=== PATIENT | male | born 1945 | race Caucasian/White ===

== ENCOUNTER 2018-03-26 20:44 | Inpatient (IN) | payer MEDICARE ==
[2018-03-26] MEDS ORDERED: SODIUM CHLORIDE 0.9% 1,000 ML IV STA ×2 (22:34→22:35)
[2018-03-27] MEDS ORDERED: PIPERACILLIN-TAZO 3.375 GM/50 ML PMX BAG ONE (00:30)
[2018-03-27 04:38] LABS: Basophils # (A) 0.1 k/uL (0-0.2); Basophils % (A) 1 %; Eosinophils # (A) 0.5 k/uL (0-0.7); Eosinophils % (A) 4 %; HGB 15.3 gm/dL (13.0-17.5); Lymphocytes % (A) 24 %; MCH 32.1 pg (25.0-35.0); MCHC 33.2 g/dL (31.0-37.0); MCV 96.8 fL (80.0-100.0); Mean Platelet Volume 6.9; Monocytes # (A) 0.6 k/uL (0-1.0); Monocytes % (A) 5 %; Neutrophils # (A) 8.1 k/uL (1.3-7.7); Neutrophils % (A) 66 %; Platelet Count 345 k/uL (150-450); RBC 4.76 m/uL (4.30-5.90); RDW 14.3 % (11.5-15.5); WBC 12.4 k/uL (3.8-10.6)
[2018-03-27 04:39] LABS: Mucus,Urine Rare /hpf; RBC,Urine 1 /hpf (0-5); WBC,Urine 1 /hpf (0-5)
[2018-03-27 04:41] LABS: Appearance,Urine Clear (Clear); Bilirubin,Urine Negative (Negative); Blood,Urine Negative (Negative); Color,Urine Light Yellow; Glucose,Urine (UA) Negative (Negative); Ketones,Urine Negative (Negative); Leukocyte Esterase,Urine Negative (Negative); Nitrite,Urine Negative (Negative); Protein,Urine 1+ (Negative); Specific Gravity,Urine 1.008 (1.001-1.035); Urobilinogen,Urine <2.0 mg/dL (<2.0)
[2018-03-27 04:52] LABS: Calcium 9.6 mg/dL (8.4-10.2); Potassium 6.1 mmol/L (3.5-5.1); Total Bilirubin 0.7 mg/dL (0.2-1.3); Total Protein 7.2 g/dL (6.3-8.2)
--- NOTE | 2018-03-27 08:08 | P.GSHP ---
History of Present Illness H&P Date: 03/27/18 Chief Complaint: Abdominal pain The patient is a 72-year-old man that began having vague abdominal pain couple of days ago. He got progressively worse so he came into the emergency department. Workup showed evidence of acute appendicitis and likely perforation with evidence of extraluminal air. He hasn't had abdominal surgery before. She had some loss of appetite and nausea. Low-grade fevers. - Review of Systems All systems: negative Past Medical History Past Medical History: COPD Additional Past Medical History / Comment(s): enlarged prostate History of Any Multi-Drug Resistant Organisms: None Reported Additional Past Surgical History / Comment(s): cataract. bipass done in both legs. Inguinal hernia repair. Past Psychological History: No Psychological Hx Reported Smoking Status: Current every day smoker Past Alcohol Use History: None Reported Past Drug Use History: None Reported Medications and Allergies Home Medications Medication Instructions Recorded Confirmed Type Acetaminophen [Tylenol Arthritis] 1,300 mg PO QAM 03/26/18 03/26/18 History Aspirin EC [Ecotrin Low Dose] 81 mg PO DAILY 03/26/18 03/26/18 History Esomeprazole Magnesium [NexIUM 40 mg PO DAILY 03/26/18 03/26/18 History 24Hr] Finasteride [Proscar] 5 mg PO DAILY 03/26/18 03/26/18 History Allergies Allergy/AdvReac Type Severity Reaction Status Date / Time No Known Allergies Allergy Verified 03/26/18 22:11 Surgical - Exam Osteopathic Statement: *. No significant issues noted on an osteopathic structural exam other than those noted in the History and Physical/Consult. Vital Signs Temp Pulse Resp BP Pulse Ox 98.5 F 72 16 155/74 96 03/26/18 21:49 03/26/18 21:49 03/26/18 21:49 03/26/18 21:49 03/26/18 21:49 - General well developed, well nourished, no distress - Eyes normal ocular movement - ENT normal mucosa - Neck trachea midline - Respiratory normal expansion, normal respiratory effort, clear to auscultation - Cardiovascular Rhythm: regular - Abdomen Abdomen: soft, tender (Right lower quadrant), bowel sounds (Bowel sounds are extremely hypoactive), guarding (Voluntary guarding right lower quadrant) Hernia: no umbilical Results - Labs 03/26/18 23:00 03/26/18 23:00 Abnormal Lab Results - Last 24 Hours (Table) 03/26/18 03/26/18 03/27/18 Range/Units 23:00 23:00 00:05 WBC 12.4 H (3.8-10.6) k/uL Neutrophils # 8.1 H (1.3-7.7) k/uL Potassium 6.1 H (3.5-5.1) mmol/L Creatinine 1.50 H (0.66-1.25) mg/dL Urine Protein 1+ H (Negative) Urine Mucus Rare H (None) /hpf Diabetes panel 03/26/18 Range/Units 23:00 Sodium 139 (137-145) mmol/L Potassium 6.1 H (3.5-5.1) mmol/L Chloride 106 (98-107) mmol/L Carbon Dioxide 24 (22-30) mmol/L BUN 17 (9-20) mg/dL Creatinine 1.50 H (0.66-1.25) mg/dL Glucose 91 (74-99) mg/dL Calcium 9.6 (8.4-10.2) mg/dL AST 29 (17-59) U/L ALT 25 (21-72) U/L Alkaline Phosphatase 61 (38-126) U/L Total Protein 7.2 (6.3-8.2) g/dL Albumin 4.0 (3.5-5.0) g/dL Calcium panel 03/26/18 Range/Units 23:00 Calcium 9.6 (8.4-10.2) mg/dL Albumin 4.0 (3.5-5.0) g/dL Pituitary panel 03/26/18 Range/Units 23:00 Sodium 139 (137-145) mmol/L Potassium 6.1 H (3.5-5.1) mmol/L Chloride 106 (98-107) mmol/L Carbon Dioxide 24 (22-30) mmol/L BUN 17 (9-20) mg/dL Creatinine 1.50 H (0.66-1.25) mg/dL Glucose 91 (74-99) mg/dL Calcium 9.6 (8.4-10.2) mg/dL Adrenal panel 03/26/18 Range/Units 23:00 Sodium 139 (137-145) mmol/L Potassium 6.1 H (3.5-5.1) mmol/L Chloride 106 (98-107) mmol/L Carbon Dioxide 24 (22-30) mmol/L BUN 17 (9-20) mg/dL Creatinine 1.50 H (0.66-1.25) mg/dL Glucose 91 (74-99) mg/dL Calcium 9.6 (8.4-10.2) mg/dL Total Bilirubin 0.7 (0.2-1.3) mg/dL AST 29 (17-59) U/L ALT 25 (21-72) U/L Alkaline Phosphatase 61 (38-126) U/L Total Protein 7.2 (6.3-8.2) g/dL Albumin 4.0 (3.5-5.0) g/dL - Imaging CT scan - abdomen: report reviewed Assessment and Plan (1) Acute appendicitis with localized peritonitis Current Visit: Yes Status: Acute Code(s): K35.3 - ACUTE APPENDICITIS WITH LOCALIZED PERITONITIS SNOMED Code(s): 381550451 (2) Peripheral vascular disease Current Visit: Yes Status: Acute Code(s): I73.9 - PERIPHERAL VASCULAR DISEASE, UNSPECIFIED SNOMED Code(s): 700909245 (3) COPD (chronic obstructive pulmonary disease) Current Visit: Yes Status: Acute Code(s): J44.9 - CHRONIC OBSTRUCTIVE PULMONARY DISEASE, UNSPECIFIED SNOMED Code(s): 34979708 Plan: Plan is laparoscopic appendectomy possible open. Due to the inflammatory change in the right lower quadrant I think his chance of open appendectomy is higher. Procedure risks and complications were discussed. Questions were encouraged and answered. We'll do that for him today.
[2018-03-27] MEDS ORDERED: PANTOPRAZOLE 40 MG/10 ML VIAL IVP STA (08:31)
[2018-03-27] MEDS ORDERED: metroNIDAZOLE-NS PMX 500 MG in SALINE 1 100ML.BAG IVPB STA (08:31)
[2018-03-27] MEDS: DEXTROSE 5%-0.45% NACL 1,000 ML IV SCH ×2 (08:53→22:22)
[2018-03-27] MEDS: ceFAZolin IN SWFI 2 GM/20 ML SYRINGE IVP STA ×2 (08:53→16:30)
--- NOTE | 2018-03-27 09:04 | CT ---
EXAM: CT Abdomen and Pelvis With Intravenous Contrast CLINICAL HISTORY: RLQ abd pain, nhp097/80ml injected, 20ml not used. hx: hernia repair, one kidney, GFR good and injection per Dr. Duval and risks explained to patient about having one kidney. DLP: 1868.90 TECHNIQUE: Axial computed tomography images of the abdomen and pelvis with intravenous contrast. CTDI is 41.20 mGy and DLP is 1868.90 mGy-cm. This CT exam was performed using one or more of the following dose reduction techniques: automated exposure control, adjustment of the mA and/or kV according to patient size, and/or use of iterative reconstruction technique. COMPARISON: None FINDINGS: Liver: Hepatic steatosis. Hepatomegaly versus Cira's lobe configuration. No focal lesion. Spleen: Nonspecific small hypodensity in the posterior spleen. Gallbladder: Normal. No stones or biliary dilatation. Pancreas: Normal. No mass. Adrenal glands: Normal. No mass. Kidneys: Severely atrophic right kidney with dystrophic calcifications. Renal vascular calcifications on the left. No hydronephrosis or obstructing stone. Small hypodensity in the left kidney is too small to definitively characterize. Bowel: Prominent inflammatory changes of the distal appendix, compatible with acute appendicitis. No bowel obstruction. Mildly prominent gas and fluid-filled small bowel loops are nonspecific but may represent ileus or enteritis. Urinary bladder: Mild prominence of the bladder wall may underdistention. Reproductive organs: Severe prostatomegaly protruding into the base of the bladder. Muscles: No mass. Subcutaneous tissues: Postsurgical changes in the left inguinal region. Peritoneal space: Normal. No free fluid. Lymph nodes: Normal. No lymphadenopathy. Vessels: Normal. No aneurysm or dissection. Bones: Lumbosacral transitional anatomy. Degenerative changes of the spine. No acute fracture or bony lesion. Lung bases: Mild dependent atelectasis bilaterally. Borderline size of the heart. IMPRESSION: 1. Distal acute appendicitis with trace surrounding free fluid which may represent microperforations. No fluid collection or free air. 2. No bowel obstruction. Mildly prominent gas and fluid filled small bowel loops are nonspecific but may represent ileus or enteritis. 3. Prominence of the wall of the bladder may be at least in part accentuated by underdistention. Please correlate with urinalysis if concerned for cystitis. 4. Severe prostatomegaly which protrudes into the base of the bladder. Critical Value Communications 03/27/18 01:32 Call Doctor Regarding Appendicitis, called SILVESTRE Allen on 03/27 01:28 (-04:00)
[2018-03-27] MEDS ORDERED: HYDROmorphone 0.5 MG/0.5 ML SYRINGE IVP PRN (12:25)
[2018-03-27] MEDS ORDERED: IV FLUID CONTINUATION 1,000 ML IV ONE (15:29)
[2018-03-27] MEDS ORDERED: BUPIVACAINE (PF) 0.5% 30 ML VIAL SQ ONE (15:52)
[2018-03-27] MEDS ORDERED: ceFAZolin IN SWFI 2 GM/20 ML SYRINGE IVP SCH (16:00)
[2018-03-27] MEDS ORDERED: metroNIDAZOLE-NS PMX 500 MG in SALINE 1 100ML.BAG IVPB SCH (16:00)
[2018-03-27] MEDS ORDERED: ceFAZolin 2,000 MG in DEXTROSE/WATER 1 50ML.BAG IVPB SCH (16:00)
[2018-03-27] MEDS ORDERED: fentaNYL (PF) 50 MCG/ML 2 ML AMP ONE (16:19)
[2018-03-27] MEDS ORDERED: ROCURONIUM BROMIDE 10 MG/ML 10 ML VIAL IV ONE (16:19)
[2018-03-27] MEDS ORDERED: PROPOFOL 10 MG/ML 20 ML VIAL IV ONE (16:19)
[2018-03-27] MEDS ORDERED: MIDAZOLAM 2 MG/2 ML VIAL ONE (16:19)
[2018-03-27] MEDS ORDERED: LIDOCAINE 1% INJ 10MG/ML (20 ML MDV) ONE (16:19)
[2018-03-27] MEDS ORDERED: GLYCOPYRROLATE 0.2 MG/ML 2 ML VIAL ONE (16:19)
[2018-03-27] MEDS ORDERED: NEOSTIGMINE 1 MG/ML 10 ML VIAL ONE (16:19)
[2018-03-27] MEDS ORDERED: ePHEDrine SULFATE/0.9% NACL/PF 50 MG/5 ML SYRINGE IV ONE (16:19)
[2018-03-27] MEDS ORDERED: SUCCINYLCHOLINE CHLORIDE VIAL 200 MG/10 ML VIAL IV ONE (16:19)
[2018-03-27] MEDS ORDERED: HYDROmorphone 1 MG/ML 1 ML SYRINGE IVP PRN ×2 (17:45→18:56)
[2018-03-27] MEDS ORDERED: HYDROmorphone 1 MG/ML 1 ML SYRINGE IVP ONE (18:22)
[2018-03-27] MEDS ORDERED: NALOXONE 0.4 MG/ML 1 ML VIAL IV PRN (18:56)
[2018-03-27] MEDS ORDERED: METOCLOPRAMIDE 5 MG/ML 2 ML VIAL IVP PRN (18:56)
[2018-03-27] MEDS ORDERED: ONDANSETRON 4 MG/2 ML VIAL IVP PRN (18:56)
--- NOTE | 2018-03-27 19:02 | P.OP ---
Date of Procedure: 03/27/18 Preoperative Diagnosis: Acute appendicitis with perforation Postoperative Diagnosis: Acute gangrenous appendicitis with perforation and abscess Procedure(s) Performed: Laparoscopic appendectomy with placement of drain Anesthesia: JONATHAN Surgeon: Traci Narayan Estimated Blood Loss (ml): 100 Pathology: other (Appendix) Condition: stable Disposition: PACU Indications for Procedure: The patient had been having abdominal pain for several days. He presented to the ER and workup showed acute appendicitis with perforation Description of Procedure: The patient's taken the operative suite was prepped and draped in the usual sterile manner under general endotracheal anesthetic. An infraumbilical incision was made and a Veress needle was placed into the abdominal cavity. Pneumoperitoneum was established with CO2 gas. Sites are chosen for accessory trochars and these are placed through small skin incisions. He has a little purulent material along the paracolic gutter and pelvis. The appendix is very inflamed with loops of small bowel adherent to it. These are carefully dissected off in a blunt manner. There was noted to be an abscess cavity and purulent material was aspirated. Where the appendix attached to the cecum it appeared fairly healthy. The mesentery was opened and the base of the appendix was ligated with a linear stapler. The mesentery was then tediously taken down with harmonic scissors. The specimen was placed into a specimen retrieval bag. The Ellik gutters and pelvis were then irrigated and aspirated. The cecum, small bowel appeared unremarkable. A channel drain was placed so it lay along the right paracolic gutter and into the pelvis. The pneumoperitoneum was then released. The trochars were removed. The skin and fascial incisions at the umbilicus had to be extended for removal of the appendix which is markedly enlarged was hard indurated mesentery. The fashion peritoneum at the umbilicus was closed with 0 Vicryl. The skin incisions were closed with rubia. Dressings were applied. He tolerated the procedure without difficulty was taken recovery room in satisfactory condition. According to or personnel, all counts were correct.
[2018-03-28] MEDS: metroNIDAZOLE-NS PMX 500 MG in SALINE 1 100ML.BAG IVPB SCH ×3 (04:18→19:21)
[2018-03-28] MEDS: HYDROcodone/APAP 5-325MG 1 EACH TAB PO PRN ×3 (04:22→18:21)
[2018-03-28] MEDS: ceFAZolin IN SWFI 2 GM/20 ML SYRINGE IVP SCH ×3 (05:59→22:10)
[2018-03-28 07:15] LABS: Basophils % (A) 0 %; Eosinophils # (A) 0.1 k/uL (0-0.7); Eosinophils % (A) 1 %; HCT 45.1 % (39.0-53.0); HGB 14.1 gm/dL (13.0-17.5); Lymphocytes # (A) 2.4 k/uL (1.0-4.8); Lymphocytes % (A) 19 %; MCH 30.7 pg (25.0-35.0); MCHC 31.2 g/dL (31.0-37.0); MCV 98.3 fL (80.0-100.0); Mean Platelet Volume 6.6; Monocytes # (A) 0.8 k/uL (0-1.0); Monocytes % (A) 6 %; Neutrophils # (A) 9.3 k/uL (1.3-7.7); Neutrophils % (A) 73 %; Platelet Count 341 k/uL (150-450); RBC 4.59 m/uL (4.30-5.90); WBC 12.8 k/uL (3.8-10.6)
[2018-03-28 07:26] LABS: Calcium 8.7 mg/dL (8.4-10.2); Potassium 4.7 mmol/L (3.5-5.1)
[2018-03-28] MEDS: PANTOPRAZOLE 40 MG/10 ML VIAL IVP SCH (09:18)
[2018-03-28] MEDS: DEXTROSE 5%-0.45% NACL 1,000 ML IV SCH (09:20)
--- NOTE | 2018-03-28 10:48 | P.PN ---
Subjective Progress Note Date: 03/28/18 Principal diagnosis: Status post laparoscopic appendectomy for acute appendicitis with abscess Patient's postoperative day 1 from laparoscopic appendectomy appendectomy with drainage of an abscess. He's feeling somewhat better than preop. Denies nausea or vomiting. Pain is controlled. Objective - Vital Signs Vital signs: Vital Signs Temp 98.5 F 03/28/18 09:26 Pulse 71 03/28/18 09:26 Resp 16 03/28/18 09:28 BP 148/79 03/28/18 09:26 Pulse Ox 90 L 03/28/18 09:26 Intake & Output 03/27/18 03/28/18 03/28/18 18:59 06:59 18:59 Intake Total 550 460 500 Output Total 260 1070 30 Balance 290 -610 470 Intake: IV 550 Intake, IV Titration 220 Amount ceFAZolin 2,000 mg In 20 Dextrose/Water 1 50ml.bag @ 100 mls/hr IVPB Q8HR DAVID Rx#:[id number] metroNIDAZOLE-NS PMX 500 200 mg In Saline 1 100ml.bag @ 100 mls/hr IVPB Q8H DAVID Rx#:[id number] Oral 240 500 Output: Drainage 70 30 Anterior Abdomen 70 30 Urine 250 Estimated Blood Loss 10 1000 Other: Voiding Method Toilet Urinal # Voids 1 - Constitutional General appearance: Present: cooperative, no acute distress - Respiratory Respiratory: bilateral: CTA, diminished (Mildly at the bases) - Cardiovascular Rhythm: regular - Gastrointestinal General gastrointestinal: Present: decreased bowel sounds, soft Localized gastrointestinal: surgical scar: diffuse (Dressings are intact clean and dry. LAUREN is serosanguineous) - Labs CBC & Chem 7: 03/28/18 06:33 03/28/18 06:33 Labs: Abnormal Lab Results - Last 24 Hours (Table) 03/28/18 03/28/18 Range/Units 06:33 06:33 WBC 12.8 H (3.8-10.6) k/uL Neutrophils # 9.3 H (1.3-7.7) k/uL Creatinine 1.50 H (0.66-1.25) mg/dL Assessment and Plan (1) Acute appendicitis with perforation and peritoneal abscess Current Visit: Yes Status: Acute Code(s): K35.3 - ACUTE APPENDICITIS WITH LOCALIZED PERITONITIS SNOMED Code(s): 17119434 (2) Peripheral vascular disease Current Visit: Yes Status: Acute Code(s): I73.9 - PERIPHERAL VASCULAR DISEASE, UNSPECIFIED SNOMED Code(s): 776072116 (3) COPD (chronic obstructive pulmonary disease) Current Visit: Yes Status: Acute Code(s): J44.9 - CHRONIC OBSTRUCTIVE PULMONARY DISEASE, UNSPECIFIED SNOMED Code(s): 94760288 Plan: We'll continue him on IV and probiotics couple of days. Monitor the LAUREN drain. Encourage activity. Questions were encouraged and answered.
--- NOTE | 2018-03-28 13:57 | P.CONS ---
History of Present Illness - Reason for Consult Consult date: 03/28/18 Medical management - Chief Complaint Abdominal pain - History of Present Illness This is a 72-year-old male patient of Dr. Curiel with a past medical history of COPD, gastroesophageal reflux disease, hyperlipidemia, osteoarthritis , benign prostatic hypertrophy, congenital single kidney followed by Dr. Roper , gastric ulcer, cluster headaches, peripheral vascular disease, tobacco use and dependence. Patient gives history of sharp right lower quadrant pain and been going on for couple of days. Family relate that he has gone to the [address] [place] [address] and has had difficulty walking can only make it about 20 feet. He finally came into [facility] emergency center late on the evening of Sunday and on CAT scan was found to have a distal acute appendicitis with trace surrounding free fluid with possible microperforations. No bowel obstruction. Prominence of the wall of the bladder, severe prostatomegaly. Patient subsequently underwent laparoscopic appendectomy and placement of a drain for acute gangrenous appendicitis with perforation and abscess. Patient has been placed on Kefzol and Flagyl. He is currently on a clear liquid diet which she is tolerating. He states he is feeling a little bit better from when he came into the hospital. There was difficulty keeping his pulse ox up during the night and there is concern for obstructive sleep apnea which patient will need workup as an outpatient. Review of Systems All systems: negative Constitutional: Reports poor appetite, Denies chills, Denies fever Eyes: denies blurred vision, denies pain Ears, nose, mouth and throat: Denies headache, Denies sore throat Cardiovascular: Denies chest pain, Denies shortness of breath Respiratory: Denies cough, Denies cough with sputum, Denies dyspnea, Denies excessive sputum, Denies hemoptysis, Denies home oxygen, Denies wheezing Gastrointestinal: Reports abdominal pain, Denies diarrhea, Denies nausea, Denies vomiting Genitourinary: Denies dysuria, Denies urinary retention Musculoskeletal: Denies myalgias Integumentary: Denies pruritus, Denies rash Neurological: Denies numbness, Denies weakness Psychiatric: Denies anxiety, Denies depression Endocrine: Denies fatigue, Denies weight change Past Medical History Past Medical History: COPD, GERD/Reflux, Hyperlipidemia, Osteoarthritis (OA), Pneumonia, Prostate Disorder, Vascular Disorder Additional Past Medical History / Comment(s): 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 History of Any Multi-Drug Resistant Organisms: None Reported Additional Past Surgical History / Comment(s): L fempop bypass, R femfem bypass , inguinal hernia repair (does not recall laterallity), bilateral cataract removal with lens implants. Past Anesthesia/Blood Transfusion Reactions: No Reported Reaction Smoking Status: Current every day smoker Additional Past Alcohol Use History / Comment(s): Patient is a smoker of 2 packs per day since he was 9 years of age. He drinks alcohol occasionally. He denies any marijuana or street drug use. He lives at home with his . 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 - Past Family History Father Family Medical History: COPD, Myocardial Infarction (AK) Additional Family Medical History / Comment(s): Father from a AK at the age of 59yrs. Mother Family Medical History: Cancer Additional Family Medical History / Comment(s): Mother from stomach cancer when she was 58 or 59 yrs old. Medications and Allergies Home Medications Medication Instructions Recorded Confirmed Type Acetaminophen [Tylenol Arthritis] 1,300 mg PO QAM 03/26/18 03/26/18 History Aspirin EC [Ecotrin Low Dose] 81 mg PO DAILY 03/26/18 03/26/18 History Esomeprazole Magnesium [NexIUM 40 mg PO DAILY 03/26/18 03/26/18 History 24Hr] Finasteride [Proscar] 5 mg PO DAILY 03/26/18 03/26/18 History Allergies Allergy/AdvReac Type Severity Reaction Status Date / Time No Known Allergies Allergy Verified 03/26/18 22:11 Physical Exam Vitals: Vital Signs Temp Pulse Pulse Resp BP BP Pulse Ox 03/28/18 09:28 16 03/28/18 09:26 98.5 F 71 16 148/79 90 L 03/28/18 01:45 98.1 F 74 16 152/76 100 03/28/18 00:00 61 47 L 15 03/27/18 21:15 47 L 176/87 03/27/18 21:00 46 L 165/82 03/27/18 20:48 92 15 03/27/18 20:46 98.3 F 15 157/69 92 L 03/27/18 20:45 50 L 164/83 03/27/18 20:30 164/81 03/27/18 20:15 89 164/51 03/27/18 20:00 144/70 03/27/18 19:45 67 179/76 03/27/18 19:30 92 156/86 03/27/18 19:15 97.9 F 65 16 160/74 88 L 03/27/18 19:00 61 16 160/74 97 03/27/18 18:45 61 14 160/74 95 03/27/18 18:30 58 L 16 162/77 100 03/27/18 18:15 56 L 16 172/68 100 03/27/18 18:00 53 L 14 138/77 92 L 03/27/18 17:50 97.3 F L 138/77 96 03/27/18 15:31 98.5 F 66 18 138/74 94 L 03/27/18 14:45 98.7 F 70 18 152/70 91 L 03/27/18 12:30 142/64 03/27/18 12:11 98.7 F 60 15 190/93 94 L Intake and Output 03/27/18 03/28/18 03/28/18 22:59 06:59 14:59 Intake Total 710 300 500 Output Total 1330 30 Balance -620 300 470 Intake: IV 550 Intake, IV Titration 100 120 Amount ceFAZolin 2,000 mg In 20 Dextrose/Water 1 50ml.bag @ 100 mls/hr IVPB Q8HR DAVID Rx#:[id number] metroNIDAZOLE-NS PMX 500 100 100 mg In Saline 1 100ml.bag @ 100 mls/hr IVPB Q8H DAVID Rx#:[id number] Oral 60 180 500 Output: Drainage 70 30 Anterior Abdomen 70 30 Urine 250 Estimated Blood Loss 1010 Other: Voiding Method Toilet Urinal # Voids 1 Gen: This is a 72-year-old obese male. He is in bed and appears to be comfortable. No acute distress. HEENT: Head is atraumatic, normocephalic. Pupils equal, round. Sclerae is anicteric. NECK: Supple. No JVD. No lymphadenopathy. No thyromegaly. LUNGS: Clear to auscultation. No wheezes or rhonchi. No intercostal retractions. HEART: Regular rate and rhythm. No murmur. ABDOMEN: Soft. Bowel sounds are decreased. No masses. Mild tenderness. Dressings in place that are clean and dry. LAUREN drain is draining serosanguineous fluid. EXTREMITIES: No pedal edema. No calf tenderness. Dorsalis pedis +2 bilaterally. NEUROLOGICAL: Patient is awake, alert and oriented x3. Cranial nerves 2 through 12 are grossly intact. Results CBC & Chem 7: 03/28/18 06:33 03/28/18 06:33 Labs: Abnormal Lab Results - Last 24 Hours (Table) 03/28/18 03/28/18 Range/Units 06:33 06:33 WBC 12.8 H (3.8-10.6) k/uL Neutrophils # 9.3 H (1.3-7.7) k/uL Creatinine 1.50 H (0.66-1.25) mg/dL Assessment and Plan Plan: 1. Acute gangrenous appendicitis with perforation and abscess status post laparoscopic appendectomy and drainage of abscess, LAUREN drain placement. Continue current plan per surgery. Continue pain management. Diet is clear liquids. Continue to increase activity. Incentive spirometry to reduce incidence of atelectasis and hospital-acquired pneumonia. Continue Kefzol and Flagyl. 2. COPD without exacerbation. Patient will be placed on nebulizer treatments 3 times daily as needed. 3. Benign prostatic hypertrophy. Continue Proscar 5 mg daily. Monitor for urinary retention. 4. Gastroesophageal reflux disease. Continue Protonix. 5. Peripheral vascular disease, stable. 6. Hyperlipidemia, not on statin. 7. Single kidney with chronic kidney disease stage 3a. Avoid nephrotoxic agents. 8. Possible obstructive sleep apnea. Patient will need outpatient sleep study. 9. Tobacco use and dependence. Nicotine patch. 10. DVT prophylaxis. NATALIYA leal and SCDs. Discharge plan: Return home Impression and plan of care have been directed as dictated by the signing physician. Akilah Guevara nurse practitioner acting as scribe for signing physician.
[2018-03-28] MEDS ORDERED: IPRATROPIUM-ALBUTEROL 3 ML NEB INHALATION PRN (14:13)
[2018-03-28] MEDS: FINASTERIDE 5 MG TAB PO SCH (14:43)
[2018-03-29] MEDS: DEXTROSE 5%-0.45% NACL 1,000 ML IV SCH ×3 (05:03→20:37)
[2018-03-29] MEDS: metroNIDAZOLE-NS PMX 500 MG in SALINE 1 100ML.BAG IVPB SCH ×3 (05:04→20:33)
[2018-03-29] MEDS: ceFAZolin IN SWFI 2 GM/20 ML SYRINGE IVP SCH ×3 (06:02→22:42)
[2018-03-29 07:14] VITALS: RESP 16
[2018-03-29] MEDS: FINASTERIDE 5 MG TAB PO SCH (08:08)
[2018-03-29] MEDS: PANTOPRAZOLE 40 MG/10 ML VIAL IVP SCH (08:08)
--- NOTE | 2018-03-29 09:50 | P.PN ---
Subjective Progress Note Date: 03/29/18 Patient is seen on rounds. He's tolerating clear liquid. No flatus yet. He is having some occasional belching. Ambulating well. Pain is controlled. He was started on nebulizers and will be worked up as an outpatient for possible obstructive sleep apnea. Objective - Vital Signs Vital signs: Vital Signs Temp 98.7 F 03/29/18 00:55 Pulse 80 03/29/18 07:22 Resp 16 03/29/18 08:00 BP 141/78 03/29/18 00:55 Pulse Ox 92 L 03/29/18 00:55 Intake & Output 03/28/18 03/29/18 03/29/18 18:59 06:59 18:59 Intake Total 950 720 Output Total 100 70 Balance 850 650 Intake: Oral 950 720 Output: Drainage 100 70 Anterior Abdomen 100 70 Other: Voiding Method Toilet Urinal # Voids 1 - Constitutional General appearance: Present: cooperative, no acute distress - Respiratory Respiratory: bilateral: CTA, diminished (At the bases, left greater than right) - Gastrointestinal General gastrointestinal: Present: decreased bowel sounds, soft Localized gastrointestinal: surgical scar: diffuse (Incisions are intact clean and dry. LAUREN is serous and a little murky) - Labs CBC & Chem 7: 03/28/18 06:33 03/28/18 06:33 Assessment and Plan (1) Acute appendicitis with perforation and peritoneal abscess Current Visit: Yes Status: Acute Code(s): K35.3 - ACUTE APPENDICITIS WITH LOCALIZED PERITONITIS SNOMED Code(s): 22051434 (2) Peripheral vascular disease Current Visit: Yes Status: Acute Code(s): I73.9 - PERIPHERAL VASCULAR DISEASE, UNSPECIFIED SNOMED Code(s): 865616415 (3) COPD (chronic obstructive pulmonary disease) Current Visit: Yes Status: Acute Code(s): J44.9 - CHRONIC OBSTRUCTIVE PULMONARY DISEASE, UNSPECIFIED SNOMED Code(s): 22310310 Plan: A diet will be advanced. Encouraged activity. Monitor the LAUREN drain. Likely ready for discharge in 24-48 hours. Monitor him for development of ileus. The terminal ileum and other small bowel loops were part of the walled off abscess.
--- NOTE | 2018-03-29 15:21 | P.PN ---
Subjective Progress Note Date: 03/29/18 This is a 72-year-old male patient of Dr. Curiel with a past medical history of COPD, gastroesophageal reflux disease, hyperlipidemia, osteoarthritis , benign prostatic hypertrophy, congenital single kidney followed by Dr. Roper , gastric ulcer, cluster headaches, peripheral vascular disease, tobacco use and dependence. Patient gives history of sharp right lower quadrant pain and been going on for couple of days. Family relate that he has gone to the [address] [place] [address] and has had difficulty walking can only make it about 20 feet. He finally came into [facility] emergency center late on the evening of Sunday and on CAT scan was found to have a distal acute appendicitis with trace surrounding free fluid with possible microperforations. No bowel obstruction. Prominence of the wall of the bladder, severe prostatomegaly. Patient subsequently underwent laparoscopic appendectomy and placement of a drain for acute gangrenous appendicitis with perforation and abscess. Patient has been placed on Kefzol and Flagyl. He is currently on a clear liquid diet which she is tolerating. He states he is feeling a little bit better from when he came into the hospital. There was difficulty keeping his pulse ox up during the night and there is concern for obstructive sleep apnea which patient will need workup as an outpatient. 03/29: Patient is tolerating clear liquids. His diet has been advanced for lunch today. He has remained afebrile. White count yesterday 12.8. Patient is planning to return home once he is ready for discharge. Objective - Vital Signs Vital signs: Vital Signs Temp 98.7 F 03/29/18 00:55 Pulse 80 03/29/18 07:22 Resp 16 03/29/18 08:00 BP 141/78 03/29/18 00:55 Pulse Ox 92 L 03/29/18 00:55 Intake & Output 03/28/18 03/29/18 03/29/18 18:59 06:59 18:59 Intake Total 950 720 Output Total 100 70 Balance 850 650 Intake: Oral 950 720 Output: Drainage 100 70 Anterior Abdomen 100 70 Other: Voiding Method Toilet Urinal # Voids 1 2 - Exam Gen: This is a 72-year-old obese male. He is in bed and appears to be comfortable. No acute distress. HEENT: Head is atraumatic, normocephalic. Pupils equal, round. Sclerae is anicteric. NECK: Supple. No JVD. No lymphadenopathy. No thyromegaly. LUNGS: Clear to auscultation. No wheezes or rhonchi. No intercostal retractions. HEART: Regular rate and rhythm. No murmur. ABDOMEN: Soft. Bowel sounds are decreased. No masses. Mild tenderness. Dressings in place that are clean and dry. LAUREN drain is draining serosanguineous fluid. EXTREMITIES: No pedal edema. No calf tenderness. Dorsalis pedis +2 bilaterally. NEUROLOGICAL: Patient is awake, alert and oriented x3. Cranial nerves 2 through 12 are grossly intact. - Labs CBC & Chem 7: 03/28/18 06:33 03/28/18 06:33 Assessment and Plan Plan: 1. Acute gangrenous appendicitis with perforation and abscess status post laparoscopic appendectomy and drainage of abscess, LAUREN drain placement. Continue current plan per surgery. Continue pain management. Diet low fiber. Continue to increase activity. Incentive spirometry to reduce incidence of atelectasis and hospital-acquired pneumonia. Continue Kefzol and Flagyl. 2. COPD without exacerbation. Patient will be placed on nebulizer treatments 3 times daily as needed. 3. Benign prostatic hypertrophy. Continue Proscar 5 mg daily. Monitor for urinary retention. 4. Gastroesophageal reflux disease. Continue Protonix. 5. Peripheral vascular disease, stable. 6. Hyperlipidemia, not on statin. 7. Single kidney with chronic kidney disease stage 3a. Avoid nephrotoxic agents. 8. Possible obstructive sleep apnea. Patient will need outpatient sleep study. 9. Tobacco use and dependence. Nicotine patch. 10. DVT prophylaxis. NATALIYA leal and GEORGESs. Discharge plan: Return home Impression and plan of care have been directed as dictated by the signing physician. Akilah Guevara nurse practitioner acting as scribe for signing physician.
[2018-03-30] MEDS: metroNIDAZOLE-NS PMX 500 MG in SALINE 1 100ML.BAG IVPB SCH ×2 (05:10→14:12)
[2018-03-30] MEDS: ceFAZolin IN SWFI 2 GM/20 ML SYRINGE IVP SCH ×2 (05:10→14:12)
[2018-03-30 06:52] LABS: HCT 41.1 % (39.0-53.0); HGB 13.4 gm/dL (13.0-17.5); MCH 31.7 pg (25.0-35.0); MCHC 32.6 g/dL (31.0-37.0); MCV 97.2 fL (80.0-100.0); Mean Platelet Volume 6.8; Platelet Count 336 k/uL (150-450); RBC 4.23 m/uL (4.30-5.90); WBC 10.3 k/uL (3.8-10.6)
[2018-03-30 07:15] LABS: Calcium 9.2 mg/dL (8.4-10.2); Potassium 4.9 mmol/L (3.5-5.1)
[2018-03-30] MEDS ORDERED: PANTOPRAZOLE 40 MG TABLET PO SCH (07:30)
[2018-03-30 08:08] VITALS: BP 132/77; PULSE 62; TEMP 97
[2018-03-30] MEDS: FINASTERIDE 5 MG TAB PO SCH (08:18)
--- NOTE | 2018-03-30 12:28 | P.PN ---
Subjective Progress Note Date: 03/30/18 This is a 72-year-old male patient of Dr. Curiel with a past medical history of COPD, gastroesophageal reflux disease, hyperlipidemia, osteoarthritis , benign prostatic hypertrophy, congenital single kidney followed by Dr. Roper , gastric ulcer, cluster headaches, peripheral vascular disease, tobacco use and dependence. Patient gives history of sharp right lower quadrant pain and been going on for couple of days. Family relate that he has gone to the [address] [place] [address] and has had difficulty walking can only make it about 20 feet. He finally came into [facility] emergency center late on the evening of Sunday and on CAT scan was found to have a distal acute appendicitis with trace surrounding free fluid with possible microperforations. No bowel obstruction. Prominence of the wall of the bladder, severe prostatomegaly. Patient subsequently underwent laparoscopic appendectomy and placement of a drain for acute gangrenous appendicitis with perforation and abscess. Patient has been placed on Kefzol and Flagyl. He is currently on a clear liquid diet which she is tolerating. He states he is feeling a little bit better from when he came into the hospital. There was difficulty keeping his pulse ox up during the night and there is concern for obstructive sleep apnea which patient will need workup as an outpatient. 03/29: Patient is tolerating clear liquids. His diet has been advanced for lunch today. He has remained afebrile. White count yesterday 12.8. Patient is planning to return home once he is ready for discharge. 03/30: Patient states that he is tolerating his diet well. His abdominal pain is controlled. He has decreased output from his LAUREN drain. Abdominal binder remains in place. He states he has been ambulating without difficulty. Anticipate he will be discharged today. Objective - Vital Signs Vital signs: Vital Signs Temp 97.0 F L 03/30/18 07:54 Pulse 62 03/30/18 07:54 Resp 16 03/30/18 07:54 BP 132/77 03/30/18 07:54 Pulse Ox 92 L 03/30/18 07:54 Intake & Output 03/29/18 03/30/18 03/30/18 18:59 06:59 18:59 Intake Total 637 2027 118 Output Total 50 20 Balance 637 1978 98 Intake: Intake, IV Titration 948 Amount Dextrose 5%-0.45% NaCl 1, 748 000 ml @ 75 mls/hr IV . [id number] DAVID Rx#:[id number] metroNIDAZOLE-NS PMX 500 200 mg In Saline 1 100ml.bag @ 100 mls/hr IVPB Q8H DAVID Rx#:[id number] Oral 637 1080 118 Output: Drainage 50 20 Anterior Abdomen 50 20 Other: Voiding Method Toilet Urinal # Voids 1 2 # Bowel Movements 0 - Exam Gen: This is a 72-year-old obese male. He is in bed and appears to be comfortable. No acute distress. HEENT: Head is atraumatic, normocephalic. Pupils equal, round. Sclerae is anicteric. NECK: Supple. No JVD. No lymphadenopathy. No thyromegaly. LUNGS: Clear to auscultation. No wheezes or rhonchi. No intercostal retractions. HEART: Regular rate and rhythm. No murmur. ABDOMEN: Soft. Bowel sounds are normal. No masses. Mild tenderness. Dressings in place that are clean and dry. LAUREN drain is draining serosanguineous fluid. EXTREMITIES: No pedal edema. No calf tenderness. Dorsalis pedis +2 bilaterally. NEUROLOGICAL: Patient is awake, alert and oriented x3. Cranial nerves 2 through 12 are grossly intact. - Labs CBC & Chem 7: 03/30/18 06:35 03/30/18 06:35 Labs: Abnormal Lab Results - Last 24 Hours (Table) 03/30/18 03/30/18 Range/Units 06:35 06:35 RBC 4.23 L (4.30-5.90) m/uL Creatinine 1.45 H (0.66-1.25) mg/dL Assessment and Plan Plan: 1. Acute gangrenous appendicitis with perforation and abscess status post laparoscopic appendectomy and drainage of abscess, LAUREN drain placement. Continue current plan per surgery. Continue pain management. Diet low fiber. Continue to increase activity. Incentive spirometry to reduce incidence of atelectasis and hospital-acquired pneumonia. Continue Kefzol and Flagyl. 2. COPD without exacerbation. Patient will be placed on nebulizer treatments 3 times daily as needed. 3. Benign prostatic hypertrophy. Continue Proscar 5 mg daily. Monitor for urinary retention. 4. Gastroesophageal reflux disease. Continue Protonix. 5. Peripheral vascular disease, stable. 6. Hyperlipidemia, not on statin. 7. Single kidney with chronic kidney disease stage 3a. Avoid nephrotoxic agents. 8. Possible obstructive sleep apnea. Patient will need outpatient sleep study. 9. Tobacco use and dependence. Nicotine patch. 10. DVT prophylaxis. NATALIYA leal and SCDs. Discharge plan: Return home Impression and plan of care have been directed as dictated by the signing physician. Akilah Guevara nurse practitioner acting as scribe for signing physician.
--- NOTE | 2018-03-30 13:23 | P.PN ---
Subjective Progress Note Date: 03/30/18 Patient doing very well he had a small bowel movement is tolerating a diet vital signs are stable afebrile his pain is well-controlled LAUREN drain is serosanguineous Objective - Vital Signs Vital signs: Vital Signs Temp 97.0 F L 03/30/18 07:54 Pulse 62 03/30/18 07:54 Resp 16 03/30/18 07:54 BP 132/77 03/30/18 07:54 Pulse Ox 92 L 03/30/18 07:54 Intake & Output 03/29/18 03/30/18 03/30/18 18:59 06:59 18:59 Intake Total 637 2028 118 Output Total 50 20 Balance 637 1978 98 Intake: Intake, IV Titration 948 Amount Dextrose 5%-0.45% NaCl 1, 748 000 ml @ 75 mls/hr IV . [id number] DAVID Rx#:[id number] metroNIDAZOLE-NS PMX 500 200 mg In Saline 1 100ml.bag @ 100 mls/hr IVPB Q8H DAVID Rx#:[id number] Oral 637 1080 118 Output: Drainage 50 20 Anterior Abdomen 50 20 Other: Voiding Method Toilet Urinal # Voids 1 2 # Bowel Movements 0 - Constitutional General appearance: Present: cooperative - Respiratory Details: Nonlabored - Cardiovascular Rhythm: regular - Gastrointestinal Gastrointestinal Comment(s): Soft nontender nondistended LAUREN drain serosanguineous incisions clean dry and intact - Psychiatric Psychiatric: Present: A&O x's 3 - Labs CBC & Chem 7: 03/30/18 06:35 03/30/18 06:35 Labs: Abnormal Lab Results - Last 24 Hours (Table) 03/30/18 03/30/18 Range/Units 06:35 06:35 RBC 4.23 L (4.30-5.90) m/uL Creatinine 1.45 H (0.66-1.25) mg/dL Assessment and Plan Assessment: Status post laparoscopic appendectomy Plan: Patient is doing very well he is tolerating his diet his LAUREN drain is serosanguineous. DC LAUREN. Patient may be discharged home with follow-up with Dr. Narayan in 1-2 weeks. He will be discharged home on Augmentin for 7 days
--- NOTE | 2018-04-04 11:25 | P.DS ---
Providers Date of admission: 03/27/18 18:56 Attending physician: Traci Narayan Consults: 03/27/18 14:23 Consult Physician Urgent Consulting Provider: Sourav Morales Reason/Comments: medical management Do you want consulting provider notified?: Yes Placement Type Exists?: Yes Primary care physician: Galileo [facility] Course: Patient was admitted after appendectomy, he had perforated appendix with abscess. Post operativly he progressed well, on 03/30 he was passing BM and tolerating diet, his pain was well controlled and LAUREN was serosang. LAUREN was DCed and patient was discharged home in stable condition with augmentin with instructions to follow up with Dr. Narayan Patient Condition at Discharge: Stable Plan - Discharge Summary Discharge Rx Participant: No New Discharge Prescriptions: New HYDROcodone/APAP 5-325MG [[place] 5-325] 1 - 2 tab PO Q4H PRN #15 tab PRN Reason: Pain Ciprofloxacin HCl [Cipro] 500 mg PO Q12HR #10 tablet metroNIDAZOLE [Flagyl] 500 mg PO TID #15 tab Amoxic-Pot Clav 875-125Mg [Augmentin 875-125] 1 tab PO Q12HR #14 tablet HYDROcodone/APAP 5-325MG [[place] 5-325] 1 tab PO Q6HR PRN 3 Days #12 tab PRN Reason: Pain No Action Esomeprazole Magnesium [NexIUM 24Hr] 40 mg PO DAILY Aspirin EC [Ecotrin Low Dose] 81 mg PO DAILY Acetaminophen [Tylenol Arthritis] 1,300 mg PO QAM Finasteride [Proscar] 5 mg PO DAILY Discharge Medication List Acetaminophen [Tylenol Arthritis] 1,300 mg PO QAM 03/26/18 [History] Aspirin EC [Ecotrin Low Dose] 81 mg PO DAILY 03/26/18 [History] Esomeprazole Magnesium [NexIUM 24Hr] 40 mg PO DAILY 03/26/18 [History] Finasteride [Proscar] 5 mg PO DAILY 03/26/18 [History] Ciprofloxacin HCl [Cipro] 500 mg PO Q12HR #10 tablet 03/29/18 [Rx] HYDROcodone/APAP 5-325MG [[place] 5-325] 1 - 2 tab PO Q4H PRN #15 tab 03/29/18 [Rx ] metroNIDAZOLE [Flagyl] 500 mg PO TID #15 tab 03/29/18 [Rx] Amoxic-Pot Clav 875-125Mg [Augmentin 875-125] 1 tab PO Q12HR #14 tablet [Rx] HYDROcodone/APAP 5-325MG [[place] 5-325] 1 tab PO Q6HR PRN 3 Days #12 tab [Rx] Follow up Appointment(s)/Referral(s): Traci Narayan DO [Doctor of Osteopathic Medicine] - 1 Week (CALL OFFICE TO SCHEDULE FOLLOW APPOINTMENT, OFFICE CLOSED AT TIME OF DISCHARGE.) Galileo Curiel MD [Primary Care Provider] - 1 Week (CALL OFFICE TO SCHEDULE APPOINTMENT, OFFICE CLOSED AT TIME OF DISCHARGE.) Patient Instructions/Handouts: Low Fiber Diet (DC), Open Appendectomy (DC) Activity/Diet/Wound Care/Special Instructions: You may shower. No tub baths for [address] while taking pain pills. Call or return to the emergency department if you develop fever, chills, nausea , vomiting, wound concerns Discharge Disposition: HOME SELF-CARE
== END 2018-03-30 17:00 | disposition home or self-care (01) | DRG 339 ==
LOC: EC 20:44 → 3SUR 03-27 01:43 → OBSVTOIN 03-27 18:56
PROVIDERS: ADMIT Surgery; ATTEND Surgery
PROC: 0DTJ4ZZ Resection of Appendix, Percutaneous Endoscopic Approach (ICD-10-PCS; principal; 2018-03-27 16:00)
DX: K35.3 Acute appendicitis with localized peritonitis (principal); Q60.0 Renal agenesis, unilateral; J44.9 Chronic obstructive pulmonary disease, unspecified; N18.3 Chronic kidney disease, stage 3 (moderate); K21.9 Gastro-esophageal reflux disease without esophagitis; E78.5 Hyperlipidemia, unspecified; M19.041 Primary osteoarthritis, right hand; M19.042 Primary osteoarthritis, left hand; I73.9 Peripheral vascular disease, unspecified; R26.2 Difficulty in walking, not elsewhere classified; G44.009 Cluster headache syndrome, unspecified, not intractable; G47.33 Obstructive sleep apnea (adult) (pediatric); N40.0 Benign prostatic hyperplasia without lower urinary tract symptoms; F17.210 Nicotine dependence, cigarettes, uncomplicated; Z71.6 Tobacco abuse counseling; Z79.82 Long term (current) use of aspirin; Z79.899 Other long term (current) drug therapy; Z86.79 Personal history of other diseases of the circulatory system; Z87.11 Personal history of peptic ulcer disease; Z87.01 Personal history of pneumonia (recurrent); Z98.42 Cataract extraction status, left eye; Z98.41 Cataract extraction status, right eye; Z96.1 Presence of intraocular lens; Z80.0 Family history of malignant neoplasm of digestive organs; Z82.49 Family history of ischemic heart disease and other diseases of the circulatory system; Z82.5 Family history of asthma and other chronic lower respiratory diseases
CPT/HCPCS: 36415; 74177; 80048; 80053; 81001; 82150; 83690; 84132; 85025; 85027; 88304; 94640; 96361; 96365; 96366; 96375; 99285

== ENCOUNTER → 2018-12-06 | Outpatient (CLI) | payer MEDICARE | END | disposition home or self-care (01) | LOC: LABWHC1 10:28 | PROVIDERS: ATTEND Urology | DX: R97.20 Elevated prostate specific antigen [PSA] (principal) | CPT/HCPCS: 36415; 84153 ==

== ENCOUNTER 2019-11-24 09:40 | Inpatient (IN) | payer MEDICARE ==
--- NOTE | 2019-11-24 11:36 | XR ---
EXAMINATION TYPE: XR chest 2V DATE OF EXAM: 11/24/2019 COMPARISON: NONE TECHNIQUE: PA and lateral views submitted. HISTORY: Difficulty breathing FINDINGS: Hypertrophic and degenerative change of the spine. Hyperinflation compatible COPD and there is cardio megaly and pulmonary artery enlargement. Related for pulmonary arterial hypertension. There are subse gmental changes seen in the right lower lobe. IMPRESSION: 1. COPD with patchy right perihilar and lower lobe atelectasis versus pneumonia. 2. Correlate for chronic interstitial pulmonary fibrosis
--- NOTE | 2019-11-24 11:36 | ED ---
General Adult HPI - General Chief complaint: Dizziness Stated complaint: fever Time Seen by Provider: 11/24/19 10:05 Source: patient, family, RN notes reviewed, old records reviewed Mode of arrival: ambulatory Limitations: no limitations - History of Present Illness Initial comments: This is a 74-year-old male who presents emergency Department complaining of having a fever starting about midnight. Patient states she has a dry cough. Patient denies any shortness of breath or difficulty breathing. Patient denies any chest pain or palpitations. Patient states he has been exposed to his grandson was influenza B. Patient denies any abdominal pain patient denies nausea vomiting diarrhea. - Related Data Home Medications Medication Instructions Recorded Confirmed Acetaminophen [Tylenol Arthritis] 1,300 mg PO QAM 03/26/18 11/24/19 Aspirin EC [Ecotrin Low Dose] 81 mg PO DAILY 03/26/18 11/24/19 Esomeprazole Magnesium [NexIUM 40 mg PO DAILY 03/26/18 11/24/19 24Hr] Finasteride [Proscar] 5 mg PO DAILY 03/26/18 11/24/19 Allergies Allergy/AdvReac Type Severity Reaction Status Date / Time No Known Allergies Allergy Verified 11/24/19 11:01 Review of Systems ROS Statement: Those systems with pertinent positive or pertinent negative responses have been documented in the HPI. ROS Other: All systems not noted in ROS Statement are negative. 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 History of Any Multi-Drug Resistant Organisms: None Reported Additional Past Surgical History / Comment(s): L fempop bypass, R femfem bypass, inguinal hernia repair (does not recall laterallity), bilateral cataract removal with lens implants. Past Anesthesia/Blood Transfusion Reactions: No Reported Reaction Past Psychological History: No Psychological Hx Reported Smoking Status: Current every day smoker Past Alcohol Use History: None Reported Past Drug Use History: None Reported - Past Family History Father Family Medical History: COPD, Myocardial Infarction (PA) Additional Family Medical History / Comment(s): Father from a PA at the age of 59yrs. Mother Family Medical History: Cancer Additional Family Medical History / Comment(s): Mother from stomach cancer when she was 58 or 59 yrs old. General Exam - General Exam Comments Initial Comments: GENERAL: Patient is well-developed and well-nourished. Patient is nontoxic and well- hydrated and is in no acute distress. ENT: Neck is soft and supple. No significant lymphadenopathy is noted. Oropharynx is clear. Moist mucous membranes. Neck has full range of motion without eliciting any pain. EYES: The sclera were anicteric and conjunctiva were pink and moist. Extraocular movements were intact and pupils were equal round and reactive to light. Eyelids were unremarkable. PULMONARY: Unlabored respirations. Good breath sounds bilaterally. No audible rales rhonchi or wheezing was noted. CARDIOVASCULAR: There is a regular rate and rhythm without any murmurs gallops or rubs. ABDOMEN: Soft and nontender with normal bowel sounds. SKIN: Skin is clear with no lesions or rashes and otherwise unremarkable. NEUROLOGIC: Patient is alert and oriented x3. Cranial nerves II through XII are grossly intact. Motor and sensory are also intact. Normal speech, volume and content. Symmetrical smile. MUSCULOSKELETAL: Normal extremities with adequate strength and full range of motion. LYMPHATICS: No significant lymphadenopathy is noted PSYCHIATRIC: Normal psychiatric evaluation. Limitations: no limitations Course Vital Signs 11/24/19 11/24/19 11/24/19 10:03 12:12 12:44 Temperature 98.6 F 98.5 F Pulse Rate 55 L 53 L Respiratory 20 16 Rate Blood Pressure 150/78 111/85 O2 Sat by Pulse 94 L 93 L Oximetry 11/24/19 14:27 Temperature Pulse Rate 65 Respiratory 16 Rate Blood Pressure 131/95 O2 Sat by Pulse 95 Oximetry Medical Decision Making - Medical Decision Making EKG shows right bundle branch block at 64 bpm QRS is 162 QT interval is 454 QTC is 468. Patient has no discernible P waves. ST segment depression in the prec ordial leads Chest x-ray shows a possible infiltrate in the right lung. Patient received Rocephin. Patient's troponin came back elevated start the patient heparin give the patient aspirin and Nitropaste. I am easily spoke with Dr. Rollins I sent him EKG and he called me back with his impression of EKG and at this time he did not feel as though catheterization was indicated. I ordered an echo. I spoke with Dr. Guillory she agreed to admit the patient admitted the patient wrote admitting orders. - Lab Data Result diagrams: 11/24/19 12:35 11/24/19 12:35 Lab Results 11/24/19 11/24/19 11/24/19 Range/Units 11:16 12:35 12:35 WBC 10.8 H (3.8-10.6) k/uL RBC 4.67 (4.30-5.90) m/uL Hgb 14.9 (13.0-17.5) gm/dL Hct 46.4 (39.0-53.0) % MCV 99.3 (80.0-100.0) fL MCH 32.0 (25.0-35.0) pg MCHC 32.2 (31.0-37.0) g/dL RDW 14.0 (11.5-15.5) % Plt Count 293 (150-450) k/uL Neutrophils % 76 % Lymphocytes % 17 % Monocytes % 4 % Eosinophils % 1 % Basophils % 0 % Neutrophils # 8.2 H (1.3-7.7) k/uL Lymphocytes # 1.8 (1.0-4.8) k/uL Monocytes # 0.4 (0-1.0) k/uL Eosinophils # 0.1 (0-0.7) k/uL Basophils # 0.0 (0-0.2) k/uL PT 9.6 (9.0-12.0) sec INR 0.9 (<1.2) APTT 22.9 (22.0-30.0) sec Sodium (137-145) mmol/L Potassium (3.5-5.1) mmol/L Chloride (98-107) mmol/L Carbon Dioxide (22-30) mmol/L Anion Gap mmol/L BUN (9-20) mg/dL Creatinine (0.66-1.25) mg/dL Est GFR (CKD-EPI)AfAm (>60 ml/min/1.73 sqM) Est GFR (CKD-EPI)NonAf (>60 ml/min/1.73 sqM) Glucose (74-99) mg/dL Plasma Lactic Acid Hamilton (0.7-2.0) mmol/L Calcium (8.4-10.2) mg/dL Total Bilirubin (0.2-1.3) mg/dL AST (17-59) U/L ALT (4-49) U/L Alkaline Phosphatase (38-126) U/L Troponin I (0.000-0.034) ng/mL Total Protein (6.3-8.2) g/dL Albumin (3.5-5.0) g/dL Urine Color Urine Appearance (Clear) Urine pH (5.0-8.0) Ur Specific [place] (1.001-1.035) Urine Protein (Negative) Urine Glucose (UA) (Negative) Urine Ketones (Negative) Urine Blood (Negative) Urine Nitrite (Negative) Urine Bilirubin (Negative) Urine Urobilinogen (<2.0) mg/dL Ur Leukocyte Esterase (Negative) Urine RBC (0-5) /hpf Urine WBC (0-5) /hpf Ur Squamous Epith Cells (0-4) /hpf Hyaline Casts (0-2) /lpf Urine Mucus (None) /hpf Influenza Type A RNA Not Detected (Not Detectd) Influenza Type B (PCR) Not Detected (Not Detectd) RSV (PCR) Negative (Negative) 11/24/19 11/24/19 11/24/19 Range/Units 12:35 12:35 12:35 WBC (3.8-10.6) k/uL RBC (4.30-5.90) m/uL Hgb (13.0-17.5) gm/dL Hct (39.0-53.0) % MCV (80.0-100.0) fL MCH (25.0-35.0) pg MCHC (31.0-37.0) g/dL RDW (11.5-15.5) % Plt Count (150-450) k/uL Neutrophils % % Lymphocytes % % Monocytes % % Eosinophils % % Basophils % % Neutrophils # (1.3-7.7) k/uL Lymphocytes # (1.0-4.8) k/uL Monocytes # (0-1.0) k/uL Eosinophils # (0-0.7) k/uL Basophils # (0-0.2) k/uL PT (9.0-12.0) sec INR (<1.2) APTT (22.0-30.0) sec Sodium 139 (137-145) mmol/L Potassium 5.8 H (3.5-5.1) mmol/L Chloride 105 (98-107) mmol/L Carbon Dioxide 28 (22-30) mmol/L Anion Gap 6 mmol/L BUN 26 H (9-20) mg/dL Creatinine 1.76 H (0.66-1.25) mg/dL Est GFR (CKD-EPI)AfAm 44 (>60 ml/min/1.73 sqM) Est GFR (CKD-EPI)NonAf 38 (>60 ml/min/1.73 sqM) Glucose 110 H (74-99) mg/dL Plasma Lactic Acid [place] 1.5 (0.7-2.0) mmol/L Calcium 9.7 (8.4-10.2) mg/dL Total Bilirubin 0.4 (0.2-1.3) mg/dL AST 115 H (17-59) U/L ALT 32 (4-49) U/L Alkaline Phosphatase 60 (38-126) U/L Troponin I 9.270 H* (0.000-0.034) ng/mL Total Protein 7.0 (6.3-8.2) g/dL Albumin 3.9 (3.5-5.0) g/dL Urine Color Urine Appearance (Clear) Urine pH (5.0-8.0) Ur Specific [place] (1.001-1.035) Urine Protein (Negative) Urine Glucose (UA) (Negative) Urine Ketones (Negative) Urine Blood (Negative) Urine Nitrite (Negative) Urine Bilirubin (Negative) Urine Urobilinogen (<2.0) mg/dL Ur Leukocyte Esterase (Negative) Urine RBC (0-5) /hpf Urine WBC (0-5) /hpf Ur Squamous Epith Cells (0-4) /hpf Hyaline Casts (0-2) /lpf Urine Mucus (None) /hpf Influenza Type A RNA (Not Detectd) Influenza Type B (PCR) (Not Detectd) RSV (PCR) (Negative) 11/24/19 Range/Units 13:33 WBC (3.8-10.6) k/uL RBC (4.30-5.90) m/uL Hgb (13.0-17.5) gm/dL Hct (39.0-53.0) % MCV (80.0-100.0) fL MCH (25.0-35.0) pg MCHC (31.0-37.0) g/dL RDW (11.5-15.5) % Plt Count (150-450) k/uL Neutrophils % % Lymphocytes % % Monocytes % % Eosinophils % % Basophils % % Neutrophils # (1.3-7.7) k/uL Lymphocytes # (1.0-4.8) k/uL Monocytes # (0-1.0) k/uL Eosinophils # (0-0.7) k/uL Basophils # (0-0.2) k/uL PT (9.0-12.0) sec INR (<1.2) APTT (22.0-30.0) sec Sodium (137-145) mmol/L Potassium (3.5-5.1) mmol/L Chloride (98-107) mmol/L Carbon Dioxide (22-30) mmol/L Anion Gap mmol/L BUN (9-20) mg/dL Creatinine (0.66-1.25) mg/dL Est GFR (CKD-EPI)AfAm (>60 ml/min/1.73 sqM) Est GFR (CKD-EPI)NonAf (>60 ml/min/1.73 sqM) Glucose (74-99) mg/dL Plasma Lactic Acid Hamilton (0.7-2.0) mmol/L Calcium (8.4-10.2) mg/dL Total Bilirubin (0.2-1.3) mg/dL AST (17-59) U/L ALT (4-49) U/L Alkaline Phosphatase (38-126) U/L Troponin I (0.000-0.034) ng/mL Total Protein (6.3-8.2) g/dL Albumin (3.5-5.0) g/dL Urine Color Yellow Urine Appearance Clear (Clear) Urine pH 6.0 (5.0-8.0) Ur Specific [place] 1.026 (1.001-1.035) Urine Protein 2+ H (Negative) Urine Glucose (UA) Negative (Negative) Urine Ketones Negative (Negative) Urine Blood Trace H (Negative) Urine Nitrite Negative (Negative) Urine Bilirubin Negative (Negative) Urine Urobilinogen <2.0 (<2.0) mg/dL Ur Leukocyte Esterase Negative (Negative) Urine RBC 1 (0-5) /hpf Urine WBC 2 (0-5) /hpf Ur Squamous Epith Cells 1 (0-4) /hpf Hyaline Casts 3 H (0-2) /lpf Urine Mucus Moderate H (None) /hpf Influenza Type A RNA (Not Detectd) Influenza Type B (PCR) (Not Detectd) RSV (PCR) (Negative) Critical Care Time Critical Care Time: Yes Total Critical Care Time: 35 Disposition Clinical Impression: Non-STEMI (non-ST elevated myocardial infarction), Hyperkalemia, Renal insufficiency Disposition: ADMITTED IP TO THIS HOSP Referrals: Galileo Curiel MD [Primary Care Provider] - 1-2 days Time of Disposition: 14:39
[2019-11-24] MEDS ORDERED: ACETAMINOPHEN TAB 500 MG TAB PO STA (11:58)
[2019-11-24] MEDS ORDERED: IBUPROFEN 600 MG TAB PO STA (11:58)
[2019-11-24] MEDS: SODIUM CHLORIDE 0.9% 500 ML 500 ML IV SCH (12:43)
[2019-11-24 12:54] LABS: Basophils % (A) 0 %; Eosinophils # (A) 0.1 k/uL (0-0.7); Eosinophils % (A) 1 %; HCT 46.4 % (39.0-53.0); HGB 14.9 gm/dL (13.0-17.5); Lymphocytes # (A) 1.8 k/uL (1.0-4.8); Lymphocytes % (A) 17 %; MCHC 32.2 g/dL (31.0-37.0); MCV 99.3 fL (80.0-100.0); Mean Platelet Volume 7.1; Monocytes # (A) 0.4 k/uL (0-1.0); Monocytes % (A) 4 %; Neutrophils # (A) 8.2 k/uL (1.3-7.7); Neutrophils % (A) 76 %; Platelet Count 293 k/uL (150-450); RBC 4.67 m/uL (4.30-5.90); WBC 10.8 k/uL (3.8-10.6)
[2019-11-24 12:59] LABS: INR 0.9 (<1.2); Partial Thromboplastin Time 22.9 sec (22.0-30.0); Prothrombin Time 9.6 sec (9.0-12.0)
[2019-11-24 13:00] LABS: Albumin 3.9 g/dL (3.5-5.0); Calcium 9.7 mg/dL (8.4-10.2); Potassium 5.8 mmol/L (3.5-5.1); Total Bilirubin 0.4 mg/dL (0.2-1.3)
[2019-11-24] MEDS ORDERED: SODIUM CHLORIDE 0.9% 1,000 ML IV ONE (13:39)
[2019-11-24 13:44] LABS: Appearance,Urine Clear (Clear); Bilirubin,Urine Negative (Negative); Blood,Urine Trace (Negative); Color,Urine Yellow; Glucose,Urine (UA) Negative (Negative); Hyaline Casts,Urine 3 /lpf (0-2); Ketones,Urine Negative (Negative); Leukocyte Esterase,Urine Negative (Negative); Mucus,Urine Moderate /hpf; Nitrite,Urine Negative (Negative); Protein,Urine 2+ (Negative); RBC,Urine 1 /hpf (0-5); Specific Gravity,Urine 1.026 (1.001-1.035); Squamous Epithelial Cell,Urine 1 /hpf (0-4); Urobilinogen,Urine <2.0 mg/dL (<2.0); WBC,Urine 2 /hpf (0-5)
[2019-11-24] MEDS ORDERED: ASPIRIN 81 MG PO STA (14:04)
[2019-11-24] MEDS ORDERED: NITROGLYCERIN OINT 1 INCH/GM PACKET TOPICAL STA (14:05)
[2019-11-24] MEDS ORDERED: HEPARIN SODIUM,PORCINE 5,000 UNIT/ML 1 ML VIAL IV ONE (14:05)
[2019-11-24] MEDS ORDERED: HEPARIN SOD,PORK IN 0.45% NACL 25,000 UNIT in 0.45% NACL 1 250ML.BAG IV SCH (14:15)
[2019-11-24] MEDS ORDERED: NITROGLYCERIN SL TABS 0.4 MG TAB SUBLINGUAL PRN (14:40)
[2019-11-24] MEDS ORDERED: SODIUM POLYSTYRENE SULFONATE 15 GM/60 ML BOTTLE PO STA (17:34)
--- NOTE | 2019-11-24 18:26 | CT ---
EXAMINATION TYPE: CT chest wo con DATE OF EXAM: 11/24/2019 COMPARISON: None HISTORY: SOB, COUGH CT DLP: 800.4 mGycm Automated exposure control for dose reduction was used. Multiple axial sections were obtained from the thoracic inlet to the diaphragm without contrast. Thoracic aorta shows mild atheromatous change. There is no aneurysm. Heart is top normal in size. The re is no pericardial effusion. There is no pleural effusion. Upper abdominal soft tissues show change s of right nephrectomy. There is compensatory hypertrophy of the left kidney. There is 7 mm nonobstru cting calculus left kidney. There is mild coronary artery calcification. There is no evidence of a pulmonary mass. There is mild subsegmental atelectasis in the posterior robert g zarco. There is coronary artery calcification. There are no hilar masses. There is no mediastinal adenopathy. Thoracic spine is intact. Ribs appear intact. IMPRESSION: Minimal scarring and subsegmental atelectasis. Otherwise negative CT scan of the chest. No suspicious pulmonary mass.
[2019-11-24] MEDS: SODIUM CHLORIDE 0.9% 1,000 ML IV SCH (18:31)
[2019-11-24] MEDS: NITROGLYCERIN OINT 1 INCH/GM PACKET TOPICAL SCH (18:35)
[2019-11-24 19:08] LABS: C Reactive Protein 15.5 mg/L (<10.0)
[2019-11-24 19:22] LABS: Troponin I 36.8 ng/mL (0.000-0.034)
[2019-11-24] MEDS ORDERED: SODIUM CHLORIDE 0.9% 250 ML IV ONE (21:35)
[2019-11-24] MEDS ORDERED: ONDANSETRON 4 MG/2 ML VIAL IVP STA (21:37)
[2019-11-24] MEDS ORDERED: SODIUM POLYSTYRENE SULFONATE 15 GM/60 ML BOTTLE PO ONE (22:30)
[2019-11-24] MEDS ORDERED: ASPIRIN 325 MG TAB PO STA (22:33)
[2019-11-24 23:09] LABS: Calcium 8.7 mg/dL (8.4-10.2); Magnesium 1.9 mg/dL (1.6-2.3); Potassium 4.6 mmol/L (3.5-5.1)
[2019-11-24] MEDS ORDERED: Magnesium Replacement Protocol 1 EACH MISC MISCELLANE PRN (23:25)
[2019-11-24] MEDS ORDERED: NALOXONE 0.4 MG/ML 1 ML VIAL IV PRN (23:27)
[2019-11-25 01:28] LABS: Troponin I 68.4 ng/mL (0.000-0.034)
[2019-11-25] MEDS: MAGNESIUM SULFATE-D5W PMX 1 GM in DEXTROSE/WATER 1 100ML.BAG IVPB SCH ×2 (01:52)
[2019-11-25] MEDS ORDERED: SODIUM POLYSTYRENE SULFONATE 15 GM/60 ML BOTTLE PO ONE (02:30)
[2019-11-25] MEDS: NITROGLYCERIN OINT 1 INCH/GM PACKET TOPICAL SCH (02:57)
[2019-11-25 04:34] LABS: Partial Thromboplastin Time 26.3 sec (22.0-30.0); Prothrombin Time 10.3 sec (9.0-12.0)
[2019-11-25 04:39] LABS: Albumin 3.3 g/dL (3.5-5.0); Calcium 8.8 mg/dL (8.4-10.2); Magnesium 1.9 mg/dL (1.6-2.3); Potassium 4.8 mmol/L (3.5-5.1); Total Bilirubin 0.5 mg/dL (0.2-1.3); Total Protein 6.1 g/dL (6.3-8.2)
[2019-11-25 05:19] LABS: Basophils % (A) 0 %; Eosinophils # (A) 0.1 k/uL (0-0.7); Eosinophils % (A) 1 %; HCT 42.9 % (39.0-53.0); HGB 13.4 gm/dL (13.0-17.5); Lymphocytes # (A) 2.6 k/uL (1.0-4.8); Lymphocytes % (A) 22 %; MCH 31.6 pg (25.0-35.0); MCHC 31.3 g/dL (31.0-37.0); MCV 100.9 fL (80.0-100.0); Macrocytosis Slight; Mean Platelet Volume 8.3; Monocytes # (A) 0.9 k/uL (0-1.0); Monocytes % (A) 8 %; Neutrophils # (A) 7.8 k/uL (1.3-7.7); Neutrophils % (A) 67 %; Platelet Count 219 k/uL (150-450); RBC 4.25 m/uL (4.30-5.90); WBC 11.7 k/uL (3.8-10.6)
[2019-11-25] MEDS ORDERED: ATORVASTATIN 80 MG TAB PO STA (05:39)
[2019-11-25] MEDS: SODIUM CHLORIDE 0.9% 1,000 ML IV SCH ×3 (05:44→18:06)
[2019-11-25] MEDS ORDERED: LIDOCAINE 1% INJ 10MG/ML (20 ML MDV) ONE (06:07)
[2019-11-25] MEDS ORDERED: MIDAZOLAM 2 MG/2 ML VIAL IVP ONE (06:10)
[2019-11-25] MEDS ORDERED: LIDOCAINE 1% INJ 10MG/ML (20 ML MDV) SQ ONE (06:12)
[2019-11-25] MEDS ORDERED: IV FLUID CONTINUATION 1,000 ML IV ONE (06:22)
--- NOTE | 2019-11-25 06:24 | CONS ---
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 Curiel from a primary care standpoint. He came into the hospital after complaining of having some fever, chills and sweats. His grandson apparently was tested positive for influenza B a couple of days ago. He did not have any chest pain or shortness of breath when he came in. With these symptoms he came in, his potassium was slightly elevated. He received some Kayexalate and while he was on the floor, the initial troponin was abnormal, but subsequently troponin went up and then he had another episode of diaphoresis, but because of elevated troponin I was notified. The patient did not have any chest discomfort to suggest any angina during his hospitalization. He also had runs of what seems to be a junctional tachycardia. EKG revealed sinus mechanism with old Q-wave suggestive of possible old NV without clear-cut inferior ST elevation. He was heparinized and I recommended coronary angiography this morning. After I came and saw him, I spoke to the patient and his and the patient was pain free, hemodynamically stable with a blood pressure of about 120/70 with a decent urine output and improved creatinine. His potassium has improved to 4.6 and magnesium was 1.9, which was supplemented. He is comfortable denies chest pain. His diaphoresis has resolved, but troponin has elevated. EKG suggests probably inferior NV of indeterminate age. There are no clear-cut acute changes on the EKG. I explained to the patient and that his clinical presentation although atypical with an elevated troponin and bradycardic spells that he has had suggest inferior mild myocardial ischemia, possible stuttering myocardial infarction. I recommended coronary angiography and intervention. Both of them understand the risks, benefits, options and wished to proceed. PAST MEDICAL HISTORY: 1. Smoking of at least 1 to 2 packs a day for more than 45 years and also has COPD. 2. He has history of peripheral arterial disease, has had apparently a left fem-pop bypass and right fem-fem bypass. The details are unclear. 3. He has had some umbilical hernia surgery, cataract operations, and also appendectomy in the past. ALLERGIES: None. MEDICATIONS: Medications at home include Tylenol, aspirin 81 mg daily, Nexium and Proscar 5 mg daily for benign prostatic hypertrophy. PHYSICAL EXAMINATION: On examination, blood pressure is 120/80, pulse rate is about 52 per minute. HEENT: Unremarkable. Fundus was not examined by me. Neck is supple. There is JVD of 1 cm. No carotid bruit. Heart exam reveals S1, S2 with somewhat distant heart sounds. There is a soft systolic murmur left lower sternal border. Lungs reveal diminished air entry in both lung zarco. Abdomen is soft, nontender. Lower extremities reveal diminished pulses. Central nervous system grossly no focal deficits. IMPRESSION: 1. Subacute/acute inferior myocardial infarction, stuttering myocardial infarction with episodes of bradycardia and paroxysmal junctional tachycardia. 2. Smoking and chronic obstructive pulmonary disease. 3. Probable bronchitis and exacerbation of chronic obstructive pulmonary disease. 4. History of peripheral vascular disease, status post right femoral-popliteal and left to right fem-fem bypass, details are unclear at this time. 5. Mild chronic kidney disease. RECOMMENDATIONS: I recommended hydration, which was performed through the night. Electrolyte imbalance was corrected. The patient is negative for influenza. His clinical presentation, although atypical suggests the inferior wall ischemia with a non-ST elevation NV. He may have had a prior inferior NV. I will perform coronary angiography and based on findings intervention. I explained this to the patient and . They understand the rationale, risks, benefits, options and wished to proceed. Prognosis remains guarded. MMODL / IJN: [id number] /
[2019-11-25] MEDS ORDERED: BIVALIRUDIN BOLUS 250 MG/50 ML IV ONE (06:33)
[2019-11-25] MEDS ORDERED: BIVALIRUDIN 250 MG in SODIUM CHLORIDE 0.9% 50 ML IV ONE (06:34)
[2019-11-25] MEDS ORDERED: TICAGRELOR 90 MG TAB ONE (06:35)
[2019-11-25] MEDS ORDERED: IOPAMIDOL-370 100ML BTL INJ ONE ×3 (06:40→06:54)
[2019-11-25] MEDS ORDERED: TICAGRELOR 90 MG TAB PO ONE (06:40)
[2019-11-25] MEDS ORDERED: HYDROmorphone 1 MG/ML 1 ML SYRINGE ONE (06:45)
[2019-11-25] MEDS ORDERED: HYDROmorphone 1 MG/ML 1 ML SYRINGE IVP ONE (06:50)
[2019-11-25] MEDS ORDERED: niCARdipine Syringe (1,000 mcg/10 mL) INTRACORON ONE (06:55)
[2019-11-25] MEDS ORDERED: NITROGLYCERIN 1000MCG/10ML SYRINGE INTRACORON ONE (07:02)
[2019-11-25] MEDS ORDERED: ATROPINE SULFATE 0.1 MG/ML 10ML SYRINGE IV PRN (07:20)
[2019-11-25] MEDS ORDERED: NITROGLYCERIN SL TABS 0.4 MG TAB SUBLINGUAL PRN (07:20)
[2019-11-25] MEDS ORDERED: MAG HYDROX/AL HYDROX/SIMETH 30 ML CUP PO PRN (07:20)
[2019-11-25] MEDS ORDERED: ZOLPIDEM 5 MG TAB PO PRN (07:20)
[2019-11-25] MEDS ORDERED: RX INFO: IV CONTRAST WAS GIVEN 1 EACH MISC MISCELLANE PRN (07:20)
--- NOTE | 2019-11-25 08:12 | CC ---
CARDIAC CATHETERIZATION REPORT DATE OF SERVICE: 11/25/2019. PROCEDURE: 1. Coronary angiography. 2. PTCA and stenting of the right coronary artery with 3 drug-eluting stents. PERFORMED BY: Dr. Phill Jackson. Moderate conscious sedation time was 59 minutes. Patient was administered Versed. Oxygen saturation, hemodynamics and EKG were monitored closely. CLINICAL INFORMATION: Mr. Andrade Pulido is a 74-year-old gentleman with a history of smoking, COPD, peripheral arterial disease with previous right fem-pop surgery, came into the hospital last night with symptoms of dizziness, shortness of breath and also had some night sweats and he was worried about influenza because his grandson had contacted the condition. However, through the night his troponin went up. He had episodes of bradycardia, was advised coronary angiography for non ST elevation [place]. His clinical picture suggested that of a stuttering inferior wall [place] with Q-waves. Patient also had episodes of bradycardia 2:1 block and right bundle branch block pattern. I recommended coronary angiography with possible temporary pacemaker and PCI. PROCEDURE NOTE: Under local anesthesia and strict aseptic precautions, a 6-Lao introducer was placed in the right femoral vein and right femoral artery. Two introducers were placed. I performed coronary angiography with standard José Miguel catheters. I did not check LV pressures. I noted that right coronary artery had a 99% stenosis with thrombus and I proceeded to perform intervention in the same setting. Left circumflex marginal had disease which was stable but significant. This would be addressed at a later date. The patient had CKD with a creatinine that was up to 1.76, but improved to 1.34. Following coronary angiography, I proceeded to perform PCI of the right coronary artery. Then the sheaths were sutured and he was sent to the ICU in a stable condition. CARDIAC CATHETERIZATION FINDINGS: CORONARY ANGIOGRAPHY FINDINGS: RIGHT CORONARY ARTERY: Large dominant vessel in the proximal portion has a 99% stenosis with clot and the thrombus seems to extend all way distally. It bifurcates into what seems to be a PDA and PLV. PLV is a larger of the 2 and there is disease within the proximal aspect of the PLV as well. The PDA branch is smaller, has an ostial disease of about 40% to 50%. Mid and distal RCA has a long lesion starting from the junction of the proximal and middle 1/[address] the distal just beyond the bifurcation. There is a lot of thrombus with sluggish flow. LEFT MAIN CORONARY ARTERY: This is a short patent vessel that trifurcates into LAD, ramus and circumflex. Left main itself is short and free of significant disease. LEFT ANTERIOR DESCENDING CORONARY ARTERY: Fair caliber vessel, had about a 40% to 50% proximal lesion and then it gives off septal and diagonal branches. It then runs all the way to the apex supplying a sizable amount of myocardium giving off septal and diagonal branches. Very proximally just after the origin of the diagonal branch, there is about a 50% LAD stenosis noted. There is another first diagonal that comes off proximally. RAMUS INTERMEDIUS: This is a small caliber fair distribution vessel. No significant disease. LEFT POSTERIOR CIRCUMFLEX CORONARY ARTERY: Technically nondominant vessel gives off a single obtuse marginal that runs laterally has an 80% to 90% stenosis which is significant. This is a nondominant circumflex and the obtuse marginal size is at least 2.5 to 3.0 caliber. Circumflex marginal therefore have a significant 80% to 90% lesion. LEFT VENTRICULOGRAM: Left ventriculogram was not performed. FINAL IMPRESSION: This patient has a 99% proximal RCA stenosis which is a long lesion extends all the way to the bifurcation with thrombus and there is sluggish flow. Circumflex marginal nondominant vessel has 80% to 90% stenosis. LAD has a 50% proximal lesion. The left ventriculogram was not performed and LV pressures were not checked. RECOMMENDATION: I recommended intervention of the RCA and proceeded to perform that in the same setting. PCI PROCEDURE DETAILS: I used a standard right José Miguel guide catheter and a run-through wire to cross the lesion. A 2.5 caliber 30 mm long Trek balloon was used to pre-dilate the lesion. I then used a 2.5 caliber 12 mm NC Trek balloon to dilate the PLV branch distally. I used a 28 mm long 3.25 caliber Xience stent and deployed this in the distal aspect of the lesion and a 3.5 caliber 8 mm stent proximal to it. Following that, I noted that there was a lesion in the right coronary after the origin of the PLV and the lesion was actually within the PLV. I therefore deployed a 12 mm 3.0 caliber Xience stent across the PDA branch into the PLV, which was the larger of the 2 branches. Excellent angiographic result was achieved. The flow in the PDA was retained, although the lesion was jailed. The flow remained excellent. Multiple angiograms were obtained. I was overall very pleased with the result. Remarkably good flow was noted in the RCA and the PLV branch. The PDA had some ostial had stenosis, but the flow was well preserved with a ZAFAR-3 flow. The sheath was sutured and patient was sent to the ICU in a stable condition. Results were discussed with the patient and family. He received almost 150 mL of dye and the patient has chronic kidney disease. I will bring him back to perform staged intervention of the circumflex marginal. Results were discussed with the patient and and patient was sent to the ICU in a stable condition and the sheaths will be pulled in 2 hours. RHEA / TRINAN: [id number] / MTDD
[2019-11-25] MEDS ORDERED: ASPIRIN 325 MG TAB PO SCH (09:00)
[2019-11-25] MEDS: PANTOPRAZOLE 40 MG/10 ML VIAL IV SCH (09:12)
[2019-11-25] MEDS ORDERED: ACETAMINOPHEN TAB 325 MG TAB PO PRN (09:52)
--- NOTE | 2019-11-25 09:59 | ECHOF ---
Referral Reason:Elevated [id number] MEASUREMENTS -------- HEIGHT: 182.9 cm WEIGHT: 119.3 kg BP: RVIDd: 3.8 cm (< 3.3) IVSd: 1.1 cm (0.6 - 1.1) LVIDd: 5.6 cm (3.9 - 5.3) LVPWd: 1.3 cm (0.6 - 1.1) IVSs: 1.8 cm LVIDs: 4.1 cm LVPWs: 1.9 cm LA Diam: 4.0 cm (2.7 - 3.8) Ao Diam: 3.4 cm (2.0 - 3.7) AV Cusp: 2.3 cm (1.5 - 2.6) LA Diam: 4.3 cm (2.7 - 3.8) MV EXCURSION: 17.787 mm (> 18.000) MV EF SLOPE: 82 mm/s (70 - 150) EPSS: 0.6 cm MV E Hosea: 0.88 m/s MV DecT: 222 ms MV A Hosea: 1.07 m/s MV E/A Ratio: 0.83 RAP: 5.00 mmHg RVSP: 19.00 mmHg FINDINGS -------- Sinus rhythm. Morbid Obesity This was a techncally difficult study with suboptimal views, , Definity utilized for enhancement of images. The left ventricular size is normal. There is borderline concentric left ventricular hypertrophy. Overall left ventricular systolic function is mildly impaired with, an EF between 45 - 50 %. Basal inferior LV wall motion is hypokinetic. The right ventricle is normal in size. The left atrial size is normal. The right atrial size is normal. The aortic valve was not well visualized. Mild mitral annular calcification present. Mild mitral regurgitation is present. Mild tricuspid regurgitation present. Right ventricular systolic pressure is normal at < 35 mmHg. There is no evidence of pulmonary hypertension. The pulmonic valve was not well visualized. The aortic root size is normal. There is no pericardial effusion. CONCLUSIONS -------- 1. Sinus rhythm. 2. Morbid Obesity 3. This was a techncally difficult study with suboptimal views, , Definity utilized for enhancement o f images. 4. The left ventricular size is normal. 5. There is borderline concentric left ventricular hypertrophy. 6. Overall left ventricular systolic function is mildly impaired with, an EF between 45 - 50 %. 7. Basal inferior LV wall motion is hypokinetic. 8. The right ventricle is normal in size. 9. The left atrial size is normal. 10. The right atrial size is normal. 11. The aortic valve was not well visualized. 12. Mild mitral annular calcification present. 13. Mild mitral regurgitation is present. 14. Mild tricuspid regurgitation present. 15. Right ventricular systolic pressure is normal at < 35 mmHg. 16. There is no evidence of pulmonary hypertension. 17. The pulmonic valve was not well visualized. 18. The aortic root size is normal. 19. There is no pericardial effusion. 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
--- NOTE | 2019-11-25 10:40 | XR ---
EXAMINATION TYPE: XR chest 1V portable DATE OF EXAM: 11/25/2019 COMPARISON: Prior chest x-ray and CT 11/24/2019 HISTORY: COPD TECHNIQUE: frontal view of the chest is obtained on 3 images. FINDINGS: The heart is borderline enlarged. Interstitium is increased. No pneumothorax or pleural ef fusion evident. Pulmonary vascularity and peyton not significantly changed. Aorta is dense. IMPRESSION: Correlate for pulmonary venous hypertension and interstitial edema. There is underlying emphysema and interstitial lung disease.
[2019-11-25 11:10] VITALS: BMI 35.4
--- NOTE | 2019-11-25 11:10 | P.CNPUL ---
History of Present Illness Consult date: 11/25/19 Reason for consult: COPD Chief complaint: Dizziness and fever History of present illness: This is a 74-year-old white male, [id number] smoker, known history of COPD, history of peripheral vessel occlusive disease and left femoral-popliteal bypass as well as right femoral-femoral bypass. Patient was seen in the ER on November 23, he presented mostly with fever chills and supposedly he was exposed to his grandson who tested positive for influenza B few days ago. Patient was also complaining of dizziness. Upon evaluation in the ER, patient was noted to have elevated potassium, and Kayexalate was given. His troponin was also noted to be abnormal. And he was experiencing intermittent episodes of diaphoresis. Ca rdiology was consulted, and during that time the patient was having runs of what seemed to be junctional tachycardia. EKG showed sinus mechanism with old Q waves suggestive of possible old [place], there was no evidence of clear-cut inferior ST elevation. Patient was placed on heparin, cardiac catheterization was done this morning, patient underwent PTCA and stenting of the right coronary artery with 3 drug eluting stents. Chest x-ray showed mild venous pulmonary congestion, and possibly some component of interstitial edema, patient was admitted to the ICU, and I was asked to see him on consultation. During my evaluation, patient had mostly intermittent episodes of cough, no wheezing, no chest pain, no nausea, no vomiting no abdominal pain. Patient denies any recent travel or any exposure to someone with covid 19. CT of the chest mostly showed minimal scarring and subsegmental atelectasis, especially in the posterior lung zarco. No mediastinal adenopathy. Considering his fever on presentation, patient was placed empirically on antibiotics. And after I evaluated the patient, I recommended bronchodilators in the form of DuoNeb and Symbicort. His CBC was relatively normal. Electrolytes were normal. BUN was a bit elevated on presentation at 23 and creatinine was 1.41. CPK was noted to be significantly elevated over 1999, and his troponin went up from 56-68 overnight. Lipid profile was also significantly abnormal with elevated LDL and elevated triglycerides Review of Systems Constitutional: Fever chills or night sweats, no weight loss. HEENT: Denies any sore throat or earache. Pulmonary: As noted in HPI. Cardiac: As noted in HPI. GI: Denies any nausea vomiting abdominal pain melena or hematemesis. Genitourinary: Denies any dysuria frequency urgency. Hematologic: Denies any clotting bleeding or bruising Neurologic: Denies any headache blurred vision, but he was diaphoretic and dizzy upon presentation. Musculoskeletal: Denies any arthralgia or myalgia. Skin: Denies any rashes. Psychiatric: Denies anxiety and/or depression. Endocrine: Denies any heat or cold intolerance. 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 History of Any Multi-Drug Resistant Organisms: None Reported Past Surgical History: Appendectomy Additional Past Surgical History / Comment(s): L fempop bypass, R femfem bypass, inguinal hernia repair (does not recall laterallity), bilateral cataract removal with lens implants. Past Anesthesia/Blood Transfusion Reactions: No Reported Reaction Smoking Status: Current every day smoker - Past Family History Father Family Medical History: COPD, Myocardial Infarction ([place]) Additional Family Medical History / Comment(s): Father from a [place] at the age of 59yrs. Mother Family Medical History: Cancer Additional Family Medical History / Comment(s): Mother from stomach cancer when she was 58 or 59 yrs old. Medications and Allergies Home Medications Medication Instructions Recorded Confirmed Type Acetaminophen [Tylenol Arthritis] 1,300 mg PO QAM 03/26/18 11/24/19 History Aspirin EC [Ecotrin Low Dose] 81 mg PO DAILY 03/26/18 11/24/19 History Esomeprazole Magnesium [NexIUM 40 mg PO DAILY 03/26/18 11/24/19 History 24Hr] Finasteride [Proscar] 5 mg PO DAILY 03/26/18 11/24/19 History Allergies Allergy/AdvReac Type Severity Reaction Status Date / Time No Known Allergies Allergy Verified 11/24/19 11:01 Physical Exam Vitals: Vital Signs Temp Pulse Pulse Resp BP BP Pulse Ox 11/25/19 05:00 44 L 18 104/57 94 L 11/25/19 04:00 97.7 F 42 L 24 126/70 93 L 03/17/20 03:00 54 L 20 118/81 94 L 11/25/19 02:00 56 L 14 118/84 93 L 11/25/19 01:00 52 L 17 122/79 94 L 11/25/19 00:00 52 L 24 134/81 92 L 11/24/19 23:00 97.9 F 56 L 21 137/84 92 L 11/24/19 21:20 80 16 90/68 98 11/24/19 20:00 80 11/24/19 19:59 98.0 F 63 14 104/52 95 11/24/19 16:00 98.3 F 56 L 16 109/69 92 L 11/24/19 15:15 78 16 128/85 95 11/24/19 14:27 65 16 131/95 95 11/24/19 12:44 53 L 16 111/85 93 L 11/24/19 12:12 98.5 F Intake and Output 11/24/19 11/25/19 11/25/19 22:59 06:59 14:59 Intake Total 1335 225 Output Total 800 150 Balance 535 75 Intake: IV 1335 225 Magnesium Sulfate-D5w Pmx 200 1 gm In Dextrose/Water 1 100ml.bag @ 100 mls/hr IVPB Q1H [facility] Rx#: [id number] Sodium Chloride 0.9% 1, 800 000 ml @ 100 mls/hr IV . Q10H [facility] Rx#:[id number] Sodium Chloride 0.9% 1, 225 000 ml @ 75 mls/hr IV . [id number] [facility] Rx#:[id number] Output: Urine 800 150 Other: Voiding Method Urinal # Voids 1 Weight 119.295 kg 118.4 kg Physical Exam: Revealed 74-year-old white male in no distress. Head: Atraumatic, normocephalic. HEENT:[Neck is supple.] [No neck masses.] [No thyromegaly.] [No JVD.] PERRLA, EOMI, no icterus. Chest: [Diminished breath sounds at the bases, rhonchi on forced expiratory m aneuver noted. No wheezing. Symmetrical chest expansion.] Cardiac Exam: [Normal S1 and S2, no S3 gallop, no murmur.] Abdomen: [Soft, nontender, no megaly, no rebound, no guarding, normal bowel sounds.] Extremities: [No clubbing, no edema, no cyanosis.] Surgical scars of vascular surgery noted in both lower extremities medially. Neurological Exam: [No focal neurologic deficit.] Alert and oriented 3. Psychiatric: Normal mood, affect and normal mental status examination. Skin: No rashes. Results - Laboratory Findings CBC and BMP: 11/25/19 03:36 11/25/19 03:36 PT/INR, D-dimer PT 10.3 sec (9.0-12.0) 11/25/19 03:36 INR 1.0 (<1.2) 11/25/19 03:36 D-Dimer 1.04 mg/L FEU (<0.60) H 11/24/19 14:23 Abnormal lab findings: Abnormal Labs 11/24/19 11/24/19 11/24/19 12:35 12:35 12:35 WBC 10.8 H RBC MCV Neutrophils # 8.2 H ESR D-Dimer Sodium Potassium 5.8 H Chloride BUN 26 H Creatinine 1.76 H Glucose 110 H AST 115 H Creatine Kinase Total Creatine Kinase CK-MB (CK-2) Troponin I 9.270 H* C-Reactive Protein Total Protein Albumin Triglycerides Cholesterol LDL Cholesterol, Calc HDL Cholesterol Procalcitonin Urine Protein Urine Blood Hyaline Casts Urine Mucus 11/24/19 11/24/19 11/24/19 12:35 12:35 13:33 WBC RBC MCV Neutrophils # ESR D-Dimer Sodium Potassium Chloride BUN Creatinine Glucose AST Creatine Kinase Total Creatine Kinase 1356 H* CK-MB (CK-2) 106.0 H Troponin I C-Reactive Protein Total Protein Albumin Triglycerides Cholesterol LDL Cholesterol, Calc HDL Cholesterol Procalcitonin 0.10 H Urine Protein 2+ H Urine Blood Trace H Hyaline Casts 3 H Urine Mucus Moderate H 11/24/19 11/24/19 11/24/19 14:23 18:22 18:22 WBC RBC MCV Neutrophils # ESR D-Dimer 1.04 H Sodium Potassium Chloride BUN Creatinine Glucose AST Creatine Kinase 2197 H* Total Creatine Kinase CK-MB (CK-2) 159.0 H Troponin I 36.800 H* C-Reactive Protein 15.5 H Total Protein Albumin Triglycerides Cholesterol LDL Cholesterol, Calc HDL Cholesterol Procalcitonin Urine Protein Urine Blood Hyaline Casts Urine Mucus 11/24/19 11/24/19 11/25/19 18:22 22:42 00:33 WBC RBC MCV Neutrophils # ESR 20 H D-Dimer Sodium 135 L Potassium Chloride 108 H BUN 23 H Creatinine 1.41 H Glucose 112 H AST Creatine Kinase Total Creatine Kinase CK-MB (CK-2) 152.0 H Troponin I 68.400 H* C-Reactive Protein Total Protein Albumin Triglycerides Cholesterol LDL Cholesterol, Calc HDL Cholesterol Procalcitonin Urine Protein Urine Blood Hyaline Casts Urine Mucus 11/25/19 11/25/19 11/25/19 00:33 03:36 03:36 WBC 11.7 H RBC 4.25 L MCV 100.9 H Neutrophils # 7.8 H ESR D-Dimer Sodium 135 L Potassium Chloride BUN 21 H Creatinine 1.34 H Glucose 103 H AST 235 H Creatine Kinase 2340 H* 2192 H* Total Creatine Kinase CK-MB (CK-2) Troponin I C-Reactive Protein Total Protein 6.1 L Albumin 3.3 L Triglycerides 359 H Cholesterol 232 H LDL Cholesterol, Calc 137 H HDL Cholesterol 23 L Procalcitonin Urine Protein Urine Blood Hyaline Casts Urine Mucus - Diagnostic Findings CT scan - chest: image reviewed (As noted in HPI.) Assessment and Plan Assessment: Impression: Acute non-ST elevation inferior myocardial infarction Episodes of bradycardia and paroxysmal junctional tachycardia secondary to ischemia. Acute tracheobronchitis, doubt pneumonia. As noted on CT of the chest. Acute exacerbation of COPD. History of multiple vascular surgeries/peripheral vascular surgeries involving both lower extremities. Acute on Chronic kidney disease, stage is not clear, possibly stage 2. Severe hyperlipidemia Tobacco dependence syndrome. Degenerative joint disease. GERD without esophagitis. Recommendation: Continue present treatment plan including: Bronchodilators. Antibiotics empirically. Aspirin, statins,brilinta, nitrates, and possibly add beta blockers. Consider diuretics if the patient develops any component of congestive heart failure Continue to monitor in the intensive care unit, and we will follow closely. Continue GI and DVT prophylaxis. Time with Patient: Greater than 30
[2019-11-25] MEDS: IPRATROPIUM-ALBUTEROL 3 ML NEB INHALATION SCH ×3 (11:27→19:53)
--- NOTE | 2019-11-25 12:20 | P.HPIM ---
History of Present Illness H&P Date: 11/25/19 Chief Complaint: Chest pain This is a 74-year-old occasion male patient of Dr. Curiel with past medical history of COPD, peripheral vessel occlusive disease and left femoral-popliteal bypass as well as right femoral-femoral bypass, gastroesophageal reflux disease, hyperlipidemia, osteoarthritis, benign prostatic hypertrophy, congenital single kidney, gastric ulcer, cluster headaches, tobacco use and dependence. Patient complains of headache and dry cough. Denies any shortness of breath. Denies chest pain or palpitations. He complains of dizziness. He was exposed to her grandson that was diagnosed with influenza B. Patient has had no abdominal pain, nausea vomiting or diarrhea. Patient came into [facility] emergency [facility] for evaluation. He was afebrile, heart rate 55, blood pressure 150/78, pulse ox 94% on room air. EKG was a right bundle branch block and ST segment depression in the precordial leads. Chest x-ray revealed COPD with patchy right perihilar and lower lobe atelectasis versus pneumonia. Correlate for interstitial pulmonary fibrosis. CT of the chest showed minimal scarring and subsegmental atelectasis but otherwise negative CT. No suspicious pulmonary mass. WBC 10.8, hemoglobin 14.9, potassium 5.8, BUN 26, creatinine 1.76, blood sugar 110. Influenza testing negative, RSV negative, lactic acid 1.5. AST 115. Urinalysis clear with nitrate and leukoesterase negative. Initial troponin 9.270 and initial at 36.8, 68.4. Triglycerides 359, cholesterol 232, LDL 137, HDL 23. Repeat BUN this morning is 21 and creatinine 1.34. Patient was admitted to the intensive care unit and has undergone cardiac catheterization and PTCA and stenting of the right coronary artery with 3 drug-eluting stents. Dr. Sutton is also on consult. Echocardiogram reveals EF 45-50%, mild mitral regurgitation, mild tricuspid regurgitation, RVSP less than 35, no pulmonary hypertension. Review of Systems Constitutional: Reports chills, Reports fatigue, Reports fever, Reports lethargy, Denies weight loss Eyes: denies blurred vision, denies pain Ears, nose, mouth and throat: Reports vertigo, Denies dysphagia, Denies nasal congestion, Denies nasal discharge, Denies sore throat Cardiovascular: Reports decreased exercise tolerance, Reports dyspnea on exertion, Reports shortness of breath, Denies leg edema, Denies palpitations, Denies syncope Respiratory: Reports dyspnea, Reports respiratory infections, Reports wheezing, Denies cough Gastrointestinal: Denies abdominal pain, Denies diarrhea, Denies nausea, Denies vomiting Genitourinary: Denies dysuria, Denies urinary retention Musculoskeletal: Denies frequent falls, Denies gait dysfunction, Denies myalgias Integumentary: Denies pruritus, Denies rash, Denies wounds Neurological: Denies change in mentation, Denies change in speech, Denies numbness, Denies weakness Psychiatric: Denies anxiety, Denies depression Endocrine: Denies fatigue, Denies weight change Past Medical History Past Medical History: COPD, GERD/Reflux, Hyperlipidemia, Osteoarthritis (OA), Pneumonia, Prostate Disorder, Vascular Disorder Additional Past Medical History / Comment(s): 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 History of Any Multi-Drug Resistant Organisms: None Reported Past Surgical History: Appendectomy Additional Past Surgical History / Comment(s): L fempop bypass, R femfem bypass, inguinal hernia repair (does not recall laterallity), bilateral cataract removal with lens implants. Past Anesthesia/Blood Transfusion Reactions: No Reported Reaction Smoking Status: Current every day smoker Additional Past Alcohol Use History / Comment(s): Patient was a smoker of 2 packs per day since he was 9 years old and currently down to 1-1-1/2 packs per day. He drinks alcohol occasionally. He denies any use of marijuana or street drug use. He lives with his . 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 - Past Family History Father Family Medical History: COPD, Myocardial Infarction (IA) Additional Family Medical History / Comment(s): Father from a IA at the age of 59yrs. Mother Family Medical History: Cancer Additional Family Medical History / Comment(s): Mother from stomach cancer when she was 58 or 59 yrs old. Medications and Allergies Home Medications Medication Instructions Recorded Confirmed Type Acetaminophen [Tylenol Arthritis] 1,300 mg PO QAM 03/26/18 11/24/19 History Aspirin EC [Ecotrin Low Dose] 81 mg PO DAILY 03/26/18 11/24/19 History Esomeprazole Magnesium [NexIUM 40 mg PO DAILY 03/26/18 11/24/19 History 24Hr] Finasteride [Proscar] 5 mg PO DAILY 03/26/18 11/24/19 History Allergies Allergy/AdvReac Type Severity Reaction Status Date / Time No Known Allergies Allergy Verified 11/24/19 11:01 Physical Exam Vitals: Vital Signs Temp Pulse Pulse Resp BP BP Pulse Ox 11/25/19 05:00 44 L 18 104/57 94 L 11/25/19 04:00 97.7 F 42 L 24 126/70 93 L 11/25/19 03:00 54 L 20 118/81 94 L 11/25/19 02:00 56 L 14 118/84 93 L 11/25/19 01:00 52 L 17 122/79 94 L 11/25/19 00:00 52 L 24 134/81 92 L 11/24/19 23:00 97.9 F 56 L 21 137/84 92 L 11/24/19 21:20 80 16 90/68 98 11/24/19 20:00 80 11/24/19 19:59 98.0 F 63 14 104/52 95 11/24/19 16:00 98.3 F 56 L 16 109/69 92 L 11/24/19 15:15 78 16 128/85 95 11/24/19 14:27 65 16 131/95 95 11/24/19 12:44 53 L 16 111/85 93 L 11/24/19 12:12 98.5 F 11/24/19 10:03 98.6 F 55 L 20 150/78 94 L Intake and Output 11/24/19 11/25/19 11/25/19 22:59 06:59 14:59 Intake Total 1335 150 Output Total 800 Balance 535 150 Intake: IV 1335 150 Magnesium Sulfate-D5w Pmx 200 1 gm In Dextrose/Water 1 100ml.bag @ 100 mls/hr IVPB Q1H [facility] Rx#: [id number] Sodium Chloride 0.9% 1, 800 000 ml @ 100 mls/hr IV . Q10H [facility] Rx#:[id number] Sodium Chloride 0.9% 1, 150 000 ml @ 75 mls/hr IV . [id number] [facility] Rx#:[id number] Output: Urine 800 Other: # Voids 1 Weight 119.295 kg 118.4 kg Gen: This is a 74-year-old male. He is resting in the ICU bed and appears to be comfortable and in no acute distress. HEENT: Head is atraumatic, normocephalic. Pupils equal, round. Sclerae is anicteric. NECK: Supple. No JVD. No lymphadenopathy. No thyromegaly. LUNGS: Diminished breath sounds bilaterally with scattered rhonchi. No intercostal retractions. HEART: Regular rate and rhythm. No murmur. ABDOMEN: Soft. Bowel sounds are present. No masses. No tenderness. EXTREMITIES: No pedal edema. No calf tenderness. NEUROLOGICAL: Patient is awake, alert and oriented x3. Cranial nerves 2 through 12 are grossly intact. Results CBC & Chem 7: 11/25/19 03:36 11/25/19 03:36 Labs: Abnormal Lab Results - Last 24 Hours (Table) 11/24/19 11/24/19 11/24/19 Range/Units 12:35 12:35 12:35 WBC 10.8 H (3.8-10.6) k/uL RBC (4.30-5.90) m/uL MCV (80.0-100.0) fL Neutrophils # 8.2 H (1.3-7.7) k/uL ESR (0-15) mm/hr D-Dimer (<0.60) mg/L FEU Sodium (137-145) mmol/L Potassium 5.8 H (3.5-5.1) mmol/L Chloride (98-107) mmol/L BUN 26 H (9-20) mg/dL Creatinine 1.76 H (0.66-1.25) mg/dL Glucose 110 H (74-99) mg/dL AST 115 H (17-59) U/L Creatine Kinase (55-170) U/L Total Creatine Kinase (55-170) U/L CK-MB (CK-2) (0.0-2.4) ng/mL Troponin I 9.270 H* (0.000-0.034) ng/mL C-Reactive Protein (<10.0) mg/L Total Protein (6.3-8.2) g/dL Albumin (3.5-5.0) g/dL Triglycerides (<150) mg/dL Cholesterol (<200) mg/dL LDL Cholesterol, Calc (0-99) mg/dL HDL Cholesterol (40-60) mg/dL Procalcitonin (0.02-0.09) ng/mL Urine Protein (Negative) Urine Blood (Negative) Hyaline Casts (0-2) /lpf Urine Mucus (None) /hpf 11/24/19 11/24/19 11/24/19 Range/Units 12:35 12:35 13:33 WBC (3.8-10.6) k/uL RBC (4.30-5.90) m/uL MCV (80.0-100.0) fL Neutrophils # (1.3-7.7) k/uL ESR (0-15) mm/hr D-Dimer (<0.60) mg/L FEU Sodium (137-145) mmol/L Potassium (3.5-5.1) mmol/L Chloride (98-107) mmol/L BUN (9-20) mg/dL Creatinine (0.66-1.25) mg/dL Glucose (74-99) mg/dL AST (17-59) U/L Creatine Kinase (55-170) U/L Total Creatine Kinase 1356 H* (55-170) U/L CK-MB (CK-2) 106.0 H (0.0-2.4) ng/mL Troponin I (0.000-0.034) ng/mL C-Reactive Protein (<10.0) mg/L Total Protein (6.3-8.2) g/dL Albumin (3.5-5.0) g/dL Triglycerides (<150) mg/dL Cholesterol (<200) mg/dL LDL Cholesterol, Calc (0-99) mg/dL HDL Cholesterol (40-60) mg/dL Procalcitonin 0.10 H (0.02-0.09) ng/mL Urine Protein 2+ H (Negative) Urine Blood Trace H (Negative) Hyaline Casts 3 H (0-2) /lpf Urine Mucus Moderate H (None) /hpf 11/24/19 11/24/19 11/24/19 Range/Units 14:23 18:22 18:22 WBC (3.8-10.6) k/uL RBC (4.30-5.90) m/uL MCV (80.0-100.0) fL Neutrophils # (1.3-7.7) k/uL ESR (0-15) mm/hr D-Dimer 1.04 H (<0.60) mg/L FEU Sodium (137-145) mmol/L Potassium (3.5-5.1) mmol/L Chloride (98-107) mmol/L BUN (9-20) mg/dL Creatinine (0.66-1.25) mg/dL Glucose (74-99) mg/dL AST (17-59) U/L Creatine Kinase 2197 H* (55-170) U/L Total Creatine Kinase (55-170) U/L CK-MB (CK-2) 159.0 H (0.0-2.4) ng/mL Troponin I 36.800 H* (0.000-0.034) ng/mL C-Reactive Protein 15.5 H (<10.0) mg/L Total Protein (6.3-8.2) g/dL Albumin (3.5-5.0) g/dL Triglycerides (<150) mg/dL Cholesterol (<200) mg/dL LDL Cholesterol, Calc (0-99) mg/dL HDL Cholesterol (40-60) mg/dL Procalcitonin (0.02-0.09) ng/mL Urine Protein (Negative) Urine Blood (Negative) Hyaline Casts (0-2) /lpf Urine Mucus (None) /hpf 11/24/19 11/24/19 11/25/19 Range/Units 18:22 22:42 00:33 WBC (3.8-10.6) k/uL RBC (4.30-5.90) m/uL MCV (80.0-100.0) fL Neutrophils # (1.3-7.7) k/uL ESR 20 H (0-15) mm/hr D-Dimer (<0.60) mg/L FEU Sodium 135 L (137-145) mmol/L Potassium (3.5-5.1) mmol/L Chloride 108 H (98-107) mmol/L BUN 23 H (9-20) mg/dL Creatinine 1.41 H (0.66-1.25) mg/dL Glucose 112 H (74-99) mg/dL AST (17-59) U/L Creatine Kinase (55-170) U/L Total Creatine Kinase (55-170) U/L CK-MB (CK-2) 152.0 H (0.0-2.4) ng/mL Troponin I 68.400 H* (0.000-0.034) ng/mL C-Reactive Protein (<10.0) mg/L Total Protein (6.3-8.2) g/dL Albumin (3.5-5.0) g/dL Triglycerides (<150) mg/dL Cholesterol (<200) mg/dL LDL Cholesterol, Calc (0-99) mg/dL HDL Cholesterol (40-60) mg/dL Procalcitonin (0.02-0.09) ng/mL Urine Protein (Negative) Urine Blood (Negative) Hyaline Casts (0-2) /lpf Urine Mucus (None) /hpf 11/25/19 11/25/19 11/25/19 Range/Units 00:33 03:36 03:36 WBC 11.7 H (3.8-10.6) k/uL RBC 4.25 L (4.30-5.90) m/uL MCV 100.9 H (80.0-100.0) fL Neutrophils # 7.8 H (1.3-7.7) k/uL ESR (0-15) mm/hr D-Dimer (<0.60) mg/L FEU Sodium 135 L (137-145) mmol/L Potassium (3.5-5.1) mmol/L Chloride (98-107) mmol/L BUN 21 H (9-20) mg/dL Creatinine 1.34 H (0.66-1.25) mg/dL Glucose 103 H (74-99) mg/dL AST 235 H (17-59) U/L Creatine Kinase 2340 H* 2192 H* (55-170) U/L Total Creatine Kinase (55-170) U/L CK-MB (CK-2) (0.0-2.4) ng/mL Troponin I (0.000-0.034) ng/mL C-Reactive Protein (<10.0) mg/L Total Protein 6.1 L (6.3-8.2) g/dL Albumin 3.3 L (3.5-5.0) g/dL Triglycerides 359 H (<150) mg/dL Cholesterol 232 H (<200) mg/dL LDL Cholesterol, Calc 137 H (0-99) mg/dL HDL Cholesterol 23 L (40-60) mg/dL Procalcitonin (0.02-0.09) ng/mL Urine Protein (Negative) Urine Blood (Negative) Hyaline Casts (0-2) /lpf Urine Mucus (None) /hpf Thrombosis Risk Factor Assmnt - DVT/VTE Prophylaxis DVT/VTE Prophylaxis: Pharmacologic Prophylaxis ordered - Choose All That Apply Any of the Below Risk Factors Present?: Yes Each Factor Represents 1 point: Abnormal pulmonary function (COPD), Acute IA, Obesity (BMI >25) Other Risk Factors: Yes Each Risk Factor Represents 2 Points: Age 61-74 years Other congenital or acquired thrombophilia - If yes, enter type in comment: No Thrombosis Risk Factor Assessment Total Risk Factor Score: 5 Thrombosis Risk Factor Assessment Level: High Risk Assessment and Plan Plan: 1. Acute non-ST elevated myocardial infarction status post heart catheterization and PTCA with stenting of the right coronary artery with 3 drug- eluting stents. Continue aspirin 81 mg daily, Lipitor 80 mg daily, Brilinta 90 mg twice daily. 2. Episodes of bradycardia and paroxysmal junctional tachycardia secondary to ischemia. 3. Acute tracheobronchitis, doubt pneumonia. 4. Acute exacerbation of COPD. Continue Symbicort twice daily, DuoNeb treatments 4 times daily 5. Peripheral vascular disease with multiple vascular procedures on both lower extremities. 6. Acute kidney injury with chronic kidney disease stage III. 7. Hyperlipidemia. Continue atorvastatin. 8. Tobacco use and dependence. 9. Gastroesophageal reflux disease. Protonix. 10. Generalized osteoarthritis. 11. Benign prostatic hypertrophy. Continue finasteride 5 mg daily. Patient will be admitted to the hospital for a minimum of 2 night stay. Discharge plan: Most likely return home Impression and plan of care have been directed as dictated by the signing physician. Akilah Guevara nurse practitioner acting as scribe for signing physician.
[2019-11-25] MEDS: SYMBICORT 160-4.5 MCG INHALER INHALATION SCH (19:53)
[2019-11-25] MEDS: TICAGRELOR 90 MG TAB PO SCH (20:19)
[2019-11-25] MEDS: ATORVASTATIN 80 MG TAB PO SCH (20:19)
[2019-11-26 04:36] LABS: Basophils % (A) 0 %; Eosinophils # (A) 0.2 k/uL (0-0.7); Eosinophils % (A) 2 %; HCT 41.7 % (39.0-53.0); HGB 13.4 gm/dL (13.0-17.5); Lymphocytes # (A) 1.8 k/uL (1.0-4.8); Lymphocytes % (A) 16 %; MCH 32.2 pg (25.0-35.0); MCHC 32.3 g/dL (31.0-37.0); MCV 99.7 fL (80.0-100.0); Macrocytosis Slight; Mean Platelet Volume 7.2; Monocytes # (A) 0.6 k/uL (0-1.0); Monocytes % (A) 6 %; Neutrophils # (A) 8.1 k/uL (1.3-7.7); Neutrophils % (A) 74 %; Platelet Count 249 k/uL (150-450); RBC 4.18 m/uL (4.30-5.90); RDW 13.9 % (11.5-15.5)
[2019-11-26 04:46] LABS: Calcium 9.2 mg/dL (8.4-10.2); Magnesium 2.1 mg/dL (1.6-2.3); Potassium 4.4 mmol/L (3.5-5.1)
[2019-11-26] MEDS: IPRATROPIUM-ALBUTEROL 3 ML NEB INHALATION SCH ×4 (07:28→19:28)
[2019-11-26] MEDS: SYMBICORT 160-4.5 MCG INHALER INHALATION SCH ×2 (07:28→19:28)
[2019-11-26] MEDS: FINASTERIDE 5 MG TAB PO SCH (08:40)
[2019-11-26] MEDS: ASPIRIN 81 MG PO SCH (08:40)
[2019-11-26] MEDS: TICAGRELOR 90 MG TAB PO SCH ×2 (08:40→20:04)
[2019-11-26] MEDS: PANTOPRAZOLE 40 MG/10 ML VIAL IV SCH (08:40)
--- NOTE | 2019-11-26 10:35 | P.PN ---
Subjective Progress Note Date: 11/26/19 Principal diagnosis: Acute non-ST elevation inferior wall myocardial infarction. This is a 74-year-old white male, [id number] smoker, known history of COPD, history of peripheral vessel occlusive disease and left femoral-popliteal bypass as well as right femoral-femoral bypass. Patient was seen in the ER on November 23, he presented mostly with fever chills and supposedly he was exposed to his grandson who tested positive for influenza B few days ago. Patient was also complaining of dizziness. Upon evaluation in the ER, patient was noted to have elevated potassium, and Kayexalate was given. His troponin was also noted to be abnormal. And he was experiencing intermittent episodes of diaphoresis. Cardiology was consulted, and during that time the patient was having runs of what seemed to be junctional tachycardia. EKG showed sinus mechanism with old Q waves suggestive of possible old ME, there was no evidence of clear-cut inferior ST elevation. Patient was placed on heparin, cardiac catheterization was done this morning, patient underwent PTCA and stenting of the right coronary artery with 3 drug eluting stents. Chest x-ray showed mild venous pulmonary con gestion, and possibly some component of interstitial edema, patient was admitted to the ICU, and I was asked to see him on consultation. During my evaluation, patient had mostly intermittent episodes of cough, no wheezing, no chest pain, no nausea, no vomiting no abdominal pain. Patient denies any recent travel or any exposure to someone with covid 19. CT of the chest mostly showed minimal scarring and subsegmental atelectasis, especially in the posterior lung zarco. No mediastinal adenopathy. Considering his fever on presentation, patient was placed empirically on antibiotics. And after I evaluated the patient, I recommended bronchodilators in the form of DuoNeb and Symbicort. His CBC was relatively normal. Electrolytes were normal. BUN was a bit elevated on presentation at 23 and creatinine was 1.41. CPK was noted to be significantly elevated over 1999, and his troponin went up from 56-68 overnight. Lipid profile was also significantly abnormal with elevated LDL and elevated triglycerides Reevaluated today on 11/26/19, patient remains in the ICU, he is on 3 L nasal cannula, feeling much better, denies any cough wheezing shortness of breath, denies any chest pain. Patient is already ambulating in the hallway. No major clinical events overnight. His CBC is relatively normal. His electrolytes are normal. BUN is 18 creatinine is 1.31 improving compared to yesterday. Chest x- ray is mostly consistent with mild venous hypertension and interstitial edema, patient has good urine output, and considering his renal functioning I would hold on diuresis. Clinically the patient is not symptomatic Objective - Vital Signs Vital signs: Vital Signs Temp 97.7 F 11/26/19 08:00 Pulse 53 L 11/26/19 10:00 Resp 21 11/26/19 10:00 BP 108/94 11/26/19 10:00 Pulse Ox 94 L 11/26/19 10:00 Intake & Output 11/25/19 11/26/19 11/26/19 18:59 06:59 18:59 Intake Total 945 450 240 Output Total 775 2075 300 Balance 170 -1625 -60 Weight 118.4 kg 117.707 kg Intake: IV 825 450 Sodium Chloride 0.9% 1, 825 450 000 ml @ 75 mls/hr IV . [id number] [facility] Rx#:[id number] Oral 120 240 Output: Urine 775 2075 300 Other: Voiding Method Urinal Urinal Urinal ABP, PAP, CO, CI - Last Documented Arterial Blood Pressure 115/58 - Exam Physical Exam: Revealed 74-year-old white male in no distress. On 3 L nasal cannula. Head: Atraumatic, normocephalic. HEENT:[Neck is supple.] [No neck masses.] [No thyromegaly.] [No JVD.] PERRLA, EOMI, no icterus. Chest: [Diminished breath sounds at the bases, minimal fine crackles at the bases. No rhonchi no wheezes. Cardiac Exam: [Normal S1 and S2, no S3 gallop, no murmur.] Abdomen: [Soft, nontender, no megaly, no rebound, no guarding, normal bowel sounds.] Extremities: [No clubbing, no edema, no cyanosis.] Surgical scars of vascular surgery noted in both lower extremities medially. Neurological Exam: [No focal neurologic deficit.] Alert and oriented 3. Psychiatric: Normal mood, affect and normal mental status examination. Skin: No rashes. - Labs CBC & Chem 7: 11/26/19 04:19 11/26/19 04:19 Labs: Abnormal Lab Results - Last 24 Hours (Table) 11/26/19 11/26/19 Range/Units 04:19 04:19 WBC 11.0 H (3.8-10.6) k/uL RBC 4.18 L (4.30-5.90) m/uL Neutrophils # 8.1 H (1.3-7.7) k/uL Sodium 135 L (137-145) mmol/L Chloride 108 H (98-107) mmol/L Creatinine 1.31 H (0.66-1.25) mg/dL Glucose 107 H (74-99) mg/dL Microbiology - Last 24 Hours (Table) 11/24/19 18:22 Blood Culture - Preliminary Blood No Growth after 24 hours 11/24/19 12:35 Blood Culture - Preliminary Blood No Growth after 24 hours Assessment and Plan Assessment: Impression: Acute non-ST elevation inferior myocardial infarction Episodes of bradycardia and paroxysmal junctional tachycardia secondary to isc hemia. Acute tracheobronchitis, doubt pneumonia. Acute exacerbation of COPD. History of multiple vascular surgeries/peripheral vascular surgeries involving both lower extremities. Acute on Chronic kidney disease, stage is not clear, possibly stage 2. Severe hyperlipidemia Tobacco dependence syndrome. Degenerative joint disease. GERD without esophagitis. Recommendation: Continue present supportive care measures. Bronchodilators. Antibiotics empirically. Aspirin, statins,brilinta, nitrates, Consider diuretics, if the patient develops worsening symptoms of congestive heart failure. Transfer patient out of the ICU to a monitor bed on the cardiac floor. Continue GI and DVT prophylaxis. We'll continue to follow. Time with Patient: Less than 30
--- NOTE | 2019-11-26 12:34 | P.PN ---
Subjective Progress Note Date: 11/26/19 This is a 74-year-old occasion male patient of Dr. Curiel with past medical history of COPD, peripheral vessel occlusive disease and left femoral-popliteal bypass as well as right femoral-femoral bypass, gastroesophageal reflux disease, hyperlipidemia, osteoarthritis, benign prostatic hypertrophy, congenital single kidney, gastric ulcer, cluster headaches, tobacco use and dependence. Patient complains of headache and dry cough. Denies any shortness of breath. Denies chest pain or palpitations. He complains of dizziness. He was exposed to her grandson that was diagnosed with influenza B. Patient has had no abdominal pain, nausea vomiting or diarrhea. Patient came into [facility] emergency center for evaluation. He was afebrile, heart rate 55, blood pressure 150/78, pulse ox 94% on room air. EKG was a right bundle branch block and ST segment depression in the precordial leads. Chest x-ray revealed COPD with patchy right perihilar and lower lobe atelectasis versus pneumonia. Correlate for interstitial pulmonary fibrosis. CT of the chest showed minimal scarring and subsegmental atelectasis but otherwise negative CT. No suspicious pulmonary mass. WBC 10.8, hemoglobin 14.9, potassium 5.8, BUN 26, creatinine 1.76, blood sugar 110. Influenza testing negative, RSV negative, lactic acid 1.5. AST 115. Urinalysis clear with nitrate and leukoesterase negative. Initial troponin 9.270 and initial at 36.8, 68.4. Triglycerides 359, cholesterol 232, LDL 137, HDL 23. Repeat BUN this morning is 21 and creatinine 1.34. Patient was admitted to the intensive care unit and has undergone cardiac catheterization and PTCA and stenting of the right coronary artery with 3 drug-eluting stents. Dr. Sutton is also on consult. Echocardiogram reveals EF 45-50%, mild mitral regurgitation, mild tricuspid regurgitation, RVSP less than 35, no pulmonary hypertension. 11/25: Patient remains in the intensive care unit. He has been downgraded to cardiac stepdown unit. Patient states that his breathing is okay. He is currently on O2 at 4 L nasal cannula. Patient does have home O2 but he only uses it for cluster headaches. He denies having any chest pain at this time. P atient has been afebrile, heart rate 55, blood pressure 115/78, pulse ox 94% on 4 L nasal cannula. Repeat blood work reveals Dianne BC 11, hemoglobin 13.4, platelet count 249. Sodium 135, potassium 4.4, chloride 108, CO2 24, BUN 18 and creatinine 1.31 Objective - Vital Signs Vital signs: Vital Signs Temp 97.7 F 11/26/19 08:00 Pulse 56 L 11/26/19 11:10 Resp 21 11/26/19 10:00 BP 108/94 11/26/19 10:00 Pulse Ox 94 L 11/26/19 10:00 Intake & Output 11/25/19 11/26/19 11/26/19 18:59 06:59 18:59 Intake Total 945 450 240 Output Total 775 2075 300 Balance 170 -1625 -60 Weight 118.4 kg 117.707 kg Intake: IV 825 450 Sodium Chloride 0.9% 1, 825 450 000 ml @ 75 mls/hr IV . [id number] [facility] Rx#:[id number] Oral 120 240 Output: Urine 775 2075 300 Other: Voiding Method Urinal Urinal Urinal ABP, PAP, CO, CI - Last Documented Arterial Blood Pressure 115/58 - Exam Review of Systems Constitutional: Denies chills, Reports fatigue, denies fever, denies lethargy, Denies weight loss Eyes: denies blurred vision, denies pain Ears, nose, mouth and throat: Reports vertigo, Denies dysphagia, Denies nasal congestion, Denies nasal discharge, Denies sore throat Cardiovascular: Reports decreased exercise tolerance, Reports dyspnea on exertion, denies shortness of breath, Denies leg edema, Denies palpitations, Denies syncope, denies chest pain Respiratory: denies dyspnea, Reports respiratory infections, denies wheezing, Denies cough Gastrointestinal: Denies abdominal pain, Denies diarrhea, Denies nausea, Denies vomiting Genitourinary: Denies dysuria, Denies urinary retention Musculoskeletal: Denies frequent falls, Denies gait dysfunction, Denies myalgias Integumentary: Denies pruritus, Denies rash, Denies wounds Neurological: Denies change in mentation, Denies change in speech, Denies numbness, Denies weakness Psychiatric: Denies anxiety, Denies depression Endocrine: Denies fatigue, Denies weight change Physical examination Gen: This is a 74-year-old male. He is resting in the ICU bed and appears to be comfortable and in no acute distress. HEENT: Head is atraumatic, normocephalic. Pupils equal, round. Sclerae is anicteric. NECK: Supple. No JVD. No lymphadenopathy. No thyromegaly. LUNGS: Diminished breath sounds bilaterally with scattered rhonchi. No intercostal retractions. HEART: Regular rate and rhythm. No murmur. ABDOMEN: Soft. Bowel sounds are present. No masses. No tenderness. EXTREMITIES: No pedal edema. No calf tenderness. NEUROLOGICAL: Patient is awake, alert and oriented x3. Cranial nerves 2 through 12 are grossly intact. - Labs CBC & Chem 7: 11/26/19 04:19 11/26/19 04:19 Labs: Abnormal Lab Results - Last 24 Hours (Table) 11/26/19 11/26/19 Range/Units 04:19 04:19 WBC 11.0 H (3.8-10.6) k/uL RBC 4.18 L (4.30-5.90) m/uL Neutrophils # 8.1 H (1.3-7.7) k/uL Sodium 135 L (137-145) mmol/L Chloride 108 H (98-107) mmol/L Creatinine 1.31 H (0.66-1.25) mg/dL Glucose 107 H (74-99) mg/dL Microbiology - Last 24 Hours (Table) 11/24/19 18:22 Blood Culture - Preliminary Blood No Growth after 24 hours 11/24/19 12:35 Blood Culture - Preliminary Blood No Growth after 24 hours Assessment and Plan Plan: 1. Acute non-ST elevated myocardial infarction status post heart catheterization and PTCA with stenting of the right coronary artery with 3 drug- eluting stents. Continue aspirin 81 mg daily, Lipitor 80 mg daily, Brilinta 90 mg twice daily. Transfer to the cardiac stepdown unit 2. Episodes of bradycardia and paroxysmal junctional tachycardia secondary to ischemia. 3. Acute tracheobronchitis, doubt pneumonia. 4. COPD. Continue Symbicort twice daily, DuoNeb treatments 4 times daily 5. Peripheral vascular disease with multiple vascular procedures on both lower extremities. 6. Acute kidney injury with chronic kidney disease stage III. 7. Hyperlipidemia. Continue atorvastatin. 8. Tobacco use and dependence. 9. Gastroesophageal reflux disease. Protonix. 10. Generalized osteoarthritis. 11. Benign prostatic hypertrophy. Continue finasteride 5 mg daily. Discharge plan: Most likely return home Impression and plan of care have been directed as dictated by the signing physician. Akilah Guevara nurse practitioner acting as scribe for signing physician.
--- NOTE | 2019-11-26 13:37 | PN ---
PROGRESS NOTE This patient came with symptoms of fever. The patient had abnormal troponin and underwent a cardiac catheterization. Patient was found to have a 90% proximal right coronary artery stenosis and underwent a stent placement. The patient is doing better. Patient remains in normal sinus rhythm with right bundle branch block. Denies any chest pain or shortness of breath. No dysrhythmias are noted. First and second heart sounds are normal. Lungs are clear to auscultation and percussion. Patient is being ambulated. If patient is doing well, patient can be discharged home tomorrow. MMODL / IJN: [id number] /
[2019-11-26] MEDS: ATORVASTATIN 80 MG TAB PO SCH (20:04)
[2019-11-27 05:49] LABS: Basophils % (A) 0 %; Eosinophils # (A) 0.4 k/uL (0-0.7); Eosinophils % (A) 4 %; HCT 41.8 % (39.0-53.0); HGB 13.7 gm/dL (13.0-17.5); Lymphocytes # (A) 2.4 k/uL (1.0-4.8); Lymphocytes % (A) 22 %; MCH 32.2 pg (25.0-35.0); MCHC 32.7 g/dL (31.0-37.0); MCV 98.4 fL (80.0-100.0); Monocytes # (A) 0.5 k/uL (0-1.0); Monocytes % (A) 5 %; Neutrophils % (A) 66 %; Platelet Count 259 k/uL (150-450); RBC 4.24 m/uL (4.30-5.90); RDW 14.1 % (11.5-15.5); WBC 10.6 k/uL (3.8-10.6)
[2019-11-27 06:15] LABS: Calcium 9.4 mg/dL (8.4-10.2); Potassium 4.4 mmol/L (3.5-5.1)
[2019-11-27] MEDS: IPRATROPIUM-ALBUTEROL 3 ML NEB INHALATION SCH ×2 (07:14→10:55)
[2019-11-27] MEDS: SYMBICORT 160-4.5 MCG INHALER INHALATION SCH (07:14)
[2019-11-27] MEDS ORDERED: PANTOPRAZOLE 40 MG TABLET PO SCH (07:30)
[2019-11-27] MEDS: FINASTERIDE 5 MG TAB PO SCH (08:27)
[2019-11-27] MEDS: TICAGRELOR 90 MG TAB PO SCH (08:27)
[2019-11-27] MEDS: ASPIRIN 81 MG PO SCH (08:27)
[2019-11-27 09:36] VITALS: BP 108/65; RESP 11; TEMP 98.1
--- NOTE | 2019-11-27 11:04 | PN ---
PROGRESS NOTE This patient's electronic medical record is reviewed. Patient is status post inferior wall myocardial infarction. Patient is doing well. He is ambulatory in the hallway. No dizziness or lightheadedness is noted. Heart rate is 65 per minute, blood pressure is 108/65 mmHg. First and second heart sounds are heard. Lungs are clear to auscultation and percussion. Patient has being ambulated. He is explained about the antithrombotic regimen. He will be discharged home and will be followed by Dr. Phill Jackson in 2 to 3 weeks. MMODL / IJN: [id number] /
[2019-11-27 11:06] VITALS: PULSE 66
--- NOTE | 2019-11-27 11:36 | P.PN ---
Subjective Progress Note Date: 11/27/19 Principal diagnosis: Acute non-ST elevation inferior wall myocardial infarction. This is a 74-year-old white male, [id number] smoker, known history of COPD, history of peripheral vessel occlusive disease and left femoral-popliteal bypass as well as right femoral-femoral bypass. Patient was seen in the ER on November 23, he presented mostly with fever chills and supposedly he was exposed to his grandson who tested positive for influenza B few days ago. Patient was also complaining of dizziness. Upon evaluation in the ER, patient was noted to have elevated potassium, and Kayexalate was given. His troponin was also noted to be abnormal. And he was experiencing intermittent episodes of diaphoresis. Cardiology was consulted, and during that time the patient was having runs of what seemed to be junctional tachycardia. EKG showed sinus mechanism with old Q waves suggestive of possible old NC, there was no evidence of clear-cut inferior ST elevation. Patient was placed on heparin, cardiac catheterization was done this morning, patient underwent PTCA and stenting of the right coronary artery with 3 drug eluting stents. Chest x-ray showed mild venous pulmonary con gestion, and possibly some component of interstitial edema, patient was admitted to the ICU, and I was asked to see him on consultation. During my evaluation, patient had mostly intermittent episodes of cough, no wheezing, no chest pain, no nausea, no vomiting no abdominal pain. Patient denies any recent travel or any exposure to someone with covid 19. CT of the chest mostly showed minimal scarring and subsegmental atelectasis, especially in the posterior lung zarco. No mediastinal adenopathy. Considering his fever on presentation, patient was placed empirically on antibiotics. And after I evaluated the patient, I recommended bronchodilators in the form of DuoNeb and Symbicort. His CBC was relatively normal. Electrolytes were normal. BUN was a bit elevated on presentation at 23 and creatinine was 1.41. CPK was noted to be significantly elevated over 1999, and his troponin went up from 56-68 overnight. Lipid profile was also significantly abnormal with elevated LDL and elevated triglycerides Reevaluated today on 11/26/19, patient remains in the ICU, he is on 3 L nasal cannula, feeling much better, denies any cough wheezing shortness of breath, denies any chest pain. Patient is already ambulating in the hallway. No major clinical events overnight. His CBC is relatively normal. His electrolytes are normal. BUN is 18 creatinine is 1.31 improving compared to yesterday. Chest x- ray is mostly consistent with mild venous hypertension and interstitial edema, patient has good urine output, and considering his renal functioning I would hold on diuresis. Clinically the patient is not symptomatic Patient was reevaluated today on 11/27/19, he is presently overflow in the ICU, doing extremely well, relatively asymptomatic, no cough no wheezing no shortness of breath. Denies any chest pain. CBC is normal basic metabolic profile is normal creatinine is 1.36, stable. Was 1.41 on admission. Objective - Vital Signs Vital signs: Vital Signs Temp 98.1 F 11/27/19 08:00 Pulse 66 11/27/19 11:06 Resp 11 L 11/27/19 09:00 BP 108/65 11/27/19 09:00 Pulse Ox 96 11/27/19 09:00 Intake & Output 11/26/19 11/27/19 11/27/19 18:59 06:59 18:59 Intake Total 600 480 0 Output Total 1450 1250 Balance -850 -770 0 Weight 116.7 kg Intake: Oral 600 480 0 Output: Urine 1450 1250 Other: Voiding Method Urinal Urinal Urinal ABP, PAP, CO, CI - Last Documented Arterial Blood Pressure 115/58 - Exam Physical Exam: Revealed 74-year-old white male in no distress. On room air Head: Atraumatic, normocephalic. HEENT:[Neck is supple.] [No neck masses.] [No thyromegaly.] [No JVD.] PERRLA, EOMI, no icterus. Chest: [Diminished breath sounds at the bases, minimal crackles nor rhonchi no wheezes Cardiac Exam: [Normal S1 and S2, no S3 gallop, no murmur.] Abdomen: [Soft, nontender, no megaly, no rebound, no guarding, normal bowel sounds.] Extremities: [No clubbing, no edema, no cyanosis.] Surgical scars of vascular surgery noted in both lower extremities medially. Neurological Exam: [No focal neurologic deficit.] Alert and oriented 3. Psychiatric: Normal mood, affect and normal mental status examination. Skin: No rashes. - Labs CBC & Chem 7: 11/27/19 05:24 11/27/19 05:24 Labs: Abnormal Lab Results - Last 24 Hours (Table) 11/27/19 11/27/19 Range/Units 05:24 05:24 RBC 4.24 L (4.30-5.90) m/uL Sodium 136 L (137-145) mmol/L Creatinine 1.36 H (0.66-1.25) mg/dL Microbiology - Last 24 Hours (Table) 11/24/19 18:22 Blood Culture - Preliminary Blood No Growth after 48 hours 11/24/19 12:35 Blood Culture - Preliminary Blood No Growth after 48 hours Assessment and Plan Assessment: Impression: Acute non-ST elevation inferior myocardial infarction, status post RCA stenting. Episodes of bradycardia and paroxysmal junctional tachycardia secondary to ischemia. Acute tracheobronchitis, doubt pneumonia. Acute exacerbation of COPD. History of multiple vascular surgeries/peripheral vascular surgeries involving both lower extremities. Acute on Chronic kidney disease, stage is not clear, possibly stage 2. Severe hyperlipidemia Tobacco dependence syndrome. Degenerative joint disease. GERD without esophagitis. Recommendation: Cleared from my perspective for discharge home today. Continue updrafts and Symbicort. Zithromax 500 mg daily for 5 more days.. for tracheobronchitis. Aspirin, statins,brilinta, nitrates, Agreed to discharge the patient home if cleared by cardiology. Follow-up on outpatient basis with Dr. Prince regarding his obstructive sleep apnea and his COPD. Patient to come to our office in 2 weeks Time with Patient: Less than 30
--- NOTE | 2019-11-27 11:36 | P.DS ---
Providers Date of admission: 11/24/19 14:50 Expected date of discharge: 11/27/19 Attending physician: Nabil Guillory MD Consults: 11/24/19 14:40 Consult Physician Urgent Consulting Provider: Julia Carlos Consult Reason/Comments: Non-STEMI Do you want consulting provider notified?: Yes 11/24/19 23:27 Consult Physician Stat Consulting Provider: Amelia Jackson Consult Reason/Comments: ICU management Do you want consulting provider notified?: Already Contacted 11/25/19 07:20 Consult Physician Routine Consulting Provider: Julia Carlos Consult Reason/Comments: Post Interventional patient Do you want consulting provider notified?: Already Contacted 11/25/19 08:20 Consult Physician Routine Consulting Provider: Rhiannon Sutton Consult Reason/Comments: COPD Do you want consulting provider notified?: Yes Primary care physician: Galileo Curiel [facility] Course: This is a 74-year-old occasion male patient of Dr. Curiel with past medical history of COPD, peripheral vessel occlusive disease and left femoral-popliteal bypass as well as right femoral-femoral bypass, gastroesophageal reflux disease, hyperlipidemia, osteoarthritis, benign prostatic hypertrophy, congenital single kidney, gastric ulcer, cluster headaches, tobacco use and dependence. Patient complains of headache and dry cough. Denies any shortness of breath. Denies chest pain or palpitations. He complains of dizziness. He was exposed to her grandson that was diagnosed with influenza B. Patient has had no abdominal pain, nausea vomiting or diarrhea. Patient came into [facility] emergency center for evaluation. He was afebrile, heart rate 55, blood pressure 150/78, pulse ox 94% on room air. EKG was a right bundle branch block and ST segment depression in the precordial leads. Chest x-ray revealed COPD with patchy right perihilar and lower lobe atelectasis versus pneumonia. Correlate for interstitial pulmonary fibrosis. CT of the chest showed minimal scarring and subsegmental atelectasis but otherwise negative CT. No suspicious pulmonary mass. WBC 10.8, hemoglobin 14.9, potassium 5.8, BUN 26, creatinine 1.76, blood sugar 110. Influenza testing negative, RSV negative, lactic acid 1.5. AST 115. Urinalysis clear with nitrate and leukoesterase negative. Initial troponin 9.270 and initial at 36.8, 68.4. Triglycerides 359, cholesterol 232, LDL 137, HDL 23. Repeat BUN this morning is 21 and creatinine 1.34. Patient was admitted to the intensive care unit and has undergone cardiac catheterization and PTCA and stenting of the right coronary artery with 3 drug-eluting stents. Dr. Sutton is also on consult. Echocardiogram reveals EF 45-50%, mild mitral regurgitation, mild tricuspid regurgitation, RVSP less than 35, no pulmonary hypertension. 11/25: Patient remains in the intensive care unit. He has been downgraded to cardiac stepdown unit. Patient states that his breathing is okay. He is currently on O2 at 4 L nasal cannula. Patient does have home O2 but he only uses it for cluster headaches. He denies having any chest pain at this time. Patient has been afebrile, heart rate 55, blood pressure 115/78, pulse ox 94% on 4 L nasal cannula. Repeat blood work reveals Dianne BC 11, hemoglobin 13.4, platelet count 249. Sodium 135, potassium 4.4, chloride 108, CO2 24, BUN 18 and creatinine 1.31 11/26: Patient has been afebrile, heart rate 60s, blood pressure 108/65, pulse ox 98% on room air. Repeat blood work reveals CBC unremarkable, BUN 17 and creatinine 1.36. Sodium 136. Blood cultures no growth at 48 hours 2 sp ecimens. Patient has been cleared by cardiology and pulmonary medicine for discharge. Patient denies having any chest pain, shortness of breath. No lightheadedness or dizziness. Patient will be discharged home today in stable condition. Discharge diagnoses: 1. Acute non-ST elevated myocardial infarction status post heart catheterization and PTCA with stenting of the right coronary artery with 3 drug- eluting stents. 2. Episodes of bradycardia and paroxysmal junctional tachycardia secondary to ischemia. 3. Acute tracheobronchitis,no pneumonia. 4. COPD. 5. Peripheral vascular disease with multiple vascular procedures on both lower extremities. 6. Acute kidney injury with chronic kidney disease stage III. 7. Hyperlipidemia. 8. Tobacco use and dependence. 9. Gastroesophageal reflux disease. 10. Generalized osteoarthritis. 11. Benign prostatic hypertrophy. Discharge plan: home Impression and plan of care have been directed as dictated by the signing physician. Akilah Guevara nurse practitioner acting as scribe for signing physician. Patient Condition at Discharge: Good Plan - Discharge Summary Discharge Rx Participant: Yes New Discharge Prescriptions: New Ticagrelor [Brilinta] 90 mg PO BID #60 tab Atorvastatin [Lipitor] 80 mg PO HS #30 tab Nitroglycerin Sl Tabs [Nitrostat] 0.4 mg SUBLINGUAL Q5M PRN #25 tab PRN Reason: Chest Pain Albuterol Inhaler [Ventolin Hfa Inhaler] 2 puff INHALATION RT-Q6H PRN #1 inhaler PRN Reason: Wheezing Continue Esomeprazole Magnesium [NexIUM 24Hr] 40 mg PO DAILY Aspirin EC [Ecotrin Low Dose] 81 mg PO DAILY Acetaminophen [Tylenol Arthritis] 1,300 mg PO QAM Finasteride [Proscar] 5 mg PO DAILY Discharge Medication List Acetaminophen [Tylenol Arthritis] 1,300 mg PO QAM 03/26/18 [History] Aspirin EC [Ecotrin Low Dose] 81 mg PO DAILY 03/26/18 [History] Esomeprazole Magnesium [NexIUM 24Hr] 40 mg PO DAILY 03/26/18 [History] Finasteride [Proscar] 5 mg PO DAILY 03/26/18 [History] Albuterol Inhaler [Ventolin Hfa Inhaler] 2 puff INHALATION RT-Q6H PRN #1 inhaler 11/27/19 [Rx] Atorvastatin [Lipitor] 80 mg PO HS #30 tab 11/27/19 [Rx] Nitroglycerin Sl Tabs [Nitrostat] 0.4 mg SUBLINGUAL Q5M PRN #25 tab 11/27/19 [Rx] Ticagrelor [Brilinta] 90 mg PO BID #60 tab 11/27/19 [Rx] Follow up Appointment(s)/Referral(s): Galileo Curiel MD [Primary Care Provider] - 12/01/19 11:00 am Patient Instructions/Handouts: Heart Attack (DC), Peripheral Vascular Disease (DC), Hyperkalemia (DC) Activity/Diet/Wound Care/Special Instructions: Contact for indegent funds needed at pa
== END 2019-11-27 13:18 | disposition home or self-care (01) | DRG 247 ==
LOC: EC 09:40 → 3SCARD 14:50 → 2SICU 22:30
PROVIDERS: ADMIT Internal Medicine; ATTEND Internal Medicine
PROC: B2111ZZ Fluoroscopy of Multiple Coronary Arteries using Low Osmolar Contrast (ICD-10-PCS; principal; 2019-11-25 06:00)
PROC: 027136Z Dilation of Coronary Artery, Two Arteries with Three Drug-eluting Intraluminal Devices, Percutaneous Approach (ICD-10-PCS; principal; 2019-11-25 06:00)
DX: I21.4 Non-ST elevation (NSTEMI) myocardial infarction (principal); I47.1 Supraventricular tachycardia; J44.0 Chronic obstructive pulmonary disease with (acute) lower respiratory infection; J44.1 Chronic obstructive pulmonary disease with (acute) exacerbation; N17.9 Acute kidney failure, unspecified; Q60.0 Renal agenesis, unilateral; E78.1 Pure hyperglyceridemia; E78.5 Hyperlipidemia, unspecified; E87.5 Hyperkalemia; I12.9 Hypertensive chronic kidney disease with stage 1 through stage 4 chronic kidney disease, or unspecified chronic kidney disease; I25.10 Atherosclerotic heart disease of native coronary artery without angina pectoris; I25.2 Old myocardial infarction; I45.10 Unspecified right bundle-branch block; I73.9 Peripheral vascular disease, unspecified; J20.9 Acute bronchitis, unspecified; K21.9 Gastro-esophageal reflux disease without esophagitis; M15.9 Polyosteoarthritis, unspecified; N18.3 Chronic kidney disease, stage 3 (moderate); N40.0 Benign prostatic hyperplasia without lower urinary tract symptoms; I08.1 Rheumatic disorders of both mitral and tricuspid valves; G47.33 Obstructive sleep apnea (adult) (pediatric); G89.29 Other chronic pain; Z79.82 Long term (current) use of aspirin; Z79.899 Other long term (current) drug therapy; Z87.11 Personal history of peptic ulcer disease; Z87.01 Personal history of pneumonia (recurrent); Z98.42 Cataract extraction status, left eye; Z98.41 Cataract extraction status, right eye; Z96.1 Presence of intraocular lens; Z90.49 Acquired absence of other specified parts of digestive tract; Z80.0 Family history of malignant neoplasm of digestive organs; Z82.49 Family history of ischemic heart disease and other diseases of the circulatory system; Z82.5 Family history of asthma and other chronic lower respiratory diseases
CPT/HCPCS: 36415; 71045; 71046; 71250; 80048; 80053; 80061; 81001; 82550; 82553; 83605; 83735; 84145; 84484; 85025; 85379; 85610; 85652; 85730; 86140; 87040; 87502; 87634; 93005; 93306; 93454; 94640; 96365; 96366; 96367; 96376; 99291

== ENCOUNTER → 2020-01-09 | Outpatient (CLI) | payer MEDICARE ==
[2020-01-09 09:47] LABS: Basophils # (A) 0.1 k/uL (0-0.2); Basophils % (A) 1 %; Eosinophils # (A) 0.4 k/uL (0-0.7); Eosinophils % (A) 5 %; Hypochromasia Slight; Lymphocytes # (A) 2.5 k/uL (1.0-4.8); Lymphocytes % (A) 30 %; MCH 31.2 pg (25.0-35.0); MCHC 30.6 g/dL (31.0-37.0); MCV 101.9 fL (80.0-100.0); Macrocytosis Slight; Mean Platelet Volume 6.7; Monocytes # (A) 0.4 k/uL (0-1.0); Monocytes % (A) 4 %; Neutrophils # (A) 4.8 k/uL (1.3-7.7); Neutrophils % (A) 58 %; Platelet Count 319 k/uL (150-450); RBC 4.81 m/uL (4.30-5.90); RDW 14.8 % (11.5-15.5); WBC 8.4 k/uL (3.8-10.6)
[2020-01-09 15:22] LABS: African American GFR (CKD) 48.8 (60.0-200.0); Anion Gap 5.8 mmol/L (4.00-12.00); Carbon Dioxide 27.2 mmol/L (21.6-31.8); Non-African American GFR(CKD) 42.1 (60.0-200.0); Potassium 5.3 mmol/L (3.5-5.5)
== END | disposition home or self-care (01) ==
LOC: LABWHC1 08:48
PROVIDERS: ATTEND Internal Medicine Interventional Cardiology
DX: Z01.818 Encounter for other preprocedural examination (principal); I25.10 Atherosclerotic heart disease of native coronary artery without angina pectoris; R97.20 Elevated prostate specific antigen [PSA]
CPT/HCPCS: 36415; 80051; 82565; 84520; 85025

== ENCOUNTER → 2020-01-12 | Outpatient (CLI) | payer MEDICARE | END | disposition home or self-care (01) | LOC: LABWHC1 10:13 | PROVIDERS: ATTEND Internal Medicine Interventional Cardiology | DX: U07.1 COVID-19 (principal) | CPT/HCPCS: 87635 ==

== ENCOUNTER → 2020-01-14 | Day surgery (SDC) | payer MEDICARE ==
[2020-01-13 09:50] VITALS: BMI 33.9
[~2020-01-14] MED LIST: ACETAMINOPHEN 1300 MG PO SCH; ALBUTEROL INHALATION PRN; ALPRAZolam 0.25 MG TAB PO PRN; ALPRAZolam 0.5 MG TAB PO PRN; ASPIRIN 325 MG TAB PO STA; ASPIRIN 81 MG ONE; ATORVASTATIN 80 MG TAB PO SCH; ATORVASTATIN 80 MG TAB PO STA; ATROPINE SULFATE 0.1 MG/ML 10ML SYRINGE IV PRN; BIVALIRUDIN 250 MG in SODIUM CHLORIDE 0.9% 50 ML IV ONE; BIVALIRUDIN BOLUS 250 MG/50 ML IV ONE; CLOPIDOGREL 75 MG TAB ONE; CLOPIDOGREL 75 MG TAB PO ONE; CLOPIDOGREL 75 MG TAB PO SCH; ESOMEPRAZOLE MAGNESIUM 40 MG PO SCH; FINASTERIDE 5 MG TAB PO SCH; HYDROmorphone 1 MG/ML 1 ML SYRINGE IVP ONE; HYDROmorphone 1 MG/ML 1 ML SYRINGE ONE; IOPAMIDOL-370 100ML BTL INJ ONE; LIDOCAINE 1% INJ 10MG/ML (20 ML MDV) ONE; MAG HYDROX/AL HYDROX/SIMETH 30 ML CUP PO PRN; MIDAZOLAM 2 MG/2 ML VIAL IV ONE; NITROGLYCERIN 1000MCG/10ML SYRINGE INTRACORON ONE; NITROGLYCERIN SL TABS 0.4 MG TAB SUBLINGUAL PRN; NON FORMULARY DRUG (Aspirin Ec 81 MG) PO SCH; RX INFO: IV CONTRAST WAS GIVEN 1 EACH MISC MISCELLANE PRN; SODIUM CHLORIDE 0.9% 1,000 ML IV ONE; SODIUM CHLORIDE 0.9% 1,000 ML IV SCH; SODIUM CHLORIDE 0.9% 1,000 ML in EMPTY BAG 1 BAG IV ONE; VERAPAMIL 2.5 MG/ML 2 ML AMP ONE; VERAPAMIL SYRINGE (5 MG/10 ML) INTRAARTER ONE; ZOLPIDEM 5 MG TAB PO PRN; buPROPion 100 MG TAB PO SCH
[2020-01-14 07:43] VITALS: RESP 16; TEMP 97.8
[2020-01-14] MEDS: LIDOCAINE 1% INJ 10MG/ML (20 ML MDV) SQ ONE ×2 (12:06→12:24)
--- NOTE | 2020-01-14 16:55 | PTCA ---
PERCUTANEOUSTRANS CORORONARY ANGIOGRAPHY DATE OF SERVICE: 01/14/2020. PROCEDURE: 1. Coronary angiography of the right coronary artery. 2. PTCA and stenting of the circumflex marginal coronary artery with a drug-eluting stent. PERFORMED BY: Dr. Phill Jackson. Moderate conscious sedation time was 48 minutes. Patient was administered Versed. His oxygen saturation, hemodynamics and EKG were monitored closely. CLINICAL INFORMATION: Mr. Andrade Pulido is a 74-year-old gentleman with a known history of hypertension, hyperlipidemia, smoking and COPD, who presented with acute inferior AL on November 24, underwent stenting of a thrombus laden LAD and RCA that was 99% stenosed with 3 drug- eluting stents. He had a significant circumflex marginal lesion. He is brought back for the staged intervention. Risks, benefits, options, rationale were explained to the patient and . The patient understood all details and wished to proceed. He also continues to smoke but is making a serious efforts to quit smoking. He has already been on aspirin and Plavix on a regular basis. PROCEDURE NOTE: Under local anesthesia and strict aseptic precautions, a 6-[place] introducer was placed in the right radial artery. I used a standard right José Miguel catheter and was able to get selective cannulation of the RCA. The patient has extreme tortuosity in the ascending aorta like a corkscrew. I had difficulty getting the left guide catheter in, so therefore I switched over to the right femoral approach. I switched over therefore to the right femoral approach. A 6-[place] introducer was placed in the right femoral artery under strict aseptic precautions and local anesthesia. A standard left José Miguel guide catheter was used to cannulate the left coronary artery. A run-through wire was used to cross the lesion. I then used a 2.25 caliber 12 mm NC Trek balloon to pre- dilate the lesion and then deployed a 2.5 caliber 12 mm Xience stent at 11 atmospheres. Excellent angiographic result was achieved without complication. I then performed selective injection of the RCA with a diagnostic right catheter. Following this, I took all the catheters out and secured hemostasis from the right femoral artery with an Angio-Seal device. I applied a FemoStop at 40 mmHg for a few hours. I used a large TR band to secure hemostasis in the right radial artery. Saturation of the fingers of the right hand was 92%. Patient tolerated the procedure well without complications. Excellent angiographic result was achieved and RCA was widely patent without any disease. The proximal RCA had a small outpouching almost like a small aneurysm, but the entire stented segment was patent. Distal RCA had some mild diffuse disease. Results were discussed with the patient, his and his daughter. I expect he will be discharged at 6:30 pm today. We are doing a discharged on same day since he is stable and because of the COVID-19 infection pandemic. MMODL / IJN: [id number] /
[2020-01-14 19:03] VITALS: PULSE 58
[2020-01-14 19:15] VITALS: BP 141/76
== END ==
LOC: CATHCVL 06:53
PROVIDERS: ATTEND Internal Medicine Interventional Cardiology
DX: I25.10 Atherosclerotic heart disease of native coronary artery without angina pectoris (principal); I25.2 Old myocardial infarction; J44.9 Chronic obstructive pulmonary disease, unspecified; I10 Essential (primary) hypertension; F17.210 Nicotine dependence, cigarettes, uncomplicated; E78.2 Mixed hyperlipidemia; Z79.01 Long term (current) use of anticoagulants; Z79.02 Long term (current) use of antithrombotics/antiplatelets; Z82.49 Family history of ischemic heart disease and other diseases of the circulatory system; Z79.82 Long term (current) use of aspirin; Z79.899 Other long term (current) drug therapy; Z98.61 Coronary angioplasty status; Z95.828 Presence of other vascular implants and grafts
CPT/HCPCS: C9600; C1760; C1887 ×2; C1769 ×4; C1725; C1894 ×2; C1874; J2250; J2001; J1170; J0583; Q9967

== ENCOUNTER 2020-12-22 12:03 | Inpatient (IN) | payer MEDICARE ==
[2020-12-22] MEDS ORDERED: ALBUTEROL HFA INHALER INHALATION PRN (13:47)
[2020-12-22] MEDS ORDERED: ALBUTEROL HFA INHALER INHALATION STA (13:47)
--- NOTE | 2020-12-22 13:49 | ED ---
General Adult HPI - General Chief complaint: Shortness of Breath Stated complaint: low oxygen Time Seen by Provider: 12/22/20 13:21 Source: patient, RN notes reviewed Mode of arrival: ambulatory Limitations: no limitations - History of Present Illness Initial comments: Patient is a pleasant 75-year-old male presenting to the emergency Department with cough and difficulty breathing. Onset of symptoms was around 1 week ago. Patient does not use oxygen at home. Patient was tested positive for rotavirus sometime around 1 week ago. Patient is unclear on these exact dates. Patient does have occasional productive sputum, unclear what color. Patient denies fevers or fatigue. No loss of taste or smell. No nausea or vomiting or diarrhea. Patient does have some myalgias. - Related Data Home Medications Medication Instructions Recorded Confirmed Acetaminophen [Tylenol Arthritis] 1,300 mg PO DAILY 03/26/18 12/22/20 Aspirin EC [Ecotrin Low Dose] 81 mg PO DAILY 03/26/18 12/22/20 Finasteride [Proscar] 5 mg PO DAILY 03/26/18 12/22/20 Clopidogrel [Plavix] 75 mg PO HS 01/13/20 12/22/20 Azithromycin [Zithromax Z-pack (6 See Taper PO DAILY 12/22/20 12/22/20 tabs)] Dexamethasone 6 mg PO DAILY 12/22/20 12/22/20 buPROPion SR [Wellbutrin Sr] 150 mg PO BID 12/22/20 12/22/20 Previous Rx's Medication Instructions Recorded Atorvastatin [Lipitor] 80 mg PO HS #30 tab 11/27/19 Allergies Allergy/AdvReac Type Severity Reaction Status Date / Time Iodinated Contrast Media AdvReac "Can't Verified 12/22/20 15:07 have d/t only 1 kidney" Review of Systems ROS Statement: Those systems with pertinent positive or pertinent negative responses have been documented in the HPI. ROS Other: All systems not noted in ROS Statement are negative. 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 covid 12/15/20 History of Any Multi-Drug Resistant Organisms: None Reported Past Surgical History: Appendectomy Additional Past Surgical History / Comment(s): L fempop bypass, R femfem bypass, inguinal hernia repair (does not recall laterallity), bilateral cataract removal with lens implants. Past Anesthesia/Blood Transfusion Reactions: No Reported Reaction Past Psychological History: No Psychological Hx Reported Smoking Status: Current every day smoker Past Alcohol Use History: None Reported Past Drug Use History: Marijuana - Past Family History Father Family Medical History: COPD, Myocardial Infarction ([place]) Additional Family Medical History / Comment(s): Father from a [place] at the age of 59yrs. Mother Family Medical History: Cancer Additional Family Medical History / Comment(s): Mother from stomach cancer when she was 58 or 59 yrs old. General Exam Limitations: no limitations General appearance: alert, in no apparent distress Head exam: Present: atraumatic Eye exam: Present: normal appearance Neck exam: Present: normal inspection Respiratory exam: Present: normal lung sounds bilaterally Cardiovascular Exam: Present: regular rate, normal rhythm GI/Abdominal exam: Present: soft. Absent: tenderness Extremities exam: Present: normal inspection. Absent: pedal edema, calf tenderness Neurological exam: Present: alert Psychiatric exam: Present: normal affect, normal mood Skin exam: Present: normal color Course Vital Signs 12/22/20 12/22/20 12:42 15:04 Temperature 98.0 F Pulse Rate 73 73 Respiratory 22 20 Rate Blood Pressure 129/76 132/77 O2 Sat by Pulse 86 L 90 L Oximetry EKG Findings - EKG Comments: EKG Findings:: Normal sinus rhythm with a rate of 60. MN 174. QRS 162. QT 426. QTc 42. Superior axis. Inferior Q waves. No acute ST change. Medical Decision Making - Medical Decision Making Patient reevaluated and updated. Case was discussed with Dr. Jansen, who will admit his patient. He would like Dr. Prince to consult. - Lab Data Result diagrams: 12/22/20 14:14 12/22/20 14:14 Lab Results 12/22/20 12/22/20 12/22/20 Range/Units 14:14 14:14 14:14 WBC 6.7 (3.8-10.6) k/uL RBC 4.39 (4.30-5.90) m/uL Hgb 14.0 (13.0-17.5) gm/dL Hct 43.5 (39.0-53.0) % MCV 99.1 (80.0-100.0) fL MCH 32.0 (25.0-35.0) pg MCHC 32.3 (31.0-37.0) g/dL RDW 14.8 (11.5-15.5) % Plt Count 246 (150-450) k/uL MPV 7.4 Neutrophils % 84 % Lymphocytes % 9 % Monocytes % 5 % Eosinophils % 0 % Basophils % 0 % Neutrophils # 5.6 (1.3-7.7) k/uL Lymphocytes # 0.6 L (1.0-4.8) k/uL Monocytes # 0.3 (0-1.0) k/uL Eosinophils # 0.0 (0-0.7) k/uL Basophils # 0.0 (0-0.2) k/uL Macrocytosis Slight PT 10.0 (9.0-12.0) sec INR 0.9 (<1.2) APTT 25.1 (22.0-30.0) sec Sodium 134 L (137-145) mmol/L Potassium 5.9 H (3.5-5.1) mmol/L Chloride 102 (98-107) mmol/L Carbon Dioxide 22 (22-30) mmol/L Anion Gap 10 mmol/L BUN 55 H (9-20) mg/dL Creatinine 2.00 H (0.66-1.25) mg/dL Est GFR (CKD-EPI)AfAm 37 (>60 ml/min/1.73 sqM) Est GFR (CKD-EPI)NonAf 32 (>60 ml/min/1.73 sqM) Glucose 116 H (74-99) mg/dL Plasma Lactic Acid Hamilton (0.7-2.0) mmol/L Calcium 9.5 (8.4-10.2) mg/dL Magnesium 2.1 (1.6-2.3) mg/dL Total Bilirubin 0.5 (0.2-1.3) mg/dL AST 67 H (17-59) U/L ALT 41 (4-49) U/L Alkaline Phosphatase 73 (38-126) U/L Lactate Dehydrogenase 581 (313-618) U/L C-Reactive Protein 45.1 H (<10.0) mg/L Total Protein 6.8 (6.3-8.2) g/dL Albumin 3.8 (3.5-5.0) g/dL 12/22/20 Range/Units 14:14 WBC (3.8-10.6) k/uL RBC (4.30-5.90) m/uL Hgb (13.0-17.5) gm/dL Hct (39.0-53.0) % MCV (80.0-100.0) fL MCH (25.0-35.0) pg MCHC (31.0-37.0) g/dL RDW (11.5-15.5) % Plt Count (150-450) k/uL MPV Neutrophils % % Lymphocytes % % Monocytes % % Eosinophils % % Basophils % % Neutrophils # (1.3-7.7) k/uL Lymphocytes # (1.0-4.8) k/uL Monocytes # (0-1.0) k/uL Eosinophils # (0-0.7) k/uL Basophils # (0-0.2) k/uL Macrocytosis PT (9.0-12.0) sec INR (<1.2) APTT (22.0-30.0) sec Sodium (137-145) mmol/L Potassium (3.5-5.1) mmol/L Chloride (98-107) mmol/L Carbon Dioxide (22-30) mmol/L Anion Gap mmol/L BUN (9-20) mg/dL Creatinine (0.66-1.25) mg/dL Est GFR (CKD-EPI)AfAm (>60 ml/min/1.73 sqM) Est GFR (CKD-EPI)NonAf (>60 ml/min/1.73 sqM) Glucose (74-99) mg/dL Plasma Lactic Acid Hamilton 1.0 (0.7-2.0) mmol/L Calcium (8.4-10.2) mg/dL Magnesium (1.6-2.3) mg/dL Total Bilirubin (0.2-1.3) mg/dL AST (17-59) U/L ALT (4-49) U/L Alkaline Phosphatase (38-126) U/L Lactate Dehydrogenase (313-618) U/L C-Reactive Protein (<10.0) mg/L Total Protein (6.3-8.2) g/dL Albumin (3.5-5.0) g/dL - Radiology Data Radiology results: image reviewed (Chest x-ray showed bilateral is) Disposition Clinical Impression: COVID-19, Renal insufficiency Disposition: ADMITTED IP TO THIS [facility] Is patient prescribed a controlled substance at d/c from ED?: No Referrals: Summer Jansen MD [Primary Care Provider] - 1-2 days Decision Time: 15:19
[2020-12-22 14:32] LABS: Basophils % (A) 0 %; Eosinophils % (A) 0 %; HCT 43.5 % (39.0-53.0); Lymphocytes # (A) 0.6 k/uL (1.0-4.8); Lymphocytes % (A) 9 %; MCHC 32.3 g/dL (31.0-37.0); MCV 99.1 fL (80.0-100.0); Macrocytosis Slight; Mean Platelet Volume 7.4; Monocytes # (A) 0.3 k/uL (0-1.0); Monocytes % (A) 5 %; Neutrophils # (A) 5.6 k/uL (1.3-7.7); Neutrophils % (A) 84 %; Platelet Count 246 k/uL (150-450); RBC 4.39 m/uL (4.30-5.90); RDW 14.8 % (11.5-15.5); WBC 6.7 k/uL (3.8-10.6)
[2020-12-22 14:42] LABS: INR 0.9 (<1.2); Partial Thromboplastin Time 25.1 sec (22.0-30.0)
[2020-12-22 14:47] LABS: Albumin 3.8 g/dL (3.5-5.0); C Reactive Protein 45.1 mg/L (<10.0); Calcium 9.5 mg/dL (8.4-10.2); Magnesium 2.1 mg/dL (1.6-2.3); Potassium 5.9 mmol/L (3.5-5.1); Total Bilirubin 0.5 mg/dL (0.2-1.3); Total Protein 6.8 g/dL (6.3-8.2)
--- NOTE | 2020-12-22 14:49 | XR ---
EXAMINATION TYPE: XR chest 1V portable DATE OF EXAM: 12/22/2020 COMPARISON: Chest x-ray November 25, 2019. CT chest November 24, 2019. HISTORY: Hypoxia and shortness of breath. TECHNIQUE: Single AP frontal upright view of the chest is obtained. FINDINGS: There is chronic parenchymal changes bilaterally with multifocal faint areas of increased opacity in the mid to lower lungs. Stable cardiomegaly. The osseous structures are intact. IMPRESSION: Cardiomegaly and chronic changes with multifocal bilateral areas of increased opacity th ought present suggesting covid-19 infection.
[2020-12-22] MEDS: ALBUTEROL HFA INHALER INHALATION SCH ×2 (15:11→21:54)
[2020-12-22] MEDS ORDERED: ACETAMINOPHEN TAB 325 MG TAB PO PRN (15:22)
[2020-12-22] MEDS ORDERED: NALOXONE 0.4 MG/ML 1 ML VIAL IV PRN (15:22)
[2020-12-22] MEDS ORDERED: ENOXAPARIN 30 MG/0.3 ML SYRINGE SQ SCH (15:30)
[2020-12-22] MEDS: SODIUM CHLORIDE 0.9% 1,000 ML IV SCH (16:17)
[2020-12-22] MEDS: CHOLECALCIFEROL 25 MCG (1000 IU) TABLET PO SCH (16:18)
[2020-12-22] MEDS: DEXAMETHASONE SOD PHOSPHATE 10 MG/ML 1 ML VIAL IV SCH (16:18)
[2020-12-22] MEDS: ZINC SULFATE 220 MG CAP PO SCH (16:18)
[2020-12-22] MEDS: ASCORBIC ACID 500 MG TAB PO SCH (16:18)
[2020-12-22] MEDS: AZITHROMYCIN 500 MG in SODIUM CHLORIDE 0.9% 250 ML IVPB SCH (18:24)
[2020-12-22] MEDS: buPROPion SR 150 MG TABLET.ER PO SCH (20:56)
[2020-12-22] MEDS: ATORVASTATIN 80 MG TAB PO SCH (20:56)
[2020-12-22] MEDS: CLOPIDOGREL 75 MG TAB PO SCH (20:56)
[2020-12-22] MEDS: SYMBICORT 160-4.5 MCG INHALER INHALATION SCH (21:54)
[2020-12-23] MEDS: CHOLECALCIFEROL 25 MCG (1000 IU) TABLET PO SCH (07:30)
[2020-12-23] MEDS: ASCORBIC ACID 500 MG TAB PO SCH ×2 (07:31→20:52)
[2020-12-23] MEDS: ASPIRIN 81 MG PO SCH (07:31)
[2020-12-23] MEDS: DEXAMETHASONE SOD PHOSPHATE 10 MG/ML 1 ML VIAL IV SCH (07:32)
[2020-12-23] MEDS: FINASTERIDE 5 MG TAB PO SCH (07:32)
[2020-12-23] MEDS: buPROPion SR 150 MG TABLET.ER PO SCH ×2 (07:32→21:08)
[2020-12-23] MEDS: PANTOPRAZOLE 40 MG/10 ML VIAL IVP SCH (07:32)
[2020-12-23] MEDS: ZINC SULFATE 220 MG CAP PO SCH (07:32)
[2020-12-23] MEDS: ENOXAPARIN 40 MG/0.4 ML SYRINGE SQ SCH (07:33)
[2020-12-23] MEDS: SODIUM CHLORIDE 0.9% 1,000 ML IV SCH ×2 (07:34→17:33)
[2020-12-23] MEDS: SYMBICORT 160-4.5 MCG INHALER INHALATION SCH ×2 (08:18→21:51)
[2020-12-23] MEDS: ALBUTEROL HFA INHALER INHALATION SCH ×3 (08:18→21:48)
--- NOTE | 2020-12-23 11:00 | P.HPIM ---
History of Present Illness H&P Date: 12/22/20 Chief Complaint: Covid 19 pneumonia HISTORY OF PRESENT ILLNESS: This is a 75-year-old white male with a previous medical history significant for coronary artery disease status post non-ST elevation NE with poor continue his current intervention of the RCA back in November 2019, hypertension and hypertensive cardio vascular disease, hyperlipidemia, peripheral arterial disease status post left femoral popliteal bypass and right femoral-femoral bypass surgery, chronic tobacco use and dependence, history of cluster headache, history of GERD, history of peptic ulcer disease, patient was diagnosed with Covid 7 days ago and he has been complaining of increased shortness of breath associated with increased coughing he was prescribed Decadron as well as Zithromax about a week ago without any relief he came to the office today and his oxygenation was 82-83% on room air while he was directed to go to the emergency department for evaluation [facility] that showed Covid pneumonia his oxygenation was about 86%, he was placed on 5 L oxygen his oxygenation was up to like 90%l he was started on IV Decadron 6 but gram IV push every 24 hours, he was kept on albuterol HFA 2 puffs inhalation every 4 hours as well as Pulmicort inhalation twice every day, Pulmicort consultation from Dr. Prince, patient was placed in droplet precautions with eye contact protection, he'll be admitted to the hospital for further evaluation, patient will have repeat his CBC and CMP along with C-reactive protein ferritin level as well as d-dimer in the next 24 hours. Review of systems: Constitutional: fever, chills, no night sweats. No weight change. positive for weakness, fatigue no lethargy. No daytime sleepiness. HEENT: Positive for headache. No blurred vision or double vision, no loss of vision. No loss of Hearing, no ringing in the ears, no dizziness. No nasal drainage or congestion. No epistaxis. No sore throat. Respiratory :positive for shortness of breath, positive for cough, minimal sputum production. Reports wheezing. Cardiovascular: Reported chest pain, no lower extremity edema. Reported palpitations. No paroxysmal nocturnal dyspnea. No orthopnea. No lightheadedness or dizziness. No syncopal episodes. Gastrointestinal: No abdominal pain. No nausea, vomiting. No diarrhea. No constipation. No bloody or tarry stools.. No loss of appetite. Genitourinary: No dysuria, increased frequency, urgency. No urinary retention. Musculoskeletal: No myalgias. No muscle weakness, no gait dysfunction, no frequent falls. No back pain. No neck pain. Integumentary: No wounds, no lesions. No rash or pruritus. No unusual bruising. No change in hair or nails. Neurologic: No aphasia. No facial droop. No change in mentation. No head injury. No headache. No paralysis. No paresthesia. Psychiatric: No depression. No anxiety. No mood swings. Endocrine: No abnormal blood sugars. No weight change. No excessive sweating or thirst. No cold intolerance. Past medical history: 1. CAD post-PCI of the RCA. 2. Hypertension and hypertensive cardiovascular disease per 3. Hyperlipidemia 4. PAD post right fem-fem bypass and left fem-pop bypass 5. GERD with peptic ulcer disease . 6. Chronic tobacco use and dependence . 7. Cluster headache. 8. 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 Osteoarthritis. 10. Enlarged prostate 11. Covid 19 diagnosis 12/15/2020 Past surgical history : 1. Left heart catheterization and PCI of the RCA with 3 stents. 2. Right fem-fem bypass. 3. Left thumb pop bypass 4. Appendectomy. 5. Inguinal hernia repair . 6. Bilateral cataract surgery Social history: . Patient smokes about a pack every day he has been smoking since he was a teenager. He denies any alcohol ingestion, he denies any drug use or abuse, he lives with his . Family history: Mother at age of 58 from stomach cancer, father at age of 59 from myocardial infarction also had a COPD. Physical examination: Gen: This is a 75-year-old male Patient is resting in bed in moderate respiratory distress per HEENT: Head is atraumatic, normocephalic. Pupils equal, round reactive to light and recommendation, extraocular muscle movement were intact, sclera nonicteric, conjunctivae were slightly pale, mucous membranes of the mouth are somewhat dry. NECK: Supple. No JVD. No lymphadenopathy. No thyromegaly. LUNGS: decreased breath sounds at the bases, few rhonchi, moderate expiratory wheezes, moderate intercostal retractions HEART: First heart sound is depressed, second heart sound is normal, there is a 2/6 systolic ejection murmur at the left sternal border. ABDOMEN: Soft nontender, nondistended, positive bowel sounds. Extremities negative. EXTREMITIES: No pedal edema. No calf tenderness. Dorsalis pedis +1 bilaterally. NEUROLOGICAL: Patient is awake, alert and oriented x3. Cranial nerves 2 through 12 are grossly intact, muscle power 4 out of 5 in upper and lower extremities bilaterally. Assessment and plan: 1. Covid 19 pneumonia. Continue oxygen 5 L nasal cannula, continue patient on Decadron 6 mg IV push every 6 hours, continue Lovenox 40 mg subcutaneously every 24 hours, continue with albuterol 2 puffs inhalation every 4 hours around the clock, continue Symbicort 160/4.5 g 2 puffs inhalation twice every day, start the patient on Zithromax 500 mg IV piggyback every 24 hours, Rocephin 1 g IV piggyback every 24 hours, patient will be started on Remdesivir, continue with droplet precautions and eye protection, we will maintain the patient on vitamin D3, vitamin C as well as zinc sulfate. 2. History of CAD post-the PCI of the RCA. Continue patient on aspirin 81 mg once every day, continue patient on Plavix 75 mg once every day, continue atorvastatin 80 mg orally once every day. 3. History of hyperlipidemia. Continue with atorvastatin 80 mg once every day. 4. History of PAD. Status post right fem-fem bypass and left femoral pop bypass. Continue aspirin, Plavix, atorvastatin 80 mg once every day. 5. Chronic tobacco use and dependence. Continue Wellbutrin SR 150 mg orally twice every day. 6. History of GERD and peptic ulcer disease. Start the patient on Protonix 40 mg IV push every 24 hours 7. Enlarged prostate. Monitor for urinary retention. 8. History of cluster headache. Stable at this time 9. History of spondylosis of the lumbar spine with chronic low back pain. Stable. 10. History of obesity diet and exercise and weight loss. 11. History of osteoarthritis. Continue Tylenol as needed. Avoid NSAIDs. 11. DVT prophylaxis. Lovenox 40 mg subcutaneously every 24 hours . 12. GI prophylaxis. Continue Protonix 40 mg IV push every 24 hours. Patient will be admitted to the hospital for a minimum of 2 night stay. 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 covid 12/15/20 History of Any Multi-Drug Resistant Organisms: None Reported Past Surgical History: Appendectomy Additional Past Surgical History / Comment(s): L fempop bypass, R femfem bypass, inguinal hernia repair (does not recall laterallity), bilateral cataract removal with lens implants. Past Anesthesia/Blood Transfusion Reactions: No Reported Reaction Past Psychological History: No Psychological Hx Reported Smoking Status: Current every day smoker Past Alcohol Use History: None Reported Past Drug Use History: Marijuana - Past Family History Father Family Medical History: COPD, Myocardial Infarction ([place]) Additional Family Medical History / Comment(s): Father from a [place] at the age of 59yrs. Mother Family Medical History: Cancer Additional Family Medical History / Comment(s): Mother from stomach cancer when she was 58 or 59 yrs old. Medications and Allergies Home Medications Medication Instructions Recorded Confirmed Type Acetaminophen [Tylenol Arthritis] 1,300 mg PO DAILY 03/26/18 12/22/20 History Aspirin EC [Ecotrin Low Dose] 81 mg PO DAILY 03/26/18 12/22/20 History Finasteride [Proscar] 5 mg PO DAILY 03/26/18 12/22/20 History Atorvastatin [Lipitor] 80 mg PO HS #30 tab 11/27/19 12/22/20 Rx Clopidogrel [Plavix] 75 mg PO HS 01/13/20 12/22/20 History Azithromycin [Zithromax Z-pack (6 See Taper PO DAILY 12/22/20 12/22/20 History tabs)] Dexamethasone 6 mg PO DAILY 12/22/20 12/22/20 History buPROPion SR [Wellbutrin Sr] 150 mg PO BID 12/22/20 12/22/20 History Allergies Allergy/AdvReac Type Severity Reaction Status Date / Time Iodinated Contrast Media AdvReac "Can't Verified 12/22/20 15:07 have d/t only 1 kidney" Physical Exam Vitals: Vital Signs Temp Pulse Resp BP Pulse Ox 12/22/20 16:15 68 18 129/82 95 04/14/21 15:04 73 20 132/77 90 L 12/22/20 12:42 98.0 F 73 22 129/76 86 L Intake and Output 12/22/20 12/22/20 12/22/20 06:59 14:59 22:59 Other: Weight 109.769 kg Results CBC & Chem 7: 12/22/20 14:14 12/22/20 14:14 Labs: Abnormal Lab Results - Last 24 Hours (Table) 12/22/20 12/22/20 Range/Units 14:14 14:14 Lymphocytes # 0.6 L (1.0-4.8) k/uL Sodium 134 L (137-145) mmol/L Potassium 5.9 H (3.5-5.1) mmol/L BUN 55 H (9-20) mg/dL Creatinine 2.00 H (0.66-1.25) mg/dL Glucose 116 H (74-99) mg/dL AST 67 H (17-59) U/L C-Reactive Protein 45.1 H (<10.0) mg/L
[2020-12-23 11:22] LABS: Ferritin 1543.1 ng/mL (22.0-322.0)
--- NOTE | 2020-12-23 12:14 | P.CNPUL ---
History of Present Illness Consult date: 12/23/20 Reason for consult: dyspnea, pneumonia History of present illness: 75-year-old male patient presents with shortness of breath and the patient was diagnosed having COVID 19 pneumonia. His symptoms started approximately 1 week ago. At that time the patient was diagnosed having COVID 19 and a specific date was on 12/15/2020. The symptoms probably started 2 days prior to that. The patient came into the emergency department. No fever. No nausea, vomiting. Had some myalgias along with some shortness of breath. His breathing was nonlabored. He was hypoxic and was placed on 6 Lnoxygen nasal cannula patient's pulse ox is around 94%. The patient's blood work showed a white cell count of 6.7, he had lymphopenia with a lymphocyte count of 0.6, BUN of 55 and a creatinine of 2.09 as the patient is a chronic stage III kidney disease, pot assium level was at 5.9, coagulation profile was within normal limits, chest x- ray showed cardiomegaly and addition to chronic changes with multifocal bilateral areas of increased opacity consistent with Covid 19 pneumonia. The patient was receiving Decadron outpatient basis, 6 mg orally. Comorbid conditions included severe obstructive sleep apnea with an AHI of 49, COPD, previous history of coronary artery disease with a recent non-STEMI requiring coronary stents, chronic stage III kidney disease, peripheral vascular disease, BPH, hyperlipidemia. 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 He suffers from chronic back pain, hip pain and cluster headaches. Review of Systems Constitutional: Reports fatigue, Reports weakness Eyes: denies as per HPI, denies blurred vision, denies bulging eye, denies decreased vision, denies diplopia, denies discharge, denies dry eye, denies irritation, denies itching, denies pain, denies photophobia, denies loss of peripheral vision, denies loss of vision, denies tunnel vision/blind spots Ears: deny: decreased hearing, ear discharge, earache, tinnitus Ears, nose, mouth and throat: Reports as per HPI Breasts: absent: as per HPI, gynecomastia Cardiovascular: Reports dyspnea on exertion Respiratory: Reports cough, Reports dyspnea, Reports sleep apnea Gastrointestinal: Reports as per HPI Genitourinary: Reports as per HPI Musculoskeletal: Reports low back pain, Reports muscle weakness Musculoskeletal: absent: ankle pain, ankle stiffness, ankle swelling, as per HPI, elbow pain, elbow stiffness, elbow swelling, foot pain, foot stiffness, foot swelling, hand pain, hand stiffness, hand swelling, hip pain, hip stiffness, hip swelling, knee pain, knee stiffness, knee swelling, shoulder pain, shoulder stiffness, shoulder swelling, wrist pain, wrist stiffness, wrist swelling Integumentary: Reports as per HPI Neurological: Reports as per HPI, Reports weakness Psychiatric: Reports as per HPI, Reports sleep disturbances Endocrine: Reports as per HPI Hematologic/Lymphatic: Reports as per HPI Allergic/Immunologic: Reports as per HPI Past Medical History Past Medical History: COPD, GERD/Reflux, Hyperlipidemia, Osteoarthritis (OA), Pneumonia, Prostate Disorder, Vascular Disorder Additional Past Medical History / Comment(s): 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 covid 12/15/20 History of Any Multi-Drug Resistant Organisms: None Reported Past Surgical History: Appendectomy Additional Past Surgical History / Comment(s): L fempop bypass, R femfem bypass, inguinal hernia repair (does not recall laterallity), bilateral cataract removal with lens implants. Past Anesthesia/Blood Transfusion Reactions: No Reported Reaction Past Psychological History: No Psychological Hx Reported Smoking Status: Current every day smoker Past Alcohol Use History: None Reported Past Drug Use History: Marijuana - Past Family History Father Family Medical History: COPD, Myocardial Infarction (IA) Additional Family Medical History / Comment(s): Father from a IA at the age of 59yrs. Mother Family Medical History: Cancer Additional Family Medical History / Comment(s): Mother from stomach cancer when she was 58 or 59 yrs old. Medications and Allergies Home Medications Medication Instructions Recorded Confirmed Type Acetaminophen [Tylenol Arthritis] 1,300 mg PO DAILY 03/26/18 12/22/20 History Aspirin EC [Ecotrin Low Dose] 81 mg PO DAILY 03/26/18 12/22/20 History Finasteride [Proscar] 5 mg PO DAILY 03/26/18 12/22/20 History Atorvastatin [Lipitor] 80 mg PO HS #30 tab 11/27/19 12/22/20 Rx Clopidogrel [Plavix] 75 mg PO HS 01/13/20 12/22/20 History Azithromycin [Zithromax Z-pack (6 See Taper PO DAILY 12/22/20 12/22/20 History tabs)] Dexamethasone 6 mg PO DAILY 12/22/20 12/22/20 History buPROPion SR [Wellbutrin Sr] 150 mg PO BID 12/22/20 12/22/20 History Allergies Allergy/AdvReac Type Severity Reaction Status Date / Time Iodinated Contrast Media AdvReac "Can't Verified 12/22/20 15:07 have d/t only 1 kidney" Physical Exam Vitals: Vital Signs Temp Pulse Pulse Resp BP BP Pulse Ox 12/23/20 09:00 97.6 F 63 18 136/78 90 L 12/23/20 08:00 16 12/23/20 05:00 98.0 F 59 L 16 131/75 94 L 12/23/20 02:05 97.9 F 63 18 139/71 91 L 12/22/20 21:45 97.8 F 68 16 132/76 90 L 12/22/20 19:08 19 12/22/20 17:36 98.1 F 66 152/78 94 L 12/22/20 17:11 98.0 F 68 20 129/82 95 12/22/20 17:06 20 12/22/20 16:15 68 18 129/82 95 12/22/20 15:04 73 20 132/77 90 L 12/22/20 12:42 98.0 F 73 22 129/76 86 L Intake and Output 12/22/20 12/23/20 12/23/20 22:59 06:59 14:59 Other: Voiding Method Toilet Toilet # Voids 3 Weight 109.769 kg Gen. appearance, comfortable, breathing is nonlabored and the patient is not having any acute distress Head exam was generally normal. There was no scleral icterus or corneal arcus. Mucous membranes were moist. Neck was supple and without jugular venous distension, thyromegaly, or carotid bruits. Carotids were easily palpable bilaterally. There was no adenopathy. Lungs sounds are diminished on the patient has crackles in the lung bases bilaterally Cardiac exam revealed the PMI to be normally situated and sized. The rhythm was regular and no extrasystoles were noted during several minutes of auscultation. The first and second heart sounds were normal and physiologic splitting of the second heart sound was noted. There were no murmurs, rubs, clicks, or gallops. Abdominal exam revealed normal bowel sounds. The abdomen was soft, non-tender, and without masses, organomegaly, or appreciable enlargement of the abdominal aorta. Examination of the extremities revealed easily palpable radial, femoral and pedal pulses. There was no cyanosis, clubbing or edema. Examination of the skin revealed no evidence of significant rashes, suspicious appearing nevi or other concerning lesions. Neurologically, the patient is awake and alert and the patient does not have any focal neurological deficit. Cranial nerves are essentially intact. Results - Laboratory Findings CBC and BMP: 12/22/20 14:14 12/22/20 14:14 PT/INR, D-dimer PT 10.0 sec (9.0-12.0) 12/22/20 14:14 INR 0.9 (<1.2) 12/22/20 14:14 Abnormal lab findings: Abnormal Labs 12/22/20 12/22/20 12/22/20 14:14 14:14 14:14 Lymphocytes # 0.6 L Sodium 134 L Potassium 5.9 H BUN 55 H Creatinine 2.00 H Glucose 116 H Ferritin 1543.1 H AST 67 H C-Reactive Protein 45.1 H Procalcitonin 0.12 H - Diagnostic Findings Chest x-ray: image reviewed Assessment and Plan Plan: 1 acute COVID 19 associated pneumonia, diagnosis established in 12/15/2020. The patient symptoms started approximately 10 days ago. Decadron outpatient basis. Condition progressed and the patient presented worsening shortness of breath. He does have bilateral pneumonia. 2 acute hypoxic respiratory failure secondary to above currently on 6 L of oxygen by nasal cannula 3 coronary artery disease with recent non-STEMI involving cardiac catheterization and coronary stent 4 obstructive sleep apnea severe with a AHI of 49 5 COPD 6 peripheral vascular disease with multivessel intervention involving lower extremities 7 chronic kidney disease stage III patient home with a single kidney. 8 hyperlipidemia 9 hyperlipidemia 10 BPH 11 chronic back pain and osteoarthritis 12 history of gastric ulcer disease Plan Continue 02 supplementation to maintain the sao2 above 90%, currently on 6 L of oxygen by nasal cannula Decadron 6 mg IV every 24 hours May benefit from Remdesivir and the patient will be started on the protocol, knowing that he has chronic kidney disease, the liver function tests may need to be Monitor the renal function and the patient has chronic stage 3 kidney disease Monitor K level Inflammatory markers including LDH, CRP and d-dimer Lovenox 40 mg subcu daily basis DVT prohylaxis check procalcitonin levels I don't the need for antibiotics for now Will follow the patient .
[2020-12-23 12:22] LABS: Glucose,Whole Blood 126 mg/dL (75-99)
[2020-12-23 12:31] LABS: African American GFR (CKD) 48.5 (60.0-200.0); Anion Gap 10.4 mmol/L (4.00-12.00); BUN/Creat Ratio 29.38 Ratio (12.00-20.00); Carbon Dioxide 21.6 mmol/L (21.6-31.8); Non-African American GFR(CKD) 41.8 (60.0-200.0); Potassium 5.8 mmol/L (3.5-5.5)
[2020-12-23] MEDS: INSULIN ASPART (NovoLOG) 100 UNIT/ML VIAL SQ SCH ×3 (12:35→20:46)
[2020-12-23] MEDS ORDERED: REMDESIVIR 200 MG in SODIUM CHLORIDE 0.9% 250 ML IVPB ONE (13:00)
[2020-12-23 14:16] VITALS: BMI 32.8
[2020-12-23 17:26] LABS: Glucose,Whole Blood 101 mg/dL (75-99)
[2020-12-23] MEDS: AZITHROMYCIN 500 MG in SODIUM CHLORIDE 0.9% 250 ML IVPB SCH (17:34)
[2020-12-23 20:31] LABS: Glucose,Whole Blood 98 mg/dL (75-99)
[2020-12-23] MEDS: ATORVASTATIN 80 MG TAB PO SCH (20:52)
[2020-12-23] MEDS: CLOPIDOGREL 75 MG TAB PO SCH (20:52)
[2020-12-24 07:09] LABS: Glucose,Whole Blood 78 mg/dL (75-99)
--- NOTE | 2020-12-24 07:30 | P.PN ---
Subjective Progress Note Date: 12/23/20 HISTORY OF PRESENT ILLNESS: This is a 75-year-old white male with a previous medical history significant for coronary artery disease status post non-ST elevation NV with poor continue his current intervention of the RCA back in November 2019, hypertension and hypertensive cardio vascular disease, hyperlipidemia, peripheral arterial disease status post left femoral popliteal bypass and right femoral-femoral bypass surgery, chronic tobacco use and dependence, history of cluster headache, history of GERD, history of peptic ulcer disease, patient was diagnosed with Covid 7 days ago and he has been complaining of increased shortness of breath associated with increased coughing he was prescribed Decadron as well as Zithromax about a week ago without any relief he came to the office today and his oxygenation was 82-83% on room air while he was directed to go to the emergency department for evaluation [facility] Covid pneumonia his oxygenation was about 86%, he was placed on 5 L oxygen his oxygenation was up to like 90%l he was started on IV Decadron 6 but gram IV push every 24 hours, he was kept on albuterol HFA 2 puffs inhalation every 4 hours as well as Pulmicort inhalation twice every day, Pulmicort consultation from Dr. Prince, patient was placed in droplet precautions with eye contact protection, he'll be admitted to the hospital for further evaluation, patient will have repeat his CBC and CMP along with C-reactive protein ferritin level as well as d-dimer in the next 24 hours. 12/23: Patient has been afebrile overnight, heart rate 63, blood pressure 137/78, pulse ox 90% on 6 L high flow nasal cannula. Blood sugars are running between 98 and 126. Repeat chest x-ray and inflammatory markers ordered for tomorrow. Patient has been seen by pulmonary medicine and patient started on Remdesivir. No antibiotics are necessary at this time. Patient is continued on same medications including azithromycin and Rocephin, albuterol inhaler and Symbicort inhaler, dexamethasone 6 mg IV, Lovenox 40 mg subcu daily and supplements. Review of systems: Constitutional: fever, chills, no night sweats. No weight change. positive for weakness, fatigue no lethargy. No daytime sleepiness. HEENT: Positive for headache. No blurred vision or double vision, no loss of vision. No loss of Hearing, no ringing in the ears, no dizziness. No nasal drainage or congestion. No epistaxis. No sore throat. Respiratory:positive for shortness of breath, positive for cough, minimal sputum production. Reports wheezing. Cardiovascular: Reported chest pain, no lower extremity edema. Reported palpitations. No paroxysmal nocturnal dyspnea. No orthopnea. No li ghtheadedness or dizziness. No syncopal episodes. Gastrointestinal: No abdominal pain. No nausea, vomiting. No diarrhea. No constipation. No bloody or tarry stools.. No loss of appetite. Genitourinary: No dysuria, increased frequency, urgency. No urinary retention. Musculoskeletal: No myalgias. No muscle weakness, no gait dysfunction, no frequent falls. No back pain. No neck pain. Integumentary: No wounds, no lesions. No rash or pruritus. No unusual bruising. No change in hair or nails. Neurologic: No aphasia. No facial droop. No change in mentation. No head injury. No headache. No paralysis. No paresthesia. Psychiatric: No depression. No anxiety. Endocrine: No abnormal blood sugars. No weight change. Physical examination: Gen: This is a 75-year-old male Patient is resting in bed in moderate respiratory distress. HEENT: Head is atraumatic, normocephalic. Pupils equal, round reactive to light and recommendation, extraocular muscle movement were intact, sclera nonicteric, conjunctivae were slightly pale, mucous membranes of the mouth are somewhat dry. NECK: Supple. No JVD. No lymphadenopathy. No thyromegaly. LUNGS: decreased breath sounds at the bases, few rhonchi, moderate expiratory wheezes, moderate intercostal retractions HEART: First heart sound is depressed, second heart sound is normal, there is a 2/6 systolic ejection murmur at the left sternal border. ABDOMEN: Soft nontender, nondistended, positive bowel sounds. Extremities negative. EXTREMITIES: No pedal edema. No calf tenderness. Dorsalis pedis +1 b ilaterally. NEUROLOGICAL: Patient is awake, alert and oriented x3. Cranial nerves 2 through 12 are grossly intact, muscle power 4 out of 5 in upper and lower extremities bilaterally. Assessment and plan: 1. Acute hypoxic respiratory failure secondary to Covid 19 pneumonia. Continue oxygen 5 L nasal cannula, continue patient on Decadron 6 mg IV push every 6 hours, continue Lovenox 40 mg subcutaneously every 24 hours, continue with albuterol 2 puffs inhalation every 4 hours around the clock, continue Symbicort 160/4.5 g 2 puffs inhalation twice every day, start the patient on Zithromax 500 mg IV piggyback every 24 hours, Rocephin 1 g IV piggyback every 24 hours, patient will be started on Remdesivir, continue with droplet precautions and eye protection, we will maintain the patient on vitamin D3, vitamin C as well as zinc sulfate. 2. History of CAD post-the PCI of the RCA. Continue patient on aspirin 81 mg once every day, continue patient on Plavix 75 mg once every day, continue atorvastatin 80 mg orally once every day. 3. History of hyperlipidemia. Continue with atorvastatin 80 mg once every day. 4. History of PAD. Status post right fem-fem bypass and left femoral pop bypass. Continue aspirin, Plavix, atorvastatin 80 mg once every day. 5. Chronic tobacco use and dependence. Continue Wellbutrin SR 150 mg orally twice every day. 6. History of GERD and peptic ulcer disease. Start the patient on Protonix 40 mg IV push every 24 hours 7. Enlarged prostate. Monitor for urinary retention. 8. History of cluster headache. Stable at this time 9. History of spondylosis of the lumbar spine with chronic low back pain. Stable. 10. History of obesity diet and exercise and weight loss. 11. History of osteoarthritis. Continue Tylenol as needed. Avoid NSAIDs. 11. DVT prophylaxis. Lovenox 40 mg subcutaneously every 24 hours . 12. GI prophylaxis. Continue Protonix 40 mg IV push every 24 hours. DISCHARGE PLAN home Impression and plan of care have been directed as dictated by the signing phys [email or web address]. Akilah Guevara nurse practitioner acting as scribe for signing physician. Objective - Vital Signs Vital signs: Vital Signs Temp 97.6 F 12/23/20 09:00 Pulse 63 12/23/20 09:00 Resp 18 12/23/20 09:00 BP 136/78 12/23/20 09:00 Pulse Ox 90 L 12/23/20 09:00 Intake & Output 12/22/20 12/23/20 12/23/20 18:59 06:59 18:59 Weight 109.769 kg Other: Voiding Method Toilet Toilet # Voids 3 - Labs CBC & Chem 7: 12/22/20 14:14 12/23/20 07:11 Labs: Abnormal Lab Results - Last 24 Hours (Table) 12/22/20 12/22/20 12/22/20 Range/Units 14:14 14:14 14:14 Lymphocytes # 0.6 L (1.0-4.8) k/uL Sodium 134 L (137-145) mmol/L Potassium 5.9 H (3.5-5.1) mmol/L BUN 55 H (9-20) mg/dL Creatinine 2.00 H (0.66-1.25) mg/dL Glucose 116 H (74-99) mg/dL Ferritin 1543.1 H (22.0-322.0) ng/mL AST 67 H (17-59) U/L C-Reactive Protein 45.1 H (<10.0) mg/L Procalcitonin 0.12 H (0.02-0.09) ng/mL
[2020-12-24] MEDS: INSULIN ASPART (NovoLOG) 100 UNIT/ML VIAL SQ SCH ×4 (07:55→20:25)
[2020-12-24] MEDS: DEXAMETHASONE SOD PHOSPHATE 10 MG/ML 1 ML VIAL IV SCH (08:02)
[2020-12-24] MEDS: ENOXAPARIN 40 MG/0.4 ML SYRINGE SQ SCH (08:02)
[2020-12-24] MEDS: CHOLECALCIFEROL 25 MCG (1000 IU) TABLET PO SCH (08:03)
[2020-12-24] MEDS: ZINC SULFATE 220 MG CAP PO SCH (08:03)
[2020-12-24] MEDS: buPROPion SR 150 MG TABLET.ER PO SCH ×2 (08:03→20:21)
[2020-12-24] MEDS: SODIUM CHLORIDE 0.9% 1,000 ML IV SCH ×2 (08:03→20:22)
[2020-12-24] MEDS: FINASTERIDE 5 MG TAB PO SCH (08:03)
[2020-12-24] MEDS: PANTOPRAZOLE 40 MG/10 ML VIAL IVP SCH (08:03)
[2020-12-24] MEDS: ASCORBIC ACID 500 MG TAB PO SCH ×2 (08:03→20:21)
[2020-12-24] MEDS: ASPIRIN 81 MG PO SCH (08:03)
--- NOTE | 2020-12-24 08:03 | XR ---
EXAMINATION TYPE: XR chest 1V portable DATE OF EXAM: 12/24/2020 COMPARISON: 12/23/2019 HISTORY: Shortness of breath TECHNIQUE: Single frontal view of the chest is obtained. FINDINGS: Heart is enlarged and there is diffuse hyperinflation suggesting COPD. Diffuse interstitia l pattern seen with no pleural effusion or pneumothorax. No new consolidation. IMPRESSION: COPD, cardiomegaly and diffuse interstitial pattern correlate for interstitial pneumonit is.
[2020-12-24] MEDS: ALBUTEROL HFA INHALER INHALATION SCH ×3 (08:15→19:42)
[2020-12-24] MEDS: SYMBICORT 160-4.5 MCG INHALER INHALATION SCH ×2 (08:16→19:43)
[2020-12-24 09:59] LABS: Basophils % (A) 1 %; Eosinophils # (A) 0.1 k/uL (0-0.7); Eosinophils % (A) 1 %; HCT 44.1 % (39.0-53.0); HGB 13.5 gm/dL (13.0-17.5); Lymphocytes # (A) 1.4 k/uL (1.0-4.8); Lymphocytes % (A) 19 %; MCH 31.3 pg (25.0-35.0); MCHC 30.6 g/dL (31.0-37.0); MCV 102.3 fL (80.0-100.0); Macrocytosis Slight; Mean Platelet Volume 7.5; Monocytes # (A) 0.5 k/uL (0-1.0); Monocytes % (A) 6 %; Neutrophils # (A) 5.3 k/uL (1.3-7.7); Neutrophils % (A) 72 %; Platelet Count 310 k/uL (150-450); RBC 4.31 m/uL (4.30-5.90); RDW 14.8 % (11.5-15.5); WBC 7.4 k/uL (3.8-10.6)
[2020-12-24 10:58] LABS: ALT 51 U/L (4-49); AST 64 U/L (17-59); African American GFR (CKD) 56 (>60 ml/min/1.73 sqM); Albumin 3.2 g/dL (3.5-5.0); Albumin/Globulin Ratio 1.1; Alkaline Phosphatase 61 U/L (38-126); Anion Gap 7 mmol/L; Blood Urea Nitrogen 39 mg/dL (9-20); C Reactive Protein 20.4 mg/L (<10.0); Calcium 9.4 mg/dL (8.4-10.2); Carbon Dioxide 22 mmol/L (22-30); Chloride 108 mmol/L (98-107); Globulin 2.8 g/dL; Glucose 74 mg/dL (74-99); LDH 595 U/L (313-618); Non-African American GFR(CKD) 49 (>60 ml/min/1.73 sqM); Potassium 5.7 mmol/L (3.5-5.1); Sodium 137 mmol/L (137-145); Total Bilirubin 0.4 mg/dL (0.2-1.3)
[2020-12-24 11:59] LABS: Glucose,Whole Blood 105 mg/dL (75-99)
[2020-12-24] MEDS: REMDESIVIR 100 MG in SODIUM CHLORIDE 0.9% 250 ML IVPB SCH (13:04)
--- NOTE | 2020-12-24 14:46 | P.PN ---
Subjective Progress Note Date: 12/24/20 HISTORY OF PRESENT ILLNESS: This is a 75-year-old white male with a previous medical history significant for coronary artery disease status post non-ST elevation AL with poor continue his current intervention of the RCA back in November 2019, hypertension and hypertensive cardio vascular disease, hyperlipidemia, peripheral arterial disease status post left femoral popliteal bypass and right femoral-femoral bypass surgery, chronic tobacco use and dependence, history of cluster headache, history of GERD, history of peptic ulcer disease, patient was diagnosed with Covid 7 days ago and he has been complaining of increased shortness of breath associated with increased coughing he was prescribed Decadron as well as Zithromax about a week ago without any relief he came to the office today and his oxygenation was 82-83% on room air while he was directed to go to the emergency department for evaluation [facility] a [facility] showed Covid pneumonia his oxygenation was about 86%, he was placed on 5 L oxygen his oxygenation was up to like 90%l he was started on IV Decadron 6 but gram IV push every 24 hours, he was kept on albuterol HFA 2 puffs inhalation every 4 hours as well as Pulmicort inhalation twice every day, Pulmicort consultation from Dr. Prince, patient was placed in droplet precautions with eye contact protection, he'll be admitted to the hospital for further evaluation, patient will have repeat his CBC and CMP along with C-reactive protein ferritin level as well as d-dimer in the next 24 hours. 12/23: Patient has been afebrile overnight, heart rate 63, blood pressure 137/78, pulse ox 90% on 6 L high flow nasal cannula. Blood sugars are running between 98 and 126. Repeat chest x-ray and inflammatory markers ordered for tomorrow. Patient has been seen by pulmonary medicine and patient started on Remdesivir. No antibiotics are necessary at this time. Patient is continued on same medications including azithromycin and Rocephin, albuterol inhaler and Symbicort inhaler, dexamethasone 6 mg IV, Lovenox 40 mg subcu daily and supplements. 12/24: Patient is on day #2/5 of Remdesivir. Patient has been afebrile, heart rate 74, blood pressure 142/81, pulse ox 90-93% on 6 L nasal cannula. Repeat blood work reveals d-dimer 0.69. CBC unremarkable. Blood sugars are running between 78 and 101. Blood cultures no growth at 24 hours 2 specimens. Repeat chest x-ray reveals COPD, cardiomegaly and diffuse interstitial pattern correlate for interstitial pneumonitis. This may need for home oxygen therapy at the time of discharge. manager pool will make arrangements in case patient is ready for discharge over the weekend. Patient requires home oxygen therapy in order to manage his diagnosis of Covid 19. Antibiotics will be discontinued per recommendations from pulmonary medicine. Review of systems: Constitutional: fever, chills, no night sweats. No weight change. positive for weakness, fatigue no lethargy. No daytime sleepiness. HEENT: Positive for headache. No blurred vision or double vision, no loss of vision. No loss of Hearing, no ringing in the ears, no dizziness. No nasal drainage or congestion. No epistaxis. No sore throat. Respiratory:positive for shortness of breath, positive for cough, minimal sputum production. Reports wheezing. Cardiovascular: Reported chest pain, no lower extremity edema. Reported palpitations. No paroxysmal nocturnal dyspnea. No orthopnea. No lightheadedness or dizziness. No syncopal episodes. Gastrointestinal: No abdominal pain. No nausea, vomiting. No diarrhea. No constipation. No bloody or tarry stools.. No loss of appetite. Genitourinary: No dysuria, increased frequency, urgency. No urinary retention. Musculoskeletal: No myalgias. No muscle weakness, no gait dysfunction, no jordin quent falls. No back pain. No neck pain. Integumentary: No wounds, no lesions. No rash or pruritus. No unusual bruising. No change in hair or nails. Neurologic: No aphasia. No facial droop. No change in mentation. No head injury. No headache. No paralysis. No paresthesia. Psychiatric: No depression. No anxiety. Endocrine: No abnormal blood sugars. No weight change. Physical examination: Gen: This is a 75-year-old male Patient is resting in bed in mild respiratory distress. HEENT: Head is atraumatic, normocephalic. Pupils equal, round reactive to light and recommendation, extraocular muscle movement were intact, sclera nonicteric, conjunctivae were slightly pale, mucous membranes of the mouth are somewhat dry. NECK: Supple. No JVD. No lymphadenopathy. No thyromegaly. LUNGS: decreased breath sounds at the bases, few rhonchi, mild expiratory wheezes, mild intercostal retractions HEART: First heart sound is depressed, second heart sound is normal, there is a 2/6 systolic ejection murmur at the left sternal border. ABDOMEN: Soft nontender, nondistended, positive bowel sounds. Extremities negative. EXTREMITIES: No pedal edema. No calf tenderness. Dorsalis pedis +1 bilaterally. NEUROLOGICAL: Patient is awake, alert and oriented x3. Cranial nerves 2 through 12 are grossly intact, muscle power 4 out of 5 in upper and lower extremities bilaterally. Assessment and plan: 1. Acute hypoxic respiratory failure secondary to Covid 19 pneumonia. Continue oxygen 5 L nasal cannula, continue patient on Decadron 6 mg IV push every 6 hours, continue Lovenox 40 mg subcutaneously every 24 hours, continue with albuterol 2 puffs inhalation every 4 hours around the clock, continue Symbicort 160/4.5 g 2 puffs inhalation twice every day, patientis on day #2/5 of Remdesivir, continue with droplet precautions and eye protection, we will maintain the patient on vitamin D3, vitamin C as well as zinc sulfate. 2. History of CAD post-the PCI of the RCA. Continue patient on aspirin 81 mg once every day, continue patient on Plavix 75 mg once every day, continue atorvastatin 80 mg orally once every day. 3. History of hyperlipidemia. Continue with atorvastatin 80 mg once every day. 4. History of PAD. Status post right fem-fem bypass and left femoral pop bypass. Continue aspirin, Plavix, atorvastatin 80 mg once every day. 5. Chronic tobacco use and dependence. Continue Wellbutrin SR 150 mg orally twice every day. 6. History of GERD and peptic ulcer disease. Start the patient on Protonix 40 mg IV push every 24 hours 7. Enlarged prostate. Monitor for urinary retention. 8. History of cluster headache. Stable at this time 9. History of spondylosis of the lumbar spine with chronic low back pain. Stable. 10. History of obesity diet and exercise and weight loss. 11. History of osteoarthritis. Continue Tylenol as needed. Avoid NSAIDs. 11. DVT prophylaxis. Lovenox 40 mg subcutaneously every 24 hours . 12. GI prophylaxis. Continue Protonix 40 mg IV push every 24 hours. 13. Chronic hypoxic respiratory failure secondary to Covid 19. Home oxygen therapy will be arranged for possible discharge over the weekend. DISCHARGE PLAN home Impression and plan of care have been directed as dictated by the signing physician. Akilah Guevara nurse practitioner acting as scribe for signing physician. Objective - Vital Signs Vital signs: Vital Signs Temp 97.9 F 12/24/20 05:10 Pulse 74 12/24/20 05:10 Resp 16 12/24/20 05:10 BP 142/81 12/24/20 05:10 Pulse Ox 93 L 12/24/20 05:10 Intake & Output 12/23/20 12/24/20 12/24/20 18:59 06:59 18:59 Weight 109.769 kg Other: Voiding Method Toilet Toilet # Voids 2 2 - Labs CBC & Chem 7: 12/24/20 06:49 12/24/20 06:49 Labs: Abnormal Lab Results - Last 24 Hours (Table) 12/22/20 12/23/20 12/23/20 Range/Units 14:14 07:11 12:20 D-Dimer (<0.60) mg/L FEU Potassium 5.8 H (3.5-5.5) mmol/L BUN 47.0 H (9.0-27.0) mg/dL Creatinine 1.6 H (0.6-1.5) mg/dL Est GFR (CKD-EPI)AfAm 48.5 L (60.0-200.0) Est GFR (CKD-EPI)NonAf 41.8 L (60.0-200.0) BUN/Creatinine Ratio 29.38 H (12.00-20.00) Ratio POC Glucose (mg/dL) 126 H (75-99) mg/dL Ferritin 1543.1 H (22.0-322.0) ng/mL 12/23/20 12/24/20 Range/Units 17:21 06:18 D-Dimer 0.69 H (<0.60) mg/L FEU Potassium (3.5-5.5) mmol/L BUN (9.0-27.0) mg/dL Creatinine (0.6-1.5) mg/dL Est GFR (CKD-EPI)AfAm (60.0-200.0) Est GFR (CKD-EPI)NonAf (60.0-200.0) BUN/Creatinine Ratio (12.00-20.00) Ratio POC Glucose (mg/dL) 101 H (75-99) mg/dL Ferritin (22.0-322.0) ng/mL Microbiology - Last 24 Hours (Table) 12/22/20 14:10 Blood Culture - Preliminary Blood No Growth after 24 hours 12/22/20 14:14 Blood Culture - Preliminary Blood No Growth after 24 hours
--- NOTE | 2020-12-24 15:01 | P.PN ---
Subjective Progress Note Date: 12/24/20 Principal diagnosis: COVID 19 75-year-old male patient presents with shortness of breath and the patient was diagnosed having COVID 19 pneumonia. His symptoms started approximately 1 week ago. At that time the patient was diagnosed having COVID 19 and a specific date was on 12/15/2020. The symptoms probably started 2 days prior to that. The patient came into the emergency department. No fever. No nausea, vomiting. Had some myalgias along with some shortness of breath. His breathing was nonlabored. He was hypoxic and was placed on 6 Lnoxygen nasal cannula patient's pulse ox is around 94%. The patient's blood work showed a white cell count of 6.7, he had lymphopenia with a lymphocyte count of 0.6, BUN of 55 and a creatinine of 2.09 as the patient is a chronic stage III kidney disease, potassium level was at 5.9, coagulation profile was within normal limits, chest x-ray showed cardiomegaly and addition to chronic changes with multifocal bilateral areas of increased opacity consistent with Covid 19 pneumonia. The patient was receiving Decadron outpatient basis, 6 mg orally. Comorbid conditions included severe obstructive sleep apnea with an AHI of 49, COPD, previous history of coronary artery disease with a recent non-STEMI requiring coronary stents, chronic stage III kidney disease, peripheral vascular disease, BPH, hyperlipidemia. 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 He suffers from chronic back pain, hip pain and cluster headaches. On 12/24/2020 patient seen in follow-up on medical floor, he is currently on 6 L of oxygen his pulse ox is 93%, he has occasional cough, otherwise breathing comfortably, no worsening dyspnea, no nausea vomiting or diarrhea, today is day 2 of the Remdesivir, patient continues on Decadron, follow-up chest x-ray was done today showing COPD, cardiomegaly and diffuse interstitial pattern. No fever or chills, yesterday's d-dimer was 0.69, today's labs show LDH of 595, and CRP of 20.4, potassium is 5.7, B1 is 39, creatinine is 1.4. He's tolerating oral intake. Objective - Vital Signs Vital signs: Vital Signs Temp 97.4 F L 12/24/20 14:00 Pulse 65 12/24/20 14:00 Resp 20 12/24/20 14:00 BP 137/76 12/24/20 14:00 Pulse Ox 91 L 12/24/20 14:00 Intake & Output 12/23/20 12/24/20 12/24/20 18:59 06:59 18:59 Weight 109.769 kg Other: Voiding Method Toilet Toilet # Voids 2 2 1 - Exam GENERAL EXAM: Alert, very pleasant, 75-year-old white male, on 6 L of oxygen 93% comfortable in no apparent distress. HEAD: Normocephalic/atraumatic. EYES: Normal reaction of pupils, equal size. Conjunctiva pink, sclera white. NOSE: Clear with pink turbinates. THROAT: No erythema or exudates. NECK: No masses, no JVD, no thyroid enlargement, no adenopathy. CHEST: No chest wall deformity. Symmetrical expansion. LUNGS: Equal air entry with diffuse crackles CVS: Regular rate and rhythm, normal S1 and S2, no gallops, no murmurs, no rubs ABDOMEN: Soft, nontender. No hepatosplenomegaly, normal bowel sounds, no guarding or rigidity. EXTREMITIES: No clubbing, no edema, no cyanosis, 2+ pulses and upper and lower extremities. MUSCULOSKELETAL: Muscle strength and tone normal. SPINE: No scoliosis or deformity SKIN: No rashes CENTRAL NERVOUS SYSTEM: Alert and oriented -3. No focal deficits, tone is normal in all 4 extremities. PSYCHIATRIC: Alert and oriented -3. Appropriate affect. Intact judgment and insight. - Labs CBC & Chem 7: 12/24/20 06:49 12/24/20 06:49 Labs: Abnormal Lab Results - Last 24 Hours (Table) 12/23/20 12/24/20 12/24/20 Range/Units 17:21 06:18 06:49 MCV (80.0-100.0) fL MCHC (31.0-37.0) g/dL D-Dimer 0.69 H (<0.60) mg/L FEU Potassium 5.7 H (3.5-5.1) mmol/L Chloride 108 H (98-107) mmol/L BUN 39 H (9-20) mg/dL Creatinine 1.42 H (0.66-1.25) mg/dL POC Glucose (mg/dL) 101 H (75-99) mg/dL AST 64 H (17-59) U/L ALT 51 H (4-49) U/L C-Reactive Protein 20.4 H (<10.0) mg/L Total Protein 6.0 L (6.3-8.2) g/dL Albumin 3.2 L (3.5-5.0) g/dL 12/24/20 12/24/20 Range/Units 06:49 11:57 MCV 102.3 H (80.0-100.0) fL MCHC 30.6 L (31.0-37.0) g/dL D-Dimer (<0.60) mg/L FEU Potassium (3.5-5.1) mmol/L Chloride (98-107) mmol/L BUN (9-20) mg/dL Creatinine (0.66-1.25) mg/dL POC Glucose (mg/dL) 105 H (75-99) mg/dL AST (17-59) U/L ALT (4-49) U/L C-Reactive Protein (<10.0) mg/L Total Protein (6.3-8.2) g/dL Albumin (3.5-5.0) g/dL Microbiology - Last 24 Hours (Table) 12/22/20 14:10 Blood Culture - Preliminary Blood No Growth after 24 hours 12/22/20 14:14 Blood Culture - Preliminary Blood No Growth after 24 hours Assessment and Plan Plan: 1 acute COVID 19 associated pneumonia, diagnosis established in 12/15/2020. The patient symptoms started approximately 10 days ago. Decadron outpatient basis. Condition progressed and the patient presented worsening shortness of breath. He does have bilateral pneumonia. Was started on Remdesivir on 12/23/2020 2 acute hypoxic respiratory failure secondary to above currently on 6 L of oxygen by nasal cannula 3 coronary artery disease with recent non-STEMI involving cardiac catheterization and coronary stent 4 obstructive sleep apnea severe with a AHI of 49 5 COPD 6 peripheral vascular disease with multivessel intervention involving lower extremities 7 chronic kidney disease stage III patient home with a single kidney. 8 hyperlipidemia 9 hyperlipidemia 10 BPH 11 chronic back pain and osteoarthritis 12 history of gastric ulcer disease Plan: We'll continue with Remdesivir, today is day 2 of treatment We'll continue with Decadron, Continue prophylactic Lovenox, Continue monitoring inflammatory markers, continue worsening dyspnea and hypoxia, came follow-up CMP on tomorrow's labs to monitor liver function test I performed a history & physical examination of the patient and discussed their management with my nurse practitioner, Aleksandra Velez. I reviewed the nurse practitioner's note and agree with the documented findings and plan of care. Lung sounds are positive for dim with crackles The findings and the impression was discussed with the patient. I attest to the documentation by the nurse practitioner. Time with Patient: Less than 30
[2020-12-24 16:40] LABS: Glucose,Whole Blood 128 mg/dL (75-99)
[2020-12-24 20:19] LABS: Glucose,Whole Blood 101 mg/dL (75-99)
[2020-12-24] MEDS: ATORVASTATIN 80 MG TAB PO SCH (20:21)
[2020-12-24] MEDS: CLOPIDOGREL 75 MG TAB PO SCH (20:21)
[2020-12-24 21:04] LABS: Ferritin 1505.8 ng/mL (22.0-322.0)
[2020-12-25 06:57] LABS: Glucose,Whole Blood 78 mg/dL (75-99)
[2020-12-25] MEDS: INSULIN ASPART (NovoLOG) 100 UNIT/ML VIAL SQ SCH ×4 (07:00→21:27)
[2020-12-25] MEDS: ASPIRIN 81 MG PO SCH (07:10)
[2020-12-25] MEDS: CHOLECALCIFEROL 25 MCG (1000 IU) TABLET PO SCH (07:10)
[2020-12-25] MEDS: ZINC SULFATE 220 MG CAP PO SCH (07:10)
[2020-12-25] MEDS: FINASTERIDE 5 MG TAB PO SCH (07:10)
[2020-12-25] MEDS: ASCORBIC ACID 500 MG TAB PO SCH ×2 (07:10→21:27)
[2020-12-25] MEDS: ENOXAPARIN 40 MG/0.4 ML SYRINGE SQ SCH (07:11)
[2020-12-25] MEDS: buPROPion SR 150 MG TABLET.ER PO SCH ×2 (07:11→21:27)
[2020-12-25] MEDS: DEXAMETHASONE SOD PHOSPHATE 10 MG/ML 1 ML VIAL IV SCH (07:11)
[2020-12-25] MEDS: PANTOPRAZOLE 40 MG/10 ML VIAL IVP SCH (07:12)
[2020-12-25] MEDS: DOCUSATE 100 MG CAP PO SCH ×2 (10:01→21:27)
--- NOTE | 2020-12-25 10:10 | P.PN ---
Subjective Progress Note Date: 12/25/20 HISTORY OF PRESENT ILLNESS: This is a 75-year-old white male with a previous medical history significant for coronary artery disease status post non-ST elevation [place] with poor continue his current intervention of the RCA back in November 2019, hypertension and hypertensive cardio vascular disease, hyperlipidemia, peripheral arterial disease status post left femoral popliteal bypass and right femoral-femoral bypass surgery, chronic tobacco use and dependence, history of cluster headache, history of GERD, history of peptic ulcer disease, patient was diagnosed with Covid 7 days ago and he has been complaining of increased shortness of breath associated with increased coughing he was prescribed Decadron as well as Zithromax about a week ago without any relief he came to the office today and his oxygenation was 82-83% on room air while he was directed to go to the emergency department for evaluation [facility] a [facility] Cov[facility] pneumonia his oxygenation was about 86%, he was placed on 5 L oxygen his oxygenation was up to like 90%l he was started on IV Decadron 6 but gram IV push every 24 hours, he was kept on albuterol HFA 2 puffs inhalation every 4 hours as well as Pulmicort inhalation twice every day, Pulmicort consultation from Dr. Prince, patient was placed in droplet precautions with eye contact protection, he'll be admitted to the hospital for further evaluation, patient will have repeat his CBC and CMP along with C-reactive protein ferritin level as well as d-dimer in the next 24 hours. 12/23: Patient has been afebrile overnight, heart rate 63, blood pressure 137/78, pulse ox 90% on 6 L high flow nasal cannula. Blood sugars are running between 98 and 126. Repeat chest x-ray and inflammatory markers ordered for tomorrow. Patient has been seen by pulmonary medicine and patient started on Remdesivir. No antibiotics are necessary at this time. Patient is continued on same medications including azithromycin and Rocephin, albuterol inhaler and Symbicort inhaler, dexamethasone 6 mg IV, Lovenox 40 mg subcu daily and supplements. 12/24: Patient is on day #2/5 of Remdesivir. Patient has been afebrile, heart rate 74, blood pressure 142/81, pulse ox 90-93% on 6 L nasal cannula. Repeat blood work reveals d-dimer 0.69. CBC unremarkable. Blood sugars are running between 78 and 101. Blood cultures no growth at 24 hours 2 specimens. Repeat chest x-ray reveals COPD, cardiomegaly and diffuse interstitial pattern correlate for interstitial pneumonitis. This may need for home oxygen therapy at the time of discharge. occupational therapy manager will make arrangements in case patient is ready for discharge over the weekend. Patient requires home oxygen therapy in order to manage his diagnosis of Covid 19. Antibiotics will be discontinued per recommendations from pulmonary medicine. 12/25: Patient is sitting at the edge of the bed is feeling a lot better, he denies any chest pains less short of breath he continues to require 4 L nasal cannula his day #3 out of 5 of remdesivir we will continue to monitor patient very closely, monitor the patient's CBC and CMP so far his left okay. His chest x-ray did show cardiomegaly along with interstitial pattern service of interstitial pneumonia, continue patient on Rocephin and Zithromax continue oxygen continue Decadron continue using vitamin D and vitamin C continue supportive care. Review of systems: Constitutional: fever, chills, no night sweats. No weight change. positive for weakness, fatigue no lethargy. No daytime sleepiness. HEENT: Positive for headache. No blurred vision or double vision, no loss of vision. No loss of Hearing, no ringing in the ears, no dizziness. No nasal drainage or congestion. No epistaxis. No sore throat. Respiratory:positive for shortness of breath, positive for cough, minimal sputum production. Reports wheezing. Cardiovascular: Reported chest pain, no lower extremity edema. Reported palpitations. No paroxysmal nocturnal dyspnea. No orthopnea. No li ghtheadedness or dizziness. No syncopal episodes. Gastrointestinal: No abdominal pain. No nausea, vomiting. No diarrhea. No constipation. No bloody or tarry stools.. No loss of appetite. Genitourinary: No dysuria, increased frequency, urgency. No urinary retention. Musculoskeletal: No myalgias. No muscle weakness, no gait dysfunction, no frequent falls. No back pain. No neck pain. Integumentary: No wounds, no lesions. No rash or pruritus. No unusual bruising. No change in hair or nails. Neurologic: No aphasia. No facial droop. No change in mentation. No head injury. No headache. No paralysis. No paresthesia. Psychiatric: No depression. No anxiety. Endocrine: No abnormal blood sugars. No weight change. Physical examination: Gen: This is a 75-year-old male Patient is resting in bed in mild respiratory distress. HEENT: Head is atraumatic, normocephalic. Pupils equal, round reactive to light and recommendation, extraocular muscle movement were intact, sclera nonicteric, conjunctivae were slightly pale, mucous membranes of the mouth are somewhat dry. NECK: Supple. No JVD. No lymphadenopathy. No thyromegaly. LUNGS: decreased breath sounds at the bases, few rhonchi, mild expiratory wheezes, mild intercostal retractions HEART: First heart sound is depressed, second heart sound is normal, there is a 2/6 systolic ejection murmur at the left sternal border. ABDOMEN: Soft nontender, nondistended, positive bowel sounds. Extremities negative. EXTREMITIES: No pedal edema. No calf tenderness. Dorsalis pedis +1 bilaterally. NEUROLOGICAL: Patient is awake, alert and oriented x3. Cranial nerves 2 through 12 are grossly intact, muscle power 4 out of 5 in upper and lower extremities bilaterally. Assessment and plan: 1. Acute hypoxic respiratory failure secondary to Covid 19 pneumonia. Continue oxygen 5 L nasal cannula, continue patient on Decadron 6 mg IV push every 6 hours, continue Lovenox 40 mg subcutaneously every 24 hours, continue with albuterol 2 puffs inhalation every 4 hours around the clock, continue Symbicort 160/4.5 g 2 puffs inhalation twice every day, patientis on day #2/5 of Remdesivir, continue with droplet precautions and eye protection, we will maintain the patient on vitamin D3, vitamin C as well as zinc sulfate. 2. History of CAD post-the PCI of the RCA. Continue patient on aspirin 81 mg once every day, continue patient on Plavix 75 mg once every day, continue atorvastatin 80 mg orally once every day. 3. History of hyperlipidemia. Continue with atorvastatin 80 mg once every day. 4. History of PAD. Status post right fem-fem bypass and left femoral pop bypass. Continue aspirin, Plavix, atorvastatin 80 mg once every day. 5. Chronic tobacco use and dependence. Continue Wellbutrin SR 150 mg orally twice every day. 6. History of GERD and peptic ulcer disease. Start the patient on Protonix 40 mg IV push every 24 hours 7. Enlarged prostate. Monitor for urinary retention. 8. History of cluster headache. Stable at this time 9. History of spondylosis of the lumbar spine with chronic low back pain. Stable. 10. History of obesity diet and exercise and weight loss. 11. History of osteoarthritis. Continue Tylenol as needed. Avoid NSAIDs. 11. DVT prophylaxis. Lovenox 40 mg subcutaneously every 24 hours . 12. GI prophylaxis. Continue Protonix 40 mg IV push every 24 hours. 13. Chronic hypoxic respiratory failure secondary to Covid 19. Home oxygen therapy will be arranged for possible discharge over the weekend. 14. Constipation. Start the patient on Colace 100 mg orally twice every day, increase fluid intake. DISCHARGE PLAN home Objective - Vital Signs Vital signs: Vital Signs Temp 97.6 F 12/25/20 05:40 Pulse 59 L 12/25/20 05:40 Resp 18 12/25/20 07:15 BP 145/77 12/25/20 05:40 Pulse Ox 94 L 12/25/20 09:26 Intake & Output 12/24/20 12/25/20 12/25/20 18:59 06:59 18:59 Other: Voiding Method Toilet Toilet # Voids 3 1 - Labs CBC & Chem 7: 12/24/20 06:49 12/24/20 06:49 Labs: Abnormal Lab Results - Last 24 Hours (Table) 12/24/20 12/24/20 12/24/20 Range/Units 06:49 06:49 11:57 MCV 102.3 H (80.0-100.0) fL MCHC 30.6 L (31.0-37.0) g/dL D-Dimer (<0.60) mg/L FEU Potassium 5.7 H (3.5-5.1) mmol/L Chloride 108 H (98-107) mmol/L BUN 39 H (9-20) mg/dL Creatinine 1.42 H (0.66-1.25) mg/dL POC Glucose (mg/dL) 105 H (75-99) mg/dL Ferritin 1505.8 H (22.0-322.0) ng/mL AST 64 H (17-59) U/L ALT 51 H (4-49) U/L C-Reactive Protein 20.4 H (<10.0) mg/L Total Protein 6.0 L (6.3-8.2) g/dL Albumin 3.2 L (3.5-5.0) g/dL 12/24/20 12/24/20 12/25/20 Range/Units 16:26 20:18 07:09 MCV (80.0-100.0) fL MCHC (31.0-37.0) g/dL D-Dimer 0.90 H (<0.60) mg/L FEU Potassium (3.5-5.1) mmol/L Chloride (98-107) mmol/L BUN (9-20) mg/dL Creatinine (0.66-1.25) mg/dL POC Glucose (mg/dL) 128 H 101 H (75-99) mg/dL Ferritin (22.0-322.0) ng/mL AST (17-59) U/L ALT (4-49) U/L C-Reactive Protein (<10.0) mg/L Total Protein (6.3-8.2) g/dL Albumin (3.5-5.0) g/dL Microbiology - Last 24 Hours (Table) 12/22/20 14:14 Blood Culture - Preliminary Blood No Growth after 48 hours 12/22/20 14:10 Blood Culture - Preliminary Blood No Growth after 48 hours
[2020-12-25] MEDS: SYMBICORT 160-4.5 MCG INHALER INHALATION SCH ×2 (10:18→20:15)
[2020-12-25] MEDS: ALBUTEROL HFA INHALER INHALATION SCH ×3 (10:18→20:16)
[2020-12-25 11:39] LABS: Glucose,Whole Blood 103 mg/dL (75-99)
[2020-12-25] MEDS: SODIUM CHLORIDE 0.9% 1,000 ML IV SCH (12:01)
[2020-12-25] MEDS: REMDESIVIR 100 MG in SODIUM CHLORIDE 0.9% 250 ML IVPB SCH (12:02)
--- NOTE | 2020-12-25 12:22 | P.PN ---
Subjective Progress Note Date: 12/25/20 75-year-old male patient presents with shortness of breath and the patient was diagnosed having COVID 19 pneumonia. His symptoms started approximately 1 week ago. At that time the patient was diagnosed having COVID 19 and a specific date was on 12/15/2020. The symptoms probably started 2 days prior to that. The patient came into the emergency department. No fever. No nausea, vomiting. Had some myalgias along with some shortness of breath. His breathing was nonlabored. He was hypoxic and was placed on 6 Lnoxygen nasal cannula patient's pulse ox is around 94%. The patient's blood work showed a white cell count of 6.7, he had lymphopenia with a lymphocyte count of 0.6, BUN of 55 and a crea tinine of 2.09 as the patient is a chronic stage III kidney disease, potassium level was at 5.9, coagulation profile was within normal limits, chest x-ray showed cardiomegaly and addition to chronic changes with multifocal bilateral areas of increased opacity consistent with Covid 19 pneumonia. The patient was receiving Decadron outpatient basis, 6 mg orally. Comorbid conditions included severe obstructive sleep apnea with an AHI of 49, COPD, previous history of coronary artery disease with a recent non-STEMI requiring coronary stents, chronic stage III kidney disease, peripheral vascular disease, BPH, hyperlipidemia. 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 He suffers from chronic back pain, hip pain and cluster headaches. On 12/24/2020 patient seen in follow-up on medical floor, he is currently on 6 L of oxygen his pulse ox is 93%, he has occasional cough, otherwise breathing comfortably, no worsening dyspnea, no nausea vomiting or diarrhea, today is day 2 of the Remdesivir, patient continues on Decadron, follow-up chest x-ray was done today showing COPD, cardiomegaly and diffuse interstitial pattern. No fever or chills, yesterday's d-dimer was 0.69, today's labs show LDH of 595, and CRP of 20.4, potassium is 5.7, B1 is 39, creatinine is 1.4. He's tolerating oral intake. ] On 12/25/2020, I'm seeing the patient for a follow-up. He is doing well. He is still coughing. Less short of breath. He was on 6 L of oxygen and currently is down to 4 L with a pulse ox above 90%. No nausea. No vomiting. No diarrhea. This is third day of REM his also on Decadron. No new labs are available from today. Vitals are stable. His last creatinine was at 1.4. Objective - Vital Signs Vital signs: Vital Signs Temp 97.8 F 12/25/20 10:00 Pulse 70 12/25/20 10:00 Resp 20 12/25/20 10:00 BP 133/73 12/25/20 10:00 Pulse Ox 90 L 12/25/20 10:00 Intake & Output 12/24/20 12/25/20 12/25/20 18:59 06:59 18:59 Other: Voiding Method Toilet Toilet # Voids 3 1 - Exam GENERAL EXAM: Alert, very pleasant, 75-year-old white male, on 4 L of oxygen 93% comfortable in no apparent distress. HEAD: Normocephalic/atraumatic. EYES: Normal reaction of pupils, equal size. Conjunctiva pink, sclera white. NOSE: Clear with pink turbinates. THROAT: No erythema or exudates. NECK: No masses, no JVD, no thyroid enlargement, no adenopathy. CHEST: No chest wall deformity. Symmetrical expansion. LUNGS: Equal air entry with diffuse crackles CVS: Regular rate and rhythm, normal S1 and S2, no gallops, no murmurs, no rubs ABDOMEN: Soft, nontender. No hepatosplenomegaly, normal bowel sounds, no guarding or rigidity. EXTREMITIES: No clubbing, no edema, no cyanosis, 2+ pulses and upper and lower extremities. MUSCULOSKELETAL: Muscle strength and tone normal. SPINE: No scoliosis or deformity SKIN: No rashes CENTRAL NERVOUS SYSTEM: Alert and oriented -3. No focal deficits, tone is normal in all 4 extremities. PSYCHIATRIC: Alert and oriented -3. Appropriate affect. Intact judgment and insight. - Labs CBC & Chem 7: 12/24/20 06:49 12/24/20 06:49 Labs: Abnormal Lab Results - Last 24 Hours (Table) 12/24/20 12/24/20 12/24/20 Range/Units 06:49 16:26 20:18 D-Dimer (<0.60) mg/L FEU POC Glucose (mg/dL) 128 H 101 H (75-99) mg/dL Ferritin 1505.8 H (22.0-322.0) ng/mL 12/25/20 12/25/20 Range/Units 07:09 11:36 D-Dimer 0.90 H (<0.60) mg/L FEU POC Glucose (mg/dL) 103 H (75-99) mg/dL Ferritin (22.0-322.0) ng/mL Microbiology - Last 24 Hours (Table) 12/22/20 14:14 Blood Culture - Preliminary Blood No Growth after 48 hours 12/22/20 14:10 Blood Culture - Preliminary Blood No Growth after 48 hours Assessment and Plan Plan: 1 acute COVID 19 associated pneumonia, diagnosis established in 12/15/2020. The patient symptoms started approximately 10 days ago. Decadron outpatient basis. Condition progressed and the patient presented worsening shortness of breath. He does have bilateral pneumonia. 2 acute hypoxic respiratory failure secondary to above currently on 3 L of o xygen by nasal cannula, oxygenation is gradually improving and the patient presented to us on 6 L of oxygen by nasal cannula 3 coronary artery disease with recent non-STEMI involving cardiac catheter ization and coronary stent 4 obstructive sleep apnea severe with a AHI of 49 5 COPD 6 peripheral vascular disease with multivessel intervention involving lower extremities 7 chronic kidney disease stage III patient home with a single kidney. 8 hyperlipidemia 9 hyperlipidemia 10 BPH 11 chronic back pain and osteoarthritis 12 history of gastric ulcer disease Plan Continue 02 supplementation to maintain the sao2 above 90%, currently on 3 L of oxygen by nasal cannula Decadron 6 mg IV every 24 hours Remdesivir a #3 Monitor the renal function and the patient has chronic stage 3 kidney disease Monitor K level Inflammatory markers including LDH, CRP and d-dimer Lovenox 40 mg subcu daily basis DVT prohylaxis check procalcitonin level was low at 0.12. Will follow the patient .
[2020-12-25 16:23] LABS: Glucose,Whole Blood 122 mg/dL (75-99)
[2020-12-25 20:54] LABS: Glucose,Whole Blood 99 mg/dL (75-99)
[2020-12-25] MEDS: CLOPIDOGREL 75 MG TAB PO SCH (21:27)
[2020-12-25] MEDS: ATORVASTATIN 80 MG TAB PO SCH (21:27)
[2020-12-26] MEDS: SODIUM CHLORIDE 0.9% 1,000 ML IV SCH ×2 (02:01→12:42)
[2020-12-26 07:07] LABS: Glucose,Whole Blood 84 mg/dL (75-99)
[2020-12-26] MEDS: INSULIN ASPART (NovoLOG) 100 UNIT/ML VIAL SQ SCH ×4 (07:07→20:50)
[2020-12-26] MEDS: CHOLECALCIFEROL 25 MCG (1000 IU) TABLET PO SCH (07:07)
[2020-12-26] MEDS: PANTOPRAZOLE 40 MG TABLET PO SCH (07:07)
[2020-12-26] MEDS: DOCUSATE 100 MG CAP PO SCH ×2 (07:08→20:09)
[2020-12-26] MEDS: FINASTERIDE 5 MG TAB PO SCH (07:08)
[2020-12-26] MEDS: ZINC SULFATE 220 MG CAP PO SCH (07:08)
[2020-12-26] MEDS: ASCORBIC ACID 500 MG TAB PO SCH ×2 (07:08→20:09)
[2020-12-26] MEDS: ASPIRIN 81 MG PO SCH (07:08)
[2020-12-26] MEDS: buPROPion SR 150 MG TABLET.ER PO SCH ×2 (07:08→20:09)
[2020-12-26] MEDS: DEXAMETHASONE SOD PHOSPHATE 10 MG/ML 1 ML VIAL IV SCH (07:09)
[2020-12-26] MEDS: ENOXAPARIN 40 MG/0.4 ML SYRINGE SQ SCH (07:09)
[2020-12-26 08:53] LABS: HCT 44.4 % (39.6-50.0); MCH 32.3 pg (27.0-32.0); MCHC 31.5 g/dL (32.0-37.0); MCV 102.3 fL (80.0-97.0); Mean Platelet Volume 9.5 fL (9.5-12.2); Platelet Count 308 X 10*3/uL (140-440); RBC 4.34 X 10*6/uL (4.40-5.60); RDW 14.4 % (11.5-14.5); WBC 8.47 X 10*3/uL (4.50-10.00)
[2020-12-26] MEDS: SYMBICORT 160-4.5 MCG INHALER INHALATION SCH ×2 (09:09→20:18)
[2020-12-26] MEDS: ALBUTEROL HFA INHALER INHALATION SCH ×3 (09:09→20:18)
[2020-12-26 09:35] LABS: African American GFR (CKD) 62.3 (60.0-200.0); Anion Gap 6.5 mmol/L (4.00-12.00); BUN/Creat Ratio 24.62 Ratio (12.00-20.00); Calcium 9.3 mg/dL (8.7-10.3); Carbon Dioxide 24.5 mmol/L (21.6-31.8); Non-African American GFR(CKD) 53.8 (60.0-200.0); Potassium 5.5 mmol/L (3.5-5.5)
--- NOTE | 2020-12-26 09:58 | P.PN ---
Subjective Progress Note Date: 12/26/20 HISTORY OF PRESENT ILLNESS: This is a 75-year-old white male with a previous medical history significant for coronary artery disease status post non-ST elevation NE with poor continue his current intervention of the RCA back in November 2019, hypertension and hypertensive cardio vascular disease, hyperlipidemia, peripheral arterial disease status post left femoral popliteal bypass and right femoral-femoral bypass surgery, chronic tobacco use and dependence, history of cluster headache, history of GERD, history of peptic ulcer disease, patient was diagnosed with Covid 7 days ago and he has been complaining of increased shortness of breath associated with increased coughing he was prescribed Decadron as well as Zithromax about a week ago without any relief he came to the office today and his oxygenation was 82-83% on room air while he was directed to go to the emergency department for evaluation was seen in the emergency department at [facility] had a chest x-ray that showed Covid pneumonia his oxygenation was about 86%, he was placed on 5 L oxygen his oxygenation was up to like 90%l he was started on IV Decadron 6 but gram IV push every 24 hours, he was kept on albuterol HFA 2 puffs inhalation every 4 hours as well as Pulmicort inhalation twice every day, Pulmicort consultation from Dr. Prince, patient was placed in droplet precautions with eye contact protection, he'll be admitted to the hospital for further evaluation, patient will have repeat his CBC and CMP along with C-reactive protein ferritin level as well as d-dimer in the next 24 hours. 12/23: Patient has been afebrile overnight, heart rate 63, blood pressure 137/78, pulse ox 90% on 6 L high flow nasal cannula. Blood sugars are running between 98 and 126. Repeat chest x-ray and inflammatory markers ordered for tomorrow. Patient has been seen by pulmonary medicine and patient started on Remdesivir. No antibiotics are necessary at this time. Patient is continued on same medications including azithromycin and Rocephin, albuterol inhaler and Symbicort inhaler, dexamethasone 6 mg IV, Lovenox 40 mg subcu daily and supplements. 12/24: Patient is on day #2/5 of Remdesivir. Patient has been afebrile, heart rate 74, blood pressure 142/81, pulse ox 90-93% on 6 L nasal cannula. Repeat blood work reveals d-dimer 0.69. CBC unremarkable. Blood sugars are running between 78 and 101. Blood cultures no growth at 24 hours 2 specimens. Repeat chest x-ray reveals COPD, cardiomegaly and diffuse interstitial pattern correlate for interstitial pneumonitis. This may need for home oxygen therapy at the time of discharge. hotel general manager will make arrangements in case patient is ready for discharge over the weekend. Patient requires home oxygen therapy in order to manage his diagnosis of Covid 19. Antibiotics will be discontinued per recommendations from pulmonary medicine. 12/25: Patient is sitting at the edge of the bed is feeling a lot better, he denies any chest pains less short of breath he continues to require 4 L nasal cannula his day #3 out of 5 of remdesivir we will continue to monitor patient very closely, monitor the patient's CBC and CMP so far his left okay. His chest x-ray did show cardiomegaly along with interstitial pattern service of interstitial pneumonia, continue patient on Rocephin and Zithromax continue oxygen continue Decadron continue using vitamin D and vitamin C continue supportive care. 12/26: Patient is sitting up in the chair in no apparent distress, he continues to require 4 L cannula, his day #4 out of 5 of Remdesivir, we will continue current treatment plan, patient has not had a bowel movement, he is getting Colace 100 mg orally twice every day, he declined prune juice and milk of magnesia, continue to use incentive spirometer patient likely will be discharged home tomorrow morning after his fifth dose of remdesivir Review of systems: Constitutional: fever, chills, no night sweats. No weight change. positive for weakness, fatigue no lethargy. No daytime sleepiness. HEENT: Positive for headache. No blurred vision or double vision, no loss of vision. No loss of Hearing, no ringing in the ears, no dizziness. No nasal drainage or congestion. No epistaxis. No sore throat. Respiratory:positive for shortness of breath, positive for cough, minimal sputum production. Reports wheezing. Cardiovascular: Reported chest pain, no lower extremity edema. Reported palpitations. No paroxysmal nocturnal dyspnea. No orthopnea. No lightheadedness or dizziness. No syncopal episodes. Gastrointestinal: No abdominal pain. No nausea, vomiting. No diarrhea. No constipation. No bloody or tarry stools.. No loss of appetite. Genitourinary: No dysuria, increased frequency, urgency. No urinary retention. Musculoskeletal: No myalgias. No muscle weakness, no gait dysfunction, no frequent falls. No back pain. No neck pain. Integumentary: No wounds, no lesions. No rash or pruritus. No unusual bruising. No change in hair or nails. Neurologic: No aphasia. No facial droop. No change in mentation. No head injury. No headache. No paralysis. No paresthesia. Psychiatric: No depression. No anxiety. Endocrine: No abnormal blood sugars. No weight change. Physical examination: Gen: This is a 75-year-old male Patient is resting in bed in mild respiratory distress. HEENT: Head is atraumatic, normocephalic. Pupils equal, round reactive to light and recommendation, extraocular muscle movement were intact, sclera nonicteric, conjunctivae were slightly pale, mucous membranes of the mouth are somewhat dry. NECK: Supple. No JVD. No lymphadenopathy. No thyromegaly. LUNGS: decreased breath sounds at the bases, few rhonchi, mild expiratory w heezes, mild intercostal retractions HEART: First heart sound is depressed, second heart sound is normal, there is a 2/6 systolic ejection murmur at the left sternal border. ABDOMEN: Soft nontender, nondistended, positive bowel sounds. Extremities negative. EXTREMITIES: No pedal edema. No calf tenderness. Dorsalis pedis +1 bilaterally. NEUROLOGICAL: Patient is awake, alert and oriented x3. Cranial nerves 2 through 12 are grossly intact, muscle power 4 out of 5 in upper and lower extremities bilaterally. Assessment and plan: 1. Acute hypoxic respiratory failure secondary to Covid 19 pneumonia. Continue oxygen 5 L nasal cannula, continue patient on Decadron 6 mg IV push every 6 hours, continue Lovenox 40 mg subcutaneously every 24 hours, continue with albuterol 2 puffs inhalation every 4 hours around the clock, continue Symbicort 160/4.5 g 2 puffs inhalation twice every day, patientis on day #4/5 of Remdesivir, continue with droplet precautions and eye protection, we will maintain the patient on vitamin D3, vitamin C as well as zinc sulfate. 2. History of CAD post-the PCI of the RCA. Continue patient on aspirin 81 mg once every day, continue patient on Plavix 75 mg once every day, continue atorvastatin 80 mg orally once every day. 3. History of hyperlipidemia. Continue with atorvastatin 80 mg once every day. 4. History of PAD. Status post right fem-fem bypass and left femoral pop bypass. Continue aspirin, Plavix, atorvastatin 80 mg once every day. 5. Chronic tobacco use and dependence. Continue Wellbutrin SR 150 mg orally twice every day. 6. History of GERD and peptic ulcer disease. Start the patient on Protonix 40 mg IV push every 24 hours 7. Enlarged prostate. Monitor for urinary retention. 8. History of cluster headache. Stable at this time 9. History of spondylosis of the lumbar spine with chronic low back pain. Stable. 10. History of obesity diet and exercise and weight loss. 11. History of osteoarthritis. Continue Tylenol as needed. Avoid NSAIDs. 11. DVT prophylaxis. Lovenox 40 mg subcutaneously every 24 hours . 12. GI prophylaxis. Continue Protonix 40 mg IV push every 24 hours. 13. Chronic hypoxic respiratory failure secondary to Covid 19. Home oxygen therapy will be arranged for possible discharge over the weekend. 14. Constipation. Start the patient on Colace 100 mg orally twice every day, increase fluid intake. 15. Home tomorrow morning. DISCHARGE PLAN home Objective - Vital Signs Vital signs: Vital Signs Temp 98.3 F 12/26/20 05:00 Pulse 68 12/26/20 05:00 Resp 17 12/26/20 05:00 BP 105/65 12/26/20 05:00 Pulse Ox 90 L 12/26/20 05:00 Intake & Output 12/25/20 12/26/20 12/26/20 18:59 06:59 18:59 Other: Voiding Method Toilet # Voids 3 2 - Labs CBC & Chem 7: 12/26/20 05:47 12/26/20 05:47 Labs: Abnormal Lab Results - Last 24 Hours (Table) 12/25/20 12/25/20 12/25/20 Range/Units 07:09 11:36 16:21 RBC (4.40-5.60) X 10*6/uL MCV (80.0-97.0) fL MCH (27.0-32.0) pg MCHC (32.0-37.0) g/dL D-Dimer 0.90 H (<0.60) mg/L FEU POC Glucose (mg/dL) 103 H 122 H (75-99) mg/dL 12/26/20 Range/Units 05:47 RBC 4.34 L (4.40-5.60) X 10*6/uL MCV 102.3 H (80.0-97.0) fL MCH 32.3 H (27.0-32.0) pg MCHC 31.5 L (32.0-37.0) g/dL D-Dimer (<0.60) mg/L FEU POC Glucose (mg/dL) (75-99) mg/dL Microbiology - Last 24 Hours (Table) 12/22/20 14:10 Blood Culture - Preliminary Blood No Growth after 72 hours 12/22/20 14:14 Blood Culture - Preliminary Blood No Growth after 72 hours
[2020-12-26 11:50] LABS: Glucose,Whole Blood 133 mg/dL (75-99)
--- NOTE | 2020-12-26 12:25 | P.PN ---
Subjective Progress Note Date: 12/26/20 75-year-old male patient presents with shortness of breath and the patient was diagnosed having COVID 19 pneumonia. His symptoms started approximately 1 week ago. At that time the patient was diagnosed having COVID 19 and a specific date was on 12/15/2020. The symptoms probably started 2 days prior to that. The patient came into the emergency department. No fever. No nausea, vomiting. Had some myalgias along with some shortness of breath. His breathing was nonlabored. He was hypoxic and was placed on 6 Lnoxygen nasal cannula patient's pulse ox is around 94%. The patient's blood work showed a white cell count of 6.7, he had lymphopenia with a lymphocyte count of 0.6, BUN of 55 and a crea tinine of 2.09 as the patient is a chronic stage III kidney disease, potassium level was at 5.9, coagulation profile was within normal limits, chest x-ray showed cardiomegaly and addition to chronic changes with multifocal bilateral areas of increased opacity consistent with Covid 19 pneumonia. The patient was receiving Decadron outpatient basis, 6 mg orally. Comorbid conditions included severe obstructive sleep apnea with an AHI of 49, COPD, previous history of coronary artery disease with a recent non-STEMI requiring coronary stents, chronic stage III kidney disease, peripheral vascular disease, BPH, hyperlipidemia. 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 He suffers from chronic back pain, hip pain and cluster headaches. On 12/24/2020 patient seen in follow-up on medical floor, he is currently on 6 L of oxygen his pulse ox is 93%, he has occasional cough, otherwise breathing comfortably, no worsening dyspnea, no nausea vomiting or diarrhea, today is day 2 of the Remdesivir, patient continues on Decadron, follow-up chest x-ray was done today showing COPD, cardiomegaly and diffuse interstitial pattern. No fever or chills, yesterday's d-dimer was 0.69, today's labs show LDH of 595, and CRP of 20.4, potassium is 5.7, B1 is 39, creatinine is 1.4. He's tolerating oral intake. ] On 12/25/2020, I'm seeing the patient for a follow-up. He is doing well. He is still coughing. Less short of breath. He was on 6 L of oxygen and currently is down to 4 L with a pulse ox above 90%. No nausea. No vomiting. No diarrhea. This is third day of REM his also on Decadron. No new labs are available from today. Vitals are stable. His last creatinine was at 1.4. 12/26/2020, the patient is on 4 L of oxygen by nasal cannula. Doing well. No c omplaints. He is on day #4 of remdesivir long with Decadron. No respiratory difficulties. Resting comfortably in bed. No nausea. No vomiting. No diarrhea. No abdominal pain. Some limited dry cough. Inflammatory markers were essentially nonelevated. The plan is to give the patient is status post tomorrow and hopefully get him home tomorrow along with oxygen. He is going to need home oxygen. He also has obstructive sleep apnea. He is known to have COPD, CAD and previous non-STEMI along with chronic stage III kidney disease and peripheral vascular disease and hyperlipidemia and BPH. Objective - Vital Signs Vital signs: Vital Signs Temp 97.9 F 12/26/20 10:00 Pulse 86 12/26/20 10:00 Resp 16 12/26/20 10:00 BP 119/73 12/26/20 10:00 Pulse Ox 91 L 12/26/20 10:00 Intake & Output 12/25/20 12/26/20 12/26/20 18:59 06:59 18:59 Intake Total 200 Balance 200 Intake: Oral 200 Other: Voiding Method Toilet Toilet # Voids 3 2 - Exam GENERAL EXAM: Alert, very pleasant, 75-year-old white male, on 4 L of oxygen 93% comfortable in no apparent distress. HEAD: Normocephalic/atraumatic. EYES: Normal reaction of pupils, equal size. Conjunctiva pink, sclera white. NOSE: Clear with pink turbinates. THROAT: No erythema or exudates. NECK: No masses, no JVD, no thyroid enlargement, no adenopathy. CHEST: No chest wall deformity. Symmetrical expansion. LUNGS: Equal air entry with diffuse crackles CVS: Regular rate and rhythm, normal S1 and S2, no gallops, no murmurs, no rubs ABDOMEN: Soft, nontender. No hepatosplenomegaly, normal bowel sounds, no guarding or rigidity. EXTREMITIES: No clubbing, no edema, no cyanosis, 2+ pulses and upper and lower extremities. MUSCULOSKELETAL: Muscle strength and tone normal. SPINE: No scoliosis or deformity SKIN: No rashes CENTRAL NERVOUS SYSTEM: Alert and oriented -3. No focal deficits, tone is normal in all 4 extremities. PSYCHIATRIC: Alert and oriented -3. Appropriate affect. Intact judgment and insight. - Labs CBC & Chem 7: 12/26/20 05:47 12/26/20 05:47 Labs: Abnormal Lab Results - Last 24 Hours (Table) 12/25/20 12/26/20 12/26/20 Range/Units 16:21 05:47 05:47 RBC 4.34 L (4.40-5.60) X 10*6/uL MCV 102.3 H (80.0-97.0) fL MCH 32.3 H (27.0-32.0) pg MCHC 31.5 L (32.0-37.0) g/dL BUN 32.0 H (9.0-27.0) mg/dL Est GFR (CKD-EPI)NonAf 53.8 L (60.0-200.0) BUN/Creatinine Ratio 24.62 H (12.00-20.00) Ratio Glucose 65 L (70-110) mg/dL POC Glucose (mg/dL) 122 H (75-99) mg/dL 12/26/20 Range/Units 11:31 RBC (4.40-5.60) X 10*6/uL MCV (80.0-97.0) fL MCH (27.0-32.0) pg MCHC (32.0-37.0) g/dL BUN (9.0-27.0) mg/dL Est GFR (CKD-EPI)NonAf (60.0-200.0) BUN/Creatinine Ratio (12.00-20.00) Ratio Glucose (70-110) mg/dL POC Glucose (mg/dL) 133 H (75-99) mg/dL Microbiology - Last 24 Hours (Table) 12/22/20 14:10 Blood Culture - Preliminary Blood No Growth after 72 hours 12/22/20 14:14 Blood Culture - Preliminary Blood No Growth after 72 hours Assessment and Plan Plan: 1 acute COVID 19 associated pneumonia, diagnosis established in 12/15/2020. The patient symptoms started approximately 10 days ago. Decadron outpatient basis. Condition progressed and the patient presented worsening shortness of breath. He does have bilateral pneumonia. 2 acute hypoxic respiratory failure secondary to above currently on 3 L of oxygen by nasal cannula, oxygenation is gradually improving and the patient presented to us on 6 L of oxygen by nasal cannula 3 coronary artery disease with recent non-STEMI involving cardiac catheterization and coronary stent 4 obstructive sleep apnea severe with a AHI of 49 5 COPD 6 peripheral vascular disease with multivessel intervention involving lower extremities 7 chronic kidney disease stage III patient home with a single kidney. 8 hyperlipidemia 9 hyperlipidemia 10 BPH 11 chronic back pain and osteoarthritis 12 history of gastric ulcer disease Plan Continue 02 supplementation to maintain the sao2 above 90%, currently on 4 L of oxygen by nasal cannula Decadron 6 mg IV every 24 hours Remdesivir a #4 Function is stable at creatinine of 1.3 Inflammatory markers including LDH, CRP and d-dimer Lovenox 40 mg subcu daily basis DVT prohylaxis check procalcitonin level was low at 0.12. Will follow the patient . Home tomorrow along with home oxygen and a total of 10 day course of Decadron. Pulmonary critical care services will sign off.
[2020-12-26] MEDS: REMDESIVIR 100 MG in SODIUM CHLORIDE 0.9% 250 ML IVPB SCH (12:42)
[2020-12-26 17:29] LABS: Glucose,Whole Blood 130 mg/dL (75-99)
[2020-12-26] MEDS: ATORVASTATIN 80 MG TAB PO SCH (20:09)
[2020-12-26] MEDS: CLOPIDOGREL 75 MG TAB PO SCH (20:09)
[2020-12-26 20:47] LABS: Glucose,Whole Blood 125 mg/dL (75-99)
[2020-12-27] MEDS: SODIUM CHLORIDE 0.9% 1,000 ML IV SCH (02:29)
[2020-12-27 06:51] LABS: Glucose,Whole Blood 92 mg/dL (75-99)
[2020-12-27] MEDS: INSULIN ASPART (NovoLOG) 100 UNIT/ML VIAL SQ SCH ×2 (07:13→11:46)
[2020-12-27] MEDS: DOCUSATE 100 MG CAP PO SCH (07:53)
[2020-12-27] MEDS: FINASTERIDE 5 MG TAB PO SCH (07:53)
[2020-12-27] MEDS: ASPIRIN 81 MG PO SCH (07:53)
[2020-12-27] MEDS: DEXAMETHASONE SOD PHOSPHATE 10 MG/ML 1 ML VIAL IV SCH (07:53)
[2020-12-27] MEDS: CHOLECALCIFEROL 25 MCG (1000 IU) TABLET PO SCH (07:53)
[2020-12-27] MEDS: PANTOPRAZOLE 40 MG TABLET PO SCH (07:54)
[2020-12-27] MEDS: ZINC SULFATE 220 MG CAP PO SCH (07:54)
[2020-12-27] MEDS: ENOXAPARIN 40 MG/0.4 ML SYRINGE SQ SCH (07:54)
[2020-12-27] MEDS: ASCORBIC ACID 500 MG TAB PO SCH (07:54)
[2020-12-27] MEDS: buPROPion SR 150 MG TABLET.ER PO SCH (07:54)
[2020-12-27] MEDS: ALBUTEROL HFA INHALER INHALATION SCH ×2 (08:42→13:06)
[2020-12-27] MEDS: SYMBICORT 160-4.5 MCG INHALER INHALATION SCH (08:42)
[2020-12-27] MEDS: REMDESIVIR 100 MG in SODIUM CHLORIDE 0.9% 250 ML IVPB SCH (09:40)
[2020-12-27 10:07] VITALS: BP 121/74; PULSE 68; RESP 19; TEMP 97.6
[2020-12-27 10:32] LABS: Basophils # (A) 0.04 X 10*3/uL (0.00-0.10); Basophils % (A) 0.4 %; Eosinophils # (A) 0.24 X 10*3/uL (0.04-0.35); Eosinophils % (A) 2.5 %; HCT 42.9 % (39.6-50.0); HGB 13.7 g/dL (13.0-17.0); Lymphocytes # (A) 1.04 X 10*3/uL (0.90-5.00); Lymphocytes % (A) 10.8 %; MCH 32.5 pg (27.0-32.0); MCHC 31.9 g/dL (32.0-37.0); MCV 101.9 fL (80.0-97.0); Mean Platelet Volume 9.6 fL (9.5-12.2); Monocytes # (A) 0.55 X 10*3/uL (0.20-1.00); Monocytes % (A) 5.7 %; Platelet Count 312 X 10*3/uL (140-440); RBC 4.21 X 10*6/uL (4.40-5.60); RDW 14.4 % (11.5-14.5); WBC 9.62 X 10*3/uL (4.50-10.00)
[2020-12-27 11:11] LABS: African American GFR (CKD) 68.6 (60.0-200.0); Anion Gap 9.3 mmol/L (4.00-12.00); Calcium 9.5 mg/dL (8.7-10.3); Carbon Dioxide 21.7 mmol/L (21.6-31.8); Non-African American GFR(CKD) 59.2 (60.0-200.0)
[2020-12-27 11:40] LABS: Glucose,Whole Blood 131 mg/dL (75-99)
--- NOTE | 2020-12-27 13:45 | P.DS ---
Providers Date of admission: 12/22/20 15:22 Expected date of discharge: 12/27/20 Attending physician: Summer Jansen Consults: 12/22/20 15:23 Consult Physician Urgent Consulting Provider: Dmitri Prince Consult Reason/Comments: covid Do you want consulting provider notified?: Yes Primary care physician: Summer Jansen Hospital Course: HISTORY OF PRESENT ILLNESS: This is a 75-year-old white male with a previous medical history significant for coronary artery disease status post non-ST elevation NH with poor continue his current intervention of the RCA back in November 2019, hypertension and hypertensive cardio vascular disease, hyperlipidemia, peripheral arterial disease status post left femoral popliteal bypass and right femoral-femoral bypass surgery, chronic tobacco use and dependence, history of cluster headache, history of GERD, history of peptic ulcer disease, patient was diagnosed with Covid 7 days ago and he has been complaining of increased shortness of breath associated with increased coughing he was prescribed Decadron as well as Zithromax about a week ago without any relief he came to the office today and his oxygenation was 82-83% on room air while he was directed to go to the emergency department for evaluation was seen in the emergency department at [facility] had a chest x-ray that showed Covid pneumonia his oxygenat ion was about 86%, he was placed on 5 L oxygen his oxygenation was up to like 90%l he was started on IV Decadron 6 but gram IV push every 24 hours, he was kept on albuterol HFA 2 puffs inhalation every 4 hours as well as Pulmicort inhalation twice every day, Pulmicort consultation from Dr. Prince, patient was placed in droplet precautions with eye contact protection, he'll be admitted to the hospital for further evaluation, patient will have repeat his CBC and CMP along with C-reactive protein ferritin level as well as d-dimer in the next 24 hours. 12/23: Patient has been afebrile overnight, heart rate 63, blood pressure 137/78, pulse ox 90% on 6 L high flow nasal cannula. Blood sugars are running between 98 and 126. Repeat chest x-ray and inflammatory markers ordered for tomorrow. Patient has been seen by pulmonary medicine and patient started on Remdesivir. No antibiotics are necessary at this time. Patient is continued on same medications including azithromycin and Rocephin, albuterol inhaler and Symbicort inhaler, dexamethasone 6 mg IV, Lovenox 40 mg subcu daily and supplements. 12/24: Patient is on day #2/5 of Remdesivir. Patient has been afebrile, heart rate 74, blood pressure 142/81, pulse ox 90-93% on 6 L nasal cannula. Repeat blood work reveals d-dimer 0.69. CBC unremarkable. Blood sugars are running between 78 and 101. Blood cultures no growth at 24 hours 2 specimens. Repeat chest x-ray reveals COPD, cardiomegaly and diffuse interstitial pattern correlate for interstitial pneumonitis. This may need for home oxygen therapy at the time of discharge. sow manager will make arrangements in case patient is ready for discharge over the weekend. Patient requires home oxygen therapy in order to manage his diagnosis of Covid 19. Antibiotics will be discontinued per recommendations from pulmonary medicine. 12/25: Patient is sitting at the edge of the bed is feeling a lot better, he denies any chest pains less short of breath he continues to require 4 L nasal cannula his day #3 out of 5 of remdesivir we will continue to monitor patient very closely, monitor the patient's CBC and CMP so far his left okay. His chest x-ray did show cardiomegaly along with interstitial pattern service of interstitial pneumonia, continue patient on Rocephin and Zithromax continue oxygen continue Decadron continue using vitamin D and vitamin C continue supportive care. 12/26: Patient is sitting up in the chair in no apparent distress, he continues to require 4 L cannula, his day #4 out of 5 of Remdesivir, we will continue current treatment plan, patient has not had a bowel movement, he is getting Colace 100 mg orally twice every day, he declined prune juice and milk of magnesia, continue to use incentive spirometer patient likely will be discharged home tomorrow morning after his fifth dose of remdesivir 12/27: Patient will complete course of Remdesivir today. He has been afebrile, heart rate 77, blood pressure 163/70, pulse ox 90-95% on 4 L nasal cannula. Home oxygen therapy has been arranged by piano case maker. Blood sugars are running between 90-133. Repeat blood work reveals WBC 9.6, hemoglobin 13.7, platelet count 312. Electrolytes normal. BUN 30 and creatinine 1.2. Blood sugar 121. Counseling blood glucose running between 92 and 131. He will be discharged home today in stable condition. Assessment and plan: 1. Acute hypoxic respiratory failure secondary to Covid 19 pneumonia. 2. History of CAD post-the PCI of the RCA. 3. History of hyperlipidemia. 4. History of PAD. Status post right fem-fem bypass and left femoral pop bypass. 5. Chronic tobacco use and dependence. 6. History of GERD and peptic ulcer disease. 7. Enlarged prostate. 8. History of cluster headache. 9. History of spondylosis of the lumbar spine with chronic low back pain. 10. History of obesity diet and exercise and weight loss. 11. History of osteoarthritis. 11. Chronic hypoxic respiratory failure secondary to Covid 19. 14. Constipation. Home Impression and plan of care have been directed as dictated by the signing physician. Akilah Guevara nurse practitioner acting as scribe for signing ely regalado. Patient Condition at Discharge: Stable Plan - Discharge Summary New Discharge Prescriptions: New Ascorbic Acid [Vitamin C] 500 mg PO BID tab Zinc Sulfate [Orazinc] 220 mg PO DAILY cap Albuterol Inhaler [Ventolin Hfa Inhaler] 2 puff INHALATION RT-TID #1 inhaler Cholecalciferol [Vitamin D3 (25 Mcg = 1000 Iu)] 125 mcg PO DAILY tablet Continue Aspirin EC [Ecotrin Low Dose] 81 mg PO DAILY Acetaminophen [Tylenol Arthritis] 1,300 mg PO DAILY Finasteride [Proscar] 5 mg PO DAILY Atorvastatin [Lipitor] 80 mg PO HS #30 tab Clopidogrel [Plavix] 75 mg PO HS buPROPion SR [Wellbutrin SR] 150 mg PO BID Azithromycin [Zithromax Z-pack (6 tabs)] See Taper PO DAILY Discontinued Dexamethasone 6 mg PO DAILY Discharge Medication List Acetaminophen [Tylenol Arthritis] 1,300 mg PO DAILY 03/26/18 [History] Aspirin EC [Ecotrin Low Dose] 81 mg PO DAILY 03/26/18 [History] Finasteride [Proscar] 5 mg PO DAILY 03/26/18 [History] Atorvastatin [Lipitor] 80 mg PO HS #30 tab 11/27/19 [Rx] Clopidogrel [Plavix] 75 mg PO HS 01/13/20 [History] Azithromycin [Zithromax Z-pack (6 tabs)] See Taper PO DAILY 12/22/20 [History] buPROPion SR [Wellbutrin SR] 150 mg PO BID 12/22/20 [History] Albuterol Inhaler [Ventolin Hfa Inhaler] 2 puff INHALATION RT-TID #1 inhaler 12/27/20 [Rx] Ascorbic Acid [Vitamin C] 500 mg PO BID tab 12/27/20 [Rx] Cholecalciferol [Vitamin D3 (25 Mcg = 1000 Iu)] 125 mcg PO DAILY tablet 12/27/20 [Rx] Zinc Sulfate [Orazinc] 220 mg PO DAILY cap 12/27/20 [Rx] Follow up Appointment(s)/Referral(s): Summer Jansen MD [Primary Care Provider] - 1-2 days (office busy Please call to make appointment ) Pam Gonzalez [NON-STAFF] - (*Please call Carlos once home to arrange delivery of your oxygen concentrator.) Dmitri Prince MD [STAFF PHYSICIAN] - 01/26/21 2:30 pm (with Taisha Graham) Patient Instructions/Handouts: Coronavirus Disease 2019 (COVID-19)
== END 2020-12-27 14:29 | disposition home or self-care (01) | DRG 177 ==
LOC: EC 12:03 → 4SSUR 15:22
PROVIDERS: ADMIT Internal Medicine; ATTEND Internal Medicine
PROC: 8E0ZXY6 Isolation (ICD-10-PCS; 2020-12-22)
PROC: 3E0333Z Introduction of Anti-inflammatory into Peripheral Vein, Percutaneous Approach (ICD-10-PCS; 2020-12-22)
PROC: 5A0945A Assistance with Respiratory Ventilation, 24-96 Consecutive Hours, High Flow/Velocity Cannula (ICD-10-PCS; 2020-12-22)
PROC: XW033E5 Introduction of Remdesivir Anti-infective into Peripheral Vein, Percutaneous Approach, New Technology Group 5 (ICD-10-PCS; principal; 2020-12-23)
DX: U07.1 COVID-19 (principal); J12.82 Pneumonia due to coronavirus disease 2019; J96.21 Acute and chronic respiratory failure with hypoxia; J44.0 Chronic obstructive pulmonary disease with (acute) lower respiratory infection; E78.5 Hyperlipidemia, unspecified; I73.9 Peripheral vascular disease, unspecified; M19.041 Primary osteoarthritis, right hand; M19.042 Primary osteoarthritis, left hand; Z79.82 Long term (current) use of aspirin; Z80.0 Family history of malignant neoplasm of digestive organs; Z82.49 Family history of ischemic heart disease and other diseases of the circulatory system; Z82.5 Family history of asthma and other chronic lower respiratory diseases; Z87.11 Personal history of peptic ulcer disease; Z79.02 Long term (current) use of antithrombotics/antiplatelets; I25.10 Atherosclerotic heart disease of native coronary artery without angina pectoris; I25.2 Old myocardial infarction; Z95.5 Presence of coronary angioplasty implant and graft; G44.009 Cluster headache syndrome, unspecified, not intractable; M47.816 Spondylosis without myelopathy or radiculopathy, lumbar region; N40.0 Benign prostatic hyperplasia without lower urinary tract symptoms; F17.210 Nicotine dependence, cigarettes, uncomplicated; G89.29 Other chronic pain; G47.33 Obstructive sleep apnea (adult) (pediatric); I13.10 Hypertensive heart and chronic kidney disease without heart failure, with stage 1 through stage 4 chronic kidney disease, or unspecified chronic kidney disease; N18.30 Chronic kidney disease, stage 3 unspecified; K59.00 Constipation, unspecified
CPT/HCPCS: 36415; 71045; 80048; 80053; 82728; 83605; 83615; 83735; 84145; 85025; 85027; 85379; 85610; 85730; 86140; 87040; 93005; 94640; 99285

== ENCOUNTER → 2023-04-04 | Outpatient (CLI) | payer MEDICARE | END | disposition home or self-care (01) | LOC: LABWHC1 13:39 | PROVIDERS: ATTEND Urology | DX: R97.20 Elevated prostate specific antigen [PSA] (principal) | CPT/HCPCS: 36415; 84153 ==

== ENCOUNTER → 2023-07-17 | Outpatient (CLI) | payer MEDICARE ==
--- NOTE | 2023-07-18 07:50 | CT ---
EXAMINATION TYPE: CT chest wo con DATE OF EXAM: 07/17/2023 COMPARISON: Chest x-ray 07/13/2023 HISTORY: History of COPD, abnormal chest xray in PACS from 07/13/23 CT DLP: 568.4 mGycm, Automated exposure control for dose reduction was used. CONTRAST: Performed injected with 0 mL of Isovue 300. TECHNIQUE: Axial images were obtained at 5 mm thick sections. Reconstructed images are reviewed on [employer] computer in the coronal plane. FINDINGS: Portion of the thyroid visualized is normal. There is a 2.6 x 3.1 cm spiculated mass in the superior segment left lower lobe corresponding to [facility] t x-ray finding. Finding is suspicious. Additional workup for neoplasm is recommended. Emphysematous changes are present. No additional masses are evident.r There is a 1.6 cm pretracheal lymph node. Additional shotty lymphadenopathy is present. The ascendin g aorta diameter at the level of the main pulmonary artery is 3.9 cm. The main pulmonary artery diam eter at the bifurcation is 2.9 cm. Coronary artery calcification is present. Limited CT sections are obtained through the upper abdomen. Some calcification may be at the superior pole right kidney cortex. IMPRESSION: 1. Superior segment left lower lobe posterior lung mass suspicious for neoplasmr. PET/CT is recommend ed for additional workup.
== END | disposition home or self-care (01) ==
LOC: RADCTMAIN 15:19
PROVIDERS: ATTEND Internal Medicine Critical Care Medicine
DX: J44.9 Chronic obstructive pulmonary disease, unspecified (principal); R91.8 Other nonspecific abnormal finding of lung field
CPT/HCPCS: 71250

== ENCOUNTER → 2023-07-26 | Outpatient (CLI) | payer MEDICARE ==
--- NOTE | 2023-07-28 16:26 | PE ---
EXAMINATION TYPE: PET CT fusion skull to thigh DATE OF EXAM: 07/26/2023 CLINICAL INDICATION:Male, 77 years old with history of SPN; TECHNIQUE: Following the intravenous administration of 9.8 mCi of F-18 FDG, whole body images are p erformed from the skull base to the midthigh. Images are reviewed on the computer in the coronal, ax ial, and sagittal planes. Reconstructed rotating images are created on independent workstation and r eviewed on the computer. A non-contrast CT is performed in conjunction with the PET scan. Glucose l evel 103 mg/dL CT DLP: 973 mGycm, Automated exposure control for dose reduction was used. COMPARISON: CT 07/17/2023, PET/CT None, FINDINGS: Mediastinal SUV mean is 2.0. Hepatic parenchyma SUV mean is 2.3. SKULL BASE AND NECK: * Right thyroid nodule nodule Max SUV 4.2. * No additional suspicious radiotracer activity. CHEST, MEDIASTINUM, AND HILAR REGION: * Left lower lobe superior segment 2.8 x 2.1 cm nodule Max SUV 13.4 * Left pulmonary Hilum lymph node max SUV 3.9 which is asymmetrically increased compared other lymph nodes and the right pulmonary hilum. Measurements are difficult given lack of IV contrast. ABDOMEN AND PELVIS: * Focal left prostate gland uptake max SUV 5.6 * No additional suspicious radiotracer activity. MUSCULOSKELETAL STRUCTURES: No suspicious radiotracer activity. OTHER CT: Bilaterally aphakia. Atherosclerosis of the arterial vasculature. Heart is moderate slightl y enlarged size. Severe coronary artery atherosclerosis. Aortic valve leaflet calcifications Right ki dney appears atrophic. Infrarenal abdominal aortic aneurysm measuring 4.3 x 2.8 cm. Prostatomegaly. F at-containing umbilical hernia. Scattered colonic diverticula. IMPRESSION: 1. Findings compatible with left lower lobe superior segment malignancy with suspected early metasta tic disease to the left pulmonary hilum. 2. Left prostate gland focal uptake correlate serum PSA consider MRI prostate gland for complete zhen luation. Right thyroid gland nodule with increased metabolic activity consider correlation with thyroid ultras ound
== END | disposition home or self-care (01) ==
LOC: RADPETMAIN 08:24
PROVIDERS: ATTEND Internal Medicine Critical Care Medicine
DX: E04.1 Nontoxic single thyroid nodule (principal); R91.8 Other nonspecific abnormal finding of lung field
CPT/HCPCS: 78815; A9552

== ENCOUNTER → 2023-08-29 | Outpatient (CLI) | payer MEDICARE ==
[2023-08-29 12:23] LABS: INR 0.9 (<1.2); Prothrombin Time 10.1 sec (10.0-12.5)
[2023-08-29 15:05] LABS: Basophils # (A) 0.03 X 10*3/uL (0.00-0.10); Basophils % (A) 0.3 %; Blood Urea Nitrogen 20.7 mg/dL (9.0-27.0); Carbon Dioxide 28.3 mmol/L (21.6-31.8); Chloride 104 mmol/L (96-109); Eosinophils # (A) 0.39 X 10*3/uL (0.04-0.35); Eosinophils % (A) 3.9 %; Glucose 105 mg/dL (70-110); HCT 42.5 % (39.6-50.0); HGB 13.6 g/dL (13.0-17.0); Lymphocytes # (A) 3.06 X 10*3/uL (0.90-5.00); Lymphocytes % (A) 30.8 %; MCH 31.7 pg (27.0-32.0); MCV 99.1 FL (80.0-97.0); Mean Platelet Volume 9.2 FL (9.5-12.2); Monocytes # (A) 0.49 X 10*3/uL (0.20-1.00); Monocytes % (A) 4.9 %; NRBC Per 100 WBC 0 X 10*3/uL (0.00-0.01); Neutrophils # (A) 5.93 X 10*3/uL (1.80-7.70); Neutrophils % (A) 59.9 %; Platelet Count 269 X 10*3/uL (140-440); Potassium 5.3 mmol/L (3.5-5.5); RBC 4.29 X 10*6/uL (4.40-5.60); RDW 14.1 % (11.5-14.5); Sodium 140 mmol/L (135-145); WBC 9.92 X 10*3/uL (4.50-10.00)
== END | disposition home or self-care (01) ==
LOC: LABPAT 11:21
PROVIDERS: ATTEND Thoracic Surgery (Cardiothoracic Vascular Surgery)
DX: Z01.812 Encounter for preprocedural laboratory examination (principal); J84.9 Interstitial pulmonary disease, unspecified; E87.8 Other disorders of electrolyte and fluid balance, not elsewhere classified; R58 Hemorrhage, not elsewhere classified; R06.00 Dyspnea, unspecified; Z79.899 Other long term (current) drug therapy
CPT/HCPCS: 80051; 82565; 82947; 84520; 85025; 85610; 85730; 86850; 86900; 86901

== ENCOUNTER → 2023-08-31 | Outpatient (CLI) | payer MEDICARE ==
[2023-09-01 04:02] LABS: Appearance,Urine Clear (Clear); Bilirubin,Urine Negative (Negative); Blood,Urine Small (Negative); Color,Urine Yellow (Yellow); Ketones,Urine Trace (Negative); Nitrite,Urine Negative (Negative); PH, Urine 6.5
[2023-09-01 04:09] LABS: Bacteria,Urine None Seen (None Seen)
--- NOTE | 2023-09-02 21:33 | US ---
EXAMINATION TYPE: US thyroid st tissue head/neck DATE OF EXAM: 08/31/2023 COMPARISON: PET CT 07/26/2023 CLINICAL INDICATION: Male, 77 years old with history of Z12.31 SCREENING; Right thyroid nodule seen o n recent PET CT GLAND SIZE: Right Lobe: 4.7 x 2.3 x 2.3 cm Overall Parenchyma: heterogenous Left Lobe: 5.1 x 1.9 x 1.8 cm Overall Parenchyma: heterogenous Isthmus Thickness: 0.3 cm NODULES RIGHT: # of nodules measured on right: 1 1. 0.9 X 0.7 x 0.8 cm, mid, solid or almost completely solid, isoechoic TR 3 nodule, which is wider than tall, with ill-defined margins, without echogenic foci. Prior size: no previous LEFT: # of nodules measured on left: 0 ISTHMUS: # of nodules measured in the isthmus: 0 Bilateral neck scanned, no evidence of lymphadenopathy. IMPRESSION: Borderline thyromegaly with heterogeneous glandular parenchyma, possible goiter. A solitary 9 mm TR3 nodule is present on the right. Consider a one-year follow-up.
== END | disposition home or self-care (01) ==
LOC: RADUSWWP 12:05
PROVIDERS: ATTEND Internal Medicine Critical Care Medicine
DX: E04.1 Nontoxic single thyroid nodule (principal)
CPT/HCPCS: 76536; 81001; 87086

== ENCOUNTER 2023-09-06 05:35 | Inpatient (IN) | payer MEDICARE ==
[2023-08-30 13:27] VITALS: BMI 33.8
[~2023-09-06 05:35] MED LIST changes: -ACETAMINOPHEN 1300 MG PO SCH; -ALBUTEROL INHALATION PRN; -ALPRAZolam 0.25 MG TAB PO PRN; -ALPRAZolam 0.5 MG TAB PO PRN; -ASPIRIN 325 MG TAB PO STA; -ASPIRIN 81 MG ONE; -ATORVASTATIN 80 MG TAB PO SCH; -ATORVASTATIN 80 MG TAB PO STA; -ATROPINE SULFATE 0.1 MG/ML 10ML SYRINGE IV PRN; -BIVALIRUDIN 250 MG in SODIUM CHLORIDE 0.9% 50 ML IV ONE; -BIVALIRUDIN BOLUS 250 MG/50 ML IV ONE; -CLOPIDOGREL 75 MG TAB ONE; -CLOPIDOGREL 75 MG TAB PO ONE; -CLOPIDOGREL 75 MG TAB PO SCH; +DEXAMETHASONE SOD PHOSPHATE 4 MG/ML 1 ML VIAL IV ONE; -ESOMEPRAZOLE MAGNESIUM 40 MG PO SCH; -FINASTERIDE 5 MG TAB PO SCH; -HYDROmorphone 1 MG/ML 1 ML SYRINGE IVP ONE; -HYDROmorphone 1 MG/ML 1 ML SYRINGE ONE; -IOPAMIDOL-370 100ML BTL INJ ONE; +LACTATED RINGERS 1,000 ML IV SCH; +LIDOCAINE 1% (10MG/ML) FOR IV START INTRADERMA PRN; -LIDOCAINE 1% INJ 10MG/ML (20 ML MDV) ONE; -MAG HYDROX/AL HYDROX/SIMETH 30 ML CUP PO PRN; -MIDAZOLAM 2 MG/2 ML VIAL IV ONE; -NITROGLYCERIN 1000MCG/10ML SYRINGE INTRACORON ONE; -NITROGLYCERIN SL TABS 0.4 MG TAB SUBLINGUAL PRN; -NON FORMULARY DRUG (Aspirin Ec 81 MG) PO SCH; +ONDANSETRON 4 MG/2 ML VIAL IVP ONE; -RX INFO: IV CONTRAST WAS GIVEN 1 EACH MISC MISCELLANE PRN; -SODIUM CHLORIDE 0.9% 1,000 ML IV ONE; -SODIUM CHLORIDE 0.9% 1,000 ML IV SCH; -SODIUM CHLORIDE 0.9% 1,000 ML in EMPTY BAG 1 BAG IV ONE; -VERAPAMIL 2.5 MG/ML 2 ML AMP ONE; -VERAPAMIL SYRINGE (5 MG/10 ML) INTRAARTER ONE; -ZOLPIDEM 5 MG TAB PO PRN; -buPROPion 100 MG TAB PO SCH
[2023-09-06] MEDS ORDERED: LACTATED RINGERS 1,000 ML IV ONE ×3 (06:30→12:22)
[2023-09-06] MEDS ORDERED: MIDAZOLAM 2 MG/2 ML VIAL IV PRN (07:00)
[2023-09-06] MEDS ORDERED: HYDROmorphone 0.5 MG/0.5 ML SYRINGE IVP PRN (07:00)
[2023-09-06] MEDS ORDERED: LIDOCAINE 1% INJ 10MG/ML (20 ML MDV) ONE (07:30)
[2023-09-06] MEDS ORDERED: NEOSTIGMINE 1 MG/ML 10 ML VIAL ONE (07:30)
[2023-09-06] MEDS ORDERED: DEXAMETHASONE SOD PHOSPHATE 4 MG/ML 1 ML VIAL ONE (07:30)
[2023-09-06] MEDS ORDERED: GLYCOPYRROLATE 0.2 MG/ML 2 ML VIAL ONE (07:30)
[2023-09-06] MEDS ORDERED: ROCURONIUM 10 MG/ML (5 ML VIAL) IV ONE (07:30)
[2023-09-06] MEDS ORDERED: ROPIVACAINE 5 MG/ML 30 ML VIAL ONE (07:30)
[2023-09-06] MEDS ORDERED: ePHEDrine 50 MG/ML 1 ML VIAL ONE (07:30)
[2023-09-06] MEDS ORDERED: SODIUM CHLORIDE 0.9% (PF) 10 ML VIAL ONE (07:30)
[2023-09-06] MEDS ORDERED: SUGAMMADEX SODIUM 200 MG/2 ML SDV IV ONE (07:30)
[2023-09-06] MEDS ORDERED: MIDAZOLAM 2 MG/2 ML VIAL ONE (07:30)
[2023-09-06] MEDS ORDERED: HYDROmorphone (PF) 1 MG/ML ONE (07:30)
[2023-09-06] MEDS ORDERED: fentaNYL (PF) 50 MCG/ML 2 ML AMP ONE (07:30)
[2023-09-06] MEDS ORDERED: PHENYLEPHRINE 10 MG/ML VIAL ONE (07:30)
[2023-09-06] MEDS ORDERED: PROPOFOL 10 MG/ML 20 ML VIAL IV ONE (07:30)
[2023-09-06] MEDS ORDERED: SUCCINYLCHOLINE CHLORIDE 200 MG/10 ML VIAL IV ONE (07:30)
[2023-09-06] MEDS ORDERED: WATER FOR INJECTION, STERILE 10 ML VIAL IV ONE (07:30)
[2023-09-06] MEDS ORDERED: KETAMINE HCL IN 0.9 % NACL 50 MG/5 ML SYRINGE ONE (07:30)
[2023-09-06] MEDS ORDERED: BUPIVACAINE (PF) 0.5% 30 ML VIAL SQ ONE (09:26)
--- NOTE | 2023-09-06 11:53 | P.OP ---
Date of Procedure: 09/06/23 Preoperative Diagnosis: non-small cell carcinoma left lower lobe Postoperative Diagnosis: Same Procedure(s) Performed: mediastinal endoscopy with mediastinal lymph node biopsy and on table diagnosis, robotic assisted left thoracoscopy with left lower lobectomy and mediastinal lymph node dissection Anesthesia: JONATHAN Surgeon: Reddy Zayas Estimated Blood Loss (ml): 50 Pathology: other (mediastinoscopy: 4R lymph node for frozen section and permanent section. 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 Metastatic workup was negative. Did have enlarged paratracheal lymph nodes by CT criteria. These were negative on PET and EBUS. Operative Findings: lymph nodes were anthracotic and did not appear metastatic throughout. Frozen section of the right paratracheal lymph nodes from the mediastinoscopy were negative for tumor. It was therefore decided to proceed with the lobectomy. This proceeded without event. There was a large mass in the posterior portion of the left lower lobe. It was pleurally based. There was evidence of overlying visceral pleural involvement without evidence of parietal pleural involvement. Description of Procedure: patient was brought to the operating room and placed supine on the operating table. Gen. anesthesia was induced and he was intubated with a double-lumen endotracheal tube. Fiberoptic bronchoscopy was performed and the tube positioned appropriately and secured. There was no evidence of endobronchial lesion. Patient was appropriately positioned for mediastinoscopy. Transverse incision was made at the base of the neck across the midline and carried down through skin and subcutaneous tissue to the strap muscles. Was continued between the strap muscles to the pretracheal plane. The thyroid isthmus was lig ated and divided. Dissection was carried along the pretracheal plane into the mediastinum. Mediastinoscope was introduced and dissection carried along the anterior trachea to its bifurcation. We then dissected out the right paratracheal lymph nodes. Several specimens were obtained. One event marketing representative specimen was sent for frozen section and the remainder for permanent section. There was no significant hemorrhage. The incision was closed with layers of Vicryl suture and skin glue. Patient was repositioned in the right lateral decubitus position. The left chest was sterilely prepped and draped after appropriate positioning for robotic lobectomy. Once the frozen section returned negative, we proceeded with the lobectomy. 4 incisions were made for the robotic ports. First incision was made in the ninth interspace in the anterior axillary line area single lung ventilation was initiated and a 8 mm robotic port was placed here. After confirming presence in the pleural space, CO2 insufflation was begun. Video thoracoscope was introduced and the remaining standard ports were placed. 2 12 mm ports were placed anterior and posterior to the initial port and a second 8 mm port was placed superiorly at the level of the superior segment of the left lower lobe. Working port was placed at the level of the diaphragm in the midaxillary line. Dissection was begun in the hilum. The hilum was near complete. There able to dissected out to branches of the pulmonary artery leading to the lower lobe including the superior segmental branch. These were ligated and divided with robotic stapler. Lymph nodes from the hilum were resected and sent as L 11 lymph nodes. Dissection was now carried to the inferior pulmonary ligament which was taken down with electrocautery.L8 and L9 lymph nodes were resected and sent for permanent section. Dissection was carried onto the inferior pulmonary vein. Dissection was carried posteriorly and the bronchus was identified. L 10 lymph nodes were resected from the mainstem bronchus. Dissection was now carried out around the inferior pulmonary vein and it was ligated and divided with the robotic stapler. Dissection was carried along the inferior portion of the mainstem bronchus and the level 7 lymph nodes were resected.dissection was continued cephalad and the L6 lymph nodes were resected. We now brought our dissection anteriorly. The inferior portion of the fissure was incomplete and completed with a robotic blue stapler. Dissection was now carried out around the left lower lobe bronchus and it was ligated and divided with a robotic green stapler. We now carried our dissection back onto the distal portion of the pulmonary artery. There was a very small branch very distally leading to the lingula and this was divided with the vessel sealer.the distal portion of the pulmonary artery leading to the majority of the lower lobe was now ligated and divided with robotic stapler. lower lobe was now completely free and the chest and was placed in an Endo Catch bag. Was pulled inferiorly and the L5 lymph nodes were resected. The robot was now undocked. A working port incision was enlarged and the Endo Catch bag with close specimen was brought through this enlarged incision. Specimen was sent for frozen section of the bronchial margin which was negative. Prior to sending the specimen hilar lymph nodes were resec cullen and placed with the L 11 lymph node specimens. The chest was now irrigated with and airleak test was performed. There was no air leak of significance in the bronchus showed no leak. There was no evidence of bleeding. 28-Canadian chest tube was placed through separate stab incision anteriorly and positioned posterior apically. It was secured with 0 Ethibond suture. The lung was fully inflated under thoracoscopic visualization and then the thoracoscope was removed. The incisions were closed with layers of Vicryl suture. Skin was closed with Monocryl. Posterior rib blocks were performed at the level of the incisions with half percent Marcaine. Dry sterile dressings were applied and the patient was turned supine and extubated and transferred to recovery in stable condition.
--- NOTE | 2023-09-06 12:11 | XR ---
EXAMINATION TYPE: XR chest 1V portable DATE OF EXAM: 09/06/2023 12:07 PM CLINICAL INDICATION:Male, 77 years old with history of post lobectomy; [facility] COMPARISON: Chest radiographs from 08/03/2023. TECHNIQUE: XR chest 1V portable Frontal view of the chest. FINDINGS: Lungs/Pleura: Flattening of the diaphragm with increased lucency in the lung apices. There is no evid ence of pleural effusion, focal consolidation, or pneumothorax. Pulmonary vascularity: Pulmonary vascular congestion. Heart/mediastinum: Cardiomediastinal silhouette is enlarged and stable. Atherosclerotic calcificatio ns are seen in the aorta. Musculoskeletal: No acute osseous pathology. Other findings: None Lines/Tubes: Left thoracotomy tube is present without evidence of pneumothorax. IMPRESSION: 1. Left thoracotomy tube with tip in appropriate position. No evidence for pneumothorax. 2. Chronic changes along underlying congestive heart failure not entirely excluded. Correlate with s he BNP. 3. COPD changes.
[2023-09-06] MEDS ORDERED: bisacodyL 10 MG SUPP RECTAL PRN (12:34)
[2023-09-06] MEDS ORDERED: DEXTROSE 5%-0.45% NACL 1,000 ML IV SCH (12:34)
[2023-09-06] MEDS ORDERED: ONDANSETRON 4 MG/2 ML VIAL IVP PRN (12:34)
[2023-09-06] MEDS ORDERED: IPRATROPIUM-ALBUTEROL 3 ML NEB IH PRN (12:34)
[2023-09-06] MEDS ORDERED: HYDROmorphone 0.5 MG/0.5 ML SYRINGE IVP ONE ×3 (12:37→14:54)
[2023-09-06] MEDS: IPRATROPIUM-ALBUTEROL 3 ML NEB IH SCH ×3 (15:36→21:18)
--- NOTE | 2023-09-06 16:00 | P.CNPUL ---
History of Present Illness Consult date: 09/06/23 Reason for consult: lung mass History of present illness: This is a 77-year-old male patient was recently diagnosed having non-small cell lung cancer of the left lower lobe. The patient was found to have an abnormal chest x-ray and following that a CAT scan of the chest was done that showed a 3.1 x 2.6 cm mass in the left lower lobe. No significant mediastinal lymphadenopathy. A PET/CT was also done that showed increased metabolic activit y in the left lung mass. There was also thyroid nontender that was noted to be showing metabolic activity. A preop ultrasound of the thyroid gland was essentially benign. I performed a robotic bronchoscopy on the patient and transbronchial needle aspirate and the biopsy of the left lower lobe was positive for squamous cell carcinoma. Station 10 R lymph node was also visualized bilaterally and the bronchial ultrasound and transbronchial needle aspirate of the lymph node yielded no malignancy. Based on that, the patient was referred to cardiothoracic surgery for left lower lobe resection. The patient is a chronic smoker. His COPD was mild and stable. The patient underwent the surgery today and this involved a mediastinoscopy and mediastinal lymph node evaluation and subsequent robotic-assisted thoracoscopic left lower lobe resection and medicine lymph node dissection. I saw the patient in the recovery room. The patient is doing well. The patient has a single left-sided chest tube in place. Is intermittent air leak. Total amount of output from the chest and is around 100 mL. Is currently on 4 L of Oxymizer nasal cannula. Chest x-ray showed no evidence of any pneumothorax. Clinically stable and hemodynamically stable. The preoperative FEV1 was 88%, diffusion capacity was 52%. Other comorbid conditions included obstructive sleep apnea with an AHI of 49 maintained on APAP therapy, chronic stage III kidney disease with a creatinine ranging between 1.5 x 1.6, peripheral vascular disease, hypertension, hyperlipidemia, coronary artery disease and BPH. Review of Systems Constitutional: Denies chills, Denies fever Eyes: denies as per HPI, denies blurred vision, denies bulging eye, denies decreased vision, denies diplopia, denies discharge, denies dry eye, denies irritation, denies itching, denies pain, denies photophobia, denies loss of peripheral vision, denies loss of vision, denies tunnel vision/blind spots Ears: deny: decreased hearing, ear discharge, earache, tinnitus Ears, nose, mouth and throat: Reports as per HPI Breasts: absent: as per HPI, gynecomastia Cardiovascular: Reports as per HPI Respiratory: Reports as per HPI, Reports sleep apnea, Reports snoring Gastrointestinal: Reports as per HPI Genitourinary: Reports as per HPI Musculoskeletal: Reports as per HPI Musculoskeletal: absent: ankle pain, ankle stiffness, ankle swelling Integumentary: Reports as per HPI Neurological: Reports as per HPI Psychiatric: Reports as per HPI Endocrine: Reports as per HPI Hematologic/Lymphatic: Reports as per HPI Allergic/Immunologic: Reports as per HPI Past Medical History Past Medical History: Coronary Artery Disease (CAD), Cancer (Squamous cell lung cancer), COPD, GERD/Reflux, Hyperlipidemia, Myocardial Infarction ([place]), Osteoarthritis (OA), Pneumonia, Prostate Disorder, Sleep Apnea/CPAP/BIPAP, Vascular Disorder Additional Past Medical History / Comment(s): 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 covid 12/15/20, BPH, CKD Stage 3, PVD, does not use CPAP Last Myocardial Infarction Date:: 11/25/2019 History of Any Multi-Drug Resistant Organisms: None Reported Past Surgical History: Appendectomy, Heart Catheterization With Stent Additional Past Surgical History / Comment(s): Lt. fempop bypass, Lt. to Rt. fem fem bypass, inguinal hernia repair (does not recall laterality), bilateral catar act removal with lens implants. Past Anesthesia/Blood Transfusion Reactions: No Reported Reaction Date of Last Stent Placement:: 11/26/19 Smoking Status: Current every day smoker - Past Family History Father Family Medical History: COPD, Myocardial Infarction ([place]) Additional Family Medical History / Comment(s): Father from a [place] at the age of 59yrs. Mother Family Medical History: Cancer Additional Family Medical History / Comment(s): Mother from stomach cancer when she was 58 or 59 yrs old. Brother(s) Family Medical History: Cancer Additional Family Medical History / Comment(s): 2 brothers Sister(s) Family Medical History: Cancer Medications and Allergies Home Medications Medication Instructions Recorded Confirmed Type Acetaminophen [Tylenol Arthritis] 1,300 mg PO DAILY 03/26/18 08/30/23 History Aspirin EC [Ecotrin Low Dose] 81 mg PO DAILY 03/26/18 08/30/23 History Finasteride [Proscar] 5 mg PO DAILY 03/26/18 08/30/23 History Atorvastatin [Lipitor] 80 mg PO HS #30 tab 11/27/19 08/30/23 Rx Clopidogrel [Plavix] 75 mg PO HS 01/13/20 08/30/23 History Cholecalciferol [Vitamin D3 (25 125 mcg PO DAILY tablet 12/27/20 08/30/23 Rx Mcg = 1000 Iu)] Zinc Sulfate [Orazinc] 220 mg PO DAILY cap 12/27/20 08/30/23 Rx Albuterol Inhaler [Ventolin Hfa 2 puff INHALATION RT-TID PRN 07/31/23 08/30/23 History Inhaler] Esomeprazole Magnesium [NexIUM] 40 mg PO DAILY 08/30/23 08/30/23 History Allergies Allergy/AdvReac Type Severity Reaction Status Date / Time Iodinated Contrast Media AdvReac "Can't Verified 09/06/23 05:49 have d/t only 1 kidney" Physical Exam Vitals: Vital Signs Temp Pulse Resp BP BP Pulse Ox 09/06/23 15:16 57 L 16 150/75 95 09/06/23 14:51 62 16 147/80 140/63 97 09/06/23 14:36 58 L 16 155/87 137/79 95 09/06/23 14:21 57 L 16 152/70 136/68 97 09/06/23 14:06 53 L 16 141/69 161/60 94 L 09/06/23 13:51 55 L 16 129/62 144/53 93 L 09/06/23 13:36 55 L 16 130/65 137/57 94 L 09/06/23 13:30 55 L 16 137/54 94 L 09/06/23 13:23 56 L 16 127/64 134/57 93 L 09/06/23 13:15 57 L 16 131/68 94 L 09/06/23 13:00 59 L 16 119/63 94 L 09/06/23 12:57 61 16 127/63 104/78 94 L 09/06/23 12:42 60 16 122/59 115/59 96 09/06/23 12:27 61 20 112/57 129/48 96 12/28/23 12:12 60 20 113/59 136/54 94 L 09/06/23 11:57 96.2 F L 63 22 98/57 100/57 96 09/06/23 06:51 54 L 16 133/95 97 09/06/23 05:59 97.8 F 56 L 16 143/71 92 L Intake and Output 09/06/23 09/06/23 09/06/23 06:59 14:59 22:59 Intake Total 400 2650 Output Total 50 400 Balance 400 2600 -400 Intake: IV 400 2650 Output: Urine 400 Estimated Blood Loss 50 Other: Weight 106 kg Gen. appearance the patient is calm and comfortable currently on 4 L of O2 nasal cannula Head exam was generally normal. There was no scleral icterus or corneal arcus. Mucous membranes were moist. Neck was supple and without jugular venous distension, thyromegaly, or carotid bruits. Carotids were easily palpable bilaterally. There was no adenopathy. Lungs sounds are diminished in the left lung base and the patient has a left- sided chest tube in place, positive intermittent air leak, currently chest tube is attached to waterseal and a total amount of output is 100 mL since arrival from the operating room Cardiac exam revealed the PMI to be normally situated and sized. The rhythm was regular and no extrasystoles were noted during several minutes of auscultation. The first and second heart sounds were normal and physiologic splitting of the second heart sound was noted. There were no murmurs, rubs, clicks, or gallops. Abdominal exam revealed normal bowel sounds. The abdomen was soft, non-tender, and without masses, organomegaly, or appreciable enlargement of the abdominal aorta. Examination of the extremities revealed easily palpable radial, femoral and pedal pulses. There was no cyanosis, clubbing or edema. Examination of the skin revealed no evidence of significant rashes, suspicious appearing nevi or other concerning lesions. Neurologically, the patient is awake and alert and the patient does not have any focal neurological deficit. Cranial nerves are essentially intact. Results - Laboratory Findings CBC and BMP: 09/06/23 06:00 Abnormal lab findings: Abnormal Labs 09/06/23 06:00 Potassium 5.3 H - Diagnostic Findings Chest x-ray: image reviewed Assessment and Plan Plan: Robotic-assisted thoracoscopic left lower lobe resection/mediastinal lymph node dissection. The patient is postop day #0, the patient has a left-sided chest tube in place with intermittent air leak. No evidence of pneumothorax on the postop chest x-ray. Left lower lobe 3.1 cm mass with a previous robotic bronchoscopy confirming diagnosis of a squamous cell carcinoma of the left lower lobe COPD, mild with a baseline FEV1 of 88 % of predicted at baseline Acute hypoxic respiratory failure, expected outcome of surgery and the patient is currently on 4 L of oxygen by nasal cannula Thyroid nodule, ultrasound being benign will need to be followed up on outpatient basis Obstructive sleep apnea maintained on CPAP therapy the patient is a baseline AHI 49 utilizes an APAP machine and outpatient basis Chronic stage III kidney disease Peripheral vascular disease Coronary artery disease with previous non-ST segment elevation myocardial infarction requiring coronary stenting Hypertension Hyperlipidemia BPH Smoker Plan Titrate oxygen flow to maintain saturation above 90% Incentive spirometer Daily chest x-rays Pain control Monitor output from the chest tube and monitor the air leak Allow the patient utilizes CPAP machine from home, the patient has an APAP machine [facility]emi[facility] neb around the clock Resume all medications Heparin subcu for DVT prophylaxis We'll continue to follow
[2023-09-06] MEDS: traMADol 50 MG TAB PO PRN ×2 (16:19→21:58)
[2023-09-06] MEDS: ACETAMINOPHEN TAB 325 MG TAB PO PRN ×2 (16:20→23:36)
[2023-09-06] MEDS: HEPARIN SODIUM,PORCINE 5,000 UNIT/ML 1 ML VIAL SQ SCH ×2 (17:23→23:36)
--- NOTE | 2023-09-06 19:17 | P.ANPRN ---
Procedure Note - Anesthesia - Invasive Line Right Arterial Line Time Out Performed: Yes Date of Procedure: 09/06/23 Location of Patient: PreOp Preparation: Sterile Prep, Sterile Dressing Arterial Line Location: Radial Ultrasound Used: No Purpose - Visualization and Identification of Vasculature: No Image Stored and Saved: No Narrative: Central line placement per sterile protocol utilized.
[2023-09-06] MEDS: CLOPIDOGREL 75 MG TAB PO SCH (20:41)
[2023-09-06] MEDS: ATORVASTATIN 80 MG TAB PO SCH (20:41)
[2023-09-07] MEDS: traMADol 50 MG TAB PO PRN ×2 (05:30→20:44)
[2023-09-07] MEDS: PANTOPRAZOLE 40 MG TABLET PO SCH (06:10)
[2023-09-07 07:40] LABS: Basophils # (A) 0.1 k/uL (0-0.2); Basophils % (A) 0 %; Eosinophils # (A) 0.2 k/uL (0-0.7); Eosinophils % (A) 1 %; HCT 40.5 % (39.0-53.0); HGB 13.1 gm/dL (13.0-17.5); Lymphocytes # (A) 2.7 k/uL (1.0-4.8); Lymphocytes % (A) 16 %; MCH 32.7 pg (25.0-35.0); MCHC 32.4 g/dL (31.0-37.0); MCV 100.9 fL (80.0-100.0); Macrocytosis Slight; Mean Platelet Volume 7.3; Monocytes # (A) 0.8 k/uL (0-1.0); Monocytes % (A) 5 %; Neutrophils # (A) 12.5 k/uL (1.3-7.7); Neutrophils % (A) 75 %; Platelet Count 287 k/uL (150-450); RBC 4.01 m/uL (4.30-5.90); RDW 14.3 % (11.5-15.5); WBC 16.6 k/uL (3.8-10.6)
[2023-09-07 08:00] LABS: African American GFR (CKD) 68 (>60 ml/min/1.73 sqM); Anion Gap 11 mmol/L; Blood Urea Nitrogen 23 mg/dL (9-20); Carbon Dioxide 24 mmol/L (22-30); Chloride 103 mmol/L (98-107); Glucose 100 mg/dL (74-99); Non-African American GFR(CKD) 59 (>60 ml/min/1.73 sqM); Potassium 4.8 mmol/L (3.5-5.1); Sodium 138 mmol/L (137-145)
[2023-09-07] MEDS: IPRATROPIUM-ALBUTEROL 3 ML NEB IH SCH ×4 (08:28→21:32)
[2023-09-07] MEDS ORDERED: FUROSEMIDE 10 MG/ML 2 ML VIAL IV ONE (08:50)
--- NOTE | 2023-09-07 08:56 | XR ---
EXAMINATION TYPE: XR chest 1V DATE OF EXAM: 09/07/2023 6:56 AM CLINICAL INDICATION:Male, 77 years old with history of post lobectomy; [facility] COMPARISON: Chest radiograph from one day prior. TECHNIQUE: XR chest 1V Frontal view of the chest. FINDINGS: Lungs/Pleura: New appearance of right lower lung airspace opacities. Flattening of the diaphragm with increased lucency in the lung apices. Pulmonary vascularity: Pulmonary vascular congestion. Heart/mediastinum: Cardiomediastinal silhouette is enlarged and stable. Atherosclerotic calcificatio ns are seen in the aorta. Musculoskeletal: No acute osseous pathology. Other findings: None Lines/Tubes: Left thoracotomy tube is present without evidence of pneumothorax. IMPRESSION: 1. Left thoracotomy tube with tip in appropriate position. No evidence for pneumothorax. 2. Right lower lung airspace opacities correlate for developing pneumonia. 3. COPD changes.
[2023-09-07] MEDS: ZINC SULFATE 220 MG CAP PO SCH (09:05)
[2023-09-07] MEDS: FINASTERIDE 5 MG TAB PO SCH (09:05)
[2023-09-07] MEDS: ASPIRIN 81 MG PO SCH (09:05)
[2023-09-07] MEDS: CHOLECALCIFEROL 25 MCG (1000 IU) TABLET PO SCH (09:05)
[2023-09-07] MEDS: HEPARIN SODIUM,PORCINE 5,000 UNIT/ML 1 ML VIAL SQ SCH ×3 (09:05→23:47)
--- NOTE | 2023-09-07 09:59 | P.PN ---
Subjective Progress Note Date: 09/07/23 Principal diagnosis: Non-small cell carcinoma left lower lobe. Previous medical history of coronary artery disease with previous myocardial infarction and PCI, ischemic cardiomyop athy, hypertension, hyperlipidemia, peripheral arterial disease status post bilateral fem-pop, congenital single kidney with CKD stage III, COPD, chronic nicotine dependence, obstructive sleep apnea with CPAP use, BPH. POD #1 mediastinal endoscopy with mediastinal lymph node biopsy and on table avni gnosis, robotic assisted left thoracoscopy with left lower lobectomy and mediastinal lymph node dissection The patient was seen and examined the spring sitting up in a recliner in no acute distress. States pain is controlled on current medication regimen, denies shortness of breath. Currently on 2 L nasal cannula, able to achieve 1750 mL on his incentive spirometry. Remains in sinus rhythm and hemodynamically stable. States he has been ambulatory without difficulty. Left chest tube present to waterseal, small air leak present with very forceful coughing, 550 mL drainage since surgery. No other new concerns. Objective - Vital Signs Vital signs: Vital Signs Temp 98.6 F 09/07/23 03:29 Pulse 68 09/07/23 08:41 Resp 18 09/07/23 03:29 BP 142/76 09/07/23 03:29 Pulse Ox 93 L 09/07/23 03:29 FiO2 Intake & Output 09/06/23 09/07/23 09/07/23 18:59 06:59 18:59 Intake Total 2650 Output Total 870 900 Balance 1780 -900 Weight 108.3 kg Intake: IV 2650 Output: Chest Tube Drainage 300 250 Chest Tube Left Left 300 250 Pleural/Mediastinal Urine 400 650 Uretheral (Haywood) 200 Estimated Blood Loss 170 Other: Voiding Method Indwelling Catheter Indwelling Catheter - Exam CONSTITUTIONAL: Appears comfortable, cooperative, no acute distress RESPIRATORY: Lungs sounds diminished in the bases bilaterally. Respirations even, nonlabored. Currently on 2 L nasal cannula with oxygen saturation 93%. Able to achieve 1750 mL on incentive spirometry. Strong cough. CARDIOVASCULAR: S1, S2 present. Regular rate and rhythm, sinus rhythm on telemetry. Palpable peripheral pulses bilaterally. Trace generalized edema present. No calf pain or tenderness noted. SCDs present. GASTROINTESTINAL: Abdomen soft, nontender, nondistended. Active bowel sounds present 4 quadrants. Tolerating diet. Positive flatus GENITOURINARY: [place]wood discontinued at midnight, patient has voided although not a significant amount INTEGUMENTARY: Skin is warm and dry with evidence of good perfusion. Thoracic incision well approximated and covered with dry intact dressing. NEUROLOGIC: Cranial nerves II through XII intact MUSKULOSKELETAL: Able to move all extremities, strength equal bilaterally, gait normal PSYCHIATRIC: Alert and oriented to person place and time, appropriate affect, i ntact judgment and insight INVASIVE LINES AND TUBES: Left pleural chest tube present to waterseal, small air leaks present with forceful coughing only, 200 mL serosanguineous drainage overnight, 550 mL since surgery - Allied health notes Allied health notes reviewed: nursing - Labs CBC & Chem 7: 09/07/23 07:28 09/07/23 07:22 Labs: Abnormal Lab Results - Last 24 Hours (Table) 09/07/23 09/07/23 Range/Units 07:22 07:28 WBC 16.6 H (3.8-10.6) k/uL RBC 4.01 L (4.30-5.90) m/uL MCV 100.9 H (80.0-100.0) fL Neutrophils # 12.5 H (1.3-7.7) k/uL BUN 23 H (9-20) mg/dL Glucose 100 H (74-99) mg/dL - Imaging and Cardiology Chest x-ray: report reviewed, image reviewed Assessment and Plan Assessment: Non-small cell carcinoma left lower lobe, status post mediastinal endoscopy with mediastinal lymph node biopsy and on table diagnosis, robotic assisted left t horacoscopy with left lower lobectomy and mediastinal lymph node dissection History of coronary artery disease with previous myocardial infarction and PCI Ischemic cardiomyopathy Hypertension Hyperlipidemia Peripheral arterial disease status post bilateral fem-pop Congenital single kidney with CKD stage III COPD Chronic nicotine dependence Obstructive sleep apnea with CPAP use BPH Plan: Continue pleural chest tube to waterseal, monitor drainage Wean O2 as tolerated, encourage incentive spirometry use, bronchodilators per pulmonology Continue home medications Will give IV Lasix Increase activity, ambulate as tolerated Pain control with current medication regimen GI/DVT prophylaxis More recommendations to follow
--- NOTE | 2023-09-07 11:36 | P.ANPRN ---
Procedure Note - Anesthesia - Nerve Block Performed Left Erector Spinae Single Time Out Performed: Yes Date of Procedure: 09/06/23 Procedure Start Time: Procedure Stop Time: Location of Patient: PreOp Indication: Acute Post-Operative Pain Sedation Type: Sedate with meaningful contact maintained Preparation: Sterile Prep Position: Sitting Needle Types: Pajunk Needle Gauge: 21 Ultrasound used to visualize needle placement: Yes Ultrasound used to observe medication spread: Yes Blood Aspirated: No Pain Paresthesia on Injection Noted: No Resistance on Injection: Normal Image Stored and Saved: Yes Events: Uneventful and Well Tolerated (Lidocaine 0.5% 10 mL plus normal saline 10 mL plus dexamethasone 4 given at t6)
--- NOTE | 2023-09-07 14:28 | P.CONS ---
History of Present Illness - Reason for Consult Consult date: 09/07/23 Medical management - History of Present Illness History of present illness; patient 77-year-old gentleman with past medical history significant for recently diagnosed non-small cell lung cancer of the left lower lobe,obstructive sleep apnea , chronic stage III kidney disease , peripheral vascular disease, hypertension, hyperlipidemia, coronary artery disease and BPH who presented to the hospital for elective left lower lobe resection by CT surgery. Patient was being worked up outpatient by pulmonology, CAT scan of the chest was done that showed a 3.1 x 2.6 cm mass in the left lower lobe. No significant mediastinal lymphadenopathy. A PET/CT was also done that showed increased metabolic activity in the left lung mass. Patient had robotic bronchoscopy on the patient and transbronchial needle aspirate and the biopsy of the left lower lobe was positive for squamous cell carcinoma. For this reason patient was referred to CT surgery and patient underwent mediastinoscopy and mediastinal lymph node evaluation and subsequent robotic-assisted thoracoscopic left lower lobe resection and lymph node dissection. Postoperatively internal medicine team was consulted for medical management Patient admitted to internal medicine service REVIEW OF SYSTEMS: CONSTITUTIONAL: No fever, no malaise, no fatigue. HEENT: No recent visual problems or hearing problems. Denied any sore throat. CARDIOVASCULAR: No orthopnea, PND, no palpitations, no syncope. Complaining of chest pain at the site of chest tube PULMONARY: No shortness of breath, no cough, no hemoptysis. GASTROINTESTINAL: No diarrhea, no nausea, no vomiting, no abdominal pain. NEUROLOGICAL: No headaches, no weakness, no numbness. HEMATOLOGICAL: Denies any bleeding or petechiae. GENITOURINARY: Denies any burning micturition, frequency, or urgency. MUSCULOSKELETAL/RHEUMATOLOGICAL: Denies any joint pain, swelling, or any muscle pain. ENDOCRINE: Denies any polyuria or polydipsia. The rest of the 14-point review of systems is negative. PHYSICAL EXAMINATION: GENERAL: The patient is alert and oriented x3, not in any acute distress. Well developed, well nourished. HEENT: Pupils are round and equally reacting to light. EOMI. No scleral icterus. No conjunctival pallor. Normocephalic, atraumatic. No pharyngeal erythema. No thyromegaly. CARDIOVASCULAR: S1 and S2 present. No murmurs, rubs, or gallops. PULMONARY: Diminished Breath sounds at bases bilaterally, left chest tubes seen ABDOMEN: Soft, nontender, nondistended, normoactive bowel sounds. No palpable organomegaly. MUSCULOSKELETAL: No joint swelling or deformity. EXTREMITIES: No cyanosis, clubbing, or pedal edema. NEUROLOGICAL: Gross neurological examination did not reveal any focal deficits. SKIN: No rashes. Assessment and plan Status post left lower lobe resection/mediastinal lymph node dissection. Left lower lobe 3.1 cm mass with a previous robotic bronchoscopy confirming diagnosis of a squamous cell carcinoma of the left lower lobe COPD Hyperkalemia Acute hypoxic respiratory failure Thyroid nodule, ultrasound being benign will need to be followed up on outpatient basis Obstructive sleep apnea Chronic stage III kidney disease Peripheral vascular disease History of Coronary artery disease with previous non-ST segment elevation myocardial infarction requiring coronary stenting History of Hypertension History of Hyperlipidemia BPH Monitor vital signs Monitor CBC Monitor CMP Continue telemetry monitoring Continue chest tube management per CT surgery Serial chest x-rays Aggressive bronchopulmonary hygiene Encourage use of I-S Continue aspirin, Plavix, Lipitor Continue pain management per CT surgery Pulmonology following Labs and medication were reviewed.. Continue same treatment. Continue with symptomatic treatment. Resume home medication. Monitor labs and vitals. DVT and GI prophylaxis. Further recommendations as per clinical course of the patient Dictation was produced using [employer] dictation software. please excuse any grammatical, word or spelling errors. 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 covid 12/15/20, BPH, CKD Stage 3, PVD, does not use CPAP Last Myocardial Infarction Date:: 11/25/2019 History of Any Multi-Drug Resistant Organisms: None Reported Past Surgical History: Appendectomy, Heart Catheterization With Stent Additional Past Surgical History / Comment(s): Lt. fempop bypass, Lt. to Rt. fem fem bypass, inguinal hernia repair (does not recall laterality), bilateral cataract removal with lens implants. Past Anesthesia/Blood Transfusion Reactions: No Reported Reaction Date of Last Stent Placement:: 11/26/19 Smoking Status: Current every day smoker - Past Family History Father Family Medical History: COPD, Myocardial Infarction (HI) Additional Family Medical History / Comment(s): Father from a HI at the age of 59yrs. Mother Family Medical History: Cancer Additional Family Medical History / Comment(s): Mother from stomach cancer when she was 58 or 59 yrs old. Brother(s) Family Medical History: Cancer Additional Family Medical History / Comment(s): 2 brothers Sister(s) Family Medical History: Cancer Medications and Allergies Home Medications Medication Instructions Recorded Confirmed Type Acetaminophen [Tylenol Arthritis] 1,300 mg PO DAILY 03/26/18 08/30/23 History Aspirin EC [Ecotrin Low Dose] 81 mg PO DAILY 03/26/18 08/30/23 History Finasteride [Proscar] 5 mg PO DAILY 03/26/18 08/30/23 History Atorvastatin [Lipitor] 80 mg PO HS #30 tab 11/27/19 08/30/23 Rx Clopidogrel [Plavix] 75 mg PO HS 01/13/20 08/30/23 History Cholecalciferol [Vitamin D3 (25 125 mcg PO DAILY tablet 12/27/20 08/30/23 Rx Mcg = 1000 Iu)] Zinc Sulfate [Orazinc] 220 mg PO DAILY cap 12/27/20 08/30/23 Rx Albuterol Inhaler [Ventolin Hfa 2 puff INHALATION RT-TID PRN 07/31/23 08/30/23 History Inhaler] Esomeprazole Magnesium [NexIUM] 40 mg PO DAILY 08/30/23 08/30/23 History Allergies Allergy/AdvReac Type Severity Reaction Status Date / Time Iodinated Contrast Media AdvReac "Can't Verified 09/06/23 05:49 have d/t only 1 kidney" Physical Exam Vitals: Vital Signs Temp Pulse Pulse Resp BP BP Pulse Ox 09/07/23 08:41 68 09/07/23 08:28 64 09/07/23 03:29 98.6 F 62 18 142/76 93 L 09/07/23 02:00 72 18 09/07/23 00:00 98.1 F 72 18 122/55 94 L 09/06/23 21:28 64 09/06/23 21:18 64 09/06/23 20:05 18 94 L 09/06/23 20:00 98.4 F 76 18 118/62 95 09/06/23 16:49 68 09/06/23 16:36 68 09/06/23 16:23 98.1 F 67 20 153/80 94 L 09/06/23 15:31 58 L 16 148/76 97 09/06/23 15:16 57 L 16 150/75 95 09/06/23 14:51 62 16 147/80 140/63 97 09/06/23 14:36 58 L 16 155/87 137/79 95 09/06/23 14:21 57 L 16 152/70 136/68 97 09/06/23 14:06 53 L 16 141/69 161/60 94 L 09/06/23 13:51 55 L 16 129/62 144/53 93 L 09/06/23 13:36 55 L 16 130/65 137/57 94 L 09/06/23 13:30 55 L 16 137/54 94 L 09/06/23 13:23 56 L 16 127/64 134/57 93 L 09/06/23 13:15 57 L 16 131/68 94 L 09/06/23 13:00 59 L 16 119/63 94 L 09/06/23 12:57 61 16 127/63 104/78 94 L 09/06/23 12:42 60 16 122/59 115/59 96 09/06/23 12:27 61 20 112/57 129/48 96 09/06/23 12:12 60 20 113/59 136/54 94 L 09/06/23 11:57 96.2 F L 63 22 98/57 100/57 96 Intake and Output 09/06/23 09/07/23 09/07/23 22:59 06:59 14:59 Output Total 1220 500 Balance -1220 -500 Output: Chest Tube Drainage 350 200 Chest Tube Left Left 350 200 Pleural/Mediastinal Urine 750 300 Uretheral ([place]) 200 Estimated Blood Loss 120 Other: Voiding Method Indwelling Catheter Weight 108.3 kg Results CBC & Chem 7: 09/07/23 07:28 09/07/23 07:22 Labs: Abnormal Lab Results - Last 24 Hours (Table) 09/07/23 09/07/23 Range/Units 07:22 07:28 WBC 16.6 H (3.8-10.6) k/uL RBC 4.01 L (4.30-5.90) m/uL MCV 100.9 H (80.0-100.0) fL Neutrophils # 12.5 H (1.3-7.7) k/uL BUN 23 H (9-20) mg/dL Glucose 100 H (74-99) mg/dL
--- NOTE | 2023-09-07 16:22 | P.PN ---
Subjective Progress Note Date: 09/07/23 This is a 77-year-old male patient was recently diagnosed having non-small cell lung cancer of the left lower lobe. The patient was found to have an abnormal chest x-ray and following that a CAT scan of the chest was done that showed a 3.1 x 2.6 cm mass in the left lower lobe. No significant mediastinal lymphadenopathy. A PET/CT was also done that showed increased metabolic activity in the left lung mass. There was also thyroid nontender that was noted to be showing metabolic activity. A preop ultrasound of the thyroid gland was essentially benign. I performed a robotic bronchoscopy on the patient and transbronchial needle aspirate and the biopsy of the left lower lobe was positive for squamous cell carcinoma. Station 10 R lymph node was also visualized bilaterally and the bronchial ultrasound and transbronchial needle aspirate of the lymph node yielded no malignancy. Based on that, the patient was referred to cardiothoracic surgery for left lower lobe resection. The patient is a chronic smoker. His COPD was mild and stable. The patient underwent the surgery today and this involved a mediastinoscopy and mediastinal lymph node evaluation and subsequent robotic-assisted thoracoscopic left lower lobe resection and medicine lymph node dissection. I saw the patient in the recovery room. The patient is doing well. The patient has a single left-sided chest tube in place. Is intermittent air leak. Total amount of output from the chest and is around 100 mL. Is currently on 4 L of Oxymizer nasal cannula. Chest x-ray showed no evidence of any pneumothorax. Clinically stable and hemodynamically stable. The preoperative FEV1 was 88%, diffusion capacity was 52%. Other comorbid conditions included obstructive sleep apnea with an AHI of 49 maintained on APAP therapy, chronic stage III kidney disease with a creatinine ranging between 1.5 x 1.6, peripheral vascular disease, hypertension, hyperlipidemia, coronary artery disease and BPH. On today's evaluation of 09/07/2023, the patient is doing well. No specific complaints. Currently on room air oxygen. The chest x-ray from today shows a chest tube on the left. No evidence of any pneumothorax. He has COPD and some increased infiltration of the right lung along with pulmonary vessel congestion. Some atelectatic changes also seen in the right lung base. No evidence of any air leak. The patient's chest tube is in waterseal. He is using incentive spirometer and is pulling approximately 1750 mL. Chest tube has drained approximately 550 mL since surgery. No other new complaints for now. The previous Covid 16.6, hemoglobin 15.1 and a platelet count of 287. BUN is 23 with a creatinine of 1.2 and a sodium level is at 138. Awake and alert Objective - Vital Signs Vital signs: Vital Signs Temp 98.4 F 09/07/23 08:57 Pulse 68 09/07/23 13:05 Resp 17 09/07/23 08:57 BP 121/64 09/07/23 08:57 Pulse Ox 95 09/07/23 08:57 FiO2 Intake & Output 09/06/23 09/07/23 09/07/23 18:59 06:59 18:59 Intake Total 2650 236 Output Total 870 900 870 Balance 1780 900 -634 Weight 108.3 kg Intake: IV 2650 Oral 236 Output: Chest Tube Drainage 300 250 Chest Tube Left Left 300 250 Pleural/Mediastinal Urine 400 650 870 Uretheral ([place]) 200 Estimated Blood Loss 170 Other: Voiding Method Indwelling Catheter Indwelling Catheter - Exam Gen. appearance the patient is calm and comfortable currently on room air oxygen Head exam was generally normal. There was no scleral icterus or corneal arcus. Mucous membranes were moist. Neck was supple and without jugular venous distension, thyromegaly, or carotid bruits. Carotids were easily palpable bilaterally. There was no adenopathy. Lungs sounds are diminished in the left lung base and the patient has a left- sided chest tube in place, positive intermittent air leak, currently chest tube is attached to waterseal and a total amount of output is 550 mL since arrival from the operating room Cardiac exam revealed the PMI to be normally situated and sized. The rhythm was regular and no extrasystoles were noted during several minutes of auscultation. The first and second heart sounds were normal and physiologic splitting of the second heart sound was noted. There were no murmurs, rubs, clicks, or gallops. Abdominal exam revealed normal bowel sounds. The abdomen was soft, non-tender, and without masses, organomegaly, or appreciable enlargement of the abdominal aorta. Examination of the extremities revealed easily palpable radial, femoral and pedal pulses. There was no cyanosis, clubbing or edema. Examination of the skin revealed no evidence of significant rashes, suspicious appearing nevi or other concerning lesions. Neurologically, the patient is awake and alert and the patient does not have any focal neurological deficit. Cranial nerves are essentially intact. - Labs CBC & Chem 7: 09/07/23 07:28 09/07/23 07:22 Labs: Abnormal Lab Results - Last 24 Hours (Table) 09/07/23 09/07/23 Range/Units 07:22 07:28 WBC 16.6 H (3.8-10.6) k/uL RBC 4.01 L (4.30-5.90) m/uL MCV 100.9 H (80.0-100.0) fL Neutrophils # 12.5 H (1.3-7.7) k/uL BUN 23 H (9-20) mg/dL Glucose 100 H (74-99) mg/dL Assessment and Plan Plan: Robotic-assisted thoracoscopic left lower lobe resection/mediastinal lymph node dissection. The patient is postop day #1, the patient has a left-sided chest tube in place no evidence of any pneumothorax. No evidence of any air leak. Left lower lobe 3.1 cm mass with a previous robotic bronchoscopy confirming d iagnosis of a squamous cell carcinoma of the left lower lobe COPD, mild with a baseline FEV1 of 88 % of predicted at baseline Acute hypoxic respiratory failure, expected outcome of surgery and the patient is currently on room air oxygen Thyroid nodule, ultrasound being benign will need to be followed up on outpatient basis Obstructive sleep apnea maintained on CPAP therapy the patient is a baseline AHI 49 utilizes an APAP machine and outpatient basis Chronic stage III kidney disease Peripheral vascular disease Coronary artery disease with previous non-ST segment elevation myocardial inf arction requiring coronary stenting Hypertension Hyperlipidemia BPH Smoker Plan Incentive spirometer Daily chest x-rays Pain control is adequate Monitor output from the chest tube and monitor development of any air leak Allow the patient utilizes CPAP machine from home, the patient has an APAP machine DuoNeb neb around the clock Resume all medications Heparin subcu for DVT prophylaxis We'll continue to follow
[2023-09-07] MEDS: ATORVASTATIN 80 MG TAB PO SCH (20:44)
[2023-09-07] MEDS: CLOPIDOGREL 75 MG TAB PO SCH (20:44)
[2023-09-07] MEDS: ACETAMINOPHEN TAB 325 MG TAB PO PRN (23:46)
[2023-09-08] MEDS: PANTOPRAZOLE 40 MG TABLET PO SCH (06:32)
--- NOTE | 2023-09-08 07:15 | P.PN ---
Subjective Progress Note Date: 09/08/23 Principal diagnosis: Non-small cell carcinoma left lower lobe. Previous medical history of coronary artery disease with previous myocardial infarction and PCI, ischemic cardiomyop athy, hypertension, hyperlipidemia, peripheral arterial disease status post bilateral fem-pop, congenital single kidney with CKD stage III, COPD, chronic nicotine dependence, obstructive sleep apnea with CPAP use, BPH. POD #2 mediastinal endoscopy with mediastinal lymph node biopsy and on table avni gnosis, robotic assisted left thoracoscopy with left lower lobectomy and mediastinal lymph node dissection The patient was seen and examined this morning sitting up in a recliner in no acute distress. States pain is controlled on current medication regimen, denies shortness of breath. Currently on room air, able to achieve 1500 mL on his incentive spirometry. Remains in sinus rhythm and hemodynamically stable. States he has been ambulatory without difficulty. Left chest tube present to [facility], no air leak present this morning, 250 mL drainage in the last 24 hours. No other new concerns. Objective - Vital Signs Vital signs: Vital Signs Temp 98.4 F 09/08/23 04:00 Pulse 77 09/08/23 04:00 Resp 18 09/08/23 04:00 BP 95/62 09/08/23 04:00 Pulse Ox 91 L 09/08/23 04:00 FiO2 Intake & Output 09/07/23 09/08/23 09/08/23 18:59 06:59 18:59 Intake Total 472 Output Total 1550 710 Balance -1078 -710 Weight 108.3 kg Intake: Oral 472 Output: Chest Tube Drainage 80 110 Chest Tube Left Left 80 110 Pleural/Mediastinal Urine 1470 600 Other: Voiding Method Urinal Urinal - Exam CONSTITUTIONAL: Appears comfortable, cooperative, no acute distress RESPIRATORY: Lungs sounds diminished in the bases bilaterally. Respirations even, nonlabored. Currently on room air with oxygen saturation 91%. Able to achieve 1500 mL on incentive spirometry. Strong cough. CARDIOVASCULAR: S1, S2 present. Regular rate and rhythm, sinus rhythm on telemetry. Palpable peripheral pulses bilaterally. Trace generalized edema present. No calf pain or tenderness noted. SCDs present. GASTROINTESTINAL: Abdomen soft, nontender, nondistended. Active bowel sounds present 4 quadrants. Tolerating diet. Positive flatus GENITOURINARY: Continues to void INTEGUMENTARY: Skin is warm and dry with evidence of good perfusion. Thoracic incision well approximated and covered with dry intact dressing. NEUROLOGIC: Cranial nerves II through XII intact MUSKULOSKELETAL: Able to move all extremities, strength equal bilaterally, gait normal PSYCHIATRIC: Alert and oriented to person place and time, appropriate affect, intact judgment and insight INVASIVE LINES AND TUBES: Left pleural chest tube present to waterseal, no air leak present, 60 mL serosanguineous drainage overnight, 250 mL since surgery - Allied health notes Allied health notes reviewed: nursing - Labs CBC & Chem 7: 09/07/23 07:28 09/07/23 07:22 Labs: Abnormal Lab Results - Last 24 Hours (Table) 09/07/23 09/07/23 Range/Units 07:22 07:28 WBC 16.6 H (3.8-10.6) k/uL RBC 4.01 L (4.30-5.90) m/uL MCV 100.9 H (80.0-100.0) fL Neutrophils # 12.5 H (1.3-7.7) k/uL BUN 23 H (9-20) mg/dL Glucose 100 H (74-99) mg/dL - Imaging and Cardiology Chest x-ray: image reviewed Assessment and Plan Assessment: Non-small cell carcinoma left lower lobe, status post mediastinal endoscopy with mediastinal lymph node biopsy and on table diagnosis, robotic assisted left thoracoscopy with left lower lobectomy and mediastinal lymph node dissection History of coronary artery disease with previous myocardial infarction and PCI Ischemic cardiomyopathy Hypertension Hyperlipidemia Peripheral arterial disease status post bilateral fem-pop Congenital single kidney with CKD stage III COPD Chronic nicotine dependence Obstructive sleep apnea with CPAP use BPH Plan: Will discontinue chest tube Repeat chest x-ray, if stable likely will discharge home this afternoon Encourage incentive spirometry use, bronchodilators per pulmonology Continue home medications Increase activity, ambulate as tolerated Pain control with current medication regimen GI/DVT prophylaxis More recommendations to follow
[2023-09-08] MEDS: FINASTERIDE 5 MG TAB PO SCH (08:07)
[2023-09-08] MEDS: ASPIRIN 81 MG PO SCH (08:07)
[2023-09-08] MEDS: ZINC SULFATE 220 MG CAP PO SCH (08:07)
[2023-09-08] MEDS: CHOLECALCIFEROL 25 MCG (1000 IU) TABLET PO SCH (08:07)
[2023-09-08] MEDS: IPRATROPIUM-ALBUTEROL 3 ML NEB IH SCH ×2 (08:12→11:36)
[2023-09-08 09:26] LABS: HCT 40.2 % (39.0-53.0); HGB 12.8 gm/dL (13.0-17.5); Hypochromasia Moderate; MCH 32.8 pg (25.0-35.0); MCHC 31.7 g/dL (31.0-37.0); MCV 103.6 fL (80.0-100.0); Macrocytosis Slight; Mean Platelet Volume 7.3; Platelet Count 252 k/uL (150-450); RBC 3.89 m/uL (4.30-5.90); RDW 14.3 % (11.5-15.5); WBC 13.2 k/uL (3.8-10.6)
[2023-09-08 09:32] LABS: African American GFR (CKD) 60 (>60 ml/min/1.73 sqM); Anion Gap 7 mmol/L; Blood Urea Nitrogen 26 mg/dL (9-20); Calcium 10.1 mg/dL (8.4-10.2); Carbon Dioxide 29 mmol/L (22-30); Chloride 101 mmol/L (98-107); Glucose 101 mg/dL (74-99); Magnesium 1.8 mg/dL (1.6-2.3); Non-African American GFR(CKD) 52 (>60 ml/min/1.73 sqM); Potassium 4.4 mmol/L (3.5-5.1); Sodium 137 mmol/L (137-145)
[2023-09-08] MEDS: HEPARIN SODIUM,PORCINE 5,000 UNIT/ML 1 ML VIAL SQ SCH (10:00)
--- NOTE | 2023-09-08 12:13 | XR ---
EXAMINATION TYPE: XR chest 2V DATE OF EXAM: 09/08/2023 11:53 AM CLINICAL INDICATION:Male, 77 years old with history of post chest tube removal; [facility] COMPARISON: Chest radiograph from same day TECHNIQUE: XR chest 2V Frontal and lateral views of the chest. FINDINGS: Lungs/Pleura: There is no evidence of pleural effusion, focal consolidation, or pneumothorax. Pulmonary vascularity: Unremarkable. Heart/mediastinum: Cardiomediastinal silhouette is unremarkable. Musculoskeletal: No acute osseous pathology. IMPRESSION: Left thoracotomy tube removal without evidence for pneumothorax.
--- NOTE | 2023-09-08 12:17 | P.DS ---
Providers Date of admission: 09/06/23 05:35 Expected date of discharge: 09/08/23 Attending physician: Reddy Zayas Consults: 09/06/23 12:34 Consult Physician Routine Consulting Provider: Dmitri Prince Consult Reason/Comments: post LLlobectomy Do you want consulting provider notified?: Already Contacted Consult Physician Routine Consulting Provider: Summer Jansen Consult Reason/Comments: known to your Do you want consulting provider notified?: Yes Primary care physician: Summer Jansen Hospital Course: FINAL DIAGNOSIS: Non-small cell carcinoma left lower lobe History of coronary artery disease with previous myocardial infarction and PCI Ischemic cardiomyopathy Hypertension Hyperlipidemia Peripheral arterial disease status post bilateral fem-pop Congenital single kidney with CKD stage III COPD, FEV1 887% of predicted, DLCO 52% Chronic nicotine dependence Obstructive sleep apnea with CPAP use BPH PRINCIPAL PROCEDURE: Mediastinal endoscopy with mediastinal lymph node biopsy and on table diagnosis Robotic assisted left thoracoscopy with left lower lobectomy Mediastinal lymph node dissection HISTORY OF PRESENT ILLNESS: This is a 77-year-old gentleman who follows outpatient with Dr. Jansen for primary care and Dr. Prince for pulmonology. He had an abnormal chest x-ray performed by Dr. Jansen, demonstrating a left lung mass. CT scan was completed confirming the presence of a 3 cm mass in the superior segment of the left lower lobe. The patient also had a PET scan which showed positive uptake in the mass without evidence of mediastinal adenopathy or metastasis. There were some mildly enlarged lymph nodes present in the paratracheal region and the patient subsequently underwent bronchoscopy with biopsy of the tumor which proved positive for squamous cell carcinoma. Endobronchial ultrasound was also performed at that time, there were no significantly enlarged or abnormal appearing mediastinal nodes, biopsy of L 10 lymph node was negative. The patient was referred to Dr. Zayas from thoracic surgery. He was recommended to undergo surgical lobectomy. The usual perioper ative course was discussed in detail with the patient and his daughter, all risks and benefits were explained, all questions were answered, and consent was obtained to proceed with surgery. The patient was scheduled at the earliest possible date after obtaining cardiac clearance. HOSPITAL COURSE: The patient was brought to the hospital on 09/06/23, taken to the preoperative area, prepared in the usual fashion, and subsequently taken to the operating room where Dr. Zayas performed mediastinoscopy/mediastinal lymph node biopsy/on table diagnosis with subsequent robotic-assisted thoracoscopic left lower lobectomy and mediastinal lymph node dissection. Upon completion of surgery the patient was extubated and taken to the recovery room for hemodynamic monitoring. He was eventually admitted to [address] [place] [address] cardiac stepdown unit for further monitoring. His chest tube was placed to waterseal the night of surgery, the following morning he had a small leak and his chest tube remained in place to waterseal. On postop day #2 the patient had no air leak present, chest x-ray was stable without evidence of pneumothorax, and his chest tube was removed without incident. Follow-up chest x-ray was stable. His oxygen was titrated down, he was tolerating oral diet, his pain was controlled, and he was ready to be discharged to home on postoperative day #2. He received written and verbal instruction regarding his medications, activity restrictions, signs and symptoms requiring physician notification, and follow-up appointments. Patient Condition at Discharge: Stable Plan - Discharge Summary Discharge Rx Participant: Yes New Discharge Prescriptions: New Acetaminophen Tab [Tylenol] 650 mg PO Q4HR PRN tab PRN Reason: Mild To Moderate Pain (1 - 6) Continue Aspirin EC [Ecotrin Low Dose] 81 mg PO DAILY Acetaminophen [Tylenol Arthritis] 1,300 mg PO DAILY Finasteride [Proscar] 5 mg PO DAILY Atorvastatin [Lipitor] 80 mg PO HS #30 tab Clopidogrel [Plavix] 75 mg PO HS Albuterol Inhaler [Ventolin Hfa Inhaler] 2 puff INHALATION RT-TID PRN PRN Reason: Shortness Of Breath Esomeprazole Magnesium [NexIUM] 40 mg PO DAILY Zinc Sulfate [Orazinc] 220 mg PO DAILY cap Cholecalciferol [Vitamin D3 (25 Mcg = 1000 Iu)] 125 mcg PO DAILY tablet Discharge Medication List Acetaminophen [Tylenol Arthritis] 1,300 mg PO DAILY 03/26/18 [History] Aspirin EC [Ecotrin Low Dose] 81 mg PO DAILY 03/26/18 [History] Finasteride [Proscar] 5 mg PO DAILY 03/26/18 [History] Atorvastatin [Lipitor] 80 mg PO HS #30 tab 11/27/19 [Rx] Clopidogrel [Plavix] 75 mg PO HS 01/13/20 [History] Cholecalciferol [Vitamin D3 (25 Mcg = 1000 Iu)] 125 mcg PO DAILY tablet 12/27/20 [Rx] Zinc Sulfate [Orazinc] 220 mg PO DAILY cap 12/27/20 [Rx] Albuterol Inhaler [Ventolin Hfa Inhaler] 2 puff INHALATION RT-TID PRN 07/31/23 [History] Esomeprazole Magnesium [NexIUM] 40 mg PO DAILY 08/30/23 [History] Acetaminophen Tab [Tylenol] 650 mg PO Q4HR PRN tab 09/08/23 [Rx] Follow up Appointment(s)/Referral(s): Dmitri Prince MD [STAFF PHYSICIAN] - 1 Week Summer Jansen MD [Primary Care Provider] - As Needed Reddy Zayas MD [STAFF PHYSICIAN] - 09/13/23 10:30 am Activity/Diet/Wound Care/Special Instructions: DISCHARGE INSTRUCTIONS: 1. No driving for 2 weeks, or until physician gives their ok. 2. No lifting, pushing, or pulling more than 10 pounds for 2 weeks. The physician will advise of any restriction changes. 3. Continue pain control per as needed orders. Alternate acetaminophen (Tylenol) and ibuprofen (Motrin/Advil) for pain. 4. Continue with incentive spirometry and splinting until otherwise directed by the physician. 5. Leave chest tube dressing for 48 hours. After that, remove all dressings and shower daily. 6. Routine incision care. No powders, lotions, ointments on incisions. 7. Please call surgeon/[facility] ASSISTANT for temp greater than 101 F or purulent drainage from incisions. Discharge Disposition: HOME SELF-CARE
[2023-09-08 12:18] VITALS: BP 156/82; PULSE 70; RESP 16; TEMP 98
--- NOTE | 2023-09-08 12:27 | P.PN ---
Subjective Progress Note Date: 09/08/23 This is a 77-year-old male patient was recently diagnosed having non-small cell lung cancer of the left lower lobe. The patient was found to have an abnormal chest x-ray and following that a CAT scan of the chest was done that showed a 3.1 x 2.6 cm mass in the left lower lobe. No significant mediastinal lymphadenopathy. A PET/CT was also done that showed increased metabolic activity in the left lung mass. There was also thyroid nontender that was noted to be showing metabolic activity. A preop ultrasound of the thyroid gland was essentially benign. I performed a robotic bronchoscopy on the patient and transbronchial needle aspirate and the biopsy of the left lower lobe was positive for squamous cell carcinoma. Station 10 R lymph node was also visualized bilaterally and the bronchial ultrasound and transbronchial needle aspirate of the lymph node yielded no malignancy. Based on that, the patient was referred to cardiothoracic surgery for left lower lobe resection. The patient is a chronic smoker. His COPD was mild and stable. The patient underwent the surgery today and this involved a mediastinoscopy and mediastinal lymph node evaluation and subsequent robotic-assisted thoracoscopic left lower lobe resection and medicine lymph node dissection. I saw the patient in the recovery room. The patient is doing well. The patient has a single left-sided chest tube in place. Is intermittent air leak. Total amount of output from the chest and is around 100 mL. Is currently on 4 L of Oxymizer nasal cannula. Chest x-ray showed no evidence of any pneumothorax. Clinically stable and hemodynamically stable. The preoperative FEV1 was 88%, diffusion capacity was 52%. Other comorbid conditions included obstructive sleep apnea with an AHI of 49 maintained on APAP therapy, chronic stage III kidney disease with a creatinine ranging between 1.5 x 1.6, peripheral vascular disease, hypertension, hyperlipidemia, coronary artery disease and BPH. On today's evaluation of 09/07/2023, the patient is doing well. No specific complaints. Currently on room air oxygen. The chest x-ray from today shows a chest tube on the left. No evidence of any pneumothorax. He has COPD and some increased infiltration of the right lung along with pulmonary vessel congestion. Some atelectatic changes also seen in the right lung base. No evidence of any air leak. The patient's chest tube is in waterseal. He is using incentive spirometer and is pulling approximately 1750 mL. Chest tube has drained approximately 550 mL since surgery. No other new complaints for now. The previous Covid 16.6, hemoglobin 15.1 and a platelet count of 287. BUN is 23 with a creatinine of 1.2 and a sodium level is at 138. Awake and alert On today's evaluation of 09/08/2023, the patient is doing extremely well. He is on room air oxygen. Left sided chest tube is removed. Chest x-ray per the est tube removal showed no evidence of pneumothorax. No significant chest pain. No altered mentation. BUN is at 26 with a creatinine of 1.3. The rest of the 13.2. A follow-up chest x-ray post chest tube removal showed no evidence of any pneumothorax. Objective - Vital Signs Vital signs: Vital Signs Temp 98.1 F 09/08/23 08:12 Pulse 70 09/08/23 08:26 Resp 17 09/08/23 08:12 BP 116/68 09/08/23 08:12 Pulse Ox 91 L 09/08/23 08:12 FiO2 Intake & Output 09/07/23 09/08/23 09/08/23 18:59 06:59 18:59 Intake Total 472 Output Total 1550 710 0 Balance -1078 -710 0 Weight 108.3 kg Intake: Oral 472 Output: Chest Tube Drainage 80 110 0 Chest Tube Left Left 80 110 0 Pleural/Mediastinal Urine 1470 600 Other: Voiding Method Urinal Urinal Urinal - Exam Gen. appearance the patient is calm and comfortable currently on room air oxygen Head exam was generally normal. There was no scleral icterus or corneal arcus. Mucous membranes were moist. Neck was supple and without jugular venous distension, thyromegaly, or carotid bruits. Carotids were easily palpable bilaterally. There was no adenopathy. Lungs sounds are diminished in the left lung base and the patient has a left- sided chest tube in place, positive intermittent air leak, currently chest tube is removed Cardiac exam revealed the PMI to be normally situated and sized. The rhythm was regular and no extrasystoles were noted during several minutes of auscultation. The first and second heart sounds were normal and physiologic splitting of the second heart sound was noted. There were no murmurs, rubs, clicks, or gallops. Abdominal exam revealed normal bowel sounds. The abdomen was soft, non-tender, and without masses, organomegaly, or appreciable enlargement of the abdominal aorta. Examination of the extremities revealed easily palpable radial, femoral and pedal pulses. There was no cyanosis, clubbing or edema. Examination of the skin revealed no evidence of significant rashes, suspicious appearing nevi or other concerning lesions. Neurologically, the patient is awake and alert and the patient does not have any focal neurological deficit. Cranial nerves are essentially intact. - Labs CBC & Chem 7: 09/08/23 08:58 09/08/23 08:58 Labs: Abnormal Lab Results - Last 24 Hours (Table) 09/08/23 09/08/23 Range/Units 08:58 08:58 WBC 13.2 H (3.8-10.6) k/uL RBC 3.89 L (4.30-5.90) m/uL Hgb 12.8 L (13.0-17.5) gm/dL MCV 103.6 H (80.0-100.0) fL BUN 26 H (9-20) mg/dL Creatinine 1.33 H (0.66-1.25) mg/dL Glucose 101 H (74-99) mg/dL Assessment and Plan Plan: Robotic-assisted thoracoscopic left lower lobe resection/mediastinal lymph node dissection. The patient is postop day #2, the patient has a left-sided chest tube was removed this morning and subsequent chest x-ray shows no evidence of any pneumothorax Left lower lobe 3.1 cm mass with a previous robotic bronchoscopy confirming diagnosis of a squamous cell carcinoma of the left lower lobe COPD, mild with a baseline FEV1 of 88 % of predicted at baseline Acute hypoxic respiratory failure, expected outcome of surgery and the patient is currently on room air oxygen Thyroid nodule, ultrasound being benign will need to be followed up on outpatient basis Obstructive sleep apnea maintained on CPAP therapy the patient is a baseline AHI 49 utilizes an APAP machine and outpatient basis Chronic stage III kidney disease Peripheral vascular disease Coronary artery disease with previous non-ST segment elevation myocardial infarction requiring coronary stenting Hypertension Hyperlipidemia BPH Smoker Plan Incentive spirometer Chest x-ray shows no evidence of pneumothorax Pain control is adequate CPAP machine from home, the patient has an APAP machine DuoNeb neb around the clock Patient to be discharged home today to be followed up on outpatient basis.
--- NOTE | 2023-09-08 12:52 | XR ---
EXAM: XR chest 1V portable CLINICAL INDICATION:Male, 77 years old with history of post lobectomy; MERGED WITH [facility] COMPARISON: 09/07/2023 6:56 AM TECHNIQUE: Chest single view AP portable upright. FINDINGS: Lines/tubes/devices: Left thoracostomy tube in essentially stable position with its tip projected ove r the left paramediastinal region in the mid chest. EKG leads over the chest. Cardiomediastinum: Cardiac silhouette appears stable, top normal in size. Stable mediastinal silhouette. Aortic atherosclerotic calcification with mild tortuosity. Vasculature: Pulmonary vascular congestion. Lungs/pleura: Interval improved aeration of the right basilar airspace opacities, with smaller residual. No sizable effusion or pneumothorax. Assessment of the apices is somewhat limited by the patient's chin positio n. COPD changes. Bones/soft tissues: Bony thorax appears grossly intact as seen. Regional soft tissues appear unremarkable. IMPRESSION: 1. Stable left thoracotomy tube. 2. No evidence of pneumothorax. 3. Improved aeration of the right basilar airspace opacities, with smaller residual.
--- NOTE | 2023-09-08 14:40 | P.PN ---
Subjective Progress Note Date: 09/08/23 patient 77-year-old gentleman with past medical history significant for r ecently diagnosed non-small cell lung cancer of the left lower lobe,obstructive sleep apnea , chronic stage III kidney disease , peripheral vascular disease, hypertension, hyperlipidemia, coronary artery disease and BPH who presented to the hospital for elective left lower lobe resection by CT surgery. Patient was being worked up outpatient by pulmonology, CAT scan of the chest was done that showed a 3.1 x 2.6 cm mass in the left lower lobe. No significant mediastinal lymphadenopathy. A PET/CT was also done that showed increased metabolic activity in the left lung mass. Patient had robotic bronchoscopy on the patient and transbronchial needle aspirate and the biopsy of the left lower lobe was positive for squamous cell carcinoma. For this reason patient was referred to CT surgery and patient underwent mediastinoscopy and mediastinal lymph node evaluation and subsequent robotic-assisted thoracoscopic left lower lobe resection and lymph node dissection. Postoperatively internal medicine team was consulted for medical management Patient admitted to internal medicine service 09/08. Patient seen and examined. Patient had chest tube removed this morning. CT surgery planning discharge this morning. Patient denies any chest pain or shortness of breath. REVIEW OF SYSTEMS: CONSTITUTIONAL: No fever, no malaise,. CARDIOVASCULAR: No chest pain, no palpitations, no syncope. PULMONARY: No shortness of breath, no cough, GASTROINTESTINAL: No diarrhea, no nausea, no vomiting, no abdominal pain. NEUROLOGICAL: No headaches, no weakness, PHYSICAL EXAMINATION: GENERAL: The patient is alert and oriented x3, not in any acute distress. Well developed, well nourished. HEENT: Pupils are round and equally reacting to light. EOMI. No scleral icterus. No conjunctival pallor. Normocephalic, atraumatic. No pharyngeal erythema. No thyromegaly. CARDIOVASCULAR: S1 and S2 present. No murmurs, rubs, or gallops. PULMONARY: Chest is clear to auscultation, no wheezing or crackles. ABDOMEN: Soft, nontender, nondistended, normoactive bowel sounds. No palpable organomegaly. MUSCULOSKELETAL: No joint swelling or deformity. EXTREMITIES: No cyanosis, clubbing, or pedal edema. NEUROLOGICAL: Gross neurological examination did not reveal any focal deficits. SKIN: No rashes. Assessment and plan Status post left lower lobe resection/mediastinal lymph node dissection. Left lower lobe 3.1 cm mass with a previous robotic bronchoscopy confirming diagnosis of a squamous cell carcinoma of the left lower lobe COPD Hyperkalemia Acute hypoxic respiratory failure Thyroid nodule, ultrasound being benign will need to be followed up on outpatient basis Obstructive sleep apnea Chronic stage III kidney disease Peripheral vascular disease History of Coronary artery disease with previous non-ST segment elevation myoc ardial infarction requiring coronary stenting History of Hypertension History of Hyperlipidemia BPH Monitor vital signs Monitor CBC Monitor CMP Continue telemetry monitoring Chest tube removed this morning by CT surgery Repeat chest x-ray ordered. Serial chest x-rays Aggressive bronchopulmonary hygiene Encourage use of I-S Continue aspirin, Plavix, Lipitor Discharge pending CT surgery Labs and medication were reviewed.. Continue same treatment. Continue with symptomatic treatment. Resume home medication. Monitor labs and vitals. DVT and GI prophylaxis. Further recommendations as per clinical course of the patient Dictation was produced using [employer] dictation software. please excuse any grammatical, word or spelling errors. Objective - Vital Signs Vital signs: Vital Signs Temp 98 F 09/08/23 11:55 Pulse 70 09/08/23 11:55 Resp 16 09/08/23 11:55 BP 156/82 09/08/23 11:55 Pulse Ox 96 09/08/23 11:55 FiO2 Intake & Output 09/07/23 09/08/23 09/08/23 18:59 06:59 18:59 Intake Total 472 Output Total 1550 710 200 Balance -1078 -710 -200 Weight 108.3 kg Intake: Oral 472 Output: Chest Tube Drainage 80 110 0 Chest Tube Left Left 80 110 0 Pleural/Mediastinal Urine 1470 600 200 Other: Voiding Method Urinal Urinal Urinal - Labs CBC & Chem 7: 09/08/23 08:58 09/08/23 08:58 Labs: Abnormal Lab Results - Last 24 Hours (Table) 09/08/23 09/08/23 Range/Units 08:58 08:58 WBC 13.2 H (3.8-10.6) k/uL RBC 3.89 L (4.30-5.90) m/uL Hgb 12.8 L (13.0-17.5) gm/dL MCV 103.6 H (80.0-100.0) fL BUN 26 H (9-20) mg/dL Creatinine 1.33 H (0.66-1.25) mg/dL Glucose 101 H (74-99) mg/dL
== END 2023-09-08 12:39 | disposition home or self-care (01) | DRG 163 ==
LOC: 2ORMAIN 05:35 → 3SCARD 15:06
PROVIDERS: ADMIT Thoracic Surgery (Cardiothoracic Vascular Surgery); ATTEND Thoracic Surgery (Cardiothoracic Vascular Surgery)
PROC: 0WBC4ZX Excision of Mediastinum, Percutaneous Endoscopic Approach, Diagnostic (ICD-10-PCS; 2023-09-06)
PROC: 07B74ZX Excision of Thorax Lymphatic, Percutaneous Endoscopic Approach, Diagnostic (ICD-10-PCS; 2023-09-06)
PROC: 8E0W4CZ Robotic Assisted Procedure of Trunk Region, Percutaneous Endoscopic Approach (ICD-10-PCS; 2023-09-06)
PROC: 0BTJ4ZZ Resection of Left Lower Lung Lobe, Percutaneous Endoscopic Approach (ICD-10-PCS; principal; 2023-09-06 07:30)
PROC: 3E0T3BZ Introduction of Anesthetic Agent into Peripheral Nerves and Plexi, Percutaneous Approach (ICD-10-PCS; 2023-09-07)
PROC: 3E0T33Z Introduction of Anti-inflammatory into Peripheral Nerves and Plexi, Percutaneous Approach (ICD-10-PCS; 2023-09-07)
DX: C34.32 Malignant neoplasm of lower lobe, left bronchus or lung (principal); J96.01 Acute respiratory failure with hypoxia; J93.82 Other air leak; Q60.0 Renal agenesis, unilateral; J44.9 Chronic obstructive pulmonary disease, unspecified; I73.9 Peripheral vascular disease, unspecified; N18.30 Chronic kidney disease, stage 3 unspecified; E04.1 Nontoxic single thyroid nodule; E66.9 Obesity, unspecified; I12.9 Hypertensive chronic kidney disease with stage 1 through stage 4 chronic kidney disease, or unspecified chronic kidney disease; G89.18 Other acute postprocedural pain; F17.210 Nicotine dependence, cigarettes, uncomplicated; G47.33 Obstructive sleep apnea (adult) (pediatric); I25.10 Atherosclerotic heart disease of native coronary artery without angina pectoris; N40.0 Benign prostatic hyperplasia without lower urinary tract symptoms; M19.041 Primary osteoarthritis, right hand; M19.042 Primary osteoarthritis, left hand; G89.29 Other chronic pain; M25.551 Pain in right hip; M54.50 Low back pain, unspecified; I25.5 Ischemic cardiomyopathy; E87.5 Hyperkalemia; E78.5 Hyperlipidemia, unspecified; Z80.0 Family history of malignant neoplasm of digestive organs; Z68.34 Body mass index [BMI] 34.0-34.9, adult; Z95.820 Peripheral vascular angioplasty status with implants and grafts; I25.2 Old myocardial infarction; Z87.11 Personal history of peptic ulcer disease; Z86.16 Personal history of COVID-19; Z95.5 Presence of coronary angioplasty implant and graft; Z82.5 Family history of asthma and other chronic lower respiratory diseases; Z79.82 Long term (current) use of aspirin; Z79.899 Other long term (current) drug therapy; Z79.02 Long term (current) use of antithrombotics/antiplatelets; Z91.041 Radiographic dye allergy status
CPT/HCPCS: 64999; 71045; 71046; 80048; 83735; 84132; 85025; 85027; 88305; 88309; 88313; 88331; 94640

== ENCOUNTER → 2024-03-07 | Outpatient (CLI) | payer MEDICARE ==
--- NOTE | 2024-03-12 14:13 | CT ---
EXAMINATION TYPE: CT chest abdomen wo con DATE OF EXAM: 03/07/2024 COMPARISON: 08/03/2023 HISTORY: Hx lung ca, recent lung removal, concern for LT side abdominal bulging. CT DLP: 1042.[address] of the chest was performed with lung and mediastinal window settings submitted. The la ck of contrast limits evaluation of the vascular, mediastinal and parenchymal structures including th e upper abdomen. LUNGS: Postoperative changes no recurrent mass. The lungs are clear and free of infiltrate. No atelec tasis. No pulmonary nodule or mass is detected. No pleural effusion. No CT evidence of interstitia l lung disease. MEDIASTINUM/JALEESA: Thoracic aorta is of normal caliber with limited evaluation given lack of contrast . The heart is not enlarged. No evidence for mediastinal mass. No lymph nodes greater than 1cm. UPPER ABDOMEN: No significant abnormality is seen. OTHER: No significant other abnormality. IMPRESSION: 1. Postoperative changes no recurrent mass.
== END | disposition home or self-care (01) ==
LOC: RADCTMAIN 09:36
PROVIDERS: ATTEND Internal Medicine Critical Care Medicine
DX: C34.90 Malignant neoplasm of unspecified part of unspecified bronchus or lung (principal); J44.9 Chronic obstructive pulmonary disease, unspecified; I71.43 Infrarenal abdominal aortic aneurysm, without rupture; K57.30 Diverticulosis of large intestine without perforation or abscess without bleeding
CPT/HCPCS: 71250; 74150

== ENCOUNTER 2024-11-04 09:36 | Inpatient (IN) | payer MEDICARE ==
[2024-11-04] MEDS ORDERED: HEPARIN SODIUM 1,000 UN/ML (10ML VL) IV PRN (10:00)
--- NOTE | 2024-11-04 10:10 | ED ---
General Adult HPI - General Chief complaint: Extremity Problem,Nontraumatic Stated complaint: LEG PAIN Time Seen by Provider: 11/04/24 09:42 Source: patient, RN notes reviewed, old records reviewed Mode of arrival: ambulatory Limitations: no limitations - History of Present Illness Initial comments: 78-year-old male history of peripheral vascular disease and remote history of bypass presenting with pain and numbness to the right leg. Patient states this has been present for the past several days. He was seen at the vascular surgeons office today and was sent to the emergency department with bypass occlusion. Patient denies rest pain. He is currently on aspirin and Plavix. - Related Data Home Medications Medication Instructions Recorded Confirmed Acetaminophen [Tylenol Arthritis] 1,300 mg PO DAILY 03/26/18 08/30/23 Aspirin EC [Ecotrin Low Dose] 81 mg PO DAILY 03/26/18 08/30/23 Finasteride [Proscar] 5 mg PO DAILY 03/26/18 08/30/23 Clopidogrel [Plavix] 75 mg PO HS 01/13/20 08/30/23 Albuterol Inhaler [Ventolin Hfa 2 puff INHALATION RT-TID PRN 07/31/23 08/30/23 Inhaler] Esomeprazole Magnesium [NexIUM] 40 mg PO DAILY 08/30/23 08/30/23 Previous Rx's Medication Instructions Recorded Atorvastatin [Lipitor] 80 mg PO HS #30 tab 11/27/19 Cholecalciferol [Vitamin D3 (25 125 mcg PO DAILY tablet 12/27/20 Mcg = 1000 Iu)] Zinc Sulfate [Orazinc] 220 mg PO DAILY cap 12/27/20 Acetaminophen Tab [Tylenol] 650 mg PO Q4HR PRN tab 09/08/23 Allergies Allergy/AdvReac Type Severity Reaction Status Date / Time Iodinated Contrast Media AdvReac "Can't Verified 11/04/24 09:40 have d/t only 1 kidney" Review of Systems ROS Statement: Those systems with pertinent positive or pertinent negative responses have been documented in the HPI. ROS Other: All systems not noted in ROS Statement are negative. 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 covid 12/15/20. spot on lung Last Myocardial Infarction Date:: 11/25/2019 History of Any Multi-Drug Resistant Organisms: None Reported Past Surgical History: Appendectomy, Heart Catheterization With Stent Additional Past Surgical History / Comment(s): L fempop bypass, R femfem bypass, inguinal hernia repair (does not recall laterallity), bilateral cataract removal with lens implants. lobectomy (L) Past Anesthesia/Blood Transfusion Reactions: No Reported Reaction Date of Last Stent Placement:: 11/26/19 Past Psychological History: No Psychological Hx Reported Smoking Status: Current every day smoker Past Alcohol Use History: None Reported Past Drug Use History: None Reported - Past Family History Father Family Medical History: COPD, Myocardial Infarction ([place]) Additional Family Medical History / Comment(s): Father from a [place] at the age of 59yrs. Mother Family Medical History: Cancer Additional Family Medical History / Comment(s): Mother from stomach cancer when she was 58 or 59 yrs old. Brother(s) Family Medical History: Cancer Additional Family Medical History / Comment(s): 2 brothers Sister(s) Family Medical History: Cancer General Exam Limitations: no limitations General appearance: alert, in no apparent distress Head exam: Present: atraumatic, normocephalic Eye exam: Present: normal appearance, PERRL Respiratory exam: Present: normal lung sounds bilaterally, respiratory distress Cardiovascular Exam: Present: regular rate, normal rhythm GI/Abdominal exam: Present: soft. Absent: distended, tenderness Extremities exam: Present: other (No DP or PT pulse in the right the extremity is warm, delayed cap refill femoral pulse on the right is 2+.) Neurological exam: Present: alert, oriented X3, CN II-XII intact. Absent: motor sensory deficit Psychiatric exam: Present: normal affect, normal mood Skin exam: Present: warm, dry, intact Course Vital Signs 11/04/24 11/04/24 11/04/24 09:42 10:24 10:26 Temperature 97.9 F Pulse Rate 64 75 Respiratory 20 20 18 Rate Blood Pressure 153/77 150/84 O2 Sat by Pulse 96 96 Oximetry 11/04/24 11:00 Temperature Pulse Rate 67 Respiratory 20 Rate Blood Pressure 150/82 O2 Sat by Pulse 98 Oximetry - Reevaluation(s) Reevaluation #1: 11/04/24 10:[address] Walden who sent the patient in. Recommends high-dose heparin at this time CT angiography depending on patient's kidney function given history of 1 kidney. Medical Decision Making - Medical Decision Making Was pt. sent in by a medical professional or institution (SILVESTRE Mckay, EXERCISE MANAGER, urgent care, hospital, or senior living...) When possible be specific @ -No Did you speak to anyone other than the patient for history (EMS, parent, family, police, friend...)? What history was obtained from this source @ -No Did you review nursing and triage notes (agree or disagree)? Why? @ -I reviewed and agree with nursing and triage notes Were old charts reviewed (outside hosp., previous admission, EMS record, old EKG, old radiological studies, urgent care reports/EKG's, senior living records)? Report findings @ -No old charts were reviewed Differential Diagnosis :arterial occlusion, ischemic limb EKG interpreted by me (3pts min.). @ -Sinus rhythm rate of 63, right bundle branch block, QRS duration 170, QTc 434 X-rays interpreted by me (1pt min.). @ -None done CT interpreted by me (1pt min.). @ -None done U/S interpreted by me (1pt. min.). @ -None done What testing was considered but not performed or refused? (CT, X-rays, U/S, labs)? Why? @ -None What meds were considered but not given or refused? Why? @ -None Did you discuss the management of the patient with other professionals (professionals i.e. SILVESTRE Mckay, EXERCISE MANAGER, lab, RT, psych nurse, social security assessor, christmas tree farm worker, teacher, debt recovery officer, cyanide case hardener)? Give summary @ -[Admitted to Dr. Jansen who is aware with vascular surgery on consult Was smoking cessation discussed for >3mins.? @ -No Was critical care preformed (if so, how long)? @ -Yes, 35 minutes Were there social determinants of health that impacted care today? How? ( Homelessness, low income, unemployed, alcoholism, drug addiction, transportation, low edu. Level, literacy, decrease access to med. care, care home, rehab)? @ -No Was there de-escalation of care discussed even if they declined (Discuss DNR or withdrawal of care, Hospice)? DNR status @ -No What co-morbidities impacted this encounter? (DM, HTN, Smoking, COPD, CAD, Cancer, CVA, ARF, Chemo, Hep., AIDS, mental health diagnosis, sleep apnea, morbid obesity)? @ -[Peripheral vascular disease, chronic kidney disease Was patient admitted / discharged? Hospital course, mention meds given and route, prescriptions, significant lab abnormalities, going to OR and other pertinent info. @ -78-year-old male with 3-day history of right leg pain and numbness, occluded bypass graft sent from vascular surgery office with plan for intervention. Patient's foot is warm with delayed cap refill, femoral pulse present, patient had noted that he previously was able to see his pulse at the graft site medial aspect of the knee and this has been absent for the past several days. Patient denies pain at rest. Initial potassium was elevated but this was repeated and is 5.1. Patient admitted on high-dose heparin to primary care provider with vascular surgery on consult. Undiagnosed new problem with uncertain prognosis? @ -[No Drug Therapy requiring intensive monitoring for toxicity (Heparin, Nitro, Insulin, Cardizem)? @ -No Were any procedures done? @ -No Diagnosis/symptom? @Occluded bypass graft, ischemic leg Acute, or Chronic, or Acute on Chronic? @ -Acute Uncomplicated (without systemic symptoms) or Complicated (systemic symptoms)? @ -Default Side effects of treatment? @ -No Exacerbation, Progression, or Severe Exacerbation? @ -No Poses a threat to life or bodily function? How? (Chest pain, USA, ME, pneumonia, PE, COPD, DKA, ARF, appy, cholecystitis, CVA, Diverticulitis, Homicidal, Suicidal, threat to staff... and all critical care pts) @Yes, limb ischemia - Lab Data Result diagrams: 11/04/24 09:46 11/04/24 11:00 Lab Results 11/04/24 11/04/24 11/04/24 Range/Units 09:46 09:46 09:46 WBC 11.4 H (3.8-10.6) k/uL RBC 4.73 (4.30-5.90) m/uL Hgb 15.4 (13.0-17.5) gm/dL Hct 48.1 (39.0-53.0) % MCV 101.8 H (80.0-100.0) fL MCH 32.5 (25.0-35.0) pg MCHC 32.0 (31.0-37.0) g/dL RDW 14.9 (11.5-15.5) % Plt Count 260 (150-450) k/uL MPV 7.1 Neutrophils % 66 % Lymphocytes % 24 % Monocytes % 5 % Eosinophils % 3 % Basophils % 0 % Neutrophils # 7.5 (1.3-7.7) k/uL Lymphocytes # 2.7 (1.0-4.8) k/uL Monocytes # 0.6 (0-1.0) k/uL Eosinophils # 0.4 (0-0.7) k/uL Basophils # 0.0 (0-0.2) k/uL Macrocytosis Slight PT 10.5 (10.0-12.5) sec INR 0.9 (<1.2) APTT 25.4 (22.0-30.0) sec Sodium 142 (137-145) mmol/L Potassium 6.7 H* (3.5-5.1) mmol/L Chloride 103 (98-107) mmol/L Carbon Dioxide 30 (22-30) mmol/L Anion Gap 9 mmol/L BUN 26 H (9-20) mg/dL Creatinine 1.53 H (0.66-1.25) mg/dL Est GFR (CKD-EPI)AfAm 50 (>60 ml/min/1.73 sqM) Est GFR (CKD-EPI)NonAf 43 (>60 ml/min/1.73 sqM) Glucose 100 H (74-99) mg/dL Plasma Lactic Acid Hamilton (0.7-2.0) mmol/L Calcium 11.0 H (8.4-10.2) mg/dL Total Bilirubin 0.8 (0.2-1.3) mg/dL AST 22 (17-59) U/L ALT 17 (4-49) U/L Alkaline Phosphatase 119 (38-126) U/L Total Protein 7.1 (6.3-8.2) g/dL Albumin 4.3 (3.5-5.0) g/dL 11/04/24 Range/Units 09:46 WBC (3.8-10.6) k/uL RBC (4.30-5.90) m/uL Hgb (13.0-17.5) gm/dL Hct (39.0-53.0) % MCV (80.0-100.0) fL MCH (25.0-35.0) pg MCHC (31.0-37.0) g/dL RDW (11.5-15.5) % Plt Count (150-450) k/uL MPV Neutrophils % % Lymphocytes % % Monocytes % % Eosinophils % % Basophils % % Neutrophils # (1.3-7.7) k/uL Lymphocytes # (1.0-4.8) k/uL Monocytes # (0-1.0) k/uL Eosinophils # (0-0.7) k/uL Basophils # (0-0.2) k/uL Macrocytosis PT (10.0-12.5) sec INR (<1.2) APTT (22.0-30.0) sec Sodium (137-145) mmol/L Potassium (3.5-5.1) mmol/L Chloride (98-107) mmol/L Carbon Dioxide (22-30) mmol/L Anion Gap mmol/L BUN (9-20) mg/dL Creatinine (0.66-1.25) mg/dL Est GFR (CKD-EPI)AfAm (>60 ml/min/1.73 sqM) Est GFR (CKD-EPI)NonAf (>60 ml/min/1.73 sqM) Glucose (74-99) mg/dL Plasma Lactic Acid Hamilton 2.4 H* (0.7-2.0) mmol/L Calcium (8.4-10.2) mg/dL Total Bilirubin (0.2-1.3) mg/dL AST (17-59) U/L ALT (4-49) U/L Alkaline Phosphatase (38-126) U/L Total Protein (6.3-8.2) g/dL Albumin (3.5-5.0) g/dL Critical Care Time Critical Care Time: Yes Disposition Clinical Impression: Renal insufficiency, Peripheral vascular disease, Occlusion of bypass graft Disposition: ADMITTED IP TO THIS HOSP Condition: Stable Is patient prescribed a controlled substance at d/c from ED?: No Time of Disposition: 11:38
[2024-11-04] MEDS: SODIUM CHLORIDE 0.9% 1,000 ML IV ONE (10:14)
[2024-11-04] MEDS: HEPARIN SOD,PORK IN 0.45% NACL 25,000 UNIT in 0.45% NACL 1 250ML.BAG IV SCH ×2 (10:15→20:21)
[2024-11-04] MEDS: HEPARIN SODIUM 1,000 UN/ML (10ML VL) IV ONE (10:19)
[2024-11-04 10:26] LABS: Basophils % (A) 0 %; Eosinophils # (A) 0.4 k/uL (0-0.7); Eosinophils % (A) 3 %; HCT 48.1 % (39.0-53.0); HGB 15.4 gm/dL (13.0-17.5); Lymphocytes # (A) 2.7 k/uL (1.0-4.8); Lymphocytes % (A) 24 %; MCH 32.5 pg (25.0-35.0); MCV 101.8 fL (80.0-100.0); Macrocytosis Slight; Mean Platelet Volume 7.1; Monocytes # (A) 0.6 k/uL (0-1.0); Monocytes % (A) 5 %; Neutrophils # (A) 7.5 k/uL (1.3-7.7); Neutrophils % (A) 66 %; Platelet Count 260 k/uL (150-450); RBC 4.73 m/uL (4.30-5.90); RDW 14.9 % (11.5-15.5); WBC 11.4 k/uL (3.8-10.6)
[2024-11-04 10:38] LABS: ALT 17 U/L (4-49); AST 22 U/L (17-59); African American GFR (CKD) 50 (>60 ml/min/1.73 sqM); Albumin 4.3 g/dL (3.5-5.0); Alkaline Phosphatase 119 U/L (38-126); Anion Gap 9 mmol/L; Blood Urea Nitrogen 26 mg/dL (9-20); Carbon Dioxide 30 mmol/L (22-30); Chloride 103 mmol/L (98-107); Glucose 100 mg/dL (74-99); Non-African American GFR(CKD) 43 (>60 ml/min/1.73 sqM); Sodium 142 mmol/L (137-145); Total Bilirubin 0.8 mg/dL (0.2-1.3); Total Protein 7.1 g/dL (6.3-8.2)
[2024-11-04 10:41] LABS: INR 0.9 (<1.2); Partial Thromboplastin Time 25.4 sec (22.0-30.0); Prothrombin Time 10.5 sec (10.0-12.5)
[2024-11-04 10:49] LABS: Potassium 6.7 mmol/L (3.5-5.1)
[2024-11-04] MEDS ORDERED: NALOXONE 0.4 MG/ML 1 ML VIAL IV PRN (10:50)
[2024-11-04] MEDS: SODIUM CHLORIDE 0.9% 1,000 ML IV SCH (10:58)
[2024-11-04 11:30] LABS: African American GFR (CKD) 54 (>60 ml/min/1.73 sqM); Anion Gap 3 mmol/L; Blood Urea Nitrogen 25 mg/dL (9-20); Calcium 10.2 mg/dL (8.4-10.2); Carbon Dioxide 31 mmol/L (22-30); Chloride 105 mmol/L (98-107); Glucose 91 mg/dL (74-99); Non-African American GFR(CKD) 47 (>60 ml/min/1.73 sqM); Potassium 5.1 mmol/L (3.5-5.1); Sodium 139 mmol/L (137-145)
--- NOTE | 2024-11-04 12:39 | P.CRDCN ---
History of Present Illness Consult date: 11/04/24 Reason for Consult (text): CAD, cardiac clearance for right lower extremity vascularization History of present illness: This is a 78-year-old male patient of Dr. CHEN Jackson with a past medical history of coronary artery disease status post PCI of the RCA and circumflex in the setting of an anterior AK, hypertension, hyperlipidemia, COPD, lung cancer status post left lung resection followed by Dr. Prince, chronic PAD followed by Dr. Walden, chronic tobacco use and dependence. We have been asked to evaluate the patient for CAD and cardiac clearance for right lower extremity vascularization. Patient has history of right femorofemoral bypass and left femoropopliteal bypass. Patient states that he started feeling numbness in his right leg and soreness over the weekend. He denies any cold sensation. He came in to [facility] urgency center for evaluation. Patient was found to have occluded bypass on the right lower extremity and vascular saw the patient with recommendations for angiogram and right lower extremity vascularization which is scheduled for later today. Patient denies having any chest pain, chest pressure or tightness. He is able to walk a flight of stairs or over to his daughter's house with no significant shortness of breath. Patient is seen today in the emergency center waiting for bed on the cardiac stepdown unit. Blood pressure 150/82, heart rate 67, pulse ox 98% on room air. Patient has been started on heparin drip and IV fluids. -EKG: Sinus rhythm with sinus arrhythmia, right bundle branch block, 63 bpm -Laboratory studies: WBC 11.4, hemoglobin 15.4. Sodium 139. Initial potassium 6.7 followed by 5.1, BUN 25 initial creatinine 1.53 and now 1.44. Lactic acid 2.4. -Home cardiac medications: Aspirin 81 mg daily, atorvastatin 80 mg daily, losartan 50 mg daily, Plavix 75 mg daily. -Echocardiogram performed in the office 06/16/2024 revealed EF of 45%, small hypokinetic area of the inferior wall at the base to mid wall. Inferior lateral wall at the base and inferior septal wall at the base, mild MR, mild to moderate TR, IR VSP 43, LV chamber heavily trabeculated. -Cardiac catheterization performed 11/25/2019 revealed 99% stenosis of the RCA with thrombus. PTCA and stenting of the RCA with 3 LEONARD. Left circumflex was marginally disease stable but significant. -PCI of the circumflex with LEONARD. Moderate disease in the LAD. No intervention needed. -Lexiscan Cardiolite stress test performed in the office on 08/23/2023 revealed EF of 45%. Moderately sized moderate to severe intensity fixed defect with hypokinesis to involve the inferior wall. Old AK but no significant ischemia. Review Of Systems: At the time of my exam: CONSTITUTIONAL: Denies fever or chills. HEENT: Denies blurred vision, vision changes, or eye pain. Denies hemoptysis CARDIOVASCULAR: Denies chest pain. Denies orthopnea. Denies PND. Denies palpitations RESPIRATORY: Denies shortness of breath. GASTROINTESTINAL: Denies abdominal pain. Denies nausea or vomiting. HEMATOLOGIC: Denies bleeding disorders. GENITOURINARY: Denies any blood in urine. SKIN: Denies puritis. Denies rash. Physical examination: Gen: This is a 78-year-old male in no acute distress. VS: reviewed HEENT: Head is atraumatic, normocephalic. Pupils equal, round. Sclerae is anicteric. NECK: Supple. No JVD. LUNGS: Clear to auscultation. No wheezes or rhonchi. No intercostal retractions. HEART: Regular rate and rhythm. No murmur. ABDOMEN: Soft No tenderness. EXTREMITIES: No pedal edema. No calf tenderness. NEUROLOGICAL: Patient is awake, alert and oriented x3. Assessment: Occlusion of bypass graft Acute kidney injury Hyperkalemia, resolved lactic acidosis Coronary artery disease with previous PCI of the RCA and circumflex Hypertension Hyperlipidemia COPD Lung cancer status post left lung resection Chronic PAD Plan: Resume patient's home cardiac medications Patient is at moderate risk for perioperative cardiovascular complications for low risk procedure. No absolute contraindications. Further recommendations to follow based upon clinical course Thank you kindly for this consultation. Nurse practitioner note has been reviewed, I agree with documented findings and plan of care. Patient was seen and examined. 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 covid 12/15/20. spot on lung Last Myocardial Infarction Date:: 11/25/2019 History of Any Multi-Drug Resistant Organisms: None Reported Past Surgical History: Appendectomy, Heart Catheterization With Stent Additional Past Surgical History / Comment(s): L fempop bypass, R femfem bypass, inguinal hernia repair (does not recall laterallity), bilateral cataract removal with lens implants. lobectomy (L) Past Anesthesia/Blood Transfusion Reactions: No Reported Reaction Date of Last Stent Placement:: 11/26/19 Past Psychological History: No Psychological Hx Reported Smoking Status: Current every day smoker Past Alcohol Use History: None Reported Past Drug Use History: None Reported - Past Family History Father Family Medical History: COPD, Myocardial Infarction ([place]) Additional Family Medical History / Comment(s): Father from a AK at the age of 59yrs. Mother Family Medical History: Cancer Additional Family Medical History / Comment(s): Mother from stomach cancer when she was 58 or 59 yrs old. Brother(s) Family Medical History: Cancer Additional Family Medical History / Comment(s): 2 brothers Sister(s) Family Medical History: Cancer Medications and Allergies Allergies Allergy/AdvReac Type Severity Reaction Status Date / Time Iodinated Contrast Media AdvReac "Can't Verified 11/04/24 09:40 have d/t only 1 kidney" Physical Exam Vitals: Vital Signs Temp Pulse Resp BP Pulse Ox 11/04/24 11:00 67 20 150/82 98 11/04/24 10:26 18 11/04/24 10:24 75 20 150/84 96 11/04/24 09:42 97.9 F 64 20 153/77 96 Intake and Output 11/03/24 11/04/24 11/04/24 22:59 06:59 14:59 Other: Weight 107.048 kg Results 11/04/24 09:46 11/04/24 11:00 Cardiac Enzymes 11/04/24 Range/Units 09:46 AST 22 (17-59) U/L Coagulation 11/04/24 Range/Units 09:46 PT 10.5 (10.0-12.5) sec APTT 25.4 (22.0-30.0) sec CBC 11/04/24 Range/Units 09:46 WBC 11.4 H (3.8-10.6) k/uL RBC 4.73 (4.30-5.90) m/uL Hgb 15.4 (13.0-17.5) gm/dL Hct 48.1 (39.0-53.0) % Plt Count 260 (150-450) k/uL Comprehensive Metabolic Panel 11/04/24 11/04/24 Range/Units 09:46 11:00 Sodium 142 139 (137-145) mmol/L Potassium 6.7 H* 5.1 (3.5-5.1) mmol/L Chloride 103 105 (98-107) mmol/L Carbon Dioxide 30 31 H (22-30) mmol/L BUN 26 H 25 H (9-20) mg/dL Creatinine 1.53 H 1.44 H (0.66-1.25) mg/dL Glucose 100 H 91 (74-99) mg/dL Calcium 11.0 H 10.2 (8.4-10.2) mg/dL AST 22 (17-59) U/L ALT 17 (4-49) U/L Alkaline Phosphatase 119 (38-126) U/L Total Protein 7.1 (6.3-8.2) g/dL Albumin 4.3 (3.5-5.0) g/dL Current Medications Generic Name Dose Route Start Last Admin Trade Name Freq PRN Reason Stop Dose Admin Heparin Sodium (Porcine) 0 unit 11/04/24 10:00 Heparin Sodium 1,000 Un/Ml (10ml Vl) IV PER PROTOCOL PRN Low PTT Protocol Heparin Sodium/Sodium Chloride 250 mls @ 19.269 mls/hr 11/04/24 10:00 11/04/24 10:15 25,000 unit/ Sodium Chloride IV 18 units/kg/hr .[id number] DAVID 19.269 mls/hr Administration Protocol 18 UNITS/KG/HR Sodium Chloride 1,000 mls @ 100 mls/hr 11/04/24 11:00 11/04/24 10:58 Saline 0.9% IV 100 mls/hr .Q10H DAVID Administration Naloxone HCl 0.2 mg 11/04/24 10:50 Naloxone 0.4 Mg/Ml 1 Ml Vial IV Q2M PRN Opioid Reversal Intake and Output 11/03/24 11/04/24 11/04/24 22:59 06:59 14:59 Other: Weight 107.048 kg Patient Weight 11/05/24 06:59 Weight 107.048 kg 11/04/24 09:46 11/04/24 11:00
[2024-11-04] MEDS: LOSARTAN 50 MG TAB PO SCH (12:59)
--- NOTE | 2024-11-04 13:06 | P.GSCN ---
History of Present Illness Consult date: 11/04/24 Reason for Consult: Occluded bypass Requesting physician: Stephane Alvarez History of present illness: This is a pleasant 78-year-old male who was sent in to the emergency department for further evaluation for right lower extremity pain. He started having pain to his right lower extremity that started this weekend. He was seen in the vascular surgical office today and underwent arterial duplex with finding of bypass graft occlusion. He has a history of peripheral arterial disease with bilateral femoropopliteal bypass in 2007 which were done with Dr. Jamal fox. He also has a history of coronary artery disease with cardiac stents. He follows with Dr. Roman. He has long history of smoking, still currently smoking half pack a day. He is on aspirin 81 mg daily and Plavix 75 mg daily. States he is compliant with his medications. He has a history of being born with 1 kidney. He states most of his pain is in his upper leg the distal aspect of his thigh and near his knee. Denies any pain in his calf or foot. Currently denies any shortness of breath, chest pain, abdominal pain, nausea or vomiting. Review of Systems A 14 point review systems was completed all pertinent positives and negatives as stated in the HPI. 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 covid 12/15/20. spot on lung Last Myocardial Infarction Date:: 11/25/2019 History of Any Multi-Drug Resistant Organisms: None Reported Past Surgical History: Appendectomy, Heart Catheterization With Stent Additional Past Surgical History / Comment(s): L fempop bypass, R femfem bypass, inguinal hernia repair (does not recall laterallity), bilateral cataract removal with lens implants. lobectomy (L) Past Anesthesia/Blood Transfusion Reactions: No Reported Reaction Date of Last Stent Placement:: 11/26/19 Past Psychological History: No Psychological Hx Reported Smoking Status: Current every day smoker Past Alcohol Use History: None Reported Past Drug Use History: None Reported - Past Family History Father Family Medical History: COPD, Myocardial Infarction ([place]) Additional Family Medical History / Comment(s): Father from a [place] at the age of 59yrs. Mother Family Medical History: Cancer Additional Family Medical History / Comment(s): Mother from stomach cancer when she was 58 or 59 yrs old. Brother(s) Family Medical History: Cancer Additional Family Medical History / Comment(s): 2 brothers Sister(s) Family Medical History: Cancer Medications and Allergies Allergies Allergy/AdvReac Type Severity Reaction Status Date / Time Iodinated Contrast Media AdvReac "Can't Verified 11/04/24 09:40 have d/t only 1 kidney" Surgical - Exam Vital Signs Temp Pulse Resp BP Pulse Ox 97.9 F 64 20 153/77 96 11/04/24 09:42 11/04/24 09:42 11/04/24 09:42 11/04/24 09:42 11/04/24 09:42 General appearance: The patient is alert, oriented, appears in no acute distress. HET: Head is normocephalic and atraumatic. Pupils are equal and reactive. Neck: Supple. Heart: Regular. Lungs: Equal expansion, normal respiratory effort. Abdomen: Soft, nontender, nondistended. Extremities: Normal skin color and turgor. Varicosities left lower extremity. Lower extremities warm to the touch, right foot slightly cooler. Palpable femoral pulse. Nonpalpable PT or DP pulse. Sensorimotor intact with good range of motion. Neurological: Alert and oriented. Sensorimotor intact. Results - Labs 11/04/24 09:46 11/04/24 11:00 Abnormal Lab Results - Last 24 Hours (Table) 11/04/24 Range/Units 09:46 WBC 11.4 H (3.8-10.6) k/uL MCV 101.8 H (80.0-100.0) fL Assessment and Plan Assessment: 1. Acute right lower extremity ischemia 2. Right femoropopliteal bypass occlusion 3. History of peripheral arterial disease with previous bilateral femoral-popliteal bypass graft 4. Coronary artery disease status post stenting 5. Current daily smoker Plan: 1. Keep n.p.o. 2. Heparin infusion ordered 3. CBC, CMP, type and screen ordered 4. Patient scheduled for right lower extremity angiogram this afternoon. With further recommendations forthcoming 5. Consult cardiology for cardiac clearance for possible revascularization 6. Rest of medical management per primary medical team Thank you for this consultation, we will continue to follow. The impression and plan of care has been dictated as directed. Dr. Walden I performed a history and examination of this patient, discussed the same with the dictator. I agree with the dictator's note ,documented as a scribe. Any additional findings or plans will be noted.
[2024-11-04] MEDS: MIDAZOLAM 2 MG/2 ML VIAL IVP ONE (15:30)
[2024-11-04] MEDS: LIDOCAINE 1% INJ 10MG/ML (30 ML VIAL-PF) SQ ONE (15:31)
[2024-11-04] MEDS: IOPAMIDOL-300 100ML BTL INJ ONE (16:37)
--- NOTE | 2024-11-04 16:37 | P.OP ---
Date of Procedure: 11/04/24 Description of Procedure: Preoperative diagnosis: Acute occlusion of the right femoral-popliteal bypass, critical limb ischemia Postop diagnosis: Same Procedure: Aortogram with right lower extremity runoffs via left common femoral artery access under ultrasound guidance Selective right lower extremity tibial angiogram third order Placement of thrombolytic catheter at the femoral-tibial bypass Initiation of thrombolysis Surgeon: Win Anesthesia: Moderate sedation times 47 minutes Estimated blood loss: 5 cc Complications: None Condition: Stable Findings: Aorta: Patent, slightly ectatic Iliacs: Bilateral common, internal and external iliac arteries are patent without any significant thrombus or stenosis Femorals: Bilateral common, profundus femoris arteries are patent without any significant stenosis. Superficial femoral artery on the right is patent to the Brandt's canal where it is occluded as well as the bypass that takes off at the Brandt's canal appears to be occluded. Left femoral-popliteal bypass appears patent at the takeoff. Popliteal: Right popliteal artery is occluded Tibials: Reconstitution noted at the right anterior tibial and tibioperoneal trunk via collateralization. Operative narrative: After written informed consent was obtained the patient all risks benefits competitions were described the patient is brought to the Deli [facility] and laid in a supine position. The area of the left groin was prepped and draped in the usual sterile fashion. Local anesthesia with moderate sedation was performed with continuous pulse ox monitoring and EKG monitoring. Utilizing ultrasound the femoral artery above the bypass was visualized and shown to be patent without any significant plaque. Utilizing a multipurpose needle under ultrasound guidance the artery was accessed. Guidewire was placed followed by 5 Serbian sheath. 035 Glidewire was then placed into the aorta followed by RBI catheter. Angiogram was then obtained of the aorta. Catheter was then placed at the right common iliac artery and right lower extremity runoffs were obtained. Occlusion was noted at the distal SFA at the bypass and reconstitution noted below the knee at the anterior tibial artery. Due to this a Glidewire advantage was placed and an up and over sheath 55 cm was placed. Utilizing the 035 Glidewire advantage and quick cross catheter the existing in situ bypass was entered and crossed into the tibioperoneal trunk. Distal angiogram was obtained demonstrating good intraluminal access. Wire was then placed distally followed by a 40 cm thrombolytic catheter which was placed across the lesion. The sheath was then sutured in place and thrombolysis was initiated through the infusion catheter. Patient tolerated procedure well was sent to ICU for continued infusion and recovery.
[2024-11-04] MEDS ORDERED: ONDANSETRON 4 MG/2 ML VIAL IVP PRN (16:38)
--- NOTE | 2024-11-04 16:54 | IR ---
EXAMINATION TYPE: IR angio abdominal w runoff Intraoperative/procedural fluoroscopic services were pr ovided. CLINICAL INDICATION:Male, 78 years old with history of Leg pain, 13.9m/67DAP, Lt gr sheath sutured in and TPA infus; , [facility] FINDINGS: Total fluoroscopy time is 13.9 min. DAP: 67.0 Gycm2 Please see the operative/procedural note for further details. [facility], , 11/04/2024 4:51 PM
[2024-11-04] MEDS: ALTEPLASE 10 MG in SODIUM CHLORIDE 0.9% 90 ML IA ONE (17:04)
[2024-11-04 17:11] LABS: Glucose,Whole Blood 96 mg/dL (70-110)
[2024-11-04 17:19] LABS: Basophils # (A) 0.1 k/uL (0-0.2); Basophils % (A) 1 %; Eosinophils # (A) 0.4 k/uL (0-0.7); Eosinophils % (A) 4 %; Hypochromasia Moderate; Lymphocytes # (A) 3.4 k/uL (1.0-4.8); Lymphocytes % (A) 33 %; MCH 31.3 pg (25.0-35.0); MCHC 30.4 g/dL (31.0-37.0); MCV 102.7 fL (80.0-100.0); Macrocytosis Slight; Mean Platelet Volume 6.7; Monocytes # (A) 0.5 k/uL (0-1.0); Monocytes % (A) 5 %; Neutrophils # (A) 5.7 k/uL (1.3-7.7); Neutrophils % (A) 55 %; Platelet Count 249 k/uL (150-450); RBC 4.48 m/uL (4.30-5.90); RDW 14.4 % (11.5-15.5); WBC 10.4 k/uL (3.8-10.6)
[2024-11-04] MEDS: HYDROcodone/APAP 7.5-325MG 1 EACH TAB PO PRN (17:51)
[2024-11-04] MEDS ORDERED: ALBUTEROL NEBULIZED 2.5 MG/3 ML INHALATION PRN (19:44)
[2024-11-04] MEDS: ATORVASTATIN 80 MG TAB PO SCH (20:20)
[2024-11-04] MEDS: SYMBICORT 160-4.5 MCG INHALER INHALATION SCH (20:28)
[2024-11-04] MEDS ORDERED: ATORVASTATIN 80 MG TAB PO SCH (21:00)
[2024-11-04] MEDS: ALTEPLASE 10 MG in SODIUM CHLORIDE 0.9% 90 ML IA SCH (23:00)
[2024-11-05 02:10] LABS: Basophils % (A) 0 %; Eosinophils # (A) 0.3 k/uL (0-0.7); Eosinophils % (A) 3 %; HCT 43.4 % (39.0-53.0); HGB 13.7 gm/dL (13.0-17.5); Hypochromasia Slight; Lymphocytes # (A) 2.5 k/uL (1.0-4.8); Lymphocytes % (A) 26 %; MCH 32.2 pg (25.0-35.0); MCHC 31.5 g/dL (31.0-37.0); MCV 102.4 fL (80.0-100.0); Macrocytosis Slight; Mean Platelet Volume 7.4; Monocytes # (A) 0.8 k/uL (0-1.0); Monocytes % (A) 8 %; Neutrophils % (A) 61 %; Platelet Count 213 k/uL (150-450); RBC 4.24 m/uL (4.30-5.90); RDW 14.4 % (11.5-15.5); WBC 9.8 k/uL (3.8-10.6)
[2024-11-05 02:19] LABS: African American GFR (CKD) 65 (>60 ml/min/1.73 sqM); Blood Urea Nitrogen 21 mg/dL (9-20); Non-African American GFR(CKD) 56 (>60 ml/min/1.73 sqM)
[2024-11-05 05:59] LABS: Basophils % (A) 0 %; Eosinophils # (A) 0.3 k/uL (0-0.7); Eosinophils % (A) 4 %; HCT 44.7 % (39.0-53.0); Hypochromasia Slight; Lymphocytes # (A) 2.4 k/uL (1.0-4.8); Lymphocytes % (A) 28 %; MCH 31.8 pg (25.0-35.0); MCHC 31.4 g/dL (31.0-37.0); MCV 101.4 fL (80.0-100.0); Macrocytosis Slight; Mean Platelet Volume 6.8; Monocytes # (A) 0.5 k/uL (0-1.0); Monocytes % (A) 6 %; Neutrophils # (A) 5.4 k/uL (1.3-7.7); Neutrophils % (A) 61 %; Platelet Count 231 k/uL (150-450); RBC 4.41 m/uL (4.30-5.90); RDW 14.3 % (11.5-15.5); WBC 8.8 k/uL (3.8-10.6)
[2024-11-05 06:15] LABS: ALT 13 U/L (4-49); AST 16 U/L (17-59); African American GFR (CKD) 62 (>60 ml/min/1.73 sqM); Albumin 3.2 g/dL (3.5-5.0); Alkaline Phosphatase 102 U/L (38-126); Anion Gap 3 mmol/L; Blood Urea Nitrogen 18 mg/dL (9-20); Calcium 9.8 mg/dL (8.4-10.2); Carbon Dioxide 27 mmol/L (22-30); Chloride 106 mmol/L (98-107); Glucose 86 mg/dL (74-99); Magnesium 1.8 mg/dL (1.6-2.3); Non-African American GFR(CKD) 54 (>60 ml/min/1.73 sqM); Potassium 4.5 mmol/L (3.5-5.1); Sodium 136 mmol/L (137-145); Total Bilirubin 0.7 mg/dL (0.2-1.3); Total Protein 5.8 g/dL (6.3-8.2)
[2024-11-05] MEDS ORDERED: Magnesium Replacement Protocol 1 EACH MISC MISCELLANE PRN (06:17)
[2024-11-05] MEDS: MAGNESIUM SULFATE-D5W PMX 1 GM in DEXTROSE/WATER 1 100ML.BAG IVPB ONE (06:20)
[2024-11-05] MEDS: TIOTROPIUM 2.5 MCG INHALER INHALATION SCH (08:17)
[2024-11-05] MEDS: ZINC SULFATE 220 MG CAP PO SCH (08:37)
[2024-11-05] MEDS: ASPIRIN 81 MG PO SCH (08:37)
[2024-11-05] MEDS: PANTOPRAZOLE 40 MG TABLET PO SCH (08:37)
[2024-11-05] MEDS: FINASTERIDE 5 MG TAB PO SCH (08:37)
[2024-11-05] MEDS: CHOLECALCIFEROL 25 MCG (1000 IU) TABLET PO SCH (08:37)
[2024-11-05] MEDS: ACETAMINOPHEN TAB 325 MG TAB PO PRN (12:17)
--- NOTE | 2024-11-05 13:07 | P.HPIM ---
History of Present Illness H&P Date: 11/04/24 Chief Complaint: Right lower extremity pain HISTORY OF PRESENT ILLNESS: This is a 78-year-old white male with a previous medical history significant for coronary artery disease status post non-ST elevation ID with poor continue his current intervention of the RCA back in November 2019, hypertension and hypertensive cardio vascular disease, hyperlipidemia, peripheral arterial disease status post left femoral popliteal bypass and right femoral-femoral bypass surgery, chronic tobacco use and dependence, history of cluster headache, history of GERD, history of peptic ulcer disease, patient presented to the hospital with increased pain in the right lower extremity, he had a CT angiogram that showed evidence of acute occlusion of the right femoral-popliteal bypass patient was taken to the OR underwent aortogram with right lower extremity ru noff with selective right lower extremity angiogram with placement of thrombolytic catheter and initiation of thrombolysis patient was admitted to the ICU has been seen in consultation by vascular surgery as well as by cardiology. Review of systems: Constitutional: fever, chills, no night sweats. No weight change. positive for weakness, fatigue no lethargy. No daytime sleepiness. HEENT: Positive for headache. No blurred vision or double vision, no loss of vision. No loss of Hearing, no ringing in the ears, no dizziness. No nasal drainage or congestion. No epistaxis. No sore throat. Respiratory :positive for shortness of breath, positive for cough, minimal sputum production. Reports wheezing. Cardiovascular: Reported chest pain, no lower extremity edema. Reported palpitations. No paroxysmal nocturnal dyspnea. No orthopnea. No lightheadedness or dizziness. No syncopal episodes. Gastrointestinal: No abdominal pain. No nausea, vomiting. No diarrhea. No constipation. No bloody or tarry stools.. No loss of appetite. Genitourinary: No dysuria, increased frequency, urgency. No urinary retention. Musculoskeletal: No myalgias. No muscle weakness, no gait dysfunction, no frequent falls. No back pain. No neck pain, right leg pain Integumentary: No wounds, no lesions. No rash or pruritus. No unusual bruising. No change in hair or nails. Neurologic: No aphasia. No facial droop. No change in mentation. No head injury. No headache. No paralysis. No paresthesia. Psychiatric: No depression. No anxiety. No mood swings. Endocrine: No abnormal blood sugars. No weight change. No excessive sweating or thirst. No cold intolerance. Past medical history: 1. CAD post-PCI of the RCA. 2. Hypertension and hypertensive cardiovascular disease per 3. Hyperlipidemia 4. PAD post right fem-fem bypass and left fem-pop bypass 5. GERD with peptic ulcer disease . 6. Chronic tobacco use and dependence . 7. Cluster headache. 8. 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 Osteoarthritis. 10. Enlarged prostate 11. Covid 19 diagnosis 12/15/2020 Past surgical history : 1. Left heart catheterization and PCI of the RCA with 3 stents. 2. Right fem-fem bypass. 3. Left thumb pop bypass 4. Appendectomy. 5. Inguinal hernia repair . 6. Bilateral cataract surgery Social history: . Patient smokes about a pack every day he has been smoking since he was a teenager. He denies any alcohol ingestion, he denies any drug use or abuse, he lives with his . Family history: Mother at age of 58 from stomach cancer, father at age of 59 from myocardial infarction also had a COPD. Physical examination: Gen: This is a 78-year-old male Patient is resting in bed in no distress HEENT: Head is atraumatic, normocephalic. Pupils equal, round reactive to light and recommendation, extraocular muscle movement were intact, sclera nonicteric, conjunctivae were slightly pale, mucous membranes of the mouth are somewhat dry. NECK: Supple. No JVD. No lymphadenopathy. No thyromegaly. LUNGS: decreased breath sounds at the bases, few rhonchi, no expiratory wheezes, no intercostal retractions. No chest wall tenderness. HEART: First heart sound is depressed, second heart sound is normal, there is a 2/6 systolic ejection murmur at the left sternal border. ABDOMEN: Soft nontender, nondistended, positive bowel sounds. Extremities negative. EXTREMITIES: No pedal edema. No calf tenderness. Dorsalis pedis +1 bilaterally. NEUROLOGICAL: Patient is awake, alert and oriented x3. Cranial nerves 2 through 12 are grossly intact, muscle power 4 out of 5 in upper and lower extremities bilaterally. Assessment and plan: 1. Acute occlusion of the right femoral-popliteal bypass with critical limb ischemia status post angiogram with thrombolytic catheter placement and throm bolytics treatment. That was done successfully by Dr. Walden patient is being monitored in the intensive care unit at this point in time, will be kept overnight, hopefully he will be discharged home in the next 24 hours. 2. History of CAD post-the PCI of the RCA. Continue patient on aspirin 81 mg once every day, continue atorvastatin 80 mg once every day, patient was already seen by cardiology. 3. History of hyperlipidemia. Continue with atorvastatin 80 mg once every day. Keep LDL cholesterol 55-70. 4. History of PAD. Status post right fem-fem bypass and left femoral pop bypass currently occluded status post thrombolysis continue treatment plan as in 1 5. Chronic tobacco use and dependence. Start the patient on nicotine patch 21 mg once every day. 6. History of GERD and peptic ulcer disease. Start the patient on Protonix 40 mg orally once every day. 7. Enlarged prostate. Monitor for urinary retention. 8. History of cluster headache. Stable at this time 9. History of spondylosis of the lumbar spine with chronic low back pain. Stable. 10. History of obesity diet and exercise and weight loss. 11. History of osteoarthritis. Continue Tylenol as needed along with hydrocodone. 11. DVT prophylaxis. Patient is currently on heparin drip. 12. GI prophylaxis. Continue Protonix 40 mg orally once every day. 13. Admit to inpatient. Estimated length of stay 2 midnights. 14. 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 covid 12/15/20. spot on lung Last Myocardial Infarction Date:: 11/25/2019 History of Any Multi-Drug Resistant Organisms: None Reported Past Surgical History: Appendectomy, Heart Catheterization With Stent Additional Past Surgical History / Comment(s): L fempop bypass, R femfem bypass, inguinal hernia repair (does not recall laterallity), bilateral cataract removal with lens implants. lobectomy (L) Past Anesthesia/Blood Transfusion Reactions: No Reported Reaction Date of Last Stent Placement:: 11/26/19 Smoking Status: Current every day smoker - Past Family History Father Family Medical History: COPD, Myocardial Infarction (ID) Additional Family Medical History / Comment(s): Father from a ID at the age of 59yrs. Mother Family Medical History: Cancer Additional Family Medical History / Comment(s): Mother from stomach cancer when she was 58 or 59 yrs old. Brother(s) Family Medical History: Cancer Additional Family Medical History / Comment(s): 2 brothers Sister(s) Family Medical History: Cancer Medications and Allergies Home Medications Medication Instructions Recorded Confirmed Type Albuterol Sulfate [Albuterol 1 puff PO RT-Q6H PRN 11/04/24 11/04/24 History Sulfate Hfa] Ascorbic Acid [Vitamin C] 500 mg PO DAILY 11/04/24 11/04/24 History Aspirin EC [Ecotrin Low Dose] 81 mg PO DAILY 11/04/24 11/04/24 History Atorvastatin [Lipitor] 80 mg PO HS 11/04/24 11/04/24 History Budesonide/Glycopyr/Formoterol 2 puff INHALATION RT-BID 11/04/24 11/04/24 History [Breztri Aerosphere Inhaler] Cholecalciferol [Vitamin D3 (25 25 mcg PO DAILY 11/04/24 11/04/24 History Mcg = 1000 Iu)] Clopidogrel [Plavix] 75 mg PO HS 11/04/24 11/04/24 History Esomeprazole Magnesium [NexIUM] 20 mg PO DAILY 11/04/24 11/04/24 History Finasteride [Proscar] 5 mg PO DAILY 11/04/24 11/04/24 History Zinc Sulfate [Orazinc] 220 mg PO DAILY 11/04/24 11/04/24 History Allergies Allergy/AdvReac Type Severity Reaction Status Date / Time Iodinated Contrast Media AdvReac "Can't Verified 11/04/24 14:06 have d/t only 1 kidney" Physical Exam Vitals: Vital Signs Temp Pulse Resp BP Pulse Ox 11/04/24 14:00 18 11/04/24 13:25 59 L 18 129/90 96 11/04/24 12:09 60 18 140/93 97 11/04/24 11:00 67 20 150/82 98 11/04/24 10:26 18 11/04/24 10:24 75 20 150/84 96 11/04/24 09:42 97.9 F 64 20 153/77 96 Intake and Output 11/04/24 11/04/24 11/04/24 06:59 14:59 22:59 Intake Total 347.087 Balance 347.087 Intake: IV 200 Sodium Chloride 0.9% 1, 200 000 ml @ 100 mls/hr IV . Q10H [facility] Rx#:[id number] Intake, IV Titration 147.087 Amount Heparin Sod,Pork in 0.45% 147.087 NaCl 25,000 unit In 0.45 % NaCl 1 250ml.bag @ 18 UNITS/KG/HR 19.269 mls/hr IV .[id number] [facility] Rx#: [id number] Other: Voiding Method Urinal Weight 107.048 kg 107.1 kg Results CBC & Chem 7: 11/05/24 05:47 11/05/24 05:47 Labs: Abnormal Lab Results - Last 24 Hours (Table) 11/04/24 11/04/24 11/04/24 Range/Units 09:46 09:46 09:46 WBC 11.4 H (3.8-10.6) k/uL MCV 101.8 H (80.0-100.0) fL MCHC (31.0-37.0) g/dL APTT (22.0-30.0) sec Potassium 6.7 H* (3.5-5.1) mmol/L Carbon Dioxide (22-30) mmol/L BUN 26 H (9-20) mg/dL Creatinine 1.53 H (0.66-1.25) mg/dL Glucose 100 H (74-99) mg/dL Plasma Lactic Acid Hamilton 2.4 H* (0.7-2.0) mmol/L Calcium 11.0 H (8.4-10.2) mg/dL 11/04/24 11/04/24 11/04/24 Range/Units 11:00 16:57 16:57 WBC (3.8-10.6) k/uL MCV 102.7 H (80.0-100.0) fL MCHC 30.4 L (31.0-37.0) g/dL APTT 75.8 H (22.0-30.0) sec Potassium (3.5-5.1) mmol/L Carbon Dioxide 31 H (22-30) mmol/L BUN 25 H (9-20) mg/dL Creatinine 1.44 H (0.66-1.25) mg/dL Glucose (74-99) mg/dL Plasma Lactic Acid Hamilton (0.7-2.0) mmol/L Calcium (8.4-10.2) mg/dL Thrombosis Risk Factor Assmnt - Choose All That Apply Any of the Below Risk Factors Present?: Yes Each Factor Represents 1 point: Age 41-60 years, Medical pt on bed rest, Obesity (BMI >25) Other Risk Factors: Yes Each Risk Factor Represents 2 Points: Patient confined to bed Each Risk Factor Represents 3 Points: Age 75 years or older, History of DVT/PE Thrombosis Risk Factor Assessment Total Risk Factor Score: 11 Thrombosis Risk Factor Assessment Level: High Risk
[2024-11-05 13:11] VITALS: BMI 35.7
[2024-11-05] MEDS: fentaNYL (PF) 50 MCG/1 ML VIAL IVP ONE (14:15)
[2024-11-05] MEDS: MIDAZOLAM 2 MG/2 ML VIAL IVP ONE (14:15)
[2024-11-05] MEDS: LIDOCAINE 1% INJ 10MG/ML (20 ML MDV) SQ ONE (14:23)
[2024-11-05] MEDS: IOPAMIDOL-370 100ML BTL INJ ONE (14:59)
--- NOTE | 2024-11-05 15:58 | P.PN ---
Subjective This is a 78-year-old male patient of Dr. CHEN Jackson with a past medical history of coronary artery disease status post PCI of the RCA and circumflex in the setting of an anterior GA, hypertension, hyperlipidemia, COPD, lung cancer status post left lung resection followed by Dr. Prince, chronic PAD followed by Dr. Walden, chronic tobacco use and dependence. We have been asked to evaluate the patient for CAD and cardiac clearance for right lower extremity vascularization. Patient has history of right femorofemoral bypass and left femoropopliteal bypass. Patient states that he started feeling numbness in his right leg and soreness over the weekend. He denies any cold sensation. He came in to [facility] urgency center for evaluation. Patient was found to have occluded bypass on the right lower extremity and vascular saw the patient with recommendations for angiogram and right lower extremity vascularization which is scheduled for later today. Patient denies having any chest pain, chest pressure or tightness. He is able to walk a flight of stairs or over to his daughter's house with no significant shortness of breath. Patient is seen today in the emergency center waiting for bed on the cardiac stepdown unit. Blood pressure 150/82, heart rate 67, pulse ox 98% on room air. Patient has been started on heparin drip and IV fluids. -EKG: Sinus rhythm with sinus arrhythmia, right bundle branch block, 63 bpm -Laboratory studies: WBC 11.4, hemoglobin 15.4. Sodium 139. Initial potassium 6.7 followed by 5.1, BUN 25 initial creatinine 1.53 and now 1.44. Lactic acid 2.4. -Home cardiac medications: Aspirin 81 mg daily, atorvastatin 80 mg daily, losartan 50 mg daily, Plavix 75 mg daily. -Echocardiogram performed in the office 06/16/2024 revealed EF of 45%, small hypokinetic area of the inferior wall at the base to mid wall. Inferior lateral wall at the base and inferior septal wall at the base, mild MR, mild to moderate TR, IR VSP 43, LV chamber heavily trabeculated. -Cardiac catheterization performed 11/25/2019 revealed 99% stenosis of the RCA with thrombus. PTCA and stenting of the RCA with 3 LEONARD. Left circumflex was marginally disease stable but significant. -PCI of the circumflex with LEONARD. Moderate disease in the LAD. No intervention needed. -Lexiscan Cardiolite stress test performed in the office on 08/23/2023 revealed EF of 45%. Moderately sized moderate to severe intensity fixed defect with hypokinesis to involve the inferior wall. Old GA but no significant ischemia. 11/05 Patient seen and examined. Patient underwent lower extremity angiography with tPA catheter placement. Scheduled for recheck tomorrow. Denies any significant pain. Blood pressure mildly elevated with diastolics in the 90s. Denies any chest pain or pressure or shortness of breath. Physical examination: Gen: This is a 78-year-old male in no acute distress. VS: reviewed HEENT: Head is atraumatic, normocephalic. Pupils equal, round. Sclerae is anicteric. NECK: Supple. No JVD. LUNGS: Clear to auscultation. No wheezes or rhonchi. No intercostal retractions. HEART: Regular rate and rhythm. No murmur. ABDOMEN: Soft No tenderness. EXTREMITIES: No pedal edema. No calf tenderness. NEUROLOGICAL: Patient is awake, alert and oriented x3. Assessment: Occlusion of bypass graft Acute kidney injury Hyperkalemia, resolved lactic acidosis Coronary artery disease with previous PCI of the RCA and circumflex Hypertension Hyperlipidemia COPD Lung cancer status post left lung resection Chronic PAD Plan: Continue with current regimen. Monitor blood pressure closely. If blood pressure remains elevated may need to increase losartan. Further recommendations to follow. Objective - Vital Signs Vital signs: Vital Signs Temp 97.8 F 11/05/24 12:00 Pulse 55 L 11/05/24 13:00 Resp 14 11/05/24 13:00 BP 135/97 11/05/24 13:00 Pulse Ox 93 L 11/05/24 13:00 FiO2 Intake & Output 11/04/24 11/05/24 11/05/24 18:59 06:59 18:59 Intake Total 139.707 0598 836.167 Output Total 900 950 Balance 347.087 300 -113.833 Weight 107.1 kg 109.9 kg 109.9 kg Intake: IV 200 1200 740 Sodium Chloride 0.9% 1, 200 1200 640 000 ml @ 100 mls/hr IV . Q10H [facility] Rx#:[id number] Intake, IV Titration 147.087 96.167 Amount Alteplase 10 mg In Sodium 96.167 Chloride 0.9% 90 ml @ 1 MG/HR 10 mls/hr IA .Q10H [facility] Rx#:[id number] Heparin Sod,Pork in 0.45% 147.087 NaCl 25,000 unit In 0.45 % NaCl 1 250ml.bag @ 18 UNITS/KG/HR 19.269 mls/hr IV .[id number] [facility] Rx#: [id number] Output: Urine 900 950 Other: Voiding Method Urinal Urinal - Labs CBC & Chem 7: 11/05/24 05:47 11/05/24 05:47 Labs: Abnormal Lab Results - Last 24 Hours (Table) 11/04/24 11/04/24 11/05/24 Range/Units 16:57 16:57 00:51 RBC 4.24 L (4.30-5.90) m/uL MCV 102.7 H 102.4 H (80.0-100.0) fL MCHC 30.4 L (31.0-37.0) g/dL APTT 75.8 H (22.0-30.0) sec Fibrinogen (200-500) mg/dL Sodium (137-145) mmol/L BUN (9-20) mg/dL Creatinine (0.66-1.25) mg/dL AST (17-59) U/L Total Protein (6.3-8.2) g/dL Albumin (3.5-5.0) g/dL 11/05/24 11/05/24 11/05/24 Range/Units 00:51 05:47 05:47 RBC (4.30-5.90) m/uL MCV 101.4 H (80.0-100.0) fL MCHC (31.0-37.0) g/dL APTT (22.0-30.0) sec Fibrinogen (200-500) mg/dL Sodium 136 L (137-145) mmol/L BUN 21 H (9-20) mg/dL Creatinine 1.28 H (0.66-1.25) mg/dL AST 16 L (17-59) U/L Total Protein 5.8 L (6.3-8.2) g/dL Albumin 3.2 L (3.5-5.0) g/dL 11/05/24 Range/Units 05:47 RBC (4.30-5.90) m/uL MCV (80.0-100.0) fL MCHC (31.0-37.0) g/dL APTT (22.0-30.0) sec Fibrinogen 522 H (200-500) mg/dL Sodium (137-145) mmol/L BUN (9-20) mg/dL Creatinine (0.66-1.25) mg/dL AST (17-59) U/L Total Protein (6.3-8.2) g/dL Albumin (3.5-5.0) g/dL
--- NOTE | 2024-11-05 16:07 | P.OP ---
Date of Procedure: 11/05/24 Description of Procedure: Preoperative diagnosis: Previous right lower extremity acute limb ischemia, infusing tPA Postoperative diagnosis: Same Procedure: Angiogram via existing catheter Exchange of tPA catheter Monitor conscious sedation with personal monitoring certified RN administration x 27 minutes Surgeon: Miladis Haywood D.O. EBL: Less than 5 cc IV fluids: See records Urine output: Not measured Drains: None Complications none immediately apparent Condition: Stable Operative indication and findings: Patient is a 78-year-old male with a previous femoral to below-knee popliteal bypass with a vein. Last week he had issues with occlusion and yesterday was initiated on tPA thrombolysis. He returns today for recheck. His pain has improved mostly Procedure in detail: Patient was brought to the special suite and placed in supine position. The previously placed catheter and left groin were prepped and draped in usual sterile fashion. A preprocedural timeout was performed and all parties were in agreement. The wire was placed through the catheter. The catheter was removed. An angiogram was performed. The superficial femoral artery appeared patent. There was an area of moderate stenosis of the distal superficial femoral artery. The bypass appeared patent for the most part, there was an area of modest thrombus at the distal curl of the bypass. There was three-vessel runoff to the mid calf with diminutive vessels. After evaluation of the appearance of thrombus it did seem the best option would be to continue tPA at this location rather than being more aggressive with a balloon or stent due to the potential of embolization at this point. A shorter catheter was utilized to be focal at the area where the occlusive disease is here the patient will be brought back tomorrow for repeat imaging
--- NOTE | 2024-11-05 16:45 | IR ---
EXAMINATION TYPE: IR thrombolysis cath exchange DATE OF EXAM: 11/05/2024 COMPARISON: NONE HISTORY: Right femoral femoral bypass thrombosis TECHNIQUE: Fluoroscopy. FINDINGS: Fluoroscopic guidance was provided during thrombolysis catheter exchange procedure perform ed by Dr. Haywood. A total of 2.8 minutes of fluoroscopic time was utilized during the procedure and 0 spot images are sent to PACS. Total dose area product (DAP) in uGy*m?, mGy*cm? (or similar): 4.8080 . IMPRESSION: As Above. [facility], , 11/05/2024 4:42 PM
[2024-11-06] MEDS: LORazepam 2 MG/ML INJ IV PRN (02:26)
[2024-11-06 04:35] LABS: African American GFR (CKD) 72 (>60 ml/min/1.73 sqM); Anion Gap 4 mmol/L; Blood Urea Nitrogen 19 mg/dL (9-20); Calcium 9.9 mg/dL (8.4-10.2); Carbon Dioxide 25 mmol/L (22-30); Chloride 107 mmol/L (98-107); Glucose 107 mg/dL (74-99); Non-African American GFR(CKD) 63 (>60 ml/min/1.73 sqM); Potassium 4.6 mmol/L (3.5-5.1); Sodium 136 mmol/L (137-145)
[2024-11-06] MEDS: MORPHINE SULFATE 4 MG/ML SYRINGE IVP PRN (04:42)
[2024-11-06 07:04] VITALS: TEMP 97.9
[2024-11-06] MEDS: LIDOCAINE 1% INJ 10MG/ML (20 ML MDV) SQ ONE (09:46)
[2024-11-06] MEDS: IOPAMIDOL-370 100ML BTL INJ ONE (09:47)
[2024-11-06] MEDS: IV FLUID CONTINUATION 400 ML IV ONE (09:47)
--- NOTE | 2024-11-06 09:54 | P.OP ---
Date of Procedure: 11/06/24 Description of Procedure: Preoperative diagnosis: Previous right lower extremity acute limb ischemia, infusing tPA Postoperative diagnosis: Distal bypass stenosis Procedure: Angiogram via existing catheter, percutaneous balloon angioplasty of the distal bypass stenosis Surgeon: Jesus Walden DO EBL: Less than 5 cc IV fluids: See records Urine output: Not measured Drains: None Complications: none immediately apparent Condition: Stable Operative indication and findings: Patient is a 78-year-old male with a previous femoral to below-knee popliteal bypass with a vein. Last week he had issues with occlusion and yesterday was initiated on tPA thrombolysis. He returns today for recheck. His pain has improved and now has a pulse in his bypass. Procedure in detail: Patient was brought to the special suite and placed in supine position. The previously placed catheter and left groin were prepped and draped in usual sterile fashion. A preprocedural timeout was performed and all parties were in agreement. The wire was placed through the catheter. The catheter was removed. An angiogram was performed. The superficial femoral artery appeared patent. The bypass was patent but there was an area of stenosis at the distal aspect right at the curl of the bypass. There was three-vessel runoff to the mid calf with diminutive vessels. Due to the stenosis balloon angioplasty was performed with an 7 x 40 mm balloon. Final angiogram demonstrated brisk flow with three-vessel runoff to the mid portion of the calf and one-vessel to the foot. At that point all guidewires, catheters and sheath was removed and replaced with a short 5 Jamaican sheath and a Vascade was placed for hemostasis. Pressure was held and dressings were placed. Patient tolerated procedure well and had a palpable DP pulse on the right as well as pulses within the bypass bilaterally. He was sent to the floor for recovery.
--- NOTE | 2024-11-06 10:19 | IR ---
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 COMPARISON: None. FINDINGS: Fluoroscopic guidance was provided during angiogram with angioplasty procedure performed anais Walden. A total of 4.2 minutes of fluoroscopic time was utilized during the procedure and to 49 spot images was acquired. TOTAL DAP = [id number] IMPRESSION: As Above. [facility], , 11/06/2024 10:17 AM
--- NOTE | 2024-11-06 10:27 | P.PN ---
Subjective Progress Note Date: 11/05/24 HISTORY OF PRESENT ILLNESS: This is a 78-year-old white male with a previous medical history significant for coronary artery disease status post non-ST elevation [place] with poor continue his current intervention of the RCA back in November 2019, hypertension and hypertensive cardio vascular disease, hyperlipidemia, peripheral arterial disease status post left femoral popliteal bypass and right femoral-femoral bypass surgery, chronic tobacco use and dependence, history of cluster headache, history of GERD, history of peptic ulcer disease, patient presented to the hospital with increased pain in the right lower extremity, he had a CT angiogram that showed evidence of acute occlusion of the right femoral-popliteal bypass patient was taken to the OR underwent aortogram with right lower extremity runoff with selective right lower extremity angiogram with placement of throm bolytic catheter and initiation of thrombolysis patient was admitted to the ICU has been seen in consultation by vascular surgery as well as by cardiology. 11/05: Patient is laying down in bed in no apparent distress, he denies any chest pain, shortness of breath at the time, he is craving cigarettes, he has been smoking 1 and half pack a day we will place the patient on nicotine patch 21 mg once every day, follow-up with the patient very closely, continue current treatment plan, further evaluation recommendation as per vascular surgery. Review of systems: Constitutional: fever, chills, no night sweats. No weight change. positive for weakness, fatigue no lethargy. No daytime sleepiness. HEENT: Positive for headache. No blurred vision or double vision, no loss of vision. No loss of Hearing, no ringing in the ears, no dizziness. No nasal drainage or congestion. No epistaxis. No sore throat. Respiratory :positive for shortness of breath, positive for cough, minimal sputum production. Reports wheezing. Cardiovascular: Reported chest pain, no lower extremity edema. Reported palpitations. No paroxysmal nocturnal dyspnea. No orthopnea. No lightheadedness or dizziness. No syncopal episodes. Gastrointestinal: No abdominal pain. No nausea, vomiting. No diarrhea. No constipation. No bloody or tarry stools.. No loss of appetite. Genitourinary: No dysuria, increased frequency, urgency. No urinary retention. Musculoskeletal: No myalgias. No muscle weakness, no gait dysfunction, no frequent falls. No back pain. No neck pain, right leg pain Integumentary: No wounds, no lesions. No rash or pruritus. No unusual bruising. No change in hair or nails. Neurologic: No aphasia. No facial droop. No change in mentation. No head injury. No headache. No paralysis. No paresthesia. Psychiatric: No depression. No anxiety. No mood swings. Endocrine: No abnormal blood sugars. No weight change. No excessive sweating or thirst. No cold intolerance. Physical examination: Gen: This is a 78-year-old male Patient is resting in bed in no distress HEENT: Head is atraumatic, normocephalic. Pupils equal, round reactive to light and recommendation, extraocular muscle movement were intact, sclera nonicteric, conjunctivae were slightly pale, mucous membranes of the mouth are somewhat dry. NECK: Supple. No JVD. No lymphadenopathy. No thyromegaly. LUNGS: decreased breath sounds at the bases, few rhonchi, no expiratory wheezes, no intercostal retractions. No chest wall tenderness. HEART: First heart sound is depressed, second heart sound is normal, there is a 2/6 systolic ejection murmur at the left sternal border. ABDOMEN: Soft nontender, nondistended, positive bowel sounds. Extremities negative. EXTREMITIES: No pedal edema. No calf tenderness. Dorsalis pedis +1 bilaterally. NEUROLOGICAL: Patient is awake, alert and oriented x3. Cranial nerves 2 through 12 are grossly intact, muscle power 4 out of 5 in upper and lower extremities bilaterally. Assessment and plan: 1. Acute occlusion of the right femoral-popliteal bypass with critical limb ischemia status post angiogram with thrombolytic catheter placement and thrombolytics treatment. That was done successfully by Dr. Walden patient is being monitored in the intensive care unit at this point in time, maintain the patient on aspirin 81 mg once every day, continue pain management. 2. History of CAD post-the PCI of the RCA. Continue patient on aspirin 81 mg once every day, continue atorvastatin 80 mg once every day, patient was already seen by cardiology. 3. History of hyperlipidemia. Continue with atorvastatin 80 mg once every day. Keep LDL cholesterol 55-70. 4. History of PAD. Status post right fem-fem bypass and left femoral pop bypass currently occluded status post thrombolysis continue treatment plan as in 1 5. Chronic tobacco use and dependence. Start the patient on nicotine patch 21 mg once every day. 6. History of GERD and peptic ulcer disease. Start the patient on Protonix 40 mg orally once every day. 7. Enlarged prostate. Monitor for urinary retention. Continue patient on finasteride 5 mg once every day. 8. History of cluster headache. Stable at this time 9. History of spondylosis of the lumbar spine with chronic low back pain. Stable. Continue patient on hydrocodone as needed. 10. Moderate COPD. Continue patient on Symbicort 160/4.5 mcg 2 puffs inhalation twice every day, continue albuterol as needed for rescue inhaler continue Spiriva 1 capsule inhalation once every day. 11. History of osteoarthritis. Continue Tylenol as needed along with hydrocodone as needed. 11. DVT prophylaxis. Patient is currently on heparin drip. 12. GI prophylaxis. Continue Protonix 40 mg orally once every day. 13. We will continue to follow-up Objective - Vital Signs Vital signs: Vital Signs Temp 97.8 F 11/05/24 12:00 Pulse 55 L 11/05/24 12:00 Resp 15 11/05/24 12:00 BP 135/84 11/05/24 12:00 Pulse Ox 93 L 11/05/24 12:00 FiO2 Intake & Output 11/04/24 11/05/24 11/05/24 18:59 06:59 18:59 Intake Total 916.758 9522 736.167 Output Total 900 950 Balance 347.087 300 -213.833 Weight 107.1 kg 109.9 kg Intake: IV 200 1200 640 Sodium Chloride 0.9% 1, 200 1200 640 000 ml @ 100 mls/hr IV . Q10H DAVID Rx#:[id number] Intake, IV Titration 147.087 96.167 Amount Alteplase 10 mg In Sodium 96.167 Chloride 0.9% 90 ml @ 1 MG/HR 10 mls/hr IA .Q10H DAVID Rx#:[id number] Heparin Sod,Pork in 0.45% 147.087 NaCl 25,000 unit In 0.45 % NaCl 1 250ml.bag @ 18 UNITS/KG/HR 19.269 mls/hr IV .[id number] DAVID Rx#: [id number] Output: Urine 900 950 Other: Voiding Method Urinal Urinal - Labs CBC & Chem 7: 11/05/24 05:47 11/05/24 05:47 Labs: Abnormal Lab Results - Last 24 Hours (Table) 11/04/24 11/04/24 11/05/24 Range/Units 16:57 16:57 00:51 RBC 4.24 L (4.30-5.90) m/uL MCV 102.7 H 102.4 H (80.0-100.0) fL MCHC 30.4 L (31.0-37.0) g/dL APTT 75.8 H (22.0-30.0) sec Fibrinogen (200-500) mg/dL Sodium (137-145) mmol/L BUN (9-20) mg/dL Creatinine (0.66-1.25) mg/dL AST (17-59) U/L Total Protein (6.3-8.2) g/dL Albumin (3.5-5.0) g/dL 11/05/24 11/05/24 11/05/24 Range/Units 00:51 05:47 05:47 RBC (4.30-5.90) m/uL MCV 101.4 H (80.0-100.0) fL MCHC (31.0-37.0) g/dL APTT (22.0-30.0) sec Fibrinogen (200-500) mg/dL Sodium 136 L (137-145) mmol/L BUN 21 H (9-20) mg/dL Creatinine 1.28 H (0.66-1.25) mg/dL AST 16 L (17-59) U/L Total Protein 5.8 L (6.3-8.2) g/dL Albumin 3.2 L (3.5-5.0) g/dL 11/05/24 Range/Units 05:47 RBC (4.30-5.90) m/uL MCV (80.0-100.0) fL MCHC (31.0-37.0) g/dL APTT (22.0-30.0) sec Fibrinogen 522 H (200-500) mg/dL Sodium (137-145) mmol/L BUN (9-20) mg/dL Creatinine (0.66-1.25) mg/dL AST (17-59) U/L Total Protein (6.3-8.2) g/dL Albumin (3.5-5.0) g/dL
[2024-11-06 13:19] VITALS: BP 124/50; PULSE 58; RESP 8
--- NOTE | 2024-11-06 14:09 | P.PN ---
Progress Note - Text Progress Note Date: 11/06/24 Patient was seen in the ICU status post angiogram and tPA. He denies any pain in his right lower extremity. Right lower extremity is warm to the touch sensorimotor intact. No bleeding from the left groin, dressing with some old blood noted. Palpable DP pulse. Social work consulted to look into pricing of Xarelto for patient as patient does not have prescription coverage. He is tolerating his diet. Vital signs are stable. He is getting up to ambulate. He is cleared for discharge from vascular surgery. Pricing on Xarelto is over $500 a month. We will keep patient on aspirin 81 mg and Plavix 75 mg daily. Discussed with patient recommendation for smoking cessation, nicotine patch offered. [place] hotline offered. The impression and plan of care has been dictated as directed. I performed a history and examination of this patient, discussed the same with the dictator. I agree with the dictator's note ,documented as a scribe. Any additional findings or plans will be noted.
--- NOTE | 2024-11-06 16:38 | P.PN ---
Subjective This is a 78-year-old male patient of Dr. CHEN Jackson with a past medical history of coronary artery disease status post PCI of the RCA and circumflex in the setting of an anterior NC, hypertension, hyperlipidemia, COPD, lung cancer status post left lung resection followed by Dr. Prince, chronic PAD followed by Dr. Walden, chronic tobacco use and dependence. We have been asked to evaluate the patient for CAD and cardiac clearance for right lower extremity vascularization. Patient has history of right femorofemoral bypass and left femoropopliteal bypass. Patient states that he started feeling numbness in his right leg and soreness over the weekend. He denies any cold sensation. He came in to [facility] urgency center for evaluation. Patient was found to have occluded bypass on the right lower extremity and vascular saw the patient with recommendations for angiogram and right lower extremity vascularization which is scheduled for later today. Patient denies having any chest pain, chest pressure or tightness. He is able to walk a flight of stairs or over to his daughter's house with no significant shortness of breath. Patient is seen today in the emergency center waiting for bed on the cardiac stepdown unit. Blood pressure 150/82, heart rate 67, pulse ox 98% on room air. Patient has been started on heparin drip and IV fluids. -EKG: Sinus rhythm with sinus arrhythmia, right bundle branch block, 63 bpm -Laboratory studies: WBC 11.4, hemoglobin 15.4. Sodium 139. Initial potassium 6.7 followed by 5.1, BUN 25 initial creatinine 1.53 and now 1.44. Lactic acid 2.4. -Home cardiac medications: Aspirin 81 mg daily, atorvastatin 80 mg daily, losartan 50 mg daily, Plavix 75 mg daily. -Echocardiogram performed in the office 06/16/2024 revealed EF of 45%, small hypokinetic area of the inferior wall at the base to mid wall. Inferior lateral wall at the base and inferior septal wall at the base, mild MR, mild to moderate TR, IR VSP 43, LV chamber heavily trabeculated. -Cardiac catheterization performed 11/25/2019 revealed 99% stenosis of the RCA with thrombus. PTCA and stenting of the RCA with 3 LEONARD. Left circumflex was marginally disease stable but significant. -PCI of the circumflex with LEONARD. Moderate disease in the LAD. No intervention needed. -Lexiscan Cardiolite stress test performed in the office on 08/23/2023 revealed EF of 45%. Moderately sized moderate to severe intensity fixed defect with hypokinesis to involve the inferior wall. Old NC but no significant ischemia. 11/05 Patient seen and examined. Patient underwent lower extremity angiography with tPA catheter placement. Scheduled for recheck tomorrow. Denies any significant pain. Blood pressure mildly elevated with diastolics in the 90s. Denies any chest pain or pressure or shortness of breath. 11/06 Patient seen and examined. Patient underwent repeat angiogram as well as balloon angioplasty with improvement in thrombus. He denies any chest pain or pressure. No plans for any surgery. Blood pressure better controlled with predominantly systolics in the 120s. Physical examination: Gen: This is a 78-year-old male in no acute distress. VS: reviewed HEENT: Head is atraumatic, normocephalic. Pupils equal, round. Sclerae is anicteric. NECK: Supple. No JVD. LUNGS: Clear to auscultation. No wheezes or rhonchi. No intercostal retractions. HEART: Regular rate and rhythm. No murmur. ABDOMEN: Soft No tenderness. EXTREMITIES: No pedal edema. No calf tenderness. NEUROLOGICAL: Patient is awake, alert and oriented x3. Assessment: Occlusion of bypass graft Acute kidney injury Hyperkalemia, resolved lactic acidosis Coronary artery disease with previous PCI of the RCA and circumflex Hypertension Hyperlipidemia COPD Lung cancer status post left lung resection Chronic PAD PLAN Patient appears to be recovering from his acute limb ischemia. Blood pressure better controlled. Continue with current regimen. Cleared for discharge home from a cardiology standpoint. Objective - Vital Signs Vital signs: Vital Signs Temp 97.9 F 11/06/24 08:00 Pulse 58 L 11/06/24 13:00 Resp 8 L 11/06/24 13:00 BP 124/50 11/06/24 13:00 Pulse Ox 92 L 11/06/24 13:00 FiO2 Intake & Output 11/05/24 11/06/24 11/06/24 18:59 06:59 18:59 Intake Total 6687.319 6507 1405 Output Total 2060 1700 775 Balance -331.666 -207 630 Weight 109.9 kg 107 kg Intake: IV 1180 1320 685 Sodium Chloride 0.9% 1, 1080 1320 660 000 ml @ 100 mls/hr IV . Q10H DAVID Rx#:[id number] Intake, IV Titration 188.334 98 Amount Alteplase 10 mg In Sodium 188.334 98 Chloride 0.9% 90 ml @ 1 MG/HR 10 mls/hr IA .Q10H DAVID Rx#:[id number] Oral 360 75 720 Output: Urine 2060 1700 775 Other: Voiding Method Urinal Urinal Urinal # Voids 0 1 1 - Labs CBC & Chem 7: 11/05/24 05:47 11/06/24 03:04 Labs: Abnormal Lab Results - Last 24 Hours (Table) 11/06/24 Range/Units 03:04 Sodium 136 L (137-145) mmol/L Glucose 107 H (74-99) mg/dL
--- NOTE | 2024-11-08 11:41 | P.DS ---
Providers Date of admission: 11/04/24 10:52 Expected date of discharge: 12/04/24 Attending physician: Summer Jansen Consults: 11/04/24 10:50 Consult Physician Routine Consulting Provider: Jesus Walden Consult Reason/Comments: Occluded bypass Do you want consulting provider notified?: Already Contacted 11/04/24 11:07 Consult Physician Routine Consulting Provider: Carlos Roman Consult Reason/Comments: CAD, cardiac clearance RLE vascularization Do you want consulting provider notified?: Yes Primary care physician: Summer Jansen Hospital Course: HISTORY OF PRESENT ILLNESS: This is a 78-year-old white male with a previous medical history significant for coronary artery disease status post non-ST elevation [place] with poor continue his current intervention of the RCA back in November 2019, hypertension and hypertensive cardio vascular disease, hyperlipidemia, peripheral arterial disease status post left femoral popliteal bypass and right femoral-femoral bypass surgery, chronic tobacco use and dependence, history of cluster headache, history of GERD, history of peptic ulcer disease, patient presented to the hospital with increased pain in the right lower extremity, he had a CT angiogram that showed evidence of acute occlusion of the right femoral-popliteal bypass patient was taken to the OR underwent aortogram with right lower extremity runoff with selective right lower extremity angiogram with placement of thrombolytic catheter and initiation of thrombolysis patient was admitted to the ICU has been seen in consultation by vascular surgery as well as by cardiology. 11/05: Patient is laying down in bed in no apparent distress, he denies any chest pain, shortness of breath at the time, he is craving cigarettes, he has been smoking 1 and half pack a day we will place the patient on nicotine patch 21 mg once every day, follow-up with the patient very closely, continue current treatment plan, further evaluation recommendation as per vascular surgery. 11/06: Patient went to the [facility] for the third time because of clotting of the right femoral popliteal bypass and had thrombolytic catheter placement and removal it was recommended by vascular surgery the patient be started on triple anticoagulation in the form of aspirin and Plavix as well as Xarelto however due to his insurance not covering Xarelto patient will be staying on aspirin and Plavix for now, he will be discharging home in stable condition to follow-up with vascular surgery as an outpatient in the next week or so follow-up with me as an outpatient 1 week. Discharge diagnoses: 1. Acute occlusion of the right femoral-popliteal bypass with critical limb ischemia status post angiogram with thrombolytic catheter placement and thrombolytics treatment x 3. 2. History of CAD post-the PCI of the RCA. 3. History of hyperlipidemia. 4. History of PAD. 5. Chronic tobacco use and dependence. 6. History of GERD and peptic ulcer disease. 7. Enlarged prostate. 8. History of cluster headache. 9. History of spondylosis of the lumbar spine with chronic low back pain. 10. Moderate COPD. 11. History of osteoarthritis. Patient Condition at Discharge: Stable Plan - Discharge Summary Discharge Rx Participant: Yes New Discharge Prescriptions: New Losartan [Cozaar] 50 mg PO DAILY #30 tab Continue Albuterol Sulfate [Albuterol Sulfate Hfa] 1 puff PO RT-Q6H PRN PRN Reason: Shortness Of Breath Cholecalciferol [Vitamin D3 (25 Mcg = 1000 Iu)] 25 mcg PO DAILY Aspirin EC [Ecotrin Low Dose] 81 mg PO DAILY Clopidogrel [Plavix] 75 mg PO HS #30 tab Ascorbic Acid [Vitamin C] 500 mg PO DAILY Finasteride [Proscar] 5 mg PO DAILY Atorvastatin [Lipitor] 80 mg PO HS Zinc Sulfate [Orazinc] 220 mg PO DAILY Esomeprazole Magnesium [NexIUM] 20 mg PO DAILY Budesonide/Glycopyr/Formoterol [Breztri Aerosphere Inhaler] 2 puff INHALATION RT-BID Discharge Medication List Albuterol Sulfate [Albuterol Sulfate Hfa] 1 puff PO RT-Q6H PRN 11/04/24 [History] Ascorbic Acid [Vitamin C] 500 mg PO DAILY 11/04/24 [History] Aspirin EC [Ecotrin Low Dose] 81 mg PO DAILY 11/04/24 [History] Atorvastatin [Lipitor] 80 mg PO HS 11/04/24 [History] Budesonide/Glycopyr/Formoterol [Breztri Aerosphere Inhaler] 2 puff INHALATION RT-BID 11/04/24 [History] Cholecalciferol [Vitamin D3 (25 Mcg = 1000 Iu)] 25 mcg PO DAILY 11/04/24 [History] Esomeprazole Magnesium [NexIUM] 20 mg PO DAILY 11/04/24 [History] Finasteride [Proscar] 5 mg PO DAILY 11/04/24 [History] Zinc Sulfate [Orazinc] 220 mg PO DAILY 11/04/24 [History] Clopidogrel [Plavix] 75 mg PO HS #30 tab 11/06/24 [Rx] Losartan [Cozaar] 50 mg PO DAILY #30 tab 11/06/24 [Rx] Follow up Appointment(s)/Referral(s): Summer Jansen MD [Primary Care Provider] - 11/13/24 1:15 pm Jesus Walden DO [STAFF PHYSICIAN] - 11/25/24 2:15 pm [facility] Visiting Nurse, [NON-STAFF] - 1 Week Patient Instructions/Handouts: Peripheral Vascular Disease (DC) Activity/Diet/Wound Care/Special Instructions: No driving for two days. Avoid heavy lifting greater than 10 lbs , pushing, pulling, straining, flights of stairs for three days. ok to shower tomorrow but no baths, pools, soaking in tubs for three days to avoid risk of infection. signs of infection ie: fever, rash, drainage from puncture site, swelling contact doctor or return to ER immediately. Heavy bleeding from puncture site apply firm direct pressure and return to ER. Do not attempt to drive self. low sodium/low fat diet Discussed with patient importance of smoking cessation. Patient offered nicotine patch, however declined. Quit smoking hotline 1 800 quit-now given to patient. Discharge Disposition: HOME WITH HOME HEALTH SERVICES
== END 2024-11-06 17:43 | disposition home health service (06) | DRG 279 ==
LOC: EC 09:36 → 3SCARD 10:52 → 2SICU 16:11
PROVIDERS: ADMIT Internal Medicine; ATTEND Internal Medicine
PROC: 3E05317 Introduction of Other Thrombolytic into Peripheral Artery, Percutaneous Approach (ICD-10-PCS; principal; 2024-11-04 18:45)
PROC: B41F1ZZ Fluoroscopy of Right Lower Extremity Arteries using Low Osmolar Contrast (ICD-10-PCS; principal; 2024-11-04 18:45)
PROC: 04FK3Z0 Fragmentation of Right Femoral Artery, Percutaneous Approach, Ultrasonic (ICD-10-PCS; principal; 2024-11-04 18:45)
PROC: 047K3ZZ Dilation of Right Femoral Artery, Percutaneous Approach (ICD-10-PCS; 2024-11-06 11:45)
PROC: B41F1ZZ Fluoroscopy of Right Lower Extremity Arteries using Low Osmolar Contrast (ICD-10-PCS; 2024-11-06 11:45)
DX: T82.898A Other specified complication of vascular prosthetic devices, implants and grafts, initial encounter (principal); E87.20 Acidosis, unspecified; I70.221 Atherosclerosis of native arteries of extremities with rest pain, right leg; J44.9 Chronic obstructive pulmonary disease, unspecified; E66.9 Obesity, unspecified; I11.9 Hypertensive heart disease without heart failure; Q60.0 Renal agenesis, unilateral; N17.9 Acute kidney failure, unspecified; Z68.34 Body mass index [BMI] 34.0-34.9, adult; I25.10 Atherosclerotic heart disease of native coronary artery without angina pectoris; E78.5 Hyperlipidemia, unspecified; E87.5 Hyperkalemia; F17.210 Nicotine dependence, cigarettes, uncomplicated; K21.9 Gastro-esophageal reflux disease without esophagitis; G44.009 Cluster headache syndrome, unspecified, not intractable; M47.816 Spondylosis without myelopathy or radiculopathy, lumbar region; G89.29 Other chronic pain; N40.0 Benign prostatic hyperplasia without lower urinary tract symptoms; M25.551 Pain in right hip; M19.042 Primary osteoarthritis, left hand; M19.041 Primary osteoarthritis, right hand; I45.10 Unspecified right bundle-branch block; G47.30 Sleep apnea, unspecified; Y83.2 Surgical operation with anastomosis, bypass or graft as the cause of abnormal reaction of the patient, or of later complication, without mention of misadventure at the time of the procedure; Z95.5 Presence of coronary angioplasty implant and graft; Z85.118 Personal history of other malignant neoplasm of bronchus and lung; Z79.899 Other long term (current) drug therapy; Z79.82 Long term (current) use of aspirin; Z79.51 Long term (current) use of inhaled steroids; Z79.02 Long term (current) use of antithrombotics/antiplatelets; I25.2 Old myocardial infarction; Z91.041 Radiographic dye allergy status
CPT/HCPCS: 36247; 36415; 37211; 37213; 37214; 37224; 75625; 75710; 76937; 80048; 80053; 82565; 83605; 83735; 84520; 85025; 85384; 85610; 85730; 86850; 86900; 86901; 93005; 94640; 96365; 96366; 99291

== ENCOUNTER → 2024-11-21 | Outpatient (CLI) | payer MEDICARE ==
--- NOTE | 2024-11-21 17:23 | CT ---
EXAMINATION TYPE: CT chest wo con CT DLP: 612.5 mGycm, Automated exposure control for dose reduction was used. DATE OF EXAM: 11/21/2024 4:53 PM COMPARISON: CT chest abdomen 03/07/2024, CT chest 08/03/2023, 07/17/2023, 11/24/2019, PET CT 07/26/2023 CLINICAL INDICATION:Male, 79 years old with history of C34.90 MALIGNANT NEOPLASM OF UNSP PART OF UNSP BRO; PHH, f/u lung ca TECHNIQUE: Multiple axial images were obtained through the chest without IV contrast. Lack of IV or o ral contrast limits evaluation of solid and hollow organ viscera. . Coronal and sagittal reformats re viewed. Findings: CHEST: LUNGS/ PLEURA: Mild to moderate bilateral upper lobe predominant centrilobular and paraseptal emphyse matous changes. Bilateral lower lobe dependent subsegmental atelectasis. No pleural effusion, pneumot horax, focal consolidation. Postoperative changes of the left lower lobe without evidence for recurre nt mass. No new suspicious pulmonary nodularity. AIRWAY: Patent and unremarkable.. HEART: Mildly enlarged. No pericardial effusion. Moderate three-vessel coronary artery calcifications . Aortic valvular calcifications. MEDIASTINUM: No enlarged lymph nodes greater than 1 cm in the short axis. VASCULATURE: No aortic aneurysm. Mild to moderate atherosclerotic calcification of the aorta and its branches. MUSCULOSKELETAL: No acute osseous abnormalities. No aggressive osseous lesion. Mild multilevel degene rative disc disease. SOFT TISSUES/LYMPH NODES: Minimal bilateral gynecomastia. LOWER NECK: No significant findings. UPPER ABDOMEN: Atrophy with cortical calcification of the right kidney. Compensatory hypertrophy of t he left kidney with renal vascular calcifications. IMPRESSION: 1. Post surgical changes of the left lower lobe without evidence recurrent mass or adenopathy. 2. Mild to moderate emphysematous changes. [facility], , 11/21/2024 5:20 PM
== END | disposition home or self-care (01) ==
LOC: RADCTMAIN 16:29
PROVIDERS: ATTEND Internal Medicine Critical Care Medicine
DX: C34.90 Malignant neoplasm of unspecified part of unspecified bronchus or lung (principal); J43.9 Emphysema, unspecified; Z98.890 Other specified postprocedural states
CPT/HCPCS: 71250

== ENCOUNTER → 2025-03-24 | Outpatient (CLI) | payer MEDICARE ==
--- NOTE | 2025-03-24 15:15 | US ---
EXAMINATION TYPE: US venous doppler duplex LE DATE OF EXAM: 03/24/2025 2:51 PM COMPARISON: NONE CLINICAL INDICATION: Male, 79 years old with history of R60.0 LOCALIZED EDEMA; Bilat swelling x 2 wee ks, pt is unsure of hx of dvt, currently on thinners, pt does have hx of Left femoral tibial bypass s tenosis TECHNIQUE: The lower extremity deep venous system is examined utilizing real time linear array sonog nilson with graded compression, doppler sonography and color-flow sonography. Grayscale, color doppler , spectral doppler imaging performed of the deep veins of the lower extremities FINDINGS: SIDE PERFORMED: Bilateral VESSELS IMAGED: Common Femoral Vein Deep Femoral Vein Greater Saphenous Vein * Femoral Vein Popliteal Vein Small Saphenous Vein * Proximal Calf Veins (* superficial vessels) Right Leg: appears negative for DVT; There is normal flow, compressibility, vascular waveforms. Calf veins not well visualized due to edema Left Leg: appears negative for DVT; There is normal flow, compressibility, vascular waveforms. Left GSV not well seen, pt states Left GSV was possibly stripped during bypass Calf veins not well visualized due to edema IMPRESSION: No evidence for deep vein thrombosis. [facility], , 03/24/2025 3:13 PM
[2025-03-24 19:25] LABS: HCT 43.6 % (39.6-50.0); HGB 13.7 g/dL (13.0-17.0); MCH 31.4 pg (27.0-32.0); MCHC 31.4 g/dL (32.0-37.0); MCV 99.8 FL (80.0-97.0); NRBC Per 100 WBC 0 X 10*3/uL (0.00-0.01); Platelet Count 233 X 10*3/uL (140-440); RBC 4.37 X 10*6/uL (4.40-5.60); RDW 14.7 % (11.5-14.5); WBC 10.36 X 10*3/uL (4.50-10.00)
[2025-03-24 22:34] LABS: NT-Pro-B-Type Natriuretic Pept 169 pg/mL (0-450)
[2025-03-24 23:03] LABS: ALT 17 U/L (10-49); AST 20 U/L (14-35); Albumin 4.2 g/dL (3.8-4.9); Albumin/Globulin Ratio 2.10 Ratio (1.60-3.17); Alkaline Phosphatase 117 U/L (41-126); Anion Gap 18.10 mmol/L (4.00-12.00); BUN/Creat Ratio 12.43 Ratio (12.00-20.00); Blood Urea Nitrogen 17.4 mg/dL (9.0-27.0); Calcium 10.1 mg/dL (8.7-10.3); Carbon Dioxide 18.9 mmol/L (21.6-31.8); Chloride 105 mmol/L (96-109); Cholesterol 136.00 mg/dL (0.00-200.00); Creatine Kinase 161 U/L (35-257); Globulin 2.0 g/dL (1.6-3.3); Glucose 87 mg/dL (70-110); HDL Cholesterol 28.30 mg/dL (40.00-60.00); LDL Cholesterol,Calculated 66.5 mg/dL (0.0-131.0); Magnesium 2.0 mg/dL (1.5-2.4); Potassium 4.6 mmol/L (3.5-5.5); Sodium 142 mmol/L (135-145); Total Protein 6.2 g/dL (6.2-8.2); Triglycerides 206.00 mg/dL (0.00-149.00); Uric Acid 6.1 mg/dL (3.7-8.7); VLDL Calculation 41.20 mg/dL (5.00-40.00)
== END | disposition home or self-care (01) ==
LOC: RADUSWWP 14:24
PROVIDERS: ATTEND Internal Medicine
DX: R60.0 Localized edema (principal); I10 Essential (primary) hypertension; E78.2 Mixed hyperlipidemia; R73.01 Impaired fasting glucose; E55.9 Vitamin D deficiency, unspecified
CPT/HCPCS: 80053; 80061; 82306; 82550; 83036; 83735; 83880; 84443; 84550; 85027; 85379; 93970